=== PATIENT | male | born 1940 | race Caucasian/White ===

== ENCOUNTER 2018-08-03 15:55 | Emergency (ER) | payer OTHER ==
--- NOTE | 2018-08-03 17:30 | RAD REPORT ---
EXAM DESCRIPTION: CT - CTHCSPWOC - 08/03/2018 5:01 pm CLINICAL HISTORY: Fall, head injury, neck injury COMPARISON: None. TECHNIQUE: Axial 5 mm thick images of the head were obtained. Axial 2 mm thick images of the cervic al spine were obtained with sagittal and coronal reconstruction images generated and reviewed. All CT scans are performed using dose optimization technique as appropriate and may include automated exposure control or mA/KV adjustment according to patient size. FINDINGS: No intracranial hemorrhage, mass, edema or acute intracranial finding. No suspicion for acute infarct ion. Mild atrophy chronic ischemic changes. Ventricles are in proportion to volume loss. Mastoid air cells and paranasal sinuses are clear. No globe or orbit abnormality seen. Cervical bodies are normal in height. No fracture or acute cervical spine finding. Slight anterior brice bluxation of C4 on C5 and C5 on C6 secondary to facet joint degenerative change. C5-6 disc space narr owing with endplate spurring. Significant left bony foraminal encroachment at C3-4 from uncovertebral joint hypertrophy and facet hypertrophy. Bilateral foraminal stenosis at C4-5 and significantly at C 5-6. Central canal detail is inherently limited. No paraspinal mass or hematoma. IMPRESSION: Mild atrophy and chronic ischemic change. No acute intracranial finding. Advanced cervical spine degenerative change as detailed. No acute finding.
--- NOTE | 2018-08-03 17:50 | RAD REPORT ---
EXAM DESCRIPTION: RAD - Chest Single View - 08/03/2018 5:21 pm CLINICAL HISTORY: Fall, chest pain COMPARISON: None. TECHNIQUE: AP portable chest image was obtained 1706 hours . FINDINGS: No focal infiltrate. Fibrotic lung changes are present. Prominent bullous changes are pres ent in the mid and upper lung mock. Trachea is midline. Heart and vasculature are normal. No measur able pleural effusion and no pneumothorax. No acute bony abnormality seen. No acute aortic findings s uspected. 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 Fibrotic changes present i n the lung bases. No acute cardiopulmonary finding.
--- NOTE | 2018-08-03 17:51 | RAD REPORT ---
EXAM DESCRIPTION: RAD - Lumbar Spine 3 Views - 08/03/2018 5:21 pm COMPARISON: Fall, back pain FINDINGS: A three-view lumbar spine examination was performed. Lumbar bodies are normal in height an d alignment. No fracture or acute bony process seen. L4-5 disc space narrowing is present with associ ated endplate spurring. Moderate facet joint degenerative changes are present in the mid and lower viky mbar spine. No pars defects identified. IMPRESSION: No fracture or acute lumbar spine finding. Significant degenerative change in the facet joints and at the L4-5 disc level.
--- NOTE | 2018-08-03 18:53 | EDPHYS ---
Physician Documentation [facility] Name: Tony Winston Age: 78 yrs Sex: Male : 1940 Arrival Date: 08/03/2018 Time: 15:58 Bed 28 Private MD: ED Physician Osmel Zapien HPI: 08/03 16:47 This 78 yrs old Male presents to ER via Ambulatory with complaints of Fall snw Injury. 16:47 Details of fall: The patient fell from an upright position, while standing. Onset: The snw symptoms/episode began/occurred suddenly, last night. Associated injuries: The patient sustained struck right elbow on wall and landed on buttock. Severity of symptoms: At their worst the symptoms were mild. It is unknown whether or not the patient has had similar symptoms in the past. It is unknown whether or not the patient has recently seen a physician. sees oncology . Historical: - Allergies: 16:02 No Known Allergies; hj - PMHx: 16:02 kidney cancer; Hypertension; Diabetes - NIDDM; hj - PSHx: 16:02 kidney cancer surgery; hj - Immunization history:: Flu vaccine status is unknown. - Social history:: Smoking status: unknown. - Ebola Screening: : No symptoms or risks identified at this time. ROS: 16:47 Constitutional: Negative for fever, chills, and weight loss, Eyes: Negative for injury, snw pain, redness, and discharge, ENT: Negative for injury, pain, and discharge, Neck: Negative for injury, pain, and swelling, Cardiovascular: Negative for chest pain, palpitations, and edema, Respiratory: Negative for shortness of breath, cough, wheezing, and pleuritic chest pain, Abdomen/GI: Negative for abdominal pain, nausea, vomiting, diarrhea, and constipation, Back: Negative for injury and pain, : Negative for injury, bleeding, discharge, and swelling, Skin: Negative for injury, rash, and discoloration, Neuro: Negative for headache, weakness, numbness, tingling, and seizure. 16:47 MS/extremity: Positive for injury or acute deformity, paresthesias, of the right arm and right elbow. Exam: 16:46 Constitutional: This is a well developed, well nourished patient who is awake, alert, snw and in no acute distress. Head/Face: Normocephalic, atraumatic. Eyes: Pupils equal round and reactive to light, extra-ocular motions intact. Lids and lashes normal. Conjunctiva and sclera are non-icteric and not injected. Cornea within normal limits. Periorbital areas with no swelling, redness, or edema. ENT: Nares patent. No nasal discharge, no septal abnormalities noted. Tympanic membranes are normal and external auditory canals are clear. Oropharynx with no redness, swelling, or masses, exudates, or evidence of obstruction, uvula midline. Mucous membranes moist. Neck: Trachea midline, no thyromegaly or masses palpated, and no cervical lymphadenopathy. Supple, full range of motion without nuchal rigidity, or vertebral point tenderness. No Meningismus. Chest/axilla: Normal chest wall appearance and motion. Nontender with no deformity. No lesions are appreciated. Cardiovascular: Regular rate and rhythm with a normal S1 and S2. No gallops, murmurs, or rubs. Normal PMI, no JVD. No pulse deficits. Respiratory: Lungs have equal breath sounds bilaterally, clear to auscultation and percussion. No rales, rhonchi or wheezes noted. No increased work of breathing, no retractions or nasal flaring. Abdomen/GI: Soft, non-tender, with normal bowel sounds. No distension or tympany. No guarding or rebound. No evidence of tenderness throughout. Back: No spinal tenderness. No costovertebral tenderness. Full range of motion. MS/ Extremity: Pulses equal, no cyanosis. Neurovascular intact. Full, normal range of motion. Pt states right hand is not as responsive as normal, decreased coordination per pt report Neuro: Awake and alert, GCS 15, oriented to person, place, time, and situation. Cranial nerves II-XII grossly intact. Motor strength 5/5 in all extremities. Sensory grossly intact. Cerebellar exam normal. Normal gait. Psych: Awake, alert, with orientation to person, place and time. Behavior, mood, and affect are within normal limits. 16:46 Skin: Appearance: normal except for affected area, injury, contusion(s), that are deep, of the right tricep and right elbow. Vital Signs: 16:02 BP 118 / 72; Pulse 83; Resp 18; Temp 98.1(O); Pulse Ox 96% on R/A; Weight 82.1 kg; hj Height 5 ft. 11 in. (180.34 cm); Pain 0/10; 18:22 BP 134 / 87; Pulse 72; Resp 18; Pulse Ox 96% on R/A; Pain 0/10; mg2 19:14 BP 158 / 67; Pulse 72; Resp 18; Temp 98; Pulse Ox 98% on R/A; Pain 0/10; mg2 16:02 Body Mass Index 25.24 (82.10 kg, 180.34 cm) MDM: 16:04 Patient medically screened. snw 18:54 Data reviewed: vital signs, nurses notes. Data interpreted: Pulse oximetry: on room air snw is 96 %. Interpretation: acceptable. Counseling: I had a detailed discussion with the patient and/or guardian regarding: the historical points, exam findings, and any diagnostic results supporting the discharge/admit diagnosis, radiology results, the need for outpatient follow up, to return to the emergency department if symptoms worsen or persist or if there are any questions or concerns that arise at home. Response to treatment: There is no appreciated change of the patient's symptoms at this time. Special discussion: I have referred the patient to see his PCP for further evaluation of high blood pressure. Based on the patient's history, exam and DX evaluation, there is no indication for emergent intervention or inpatient TX. It is understood by the patient/guardian that if the SXs persist or worsen they need to return immediately for re-evaluation. Based on the history and exam findings, there is no indication for further emergent testing or inpatient evaluation. I discussed with the patient/guardian the need to see the neurologist for further evaluation of the symptoms. I discussed with the patient/guardian the need to see the orthopedic surgeon for further evaluation of the symptoms. I discussed with the patient/guardian the need to see the primary care provider for further evaluation of the symptoms. 08/03 16:05 Order name: CT Head C Spine; Complete Time: 17:34 snw 08/03 16:50 Order name: Lumbar Spine (3 Views) XRAY; Complete Time: 17:54 snw 08/03 16:50 Order name: Wound Care; Complete Time: 18:23 snw 08/03 16:50 Order name: Wound dressing; Complete Time: 18:23 snw 08/03 16:50 Order name: Chest Single View XRAY; Complete Time: 17:54 snw Administered Medications: No medications were administered Disposition: 08/04 07:04 Co-signature as Attending Physician, Osmel Zapien MD. rn Disposition: 08/03/18 18:52 Discharged to Home. Impression: Fall on same level, unspecified, Contusion of right upper arm, Contusion of right elbow, Radiculopathy, cervical region. - Condition is Stable. - Discharge Instructions: Contusion, Cervical Radiculopathy, Fall Prevention in the Home, Elbow Contusion, Cervical Sprain, Cryotherapy, Heat Therapy, Radicular Pain. - Prescriptions for orphenadrine citrate 100 mg Oral Tablet Sustained Release - take 1 tablet by ORAL route 2 times per day As needed; 20 tablet. - Medication Reconciliation Form, Thank You Letter, Antibiotic Education, Prescription Opioid Use form. - Follow up: Private Physician; When: 1 - 2 days; Reason: Recheck today's complaints, Continuance of care, Re-evaluation by your physician. Follow up: Emergency Department; When: As needed; Reason: Worsening of condition. Signatures: Dispatcher [employer] EDMS Юлия Vale, HIGH SCHOOL VICE PRINCIPAL-C HIGH SCHOOL VICE PRINCIPAL-Csnw Osmel Zapien MD MD rn Joaquin, Henry, RN RN hj Gardose, Michele, RN RN mg2 Corrections: (The following items were deleted from the chart) 08/03 19:17 18:52 08/03/2018 18:52 Discharged to Home. Impression: Fall on same level, unspecified; mg2 Contusion of right upper arm; Contusion of right elbow; Radiculopathy, cervical region. Condition is Stable. Forms are Medication Reconciliation Form, Thank You Letter, Antibiotic Education, Prescription Opioid Use. Follow up: Private Physician; When: 1 - 2 days; Reason: Recheck today's complaints, Continuance of care, Re-evaluation by your physician. Follow up: Emergency Department; When: As needed; Reason: Worsening of condition. snw
--- NOTE | 2018-08-03 18:53 | ER ---
Nurse's Notes [facility] Name: Tony Winston Age: 78 yrs Sex: Male : 1940 Arrival Date: 08/03/2018 Time: 15:58 Bed 28 Private MD: Diagnosis: Fall on same level, unspecified;Contusion of right upper arm;Contusion of right elbow;Radiculopathy, cervical region Presentation: 08/03 15:59 Presenting complaint: Patient states: i fell last night around 11:30 pm from a standing hj position, walking and hurt my R side and my tail bone and today my R arm is numbed,; denies hitting head and LOC; reports hx of kidney cancer; reports taking Eliquis;. Transition of care: patient was not received from another setting of care. Onset of symptoms was August 03, 2018. Risk Assessment: Do you want to hurt yourself or someone else? Patient reports no desire to harm self or others. Initial Sepsis Screen: Does the patient meet any 2 criteria? No. Patient's initial sepsis screen is negative. Does the patient have a suspected source of infection? No. Patient's initial sepsis screen is negative. Care prior to arrival: None. 15:59 Method Of Arrival: Ambulatory 15:59 Acuity: JACQUELINE 4 hj Triage Assessment: 19:16 Pain: Denies pain. mg2 Historical: - Allergies: 16:02 No Known Allergies; hj - PMHx: 16:02 kidney cancer; Hypertension; Diabetes - NIDDM; hj - PSHx: 16:02 kidney cancer surgery; hj - Immunization history:: Flu vaccine status is unknown. - Social history:: Smoking status: unknown. - Ebola Screening: : No symptoms or risks identified at this time. Screenin:16 Abuse screen: Denies threats or abuse. Denies injuries from another. Nutritional mg2 screening: No deficits noted. Tuberculosis screening: No symptoms or risk factors identified. Fall Risk Fall in past 12 months (25 points). Gait- Weak (10 pts.). Assessment: 17:16 General: Appears in no apparent distress. comfortable, Behavior is calm, cooperative. mg2 Neuro: Level of Consciousness is awake, alert, obeys commands, Oriented to person, place, time, situation. Cardiovascular: Capillary refill < 3 seconds Patient's skin is warm and dry. Respiratory: Airway is patent Respiratory effort is even, unlabored, Respiratory pattern is regular, symmetrical. GI: No signs and/or symptoms were reported involving the gastrointestinal system. : No signs and/or symptoms were reported regarding the genitourinary system. EENT: No signs and/or symptoms were reported regarding the EENT system. Derm: Derm: Skin is thin, has skin tears on right arm Wound noted right arm Wound is abrasion. Musculoskeletal: Circulation, motion, and sensation intact. Capillary refill < 3 seconds. 17:18 Reassessment: patient sent to ct scan via stretcher. mg2 18:00 Injury Description: Abrasion. mg2 Vital Signs: 16:02 BP 118 / 72; Pulse 83; Resp 18; Temp 98.1(O); Pulse Ox 96% on R/A; Weight 82.1 kg; hj Height 5 ft. 11 in. (180.34 cm); Pain 0/10; 18:22 BP 134 / 87; Pulse 72; Resp 18; Pulse Ox 96% on R/A; Pain 0/10; mg2 19:14 BP 158 / 67; Pulse 72; Resp 18; Temp 98; Pulse Ox 98% on R/A; Pain 0/10; mg2 16:02 Body Mass Index 25.24 (82.10 kg, 180.34 cm) ED Course: 15:58 Patient arrived in ED. hj 15:59 [facility] snw 15:59 Osmel Zapien MD is Attending Physician. snw 16:01 Triage completed. hj 16:02 Arm band placed on left wrist. hj 16:38 Kemar Culver, RACHEL is Primary Nurse. mg2 17:03 CT Head C Spine In Process Unspecified. EDMS 17:14 Lumbar Spine (3 Views) XRAY In Process Unspecified. EDMS 17:14 Chest Single View XRAY In Process Unspecified. EDMS 17:17 Patient has correct armband on for positive identification. Door closed. Warm blanket mg2 given. 17:17 No provider procedures requiring assistance completed. Patient did not have IV access mg2 during this emergency room visit. 18:22 Wound care: to abrasion, located on right arm was cleaned with Betadine, dressed with mg2 Neosporin, 4X4s, Patient tolerated well. Administered Medications: No medications were administered Outcome: 18:52 Discharge ordered by MD. rocha 19:16 Discharged to home via wheelchair, with family. mg2 19:16 Condition: stable 19:16 Discharge instructions given to patient, family, Instructed on discharge instructions, follow up and referral plans. medication usage, wound care, Demonstrated understanding of instructions, follow-up care, medications, wound care, Prescriptions given X 1. 19:17 Patient left the ED. mg2 Signatures: Dispatcher [employer] EDMS Юлия Vale, HARINDER-C CLOTHING ROOM SUPERVISOR-CsnWalter Chappell, RN RN Kemar Culver RN RN mg2 Corrections: (The following items were deleted from the chart) 16:04 16:02 Pulse 83bpm; Resp 18bpm; Pulse Ox 96% RA; Temp 98.1F Oral; 82.1 kg; Height 5 ft. hj 11 in.; BMI: 25.2; Pain 0/10; 16:05 15:59 Presenting complaint: Patient states: i fell last night around 11:30 pm from a hj standing position, walking and today my R arm is numbed; denies hitting head and LOC hj 16:10 15:59 Presenting complaint: Patient states: i fell last night around 11:30 pm from a hj standing position, walking and today my R arm is numbed; denies hitting head and LOC; reports hx of kidney cancer; reports taking Eliquis; 19:16 17:16 Derm: mg2 mg2 19:16 17:16 Musculoskeletal: Circulation, motion, and sensation intact. Capillary refill < 3 mg2 seconds, mg2
== END 2018-08-03 19:17 | disposition home or self-care (01) ==
LOC: ER 15:55
DX: S50.01XA Contusion of right elbow, initial encounter (principal); S40.021A Contusion of right upper arm, initial encounter; M54.12 Radiculopathy, cervical region; W22.09XA Striking against other stationary object, initial encounter; Y93.9 Activity, unspecified; Y92.9 Unspecified place or not applicable; Z85.528 Personal history of other malignant neoplasm of kidney; I10 Essential (primary) hypertension
CPT/HCPCS: 70450; 71045; 72100; 72125; 99283

== ENCOUNTER 2018-08-10 12:03 | Inpatient (IN) | payer OTHER ==
--- NOTE | 2018-08-10 13:17 | R.PREADM ---
SCREENING DATE AND TIME 08/10/2018 12:22 (CDT) ANTICIPATED REHAB ADMISSION DATE 08/12/[address] [facility] [place], [place] REFERRAL DATE AND TIME 08/10/2018 12:22 (CDT) ACUTE ADMIT DATE 08/04/2018 Previous Rehabilitation(s): No. ACUTE ELECTRICAL CHECKOUT MECHANIC/DC DENTAL MECHANIC Makenna Chen REFERRING PHYSICIAN Kwadwo Larson REHAB FACILITY [facility] CLINICAL LIAISON Paul Gonzales PHYSICIAN REVIEWER Dr. Piero De Jesus M.D. MR# [id number] NAME TONY BOUDREAUX ADDRESS [address] [place] [address] PHONE [facility] [id number] DATE OF 1940 AGE 78 SSN# [id number] GENDER male MARITAL STATUS RACE white ADMIT FROM 02 - [facility] PRE-HOSPITAL LIVING SETTING 01 - Home (private home/apt. board/care, assisted living, nursing home, transitional living) HOME TYPE AND DETAILS Type of home: single family house # of steps to enter the residence: 0 # of steps within the residence: 0 # of levels in the residence: 1 PRE-HOSPITAL LIVING WITH Family/Relatives FAMILY SUPPORT Yes PRIMARY FAMILY CONTACT NAME Ira Pablo PRIMARY FAMILY CONTACT PHONE PHONE PRIMARY FAMILY CONTACT ON ADM.? no IS PRIMARY FAMILY CONTACT AUTH. REP.? no 1ST EMERGENCY CONTACT Ira Pablo 1ST CONTACT PHONE PHONE 1ST CONTACT ON ADM. no IS 1ST CONTACT AUTH. REP.? no PHONE 2ND CONTACT ON ADM.? no PATIENT EMPLOYMENT STATUS Retired (for age) PATIENT EMPLOYER No Employer PAYOR INFORMATION: 1ST PAYOR NAME MEDICARE 1ST PAYOR PHONE 1ST PAYOR INJURY/ILLNESS DUE TO ACCIDENT? No ANOTHER LIBERTARIAN RESPONSIBLE? No PRIMARY REHAB/ACUTE DIAGNOSIS: acute infarcts involving left MCA REHAB IMPAIRMENT CATEGORY (SULY): 01 Stroke (STR) MEETS 60% rule AFFECTED EXTREMITIES: RLE, and RUE PRIMARY DIAGNOSIS-RELATED SURGERIES: No surgeries related to the primary diagnosis were performed. 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 is a 78 yo Right-handed white male. On 08/04/2018 Pt. presented to [facility] [place], [place] with sudden onset of right-side weakness. On 08/04/2018 he was admitted to [facility] [place] with diagnosis acute infarcts involving left MCA. His impairment category is Stroke 01 - Right Body (Left Brain) (01.2). Pre-morbidly, Pt. was independent/mod-I in Self-Care, Sphincter Control, Transfers Control, Locomotio n, Communication, and Social Cognition; and he had good Sphincter Control. Currently, he has deficits of Self-Care, Transfers Control, Locomotion, Communication, Social Cogniti on, Endurance, Balance, and Safety Awareness. Pt. is now referred to [facility] for acute in-patient rehabilitation in order to maximize patient's functional independence in activities of daily living, strength, ROM, and mobi lity. Patient has realistic goal of being discharged at assistance level 6-Ciro to reside at Home with Fam rolando/Relatives. Tony Bouderaux is a 78 old male that lives with his son in a single fadumo home. On 08/04/2018, he right unilatera l weakness, gait difficulty and fall and was admitted to [facility] and treated. He is now medically stable but in need of 24-hour nursing, doctor supervision and oversite participate in 3hours of therapy a day/15 hours per week and receive care with an intensive interdisciplinary approach. 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 MEDICATION ALLERGIES: No Known Drug Allergies (NKDA) ENVIRONMENTAL ALLERGIES: - Substance Allergies None Known - Other Allergies None Known CODE STATUS: Full code WEIGHT/HEIGHT/BMI: WEIGHT 200 lbs HEIGHT 5' 11" BMI 27.9 DIET: - Diet Type ADA 1800 eric - Diet - Solid Texture Regular - Diet - Liquid Texture Regular - Tube Feed N/A REVIEW OF SYSTEMS: - Gen Alert and awake Lying in bed No apparent distress Oriented to: person, time, and place - CVS RRR VITAL SIGNS Temperature: 98.8 F SBP/DBP: 175/92 Pulse: 84 Resp: 18 Vital signs stable, afebrile MEDICATIONS/TREATMENT: Other- See attached MAR (Medication Administration Record) [id number].pdf. CURRENT SPHINCTER CONTROL: Pre-hospital bladder status: continent # of bladder accidents in the last 7 days prior to screenin Pre-hospital bowel status: continent # of bowel accidents in the last 7 days prior to screenin Last Bowel Movement Date: 08/10/2018 DETAILED CURRENT FUNCTIONAL STATUS: - Bladder accident frequency: Ind - No accidents in the past 7 days - Bowel accident frequency: Ind - No accidents in the past 7 days - Walking score based on distance walked: 1(<=50ft) - Wheelchair score based on distance traveled: 1(<=50ft) FUNCTIONAL STATUS: - Self-Care A. Eating Ind sup B. Grooming Ind Hellen C. Bathing Ind modA D. Dressing - Upper Ind modA E. Dressing - Lower Ind maxA F. Toileting Ind Hellen - Sphincter Control G: Bladder control Ind Ind H: Bowel control Ind Ind - Transfers Control I. Bed/Chair/Wheelchair Ind Hellen J. Toilet Ind Heleln K. Tub/Shower Ind Hellen - Locomotion L. Walk/Wheelchair (B) Ind Dep L. Walk/Wheelchair (W) Ind Dep M. Stairs Ind ADNO - Communication N. Comprehension (B) Ind Hellen O. Expression (B) Ind sup - Social Cognition P. Social Interaction Ind Hellen Q. Problem Solving Ind sup R. Memory Ind sup - Endurance Fair - Balance Poor - Safety Awareness Poor CURRENT FUNC. DEFICITS: Self-Care, Transfers Control, Locomotion, Communication, Social Cognition, Endurance, Balance, and Sa fety Awareness THERAPY NOTES FROM ACUTE CARE: Attached. SPECIAL NEEDS: - Safety Concerns Skin breakdown precautions needed due to skin breakdown risk PRECAUTIONS: - Weight Bearing Precaution WBAT right LE PATIENT NEEDS ACTIVE AND ONGOING THERAPEUTIC INTERVENTION OF MULTIPLE THERAPY DISCIPLINES, INCLUDING: - Occupational Therapy Cognitive Retraining. Visual Perceptual Training. - Dietary and Nutrition Adequate Nutrition. Nutritional Education. Nutritional Supplements. - Speech Therapy Cognitive Training. Expressive Language Skills. Memory Strategies. Receptive Language Skills. Speech Intelligibility Training. PATIENT NEEDS CLOSE MEDICAL SUPERVISION BY A REHABILITATION PHYSICIAN FOR: Bowel and Bladder Management Coordination of Treatment Team Diabetes Management Medical and Co-Morbidity Management PATIENT REQUIRES 24X7 REHAB NURSING FOR MEDICAL AND FUNCTIONAL MGT. OF THE FOLLOWING DEFICITS: ADL's Ambulation Bowel and Bladder Management Cognition Communication Disease Management Medication Management Patient/Family Education Providing Safe Environment Transfers PATIENT REQUIRES INTENSIVE, COORDINATED INTERDISCIPLINARY APPROACH TO REHAB: Arranging Home Equipment/Services Discharge Planning Family Intervention/Training Paving Foreman/Case Management PATIENT REHAB POTENTIAL: Sherly BOUDREAUX is able and expected to receive 3 hours of individualized therapy daily on at least 5 of ever y 7 days Sherly BOUDREAUX's prognosis for significant practical improvement within a reasonable period of time appears Good Expected level of measurable improvement will be of a practical value to Sherly BOUDREAUX's functional capacit y or adaptations to impairments Has a viable Discharge Plan Medically appropriate; condition is sufficiently stable to participate in intensive rehab program DISCHARGE PLAN: - Estimated Length of Stay (days) 17. - Consensus on plan Discharge plan has been discussed with primary caregiver. Patient/Family is in agreement with the eliana n. Primary caregiver is in agreement with the plan. - Patient/Family Goals Return home with assistance. - Planned Living Setting Upon Discharge Home, to live with Family/Relatives. RECOMMENDED CARE LEVEL: IRF RECOMMENDATION DETAILS: Recommended Admission to Comprehensive Rehabilitation Program to Increase Functional Smith SCREENER'S COMPLETENESS CONFIRMATION: - Screening Confirmation The patient data collection on this preadmission screening form is finished PHYSICIANS REVIEW AND ADMISSION DETERMINATION Admit - Based on my review of the Pre-Admission Screening results, in my medical judgment and experie nce, I concur with the findings and recommend admission to [facility], as this patient requires an IRF level of care. SIGNATURE PANEL: Clinical Liaison - [electronically] signed by Mary Pathak on 08/10/2018 at 13:10 (CDT) Clinical Liaison - [electronically] signed by Paul Gonzales on 08/10/2018 at 13:11 (CDT) Physician Reviewer - [electronically] signed by Dr. Piero De Jesus M.D. on 08/10/2018 at 13:16 (CDT )
--- OUTSIDE RECORDS SUMMARY | 2018-08-10 18:26 | XMS REPORT | Clinical Summary ---
:1940 Author Organization [facility] Address [address] [place] [address] Care Team Providers Name Role Phone Talia Lopez MD Referring Physician Allergies Active Allergy Reactions Severity Noted Date Comments Codeine 08/04/2018 Unknown Medications Medication Sig Dispensed Refills Start End Date Status Date insulin aspart Inject 15 Units 0 Active (NOVOLOG) 100 subcutaneously 3 unit/mL (three) times InPnIndications: daily with meals. Mixed hyperlipidemia, Coronary artery disease involving [place] heart without angina pectoris, unspecified vessel or lesion type tamsulosin Take 1 capsule 30 capsule 0 Active (FLOMAX) 0.4 mg (0.4 mg total) by 7 Cp24 24 hr mouth daily. capsuleIndications : Mixed hyperlipidemia, Coronary artery disease involving [place] heart without angina pectoris, unspecified vessel or lesion type apixaban (ELIQUIS) Take 5 mg by mouth 0 Active 5 mg Tab tablet 2 (two) times daily. atorvastatin Take 1 tablet (10 0 05/05/19 Active (LIPITOR) 10 MG mg total) by mouth 9 20 tablet daily. fenofibrate Take 1 tablet (145 90 tablet 2 05/06/19 Active (TRICOR) 145 MG mg total) by mouth 9 20 tablet daily. insulin glargine Inject 60 Units 0 Active (LANTUS) 100 subcutaneously unit/mL injection nightly Use as directed . mirtazapine Take 15 mg by 0 Active (REMERON) 15 MG mouth nightly. tablet ranitidine Take 150 mg by 0 Active (ZANTAC) 150 MG mouth 2 (two) tablet times daily. cholecalciferol, Take 5,000 Units 0 Active vitamin D3, 5,000 by mouth daily. unit Tab aspirin 81 MG EC Take 81 mg by 0 11/05/19 Discontinued tabletIndications: mouth daily. 18 SOB (shortness of breath), HTN (hypertension) cholecalciferol, Take 5,000 Units 0 08/05/19 Discontinued vitamin D3, 5,000 by mouth daily. 19 unit TabIndications: SOB (shortness of breath), Essential hypertension with goal blood pressure less than 130/80, Coronary artery disease due to lipid rich plaque, Mixed hyperlipidemia, Acute diastolic (congestive) heart failure (HCC) atorvastatin Take 1 tablet (10 90 tablet 2 11/06/19 (LIPITOR) 10 MG mg total) by mouth 7 18 tabletIndications: daily. Mixed hyperlipidemia, Coronary artery disease involving [place] heart without angina pectoris, unspecified vessel or lesion type insulin aspart Inject 0.66 mLs 30 mL 0 08/11/19 Discontinued (NOVOLOG) 100 (66 Units total) 7 19 unit/mL subcutaneously InPnIndications: every evening Mixed before dinner. hyperlipidemia, Coronary artery disease involving [place] heart without angina pectoris, unspecified vessel or lesion type TRAZODONE/DIETARY Take by mouth 0 05/06/19 Discontinued SUPP. NO.8 daily. 19 (TRAZAMINE ORAL)Indications: Coronary artery disease involving [place] coronary artery of [place] heart without angina pectoris, Chronic diastolic heart failure (HCC), Mixed hyperlipidemia warfarin Take 6 mg by mouth 0 05/06/19 Discontinued (COUMADIN) 6 MG daily. 19 tabletIndications: Chronic diastolic heart failure (HCC), Coronary artery disease involving [place] coronary artery of [place] heart without angina pectoris, Mixed hyperlipidemia warfarin Take 1 mg by mouth 0 05/06/19 Discontinued (COUMADIN) 1 MG daily. 19 tabletIndications: Chronic diastolic heart failure (HCC), Coronary artery disease involving [place] coronary artery of [place] heart without angina pectoris, Mixed hyperlipidemia magnesium oxide Take 400 mg by 0 08/05/19 Discontinued (MAG-OX) 400 mg mouth daily. 19 (241.3 mg magnesium) tablet vit A/vit C/vit Take by mouth. 0 08/05/19 Discontinued E/zinc/copper 19 (PRESERVISION AREDS ORAL) magnesium 250 mg Take 30 mg by 0 08/11/19 Discontinued Tab tablet mouth daily. 19 Active Problems Problem Noted Date TIA (transient ischemic attack) 08/05/2018 Acute CVA (cerebrovascular accident) 08/04/2018 DAMIÁN (acute kidney injury) 08/04/2018 Stage 3 chronic kidney disease 08/04/2018 Chronic diastolic heart failure 09/20/2015 Coronary artery disease 08/11/2014 Hyperlipidemia 08/11/2014 Resolved Problems Problem Noted Date Resolved Date Claudication of both lower extremities 01/23/2016 11/05/2017 Encounters Date Type Specialty Care Team Description 08/04/2018 - [facility] General Internal Beni Hollingsworth Acute CVA ( cerebrovascular accident) (HCC) (Primary Dx); 08/10/2018 Encounter Medicine Abelino London MD DAMIÁN (acute kidney injury) (HCC); Kwadwo Larson Stage 3 chronic kidney disease (HCC) MD Irving 08/04/2018 Orders Only General Internal Medicine 08/04/2018 Travel 08/04/2018 Outside Orders Talia Lopez Renal cell carcinoma, unspecified laterality (HCC) (Primary Dx) 05/06/2018 Orders Only Cardiology Iain Aragon, CONRAD 05/06/2018 Telephone Cardiology Iain Aragon, Results FAMILY CONSULTANT 05/05/2018 Office Visit Cardiology Nolvia Milan Coronary artery disease involving [place] coronary artery without angina pectoris, unspecified whether [place] or transplanted heart (Primary Dx); Eliza Landa', Mixed hyperlipidemia; Chronic diastolic heart failure (HCC) 11/04/2017 Office Visit Cardiology Nolvia Milan Chronic diastolic heart failure (HCC) (Primary Dx); Eliza 'Nikos', Coronary artery disease involving [place] coronary artery of [place] heart without angina pectoris; Mixed hyperlipidemia after 08/09/2017 Family History Medical History Relation Name Comments Cancer Other Heart disease Other COPD Other Relation Name Status Comments Other Other Other Social History Tobacco Use Types Packs/Day Years Used Date Former Smoker Cigarettes Smokeless Tobacco: Former User Alcohol Use Drinks/Week oz/Week Comments No Sex Assigned at Date Recorded Not on file Job Start Date Occupation Industry Not on file Not on file Not on file Travel History Travel Start Travel End No recent travel history available. Last Filed Vital Signs Vital Sign Reading Time Taken Blood Pressure 162/86 08/10/2018 4:14 PM CDT Pulse 90 08/10/2018 4:14 PM CDT Temperature 37.3 C (99.1 F) 08/10/2018 4:14 PM CDT Respiratory Rate 18 08/10/2018 4:14 PM CDT Oxygen Saturation 94% 08/10/2018 4:14 PM CDT Inhaled Oxygen Concentration - - Weight 90.7 kg (200 lb) 08/04/2018 12:10 PM CDT Height 180.3 cm (5' 11") 08/04/2018 12:10 PM CDT Body Mass Index 27.89 08/04/2018 12:10 PM CDT Plan of Treatment Date Type Specialty Care Team Description 11/05/2018 Office Visit Cardiology Nolvia Milan MD ([place]) [address] [place] [address] [phone] Procedures Procedure Name Priority Date/Time Associated Comments Diagnosis POCT-GLUCOSE METER Routine 08/10/2018 12:09 Results for this PM CDT procedure are in the results section. CBC W/PLT COUNT & AUTO Routine 08/10/2018 5:28 Results for this DIFFERENTIAL AM CDT procedure are in the results section. BASIC METABOLIC PANEL Routine 08/10/2018 5:28 Results for this (7) AM CDT procedure are in the results section. CBC W/PLT COUNT & AUTO Routine 08/10/2018 5:28 Results for this DIFFERENTIAL AM CDT procedure are in the results section. POCT-GLUCOSE METER Routine 08/09/2018 9:04 Results for this PM CDT procedure are in the results section. POCT-GLUCOSE METER Routine 08/09/2018 5:30 Results for this PM CDT procedure are in the results section. CT/CTA BRAIN Routine 08/09/2018 4:09 Results for this PM CDT procedure are in the results section. POCT-GLUCOSE METER Routine 08/09/2018 12:35 Results for this PM CDT procedure are in the results section. POCT-GLUCOSE METER Routine 08/09/2018 8:15 Results for this AM CDT procedure are in the results section. BASIC METABOLIC PANEL Routine 08/09/2018 5:42 Results for this (7) AM CDT procedure are in the results section. POCT-GLUCOSE METER Routine 08/08/2018 11:51 Results for this PM CDT procedure are in the results section. POCT-GLUCOSE METER Routine 08/08/2018 8:49 Results for this PM CDT procedure are in the results section. POCT-GLUCOSE METER Routine 08/08/2018 5:47 Results for this PM CDT procedure are in the results section. POCT-GLUCOSE METER Routine 08/08/2018 12:47 Results for this PM CDT procedure are in the results section. POCT-GLUCOSE METER Routine 08/08/2018 8:13 Results for this AM CDT procedure are in the results section. (CELLAVISION MANUAL Routine 08/08/2018 3:37 Results for this DIFF) AM CDT procedure are in the results section. CBC W/PLT COUNT & AUTO Routine 08/08/2018 3:37 Results for this DIFFERENTIAL AM CDT procedure are in the results section. BASIC METABOLIC PANEL Routine 08/08/2018 3:37 Results for this (7) AM CDT procedure are in the results section. CBC W/PLT COUNT & AUTO Routine 08/08/2018 3:37 Results for this DIFFERENTIAL AM CDT procedure are in the results section. POCT-GLUCOSE METER Routine 08/07/2018 9:36 Results for this PM CDT procedure are in the results section. POCT-GLUCOSE METER Routine 08/07/2018 5:52 Results for this PM CDT procedure are in the results section. POCT-GLUCOSE METER Routine 08/07/2018 11:47 Results for this AM CDT procedure are in the results section. POCT-GLUCOSE METER Routine 08/07/2018 7:38 Results for this AM CDT procedure are in the results section. (CELLAVISION MANUAL Routine 08/07/2018 5:47 Results for this DIFF) AM CDT procedure are in the results section. CBC W/PLT COUNT & AUTO Routine 08/07/2018 5:47 Results for this DIFFERENTIAL AM CDT procedure are in the results section. CBC W/PLT COUNT & AUTO Routine 08/07/2018 5:47 Results for this DIFFERENTIAL AM CDT procedure are in the results section. BASIC METABOLIC PANEL Routine 08/07/2018 5:47 Results for this (7) AM CDT procedure are in the results section. POCT-GLUCOSE METER Routine 08/06/2018 9:15 Results for this PM CDT procedure are in the results section. POCT-GLUCOSE METER Routine 08/06/2018 5:29 Results for this PM CDT procedure are in the results section. POCT-GLUCOSE METER Routine 08/06/2018 12:07 Results for this PM CDT procedure are in the results section. POCT-GLUCOSE METER Routine 08/06/2018 8:00 Results for this AM CDT procedure are in the results section. CBC W/PLT COUNT & AUTO Routine 08/06/2018 4:34 Results for this DIFFERENTIAL AM CDT procedure are in the results section. CBC W/PLT COUNT & AUTO Routine 08/06/2018 4:34 Results for this DIFFERENTIAL AM CDT procedure are in the results section. BASIC METABOLIC PANEL Routine 08/06/2018 4:34 Results for this (7) AM CDT procedure are in the results section. ECHOCARDIOGRAM REPORT - 08/05/2018 9:11 SCAN PM CDT POCT-GLUCOSE METER Routine 08/05/2018 8:59 Results for this PM CDT procedure are in the results section. POCT-GLUCOSE METER Routine 08/05/2018 7:03 Results for this PM CDT procedure are in the results section. MR SPINE CERVICAL Routine 08/05/2018 6:45 Results for this WITHOUT IV CONTRAST PM CDT procedure are in the results section. MR MRA NECK WITHOUT IV Routine 08/05/2018 6:23 Results for this CONTRAST PM CDT procedure are in the results section. MR MRA HEAD WITHOUT Routine 08/05/2018 6:22 Results for this CONTRAST PM CDT procedure are in the results section. MR BRAIN WITHOUT IV Routine 08/05/2018 6:21 Results for this CONTRAST PM CDT procedure are in the results section. POCT-GLUCOSE METER Routine 08/05/2018 12:19 Results for this PM CDT procedure are in the results section. POCT-GLUCOSE METER Routine 08/05/2018 8:27 Results for this AM CDT procedure are in the results section. HEPATIC FUNCTION PANEL Routine 08/05/2018 6:09 Results for this AM CDT procedure are in the results section. PROTHROMBIN TIME/INR Routine 08/05/2018 6:09 Results for this AM CDT procedure are in the results section. MAGNESIUM Routine 08/05/2018 6:09 Results for this AM CDT procedure are in the results section. LIPID PANEL Routine 08/05/2018 6:09 Results for this AM CDT procedure are in the results section. HEMOGLOBIN A1C Routine 08/05/2018 6:09 Results for this AM CDT procedure are in the results section. PT/APTT Routine 08/05/2018 6:09 Results for this AM CDT procedure are in the results section. CALCIUM, IONIZED Routine 08/05/2018 6:09 Results for this AM CDT procedure are in the results section. BASIC METABOLIC PANEL Routine 08/05/2018 6:09 Results for this (7) AM CDT procedure are in the results section. POCT-GLUCOSE METER Routine 08/04/2018 9:11 Results for this PM CDT procedure are in the results section. 2D ECHO W/ DOPPLER Routine 08/04/2018 8:50 Results for this (CW/PW/COLOR) PM CDT procedure are in the results section. CBC W/PLT COUNT & AUTO Routine 08/04/2018 4:43 Results for this DIFFERENTIAL PM CDT procedure are in the results section. LIPID PANEL Routine 08/04/2018 4:43 Results for this PM CDT procedure are in the results section. VITAMIN B12 Routine 08/04/2018 4:43 Results for this PM CDT procedure are in the results section. TSH/FREE T4 IF Routine 08/04/2018 4:43 Results for this INDICATED PM CDT procedure are in the results section. CBC W/PLT COUNT & AUTO Routine 08/04/2018 4:43 Results for this DIFFERENTIAL PM CDT procedure are in the results section. XR CHEST 1 VIEW STAT 08/04/2018 1:13 Results for this PORTABLE/BEDSIDE PM CDT procedure are in the results section. ECG 12-LEAD Routine 08/04/2018 12:40 PM CDT Procedure Note - Interface, External Ris In - 08/04/2018 3:51 PM CDT Ventricular Rate 75 BPM Atrial Rate 75 BPM P-R Interval 152 ms QRS Duration 86 ms Q-T Interval 370 ms QTC Calculation(Bazett) 413 ms P [place] 10 degrees R [place] 37 degrees T [place] 61 degrees Normal sinus rhythm Normal ECG No previous ECGs available ECG 12-LEAD STAT 08/04/2018 12:40 Results for this PM CDT procedure are in the results section. CBC W/PLT COUNT & STAT 08/04/2018 12:13 Results for this AUTO DIFFERENTIAL PM CDT procedure are in the results section. PT/APTT STAT 08/04/2018 12:13 Results for this PM CDT procedure are in the results section. CBC W/PLT COUNT & STAT 08/04/2018 12:13 Results for this AUTO DIFFERENTIAL PM CDT procedure are in the results section. TROPONIN I STAT 08/04/2018 12:13 Results for this PM CDT procedure are in the results section. B-TYPE NATRIURETIC STAT 08/04/2018 12:13 Results for this FACTOR (BNP) PM CDT procedure are in the results section. MAGNESIUM STAT 08/04/2018 12:13 Results for this PM CDT procedure are in the results section. BASIC METABOLIC STAT 08/04/2018 12:13 Results for this PANEL (7) PM CDT procedure are in the results section. POCT-GLUCOSE METER Routine 08/04/2018 12:09 Results for this PM CDT procedure are in the results section. CT BRAIN/STROKE TEST STAT 08/04/2018 11:59 Results for this DESIGN AM CDT procedure are in the results section. ECG 12-LEAD Routine 05/06/2018 10:07 Coronary artery AM CDT disease involving [place] coronary artery without angina pectoris, unspecified whether [place] or transplanted heart LIPID PANEL Routine 05/05/2018 10:13 Coronary artery Results for this AM CDT disease involving procedure are in [place] coronary artery the results without angina section. pectoris, unspecified whether [place] or transplanted heart Mixed hyperlipidemia Chronic diastolic heart failure (HCC) ECG 12-LEAD Routine 11/07/2017 8:56 Chronic diastolic AM CDT heart failure (HCC) Coronary artery disease involving [place] coronary artery of [place] heart without angina pectoris Mixed hyperlipidemia after 08/09/2017 Results POC-Glucose meter (08/10/2018 12:09 PM CDT)Only the most recent of24 resultswithin the time period is included. POC-Glucose Meter 244 (H)Comment: TESTED AT 70 - 110 mg/dL [facility] [address] [facility] [id number] Specimen Blood Performing Organization Address City/State/Zipcode Phone Number [address] [address] CENTER CBC with platelet count + automated diff (08/10/2018 5:28 AM CDT)Only the most recent of6 resultswithin the time period is included. WBC 4.7 3.5 - 10.5 K/L [facility] RBC 3.70 (L) 4.63 - 6.08 M/L [facility] Hemoglobin 12.2 (L) 13.7 - 17.5 GM/DL [facility] Hematocrit 37.9 (L) 40.1 - 51.0 % [facility] MCV 102.4 (H)Comment: 79.0 - 92.2 fL [facility] Discordant with [facility] previous result MCH 33.0 (H) 25.7 - 32.2 pg [facility] MCHC 32.2 (L) 32.3 - 36.5 GM/DL [facility] RDW 14.9 (H) 11.6 - 14.4 % [facility] Platelets 152 150 - 450 K/CU MM [facility] MPV 8.9 (L) 9.4 - 12.4 fL [facility] nRBC 0 0 - 0 /100 WBC [facility] % Neutros 39 % [facility] % Lymphs 40 % [facility] % Monos 18 % [facility] % Eos 2 % [facility] % Baso 0 % [facility] # Neutros 1.83 1.78 - 5.38 K/L [facility] # Lymphs 1.88 1.32 - 3.57 K/L [facility] # Monos 0.86 (H) 0.30 - 0.82 K/L [facility] # Eos 0.11 0.04 - 0.54 K/L [facility] # Baso 0.02 0.01 - 0.08 K/L [facility] Immature 0 0 - 1 % [facility] Granulocytes-Relative [facility] Specimen Blood Performing Organization Address City/State/Zipcode Phone Number [facility] [address] [place] [address] [phone] [facility] Basic Metabolic Panel (08/10/2018 5:28 AM CDT)Only the most recent of7 resultswithin the time period is included. Sodium 139 136 - 145 meq/L [facility] Potassium 3.9 3.5 - 5.1 meq/L [facility] Chloride 110 (H) 98 - 107 meq/L [facility] CO2 21 (L) 22 - 29 meq/L [facility] BUN 29 (H) 7 - 21 mg/dL [facility] Creatinine 1.92 (H) 0.57 - 1.25 mg/dL [facility] Glucose 149 (H) 70 - 105 mg/dL [facility] Calcium 8.7 8.4 - 10.2 mg/dL [facility] EGFR 34Comment: ESTIMATED GFR IS mL/min/1.73 sq m [facility] NOT ACCURATE CREATININE [facility] CLEARANCE IN PREDICTING GLOMERULAR FILTRATION RATE. ESTIMATED GFR IS NOT APPLICABLE FOR DIALYSIS PATIENTS. Specimen Blood Performing Organization Address City/State/Zipcode Phone Number [facility] [address] [place] [address] [facility] CTA brain (08/09/2018 4:09 PM CDT) Specimen Narrative Performed At FINAL REPORT [employer] [facility] CT, CTANGIOBRAIN BRAIN CT WITHOUT CONTRAST INDICATION: Stroke COMPARISON: August 04, 2018, correlation to noncontrast MRA of the brain August 05, 2018 TECHNIQUE: Rapid acquisition spiral images were obtained between the skull base and the cranial vertex during intravenous contrast infusion to reconstruct axial images and angiographic 3D maximum intensity projections (MIP). 3-D volumetric reformatted images were created at a dedicated workstation. Precontrast images of the brain were also obtained. DOSE REDUCTION: Dose modulation, iterative reconstruction, and/or weight-based adjustment of the mA/kV was utilized to reduce the radiation dose to as low as reasonably achievable. FINDINGS: CT BRAIN: Pre and postcentral gyrus infarcts demonstrate no hemorrhagic conversion. No new infarct is developed. There is persistent vbwq-da-nkaaiddx volume loss. No midline shift or hydrocephalus is present. There is no abnormal extra-axial fluid. Osseous structures are intact. CTA BRAIN: Atherosclerotic disease is present in the internal carotid arteries intracranially but without flow limitation. Middle cerebral arteries demonstrate normal caliber at least to the sylvian segments. Sylvian and distal cortical branches are grossly preserved. Anterior cerebral arteries are normally patent. The anterior communicating artery is intact. The posterior circulation is intact. The basilar artery is normally perfused. The left vertebral artery is slightly dominant intracranially. IMPRESSION: Evolving, nonhemorrhagic ischemic changes in the left frontal lobe. Minimal atherosclerotic disease with grossly preserved opacification in the major intracranial branches. Relative improvement in intravascular flow may be partially due to artifactual changes in the reference MR angiographic examination or reflect recent treatment changes and blood pressure control. Signed: JR Davi, Loida SUAREZ Report Verified Date/Time:08/09/2018 17:11:20 Reading Location: [address] Neuro Reading Room Procedure Note Interface, External Ris In - 08/09/2018 5:13 PM CD[address] FINAL REPORT CT, CTANGIO BRAIN BRAIN CT WITHOUT CONTRAST INDICATION: Stroke COMPARISON: August 04, 2018, correlation to noncontrast MRA of the brain August 05, 2018 TECHNIQUE: Rapid acquisition spiral images were obtained between the skull base and the cranial vertex during intravenous contrast infusion to reconstruct axial images and angiographic 3D maximum intensity projections (MIP). 3-D volumetric reformatted images were created at a dedicated workstation. Precontrast images of the brain were also obtained. DOSE REDUCTION: Dose modulation, iterative reconstruction, and/or weight-based adjustment of the mA/kV was utilized to reduce the radiation dose to as low as reasonably achievable. FINDINGS: CT BRAIN: Pre and postcentral gyrus infarcts demonstrate no hemorrhagic conversion. No new infarct is developed. There is persistent bypu-oj-nvqjthvj volume loss. No midline shift or hydrocephalus is present. There is no abnormal extra-axial fluid. Osseous structures are intact. CTA BRAIN: Atherosclerotic disease is present in the internal carotid arteries intracranially but without flow limitation. Middle cerebral arteries demonstrate normal caliber at least to the sylvian segments. Sylvian and distal cortical branches are grossly preserved. Anterior cerebral arteries are normally patent. The anterior communicating artery is intact. The posterior circulation is intact. The basilar artery is normally perfused. The left vertebral artery is slightly dominant intracranially. IMPRESSION: Evolving, nonhemorrhagic ischemic changes in the left frontal lobe. Minimal atherosclerotic disease with grossly preserved opacification in the major intracranial branches. Relative improvement in intravascular flow may be partially due to artifactual changes in the reference MR angiographic examination or reflect recent treatment changes and blood pressure control. Signed: JR Davi, Loida SUAREZ Report Verified Date/Time: 08/09/2018 17:11:20 Reading Location: [facility] B1 [id number] Neuro Reading Room Performing Organization Address City/State/Zipcode Phone Number [facility] RIS Manual Differential (08/08/2018 3:37 AM CDT)Only the most recent of2 resultswithin the time period is included. % Neutros 62 % [facility] % Lymphs 29 % [facility] % Monos 5 % [facility] % Bands 4 0 - 10 % [facility] # Neutros 2.17 1.78 - 5.38 K/ul [facility] # Lymphs 1.02 (L) 1.32 - 3.57 K/ul [facility] # Monos 0.18 (L) 0.30 - 0.82 K/uL [facility] # Bands 0.14 0.00 - 0.80 K/uL [facility] Total Counted 100 [facility] nRBC (manual) 1 (H) 0 - 0 /100 WBC [facility] WBC Morphology Normal [facility] Clumped Platelet Present [facility] Giant Platelet Present [facility] Polychromasia 1+ few [facility] Anisocytosis 2+ moderate [facility] Microcytes 1+ few [facility] Macrocytes 2+ moderate [facility] Poikilocytes 1+ few [facility] Ovalocytes 1+ few [facility] Artifact Present [facility] Platelet Conc Decreased [facility] Specimen Blood Narrative Performed At Received comment: [facility] User comments: Slide comments: Performing Organization Address City/State/Zipcode Phone Number [facility] [address] [place] [address] CENTER ECHOCARDIOGRAM REPORT - SCAN (08/05/2018 9:11 PM CDT) Narrative Performed At MR spine cervical without IV contrast (08/05/2018 6:45 PM CDT) Specimen Narrative Performed At FINAL REPORT [email or web address] MR, SPINE, CERVICAL, WITHOUT CONTRAST, MR, MRA, NECK, WITHOUT IV CONTRAST, MR, MRA, BRAIN, WITHOUT CONTRAST INDICATION: Ataxia, stroke suspected as etiology TECHNIQUE: Multiplanar, multisequence MR images of the brain.3-D time of flight MRA of the cranial and cervical circulation. 2-D time of flight MRA of the neck. 3D MIP angiographic post-processing was performed. Stenosis evaluation utilized NASCET criteria. Multisequence multiplanar T1, T2 and STIR images of the cervical spine were also acquired without intravenous contrast. COMPARISON: Noncontrast brain CT of the same date FINDINGS: MRI BRAIN: Multiple subcentimeter foci of restricted diffusion with concomitant decreased signal on ADC and FLAIR hyperintensity involving the left MCA territory including the pre and postcentral gyrus. No significant mass effect or hemorrhagic conversion. Brain parenchyma is otherwise normal in morphology. Midline structures are normally developed. No restricted diffusion to suggest recent ischemic insult. Scattered T2/FLAIR hyperintense foci within the periventricular and subcortical white matter are nonspecific, however, statistically represent chronic microvascular ischemic changes. No hydrocephalus. Orbits are within normal limits. No obstructive paranasal sinus disease. Additional findings: None. MRA BRAIN: Internal carotid arteries: Normal flow related enhancementwithout flow-limiting stenosis Middle cerebral arteries: Lack of flow related enhancement within the distal left M1 segment, which demonstrates severe atherosclerotic narrowing. There is lack of flow related enhancement within several left-sided proximal M2 branches with multifocal severe atherosclerotic narrowing. Severe atherosclerotic narrowing of the right distal M1 segment and proximal right M2 segments. Anterior cerebral arteries: Severe atherosclerotic narrowing of the right distal A1 segment of the A1-A2 junction. Normal flow-related enhancement within the left LUIS ARMANDO A1-A2 segments without flow limiting stenosis Basilar system: Normal flow-related enhancement within the bilateral V4 segments and the basilar arterywithout flow-limiting stenosis Posterior cerebral arteries: Normal flow-related enhancement within the bilateral DIETETIC ASSISTANT P1-P2 segmentswithout flow-limiting stenosis Additional findings: None. MRA NECK: Common carotid arteries: Unremarkable. Bifurcations: No flow-limiting stenosis. Cervical internal carotid arteries: No flow limiting stenosis. Vertebral arteries: Origins are not well-seen. No flow limiting stenosis within the visualized cervical vertebral arterial segments. Limited assessment of the V3 segment secondary to noncontrast technique. Cervical spine: Slight grade 1 anterolisthesis of C4 on C5 and C5 on C6. Otherwise, cervical spine demonstrates normal alignment. Vertebral body height is maintained. Mild multilevel disc space height loss, most conspicuous at C3-C4, C4-C5 and C5-C6 Marrow signal intensity is within normal limits for age. Cervical cord demonstrates increased signal intensity at sites of maximal narrowing, most conspicuous at C3-C4. No acute findings within the paraspinal soft tissues. Findings by level: C2/C3: No significant spinal canal or foraminal narrowing C3/C4: Broad-based disc osteophyte complex and ligamentum flavum thickening contribute to severe canal narrowing. Facet arthropathy and hypertrophy with severe left and moderate right-sided foraminal narrowing. C4/C5: Broad-based disc osteophyte complex with superimposed central disc protrusion, ligamentum flavum thickening and bilateral facet arthropathy and hypertrophy. Severe right and moderate/severe left-sided foraminal narrowing. Severe canal stenosis with effacement of the ventral and dorsal CSF spaces. C5/C6: Broad-based disc osteophyte complex, severe bilateral facet arthropathy and hypertrophy and ligamentum flavum thickening in combination with mild grade 1 anterolisthesis of C5 on C6 contribute to severe left-sided foraminal narrowing and moderate/severe canal narrowing. C6/C7: No significant canal or foraminal narrowing C7/T1: No significant canal or foraminal narrowing IMPRESSION: 1. 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 Lack of flow related enhancement within the distal left M1 segment and proximal left M2 segments. This is either secondary to severe atherosclerotic narrowing with diminutive caliber, or, possibly, occlusion. Correlation with CT angiogram is recommended when clinically feasible 3. Severe atherosclerotic narrowing of the contralateral distal right M1 segment and right LUIS ARMANDO at the A1-A2 junction 4. Unremarkable MR angiogram of the neck 5. Severe degenerative disease of the cervical spine with severe canal narrowing at C3-C4 and C4-C5 and moderate/severe narrowing at C5-C6. This is due to a combination of anterior and posterior narrowing by disc disease and ligamentum flavum thickening respectively. Multilevel foraminal narrowing is also present as described above Signed: Delmy Lara MD Report Verified Date/Time:08/05/2018 19:02:53 Reading Location: [facility] [id number] Neuro Reading Room Procedure Note Interface, External Ris In - 08/05/2018 8:03 PM CDT FINAL REPORT MR, SPINE, CERVICAL, WITHOUT CONTRAST, MR, MRA, NECK, WITHOUT IV CONTRAST, MR, MRA, BRAIN, WITHOUT CONTRAST INDICATION: Ataxia, stroke suspected as etiology TECHNIQUE: Multiplanar, multisequence MR images of the brain. 3-D time of flight MRA of the cranial and cervical circulation. 2-D time of flight MRA of the neck. 3D MIP angiographic post-processing was performed. Stenosis evaluation utilized NASCET criteria. Multisequence multiplanar T1, T2 and STIR images of the cervical spine were also acquired without intravenous contrast. COMPARISON: Noncontrast brain CT of the same date FINDINGS: MRI BRAIN: Multiple subcentimeter foci of restricted diffusion with concomitant decreased signal on ADC and FLAIR hyperintensity involving the left MCA territory including the pre and postcentral gyrus. No significant mass effect or hemorrhagic conversion. Brain parenchyma is otherwise normal in morphology. Midline structures are normally developed. No restricted diffusion to suggest recent ischemic insult. Scattered T2/FLAIR hyperintense foci within the periventricular and subcortical white matter are nonspecific, however, statistically represent chronic microvascular ischemic changes. No hydrocephalus. Orbits are within normal limits. No obstructive paranasal sinus disease. Additional findings: None. MRA BRAIN: Internal carotid arteries: Normal flow related enhancement without flow-limiting stenosis Middle cerebral arteries: Lack of flow related enhancement within the distal left M1 segment, which demonstrates severe atherosclerotic narrowing. There is lack of flow related enhancement within several left-sided proximal M2 branches with multifocal severe atherosclerotic narrowing. Severe atherosclerotic narrowing of the right distal M1 segment and proximal right M2 segments. Anterior cerebral arteries: Severe atherosclerotic narrowing of the right distal A1 segment of the A1-A2 junction. Normal flow-related enhancement within the left LUIS ARMANDO A1-A2 segments without flow limiting stenosis Basilar system: Normal flow-related enhancement within the bilateral V4 segments and the basilar artery without flow-limiting stenosis Posterior cerebral arteries: Normal flow-related enhancement within the bilateral DIETETIC ASSISTANT P1-P2 segments without flow-limiting stenosis Additional findings: None. MRA NECK: Common carotid arteries: Unremarkable. Bifurcations: No flow-limiting stenosis. Cervical internal carotid arteries: No flow limiting stenosis. Vertebral arteries: Origins are not well-seen. No flow limiting stenosis within the visualized cervical vertebral arterial segments. Limited assessment of the V3 segment secondary to noncontrast technique. Cervical spine: Slight grade 1 anterolisthesis of C4 on C5 and C5 on C6. Otherwise, cervical spine demonstrates normal alignment. Vertebral body height is maintained. Mild multilevel disc space height loss, most conspicuous at C3-C4, C4-C5 and C5-C6 Marrow signal intensity is within normal limits for age. Cervical cord demonstrates increased signal intensity at sites of maximal narrowing, most conspicuous at C3-C4. No acute findings within the paraspinal soft tissues. Findings by level: C2/C3: No significant spinal canal or foraminal narrowing C3/C4: Broad-based disc osteophyte complex and ligamentum flavum thickening contribute to severe canal narrowing. Facet arthropathy and hypertrophy with severe left and moderate right-sided foraminal narrowing. C4/C5: Broad-based disc osteophyte complex with superimposed central disc protrusion, ligamentum flavum thickening and bilateral facet arthropathy and hypertrophy. Severe right and moderate/severe left-sided foraminal narrowing. Severe canal stenosis with effacement of the ventral and dorsal CSF spaces. C5/C6: Broad-based disc osteophyte complex, severe bilateral facet arthropathy and hypertrophy and ligamentum flavum thickening in combination with mild grade 1 anterolisthesis of C5 on C6 contribute to severe left-sided foraminal narrowing and moderate/severe canal narrowing. C6/C7: No significant canal or foraminal narrowing C7/T1: No significant canal or foraminal narrowing IMPRESSION: 1. 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 Lack of flow related enhancement within the distal left M1 segment and proximal left M2 segments. This is either secondary to severe atherosclerotic narrowing with diminutive caliber, or, possibly, occlusion. Correlation with CT angiogram is recommended when clinically feasible 3. Severe atherosclerotic narrowing of the contralateral distal right M1 segment and right LUIS ARMANDO at the A1-A2 junction 4. Unremarkable MR angiogram of the neck 5. Severe degenerative disease of the cervical spine with severe canal narrowing at C3-C4 and C4-C5 and moderate/severe narrowing at C5-C6. This is due to a combination of anterior and posterior narrowing by disc disease and ligamentum flavum thickening respectively. Multilevel foraminal narrowing is also present as described above Signed: Delmy Lara MD Report Verified Date/Time: 08/05/2018 19:02:53 Reading Location: [id number] Neuro Reading Room Performing Organization Address City/State/Zipcode Phone Number [email or web address] MRA neck without IV contrast (08/05/2018 6:23 PM CDT) Specimen Narrative Performed At FINAL REPORT [email or web address] MR, SPINE, CERVICAL, WITHOUT CONTRAST, MR, MRA, NECK, WITHOUT IV CONTRAST, MR, MRA, BRAIN, WITHOUT CONTRAST INDICATION: Ataxia, stroke suspected as etiology TECHNIQUE: Multiplanar, multisequence MR images of the brain.3-D time of flight MRA of the cranial and cervical circulation. 2-D time of flight MRA of the neck. 3D MIP angiographic post-processing was performed. Stenosis evaluation utilized NASCET criteria. Multisequence multiplanar T1, T2 and STIR images of the cervical spine were also acquired without intravenous contrast. COMPARISON: Noncontrast brain CT of the same date FINDINGS: MRI BRAIN: Multiple subcentimeter foci of restricted diffusion with concomitant decreased signal on ADC and FLAIR hyperintensity involving the left MCA territory including the pre and postcentral gyrus. No significant mass effect or hemorrhagic conversion. Brain parenchyma is otherwise normal in morphology. Midline structures are normally developed. No restricted diffusion to suggest recent ischemic insult. Scattered T2/FLAIR hyperintense foci within the periventricular and subcortical white matter are nonspecific, however, statistically represent chronic microvascular ischemic changes. No hydrocephalus. Orbits are within normal limits. No obstructive paranasal sinus disease. Additional findings: None. MRA BRAIN: Internal carotid arteries: Normal flow related enhancementwithout flow-limiting stenosis Middle cerebral arteries: Lack of flow related enhancement within the distal left M1 segment, which demonstrates severe atherosclerotic narrowing. There is lack of flow related enhancement within several left-sided proximal M2 branches with multifocal severe atherosclerotic narrowing. Severe atherosclerotic narrowing of the right distal M1 segment and proximal right M2 segments. Anterior cerebral arteries: Severe atherosclerotic narrowing of the right distal A1 segment of the A1-A2 junction. Normal flow-related enhancement within the left LUIS ARMANDO A1-A2 segments without flow limiting stenosis Basilar system: Normal flow-related enhancement within the bilateral V4 segments and the basilar arterywithout flow-limiting stenosis Posterior cerebral arteries: Normal flow-related enhancement within the bilateral DIETETIC ASSISTANT P1-P2 segmentswithout flow-limiting stenosis Additional findings: None. MRA NECK: Common carotid arteries: Unremarkable. Bifurcations: No flow-limiting stenosis. Cervical internal carotid arteries: No flow limiting stenosis. Vertebral arteries: Origins are not well-seen. No flow limiting stenosis within the visualized cervical vertebral arterial segments. Limited assessment of the V3 segment secondary to noncontrast technique. Cervical spine: Slight grade 1 anterolisthesis of C4 on C5 and C5 on C6. Otherwise, cervical spine demonstrates normal alignment. Vertebral body height is maintained. Mild multilevel disc space height loss, most conspicuous at C3-C4, C4-C5 and C5-C6 Marrow signal intensity is within normal limits for age. Cervical cord demonstrates increased signal intensity at sites of maximal narrowing, most conspicuous at C3-C4. No acute findings within the paraspinal soft tissues. Findings by level: C2/C3: No significant spinal canal or foraminal narrowing C3/C4: Broad-based disc osteophyte complex and ligamentum flavum thickening contribute to severe canal narrowing. Facet arthropathy and hypertrophy with severe left and moderate right-sided foraminal narrowing. C4/C5: Broad-based disc osteophyte complex with superimposed central disc protrusion, ligamentum flavum thickening and bilateral facet arthropathy and hypertrophy. Severe right and moderate/severe left-sided foraminal narrowing. Severe canal stenosis with effacement of the ventral and dorsal CSF spaces. C5/C6: Broad-based disc osteophyte complex, severe bilateral facet arthropathy and hypertrophy and ligamentum flavum thickening in combination with mild grade 1 anterolisthesis of C5 on C6 contribute to severe left-sided foraminal narrowing and moderate/severe canal narrowing. C6/C7: No significant canal or foraminal narrowing C7/T1: No significant canal or foraminal narrowing IMPRESSION: 1. 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 Lack of flow related enhancement within the distal left M1 segment and proximal left M2 segments. This is either secondary to severe atherosclerotic narrowing with diminutive caliber, or, possibly, occlusion. Correlation with CT angiogram is recommended when clinically feasible 3. Severe atherosclerotic narrowing of the contralateral distal right M1 segment and right LUIS ARMANDO at the A1-A2 junction 4. Unremarkable MR angiogram of the neck 5. Severe degenerative disease of the cervical spine with severe canal narrowing at C3-C4 and C4-C5 and moderate/severe narrowing at C5-C6. This is due to a combination of anterior and posterior narrowing by disc disease and ligamentum flavum thickening respectively. Multilevel foraminal narrowing is also present as described above Signed: Delmy Lara MD Report Verified Date/Time:08/05/2018 19:02:53 Reading Location: [address] Neuro Reading Room Procedure Note Interface, External Ris In - 08/05/2018 8:03 PM CDT FINAL REPORT MR, SPINE, CERVICAL, WITHOUT CONTRAST, MR, MRA, NECK, WITHOUT IV CONTRAST, MR, MRA, BRAIN, WITHOUT CONTRAST INDICATION: Ataxia, stroke suspected as etiology TECHNIQUE: Multiplanar, multisequence MR images of the brain. 3-D time of flight MRA of the cranial and cervical circulation. 2-D time of flight MRA of the neck. 3D MIP angiographic post-processing was performed. Stenosis evaluation utilized NASCET criteria. Multisequence multiplanar T1, T2 and STIR images of the cervical spine were also acquired without intravenous contrast. COMPARISON: Noncontrast brain CT of the same date FINDINGS: MRI BRAIN: Multiple subcentimeter foci of restricted diffusion with concomitant decreased signal on ADC and FLAIR hyperintensity involving the left MCA territory including the pre and postcentral gyrus. No significant mass effect or hemorrhagic conversion. Brain parenchyma is otherwise normal in morphology. Midline structures are normally developed. No restricted diffusion to suggest recent ischemic insult. Scattered T2/FLAIR hyperintense foci within the periventricular and subcortical white matter are nonspecific, however, statistically represent chronic microvascular ischemic changes. No hydrocephalus. Orbits are within normal limits. No obstructive paranasal sinus disease. Additional findings: None. MRA BRAIN: Internal carotid arteries: Normal flow related enhancement without flow-limiting stenosis Middle cerebral arteries: Lack of flow related enhancement within the distal left M1 segment, which demonstrates severe atherosclerotic narrowing. There is lack of flow related enhancement within several left-sided proximal M2 branches with multifocal severe atherosclerotic narrowing. Severe atherosclerotic narrowing of the right distal M1 segment and proximal right M2 segments. Anterior cerebral arteries: Severe atherosclerotic narrowing of the right distal A1 segment of the A1-A2 junction. Normal flow-related enhancement within the left LUIS ARMANDO A1-A2 segments without flow limiting stenosis Basilar system: Normal flow-related enhancement within the bilateral V4 segments and the basilar artery without flow-limiting stenosis Posterior cerebral arteries: Normal flow-related enhancement within the bilateral DIETETIC ASSISTANT P1-P2 segments without flow-limiting stenosis Additional findings: None. MRA NECK: Common carotid arteries: Unremarkable. Bifurcations: No flow-limiting stenosis. Cervical internal carotid arteries: No flow limiting stenosis. Vertebral arteries: Origins are not well-seen. No flow limiting stenosis within the visualized cervical vertebral arterial segments. Limited assessment of the V3 segment secondary to noncontrast technique. Cervical spine: Slight grade 1 anterolisthesis of C4 on C5 and C5 on C6. Otherwise, cervical spine demonstrates normal alignment. Vertebral body height is maintained. Mild multilevel disc space height loss, most conspicuous at C3-C4, C4-C5 and C5-C6 Marrow signal intensity is within normal limits for age. Cervical cord demonstrates increased signal intensity at sites of maximal narrowing, most conspicuous at C3-C4. No acute findings within the paraspinal soft tissues. Findings by level: C2/C3: No significant spinal canal or foraminal narrowing C3/C4: Broad-based disc osteophyte complex and ligamentum flavum thickening contribute to severe canal narrowing. Facet arthropathy and hypertrophy with severe left and moderate right-sided foraminal narrowing. C4/C5: Broad-based disc osteophyte complex with superimposed central disc protrusion, ligamentum flavum thickening and bilateral facet arthropathy and hypertrophy. Severe right and moderate/severe left-sided foraminal narrowing. Severe canal stenosis with effacement of the ventral and dorsal CSF spaces. C5/C6: Broad-based disc osteophyte complex, severe bilateral facet arthropathy and hypertrophy and ligamentum flavum thickening in combination with mild grade 1 anterolisthesis of C5 on C6 contribute to severe left-sided foraminal narrowing and moderate/severe canal narrowing. C6/C7: No significant canal or foraminal narrowing C7/T1: No significant canal or foraminal narrowing IMPRESSION: 1. 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 Lack of flow related enhancement within the distal left M1 segment and proximal left M2 segments. This is either secondary to severe atherosclerotic narrowing with diminutive caliber, or, possibly, occlusion. Correlation with CT angiogram is recommended when clinically feasible 3. Severe atherosclerotic narrowing of the contralateral distal right M1 segment and right LUIS ARMANDO at the A1-A2 junction 4. Unremarkable MR angiogram of the neck 5. Severe degenerative disease of the cervical spine with severe canal narrowing at C3-C4 and C4-C5 and moderate/severe narrowing at C5-C6. This is due to a combination of anterior and posterior narrowing by disc disease and ligamentum flavum thickening respectively. Multilevel foraminal narrowing is also present as described above Signed: Delmy Lara MD Report Verified Date/Time: 08/05/2018 19:02:53 Reading Location: [address] Neuro Reading Room Performing Organization Address City/State/Zipcode Phone Number [email or web address] MRA head without IV contrast (08/05/2018 6:22 PM CDT) Specimen Narrative Performed At FINAL REPORT [email or web address] MR, SPINE, CERVICAL, WITHOUT CONTRAST, MR, MRA, NECK, WITHOUT IV CONTRAST, MR, MRA, BRAIN, WITHOUT CONTRAST INDICATION: Ataxia, stroke suspected as etiology TECHNIQUE: Multiplanar, multisequence MR images of the brain.3-D time of flight MRA of the cranial and cervical circulation. 2-D time of flight MRA of the neck. 3D MIP angiographic post-processing was performed. Stenosis evaluation utilized NASCET criteria. Multisequence multiplanar T1, T2 and STIR images of the cervical spine were also acquired without intravenous contrast. COMPARISON: Noncontrast brain CT of the same date FINDINGS: MRI BRAIN: Multiple subcentimeter foci of restricted diffusion with concomitant decreased signal on ADC and FLAIR hyperintensity involving the left MCA territory including the pre and postcentral gyrus. No significant mass effect or hemorrhagic conversion. Brain parenchyma is otherwise normal in morphology. Midline structures are normally developed. No restricted diffusion to suggest recent ischemic insult. Scattered T2/FLAIR hyperintense foci within the periventricular and subcortical white matter are nonspecific, however, statistically represent chronic microvascular ischemic changes. No hydrocephalus. Orbits are within normal limits. No obstructive paranasal sinus disease. Additional findings: None. MRA BRAIN: Internal carotid arteries: Normal flow related enhancementwithout flow-limiting stenosis Middle cerebral arteries: Lack of flow related enhancement within the distal left M1 segment, which demonstrates severe atherosclerotic narrowing. There is lack of flow related enhancement within several left-sided proximal M2 branches with multifocal severe atherosclerotic narrowing. Severe atherosclerotic narrowing of the right distal M1 segment and proximal right M2 segments. Anterior cerebral arteries: Severe atherosclerotic narrowing of the right distal A1 segment of the A1-A2 junction. Normal flow-related enhancement within the left LUIS ARMANDO A1-A2 segments without flow limiting stenosis Basilar system: Normal flow-related enhancement within the bilateral V4 segments and the basilar arterywithout flow-limiting stenosis Posterior cerebral arteries: Normal flow-related enhancement within the bilateral DIETETIC ASSISTANT P1-P2 segmentswithout flow-limiting stenosis Additional findings: None. MRA NECK: Common carotid arteries: Unremarkable. Bifurcations: No flow-limiting stenosis. Cervical internal carotid arteries: No flow limiting stenosis. Vertebral arteries: Origins are not well-seen. No flow limiting stenosis within the visualized cervical vertebral arterial segments. Limited assessment of the V3 segment secondary to noncontrast technique. Cervical spine: Slight grade 1 anterolisthesis of C4 on C5 and C5 on C6. Otherwise, cervical spine demonstrates normal alignment. Vertebral body height is maintained. Mild multilevel disc space height loss, most conspicuous at C3-C4, C4-C5 and C5-C6 Marrow signal intensity is within normal limits for age. Cervical cord demonstrates increased signal intensity at sites of maximal narrowing, most conspicuous at C3-C4. No acute findings within the paraspinal soft tissues. Findings by level: C2/C3: No significant spinal canal or foraminal narrowing C3/C4: Broad-based disc osteophyte complex and ligamentum flavum thickening contribute to severe canal narrowing. Facet arthropathy and hypertrophy with severe left and moderate right-sided foraminal narrowing. C4/C5: Broad-based disc osteophyte complex with superimposed central disc protrusion, ligamentum flavum thickening and bilateral facet arthropathy and hypertrophy. Severe right and moderate/severe left-sided foraminal narrowing. Severe canal stenosis with effacement of the ventral and dorsal CSF spaces. C5/C6: Broad-based disc osteophyte complex, severe bilateral facet arthropathy and hypertrophy and ligamentum flavum thickening in combination with mild grade 1 anterolisthesis of C5 on C6 contribute to severe left-sided foraminal narrowing and moderate/severe canal narrowing. C6/C7: No significant canal or foraminal narrowing C7/T1: No significant canal or foraminal narrowing IMPRESSION: 1. 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 Lack of flow related enhancement within the distal left M1 segment and proximal left M2 segments. This is either secondary to severe atherosclerotic narrowing with diminutive caliber, or, possibly, occlusion. Correlation with CT angiogram is recommended when clinically feasible 3. Severe atherosclerotic narrowing of the contralateral distal right M1 segment and right LUIS ARMANDO at the A1-A2 junction 4. Unremarkable MR angiogram of the neck 5. Severe degenerative disease of the cervical spine with severe canal narrowing at C3-C4 and C4-C5 and moderate/severe narrowing at C5-C6. This is due to a combination of anterior and posterior narrowing by disc disease and ligamentum flavum thickening respectively. Multilevel foraminal narrowing is also present as described above Signed: Delmy Lara MD Report Verified Date/Time:08/05/2018 19:02:53 Reading Location: [address] Neuro Reading Room Procedure Note Interface, External Ris In - 08/05/2018 8:03 PM CDT FINAL REPORT MR, SPINE, CERVICAL, WITHOUT CONTRAST, MR, MRA, NECK, WITHOUT IV CONTRAST, MR, MRA, BRAIN, WITHOUT CONTRAST INDICATION: Ataxia, stroke suspected as etiology TECHNIQUE: Multiplanar, multisequence MR images of the brain. 3-D time of flight MRA of the cranial and cervical circulation. 2-D time of flight MRA of the neck. 3D MIP angiographic post-processing was performed. Stenosis evaluation utilized NASCET criteria. Multisequence multiplanar T1, T2 and STIR images of the cervical spine were also acquired without intravenous contrast. COMPARISON: Noncontrast brain CT of the same date FINDINGS: MRI BRAIN: Multiple subcentimeter foci of restricted diffusion with concomitant decreased signal on ADC and FLAIR hyperintensity involving the left MCA territory including the pre and postcentral gyrus. No significant mass effect or hemorrhagic conversion. Brain parenchyma is otherwise normal in morphology. Midline structures are normally developed. No restricted diffusion to suggest recent ischemic insult. Scattered T2/FLAIR hyperintense foci within the periventricular and subcortical white matter are nonspecific, however, statistically represent chronic microvascular ischemic changes. No hydrocephalus. Orbits are within normal limits. No obstructive paranasal sinus disease. Additional findings: None. MRA BRAIN: Internal carotid arteries: Normal flow related enhancement without flow-limiting stenosis Middle cerebral arteries: Lack of flow related enhancement within the distal left M1 segment, which demonstrates severe atherosclerotic narrowing. There is lack of flow related enhancement within several left-sided proximal M2 branches with multifocal severe atherosclerotic narrowing. Severe atherosclerotic narrowing of the right distal M1 segment and proximal right M2 segments. Anterior cerebral arteries: Severe atherosclerotic narrowing of the right distal A1 segment of the A1-A2 junction. Normal flow-related enhancement within the left LUIS ARMANDO A1-A2 segments without flow limiting stenosis Basilar system: Normal flow-related enhancement within the bilateral V4 segments and the basilar artery without flow-limiting stenosis Posterior cerebral arteries: Normal flow-related enhancement within the bilateral [employer]IST[employer] P1-P2 segments without flow-limiting stenosis Additional findings: None. MRA NECK: Common carotid arteries: Unremarkable. Bifurcations: No flow-limiting stenosis. Cervical internal carotid arteries: No flow limiting stenosis. Vertebral arteries: Origins are not well-seen. No flow limiting stenosis within the visualized cervical vertebral arterial segments. Limited assessment of the V3 segment secondary to noncontrast technique. Cervical spine: Slight grade 1 anterolisthesis of C4 on C5 and C5 on C6. Otherwise, cervical spine demonstrates normal alignment. Vertebral body height is maintained. Mild multilevel disc space height loss, most conspicuous at C3-C4, C4-C5 and C5-C6 Marrow signal intensity is within normal limits for age. Cervical cord demonstrates increased signal intensity at sites of maximal narrowing, most conspicuous at C3-C4. No acute findings within the paraspinal soft tissues. Findings by level: C2/C3: No significant spinal canal or foraminal narrowing C3/C4: Broad-based disc osteophyte complex and ligamentum flavum thickening contribute to severe canal narrowing. Facet arthropathy and hypertrophy with severe left and moderate right-sided foraminal narrowing. C4/C5: Broad-based disc osteophyte complex with superimposed central disc protrusion, ligamentum flavum thickening and bilateral facet arthropathy and hypertrophy. Severe right and moderate/severe left-sided foraminal narrowing. Severe canal stenosis with effacement of the ventral and dorsal CSF spaces. C5/C6: Broad-based disc osteophyte complex, severe bilateral facet arthropathy and hypertrophy and ligamentum flavum thickening in combination with mild grade 1 anterolisthesis of C5 on C6 contribute to severe left-sided foraminal narrowing and moderate/severe canal narrowing. C6/C7: No significant canal or foraminal narrowing C7/T1: No significant canal or foraminal narrowing IMPRESSION: 1. 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 Lack of flow related enhancement within the distal left M1 segment and proximal left M2 segments. This is either secondary to severe atherosclerotic narrowing with diminutive caliber, or, possibly, occlusion. Correlation with CT angiogram is recommended when clinically feasible 3. Severe atherosclerotic narrowing of the contralateral distal right M1 segment and right LUIS ARMANDO at the A1-A2 junction 4. Unremarkable MR angiogram of the neck 5. Severe degenerative disease of the cervical spine with severe canal narrowing at C3-C4 and C4-C5 and moderate/severe narrowing at C5-C6. This is due to a combination of anterior and posterior narrowing by disc disease and ligamentum flavum thickening respectively. Multilevel foraminal narrowing is also present as described above Signed: Delmy Lara MD Report Verified Date/Time: 08/05/2018 19:02:53 Reading Location: [address] Neuro Reading Room Performing Organization Address City/State/Zipcode Phone Number [email or web address] MR brain without IV contrast (08/05/2018 6:21 PM CDT) Specimen Narrative Performed At FINAL REPORT [email or web address] MR, BRAIN, WITHOUT CONTRAST INDICATION: Cerebral ischemia Technique: MRI of the brain utilizing axial T1, T2, FLAIR, GRE, DWI, sagittal T1; and postgadolinium axial, sagittal, and coronal T1-weighted images. COMPARISON: None FINDINGS: Multiple subcentimeter foci of restricted diffusion with concomitant decreased signal on ADC and FLAIR hyperintensity within the left MCA territory including the pre and postcentral gyrus. No hemorrhagic conversion or significant mass effect. Brain parenchyma is otherwise normal in morphology. Midline structures are normally developed.No abnormal susceptibility. Scattered T2/FLAIR hyperintense foci within the periventricular and subcortical white matter are nonspecific, however, statistically represent chronic microvascular ischemic changes. No hydrocephalus. Orbits are within normal limits. No obstructive paranasal sinus disease. Additional findings: None. IMPRESSION: Multiple subcentimeter acute infarcts within the left MCA territory including the pre and postcentral gyrus Signed: Delmy Lara MD Report Verified Date/Time:08/05/2018 17:53:47 Reading Location: [address] Neuro Reading Room Procedure Note Interface, External Ris In - 08/05/2018 6:22 PM CDT FINAL REPORT MR, BRAIN, WITHOUT CONTRAST INDICATION: Cerebral ischemia Technique: MRI of the brain utilizing axial T1, T2, FLAIR, GRE, DWI, sagittal T1; and postgadolinium axial, sagittal, and coronal T1-weighted images. COMPARISON: None FINDINGS: Multiple subcentimeter foci of restricted diffusion with concomitant decreased signal on ADC and FLAIR hyperintensity within the left MCA territory including the pre and postcentral gyrus. No hemorrhagic conversion or significant mass effect. Brain parenchyma is otherwise normal in morphology. Midline structures are normally developed. No abnormal susceptibility. Scattered T2/FLAIR hyperintense foci within the periventricular and subcortical white matter are nonspecific, however, statistically represent chronic microvascular ischemic changes. No hydrocephalus. Orbits are within normal limits. No obstructive paranasal sinus disease. Additional findings: None. IMPRESSION: Multiple subcentimeter acute infarcts within the left MCA territory including the pre and postcentral gyrus Signed: Delmy Lara MD Report Verified Date/Time: 08/05/2018 17:53:47 Reading Location: [address] Neuro Reading Room Performing Organization Address City/State/Zipcode Phone Number RIS PT/aPTT (08/05/2018 6:09 AM CDT)Only the most recent of2 resultswithin the time period is included. Protime 14.1 11.9 - 14.2 seconds [facility] INR 1.2 <=5.9 [facility] PTT 34.9 22.5 - 36.0 seconds [facility] Specimen Blood Narrative Performed At Effective 07/08/2018: PT Reference Range [facility] Change New: 11.9-14.2Previous: 11.7-14.7 RECOMMENDED COUMADIN/WARFARIN INR THERAPY RANGES STANDARD DOSE: 2.0-3.0Includes: PROPHYLAXIS for venous thrombosis, systemic embolization; TREATMENT for venous thrombosis and/or pulmonary embolus. HIGH RISK: Target INR is 2.5-3.5 for patients wiht mechanical heart valves. Performing Organization Address [facility] Phone Number [address] [address] [phone] [place] Calcium, Ionized (08/05/2018 6:09 AM CDT) Calcium, Ion 1.14 1.12 - 1.27 mmol/L [facility] pH, Blood 7.40 [facility] Specimen Blood Performing Organization Address [facility]/[place] Phone Number [address] [address] [place] Prothrombin time/INR (08/05/2018 6:09 AM CDT) Protime 14.1 11.9 - 14.2 seconds [facility] INR 1.2 <=5.9 [facility] Specimen Blood Narrative Performed At Effective 07/08/2018: PT Reference Range [facility] Change New: 11.9-14.2Previous: 11.7-14.7 RECOMMENDED COUMADIN/WARFARIN INR THERAPY RANGES STANDARD DOSE: 2.0-3.0Includes: PROPHYLAXIS for venous thrombosis, systemic embolization; TREATMENT for venous thrombosis and/or pulmonary embolus. HIGH RISK: Target INR is 2.5-3.5 for patients wiht mechanical heart valves. Performing Organization Address [facility] Phone Number [address] [address] CENTER Magnesium (08/05/2018 6:09 AM CDT)Only the most recent of2 resultswithin the time period is included. Magnesium 1.8 1.6 - 2.6 mg/dL [facility] Specimen Blood Performing Organization Address City/State/Zipcode Phone Number [facility] [address] [place] [address] [place] Hemoglobin A1c (08/05/2018 6:09 AM CDT) Hemoglobin A1C 6.7 (H) 4.3 - 6.1 % [facility] Specimen Blood Performing Organization Address City/[facility]/Zipcode Phone Number [address] [address] [place] Hepatic function panel (08/05/2018 6:09 AM CDT) Protein, Total 6.0 6.0 - 8.3 gm/dL [facility] Albumin 3.5 3.5 - 5.0 g/dL [facility] Total Bilirubin 0.5 0.2 - 1.2 mg/dL [facility] Bilirubin, Direct 0.2 0.1 - 0.5 mg/dL [facility] Alkaline Phosphatase 71 40 - 150 U/L [facility] AST 27 5 - 34 U/L [facility] ALT 38 6 - 55 U/L [facility] Specimen Blood Performing Organization Address City/[facility]/Zipcode Phone Number [address] [address] [phone] [place] Lipid panel (08/05/2018 6:09 AM CDT)Only the most recent of3 resultswithin the time period is included. Triglycerides 143 mg/dL [facility] Cholesterol 110 mg/dL [facility] HDL 22 mg/dL [facility] LDL Calculated 59 mg/dL [facility] Specimen Blood Narrative Performed At Triglyceride Reference Range: [facility] Low Risk <150 [id number] High Risk 200-499 Very High Risk>=500 Cholesterol Reference Range: Low Risk <200 [id number] High Risk>240 HDL Cholesterol Reference Range: Low Risk >=60 High Risk <40 LDL Cholesterol Reference Range: Optimal<100 Near [id number] Very High >=190 Performing Organization Address City/State/Zipcode Phone Number [facility] [address] [place] [address] [phone] CENTER 2D Echo W/Doppler(CW/PW/Color) (08/04/2018 8:50 PM CDT) Ejection Fraction [facility] Specimen Narrative Performed At Transthoracic Echocardiography Report (TTE) [facility] Demographics Patient Name CHRIS YARBROUGH of Study 08/04/2018 [id number] GenderMale Visit Number [id number] RaceUnknown [id number] m Number [id number] Number Date of Birth1940 Referring Physician Kwadwo Larson Age78 year(s) Routeman Donovan Mace,Lakshmi Avila [facility] Physician Procedure Type of Study TTE procedure:2DECHO W DOPPLER(CW/PW/COLOR) (Routine) Indications:Stroke . Clinical History HGB 12.7 HCT 39.8 % HX OF CANCER, COPD, CAD, DM, GERD, HX OF BLOOD CLOTS, HTN, HLD, ALFREDO, HIATAL HERNIA Contrast Medium: Bubble Study. Height: 71 inches Weight: 90.72 kg (200 lbs) BSA: 2.11 m^2 BMI: 27.89 kg/m^2 HR: 75 bpm BP: 145/77 mmHg Summary 1. IV saline contrast injection was negative for a PFO (patent foramen ovale) at rest and post Valsalva . 2. Difficult to assess segmental wall motion; overall LV systolic function appears normal based on available views 3. The right ventricular chamber size and systolic function are within normal limits. Previous Study No prior studies from this institution available for comparison. Signature Findings Technical Quality: Technically difficult exam. Left Ventricle Limited 2D exam and Doppler exam to address study in dication. Th e LV endocardium is partially visualized by pr imarily modified/subcostal views. Th e left ventricle is chamber size (by PSLAX di mension) is normal (male - LVIDd 4.2-5.8cm) . No ev idence of LV hypertrophy. Difficult to assess se gmental wall motion; overall LV systolic function ap pears normal based on available views. Left AtriumLA is incompletely visualized, size based on qu alitative assessment. LA size is normal . Right VentricleThe right ventricular chamber size and systolic fu nction are within normal limits. Right Atrium RA size is normal. Atrial SeptumIV saline contrast injection was negative for a PFO (p atent foramen ovale) at rest and post Valsalva . Aortic Valve Mild AoV cusp thickening. Mitral Valve Mild MV leaflet thickening. Tricuspid ValveTV structure is normal. Pulmonic Valve PV is not well visualized. AortaAortic root size (SInus of Valsalva diameter) is no rmal . PericardiumAn echo lucent space is noted consistent with pr ominent pericardial fat pad. IVC/SVC/PA/PV/PleuralThe estimated RA pressure by IVC dynamics 5-10mmHg . Th e inferior vena cava size is normal . Th e inferior vena cava is adequately visualized. Chambers/Structures Left Ventricle LVIDd: 5 cm LV Septum Diastolic: 0.98 cm LV PW Diastolic: 0.89 cm LVOT Diameter: 2.17 cm Aorta Ao Root S of Trang.: 3.29 cm Doppler/Quantitative Measurements LVOT LVOT Diameter: 2.17 cm LVOT Area: 3.7 cm^2 Procedure Note Interface, External Ris In - 08/05/2018 6:04 PM CDT Transthoracic Echocardiography Report (TTE) Demographics Patient Name CHRIS YARBROUGH Date of Study 08/04/2018 Gender Male Visit Number [id number] Race Unknown Room Number 2218 Number Date of 1940 Referring Physician Kwadwo Larson Age 78 year(s) Routeman Donovan Ochoa Management Tech Jesika Mace, Interpreting Karoline Avila [facility] Physician Procedure Type of Study TTE procedure:2DECHO W DOPPLER(CW/PW/COLOR) (Routine) Indications:Stroke . Clinical History HGB 12.7 HCT 39.8 % HX OF CANCER, COPD, CAD, DM, GERD, HX OF BLOOD CLOTS, HTN, HLD, ALFREDO, HIATAL HERNIA Contrast Medium: Bubble Study. Height: 71 inches Weight: 90.72 kg (200 lbs) BSA: 2.11 m^2 BMI: 27.89 kg/m^2 HR: 75 bpm BP: 145/77 mmHg Summary 1. IV saline contrast injection was negative for a PFO (patent foramen ovale) at rest and post Valsalva . 2. Difficult to assess segmental wall motion; overall LV systolic function appears normal based on available views 3. The right ventricular chamber size and systolic function are within normal limits. Previous Study No prior studies from this institution available for comparison. Signature Findings Technical Quality: Technically difficult exam. Left Ventricle Limited 2D exam and Doppler exam to address study indication. The LV endocardium is partially visualized by primarily modified/subcostal views. The left ventricle is chamber size (by PSLAX dimension) is normal (male - LVIDd 4.2-5.8cm) . No evidence of LV hypertrophy. Difficult to assess segmental wall motion; overall LV systolic function appears normal based on available views. Left Atrium LA is incompletely visualized, size based on qualitative assessment. LA size is normal . Right Ventricle The right ventricular chamber size and systolic function are within normal limits. Right Atrium RA size is normal. Atrial Septum IV saline contrast injection was negative for a PFO (patent foramen ovale) at rest and post Valsalva . Aortic Valve Mild AoV cusp thickening. Mitral Valve Mild MV leaflet thickening. Tricuspid Valve TV structure is normal. Pulmonic Valve PV is not well visualized. Aorta Aortic root size (SInus of Valsalva diameter) is normal . Pericardium An echo lucent space is noted consistent with prominent pericardial fat pad. IVC/SVC/PA/PV/Pleural The estimated RA pressure by IVC dynamics 5-10mmHg . The inferior vena cava size is normal . The inferior vena cava is adequately visualized. Chambers/Structures Left Ventricle LVIDd: 5 cm LV Septum Diastolic: 0.98 cm LV PW Diastolic: 0.89 cm LVOT Diameter: 2.17 cm Aorta Ao Root S of Trang.: 3.29 cm Doppler/Quantitative Measurements LVOT LVOT Diameter: 2.17 cm LVOT Area: 3.7 cm^2 Performing Organization Address [facility] Phone Number [facility] TSH/Free T4 If Indicated (08/04/2018 4:43 PM CDT) TSH 4.23 0.35 - 4.94 uIU/mL [facility] Specimen Blood Performing Organization Address [facility] Phone Number [address] [address] [phone] [place] Vitamin B12 (08/04/2018 4:43 PM CDT) Vitamin B12 244 213 - 816 pg/mL [facility] Specimen Blood Performing Organization Address [facility] Phone Number [address] [address] [phone] CENTER XR chest 1 view portable / bedside (08/04/2018 1:13 PM CDT) Specimen Narrative Performed At FINAL REPORT [facility] CLINICAL HISTORY: chest pain TECHNIQUE: 1 view of the chest. COMPARISON: None IMPRESSION: There are no focal infiltrates or effusions. The cardiomediastinal silhouette is magnified by technique. The osseous structures appear intact. Signed: Mohsen Jackson MD Report Verified Date/Time:08/04/2018 14:03:27 Reading Location: [facility] C013 Consult Reading Room Procedure Note Interface, External Ris In - 08/04/2018 2:39 PM CDT FINAL REPORT CLINICAL HISTORY: chest pain TECHNIQUE: 1 view of the chest. COMPARISON: None IMPRESSION: There are no focal infiltrates or effusions. The cardiomediastinal silhouette is magnified by technique. The osseous structures appear intact. Signed: Mohsen Jackson MD Report Verified Date/Time: 08/04/2018 14:03:27 Reading Location: [facility] C013 Consult Reading Room Performing Organization Address [facility]/[place] Phone Number [employer] RIS ECG 12 lead (08/04/2018 12:40 PM CDT)Only the most recent of3 resultswithin the time period is included. Specimen Narrative Performed At Ventricular Rate 75 BPM GE MUSE Atrial Rate 75 BPM P-R Interval 152 ms QRS Duration 86 ms Q-T Interval 370 ms QTC Calculation(Bazett) 413 ms P [place] 10 degrees R [place] 37 degrees T [place] 61 degrees Normal sinus rhythm Normal ECG No previous ECGs available Confirmed by Chris FRIAS BASANT ([id number]) on 08/05/2018 12:16:30 PM Procedure Note Interface, External Ris In - 08/05/2018 12:16 PM CDT Ventricular Rate 75 BPM Atrial Rate 75 BPM P-R Interval 152 ms QRS Duration 86 ms Q-T Interval 370 ms QTC Calculation(Bazett) 413 ms P [place] 10 degrees R [place] 37 degrees T [place] 61 degrees Normal sinus rhythm Normal ECG No previous ECGs available Confirmed by Chris FRIAS BASANT ([id number]) on 08/05/2018 12:16:30 PM Performing Organization Address [facility]/[place] Phone Number [employer] MUSE Troponin I (08/04/2018 12:13 PM CDT) Troponin I <0.01 0.00 - 0.03 ng/mL [facility] Specimen Blood Narrative Performed At Troponin I (TnI) levels must be interpreted [facility] in the context of the presenting symptoms and the clinical findings. Elevated TnI levels indicate myocardial damage, but are not specific for ischemic heart disease. Elevated TnI levels are seen in patients with other cardiac conditions (including myocarditis and congestive heart failure), and slight TnI elevations occur in patients with other conditions, including sepsis, renal failure, acidosis, acute neurological disease, and persistent tachyarrhythmia. Performing Organization Address [facility]/Zipcode Phone Number [address] [address] [place] B-type Natriuretic Factor (BNP) (08/04/2018 12:13 PM CDT) BNP 50 0 - 100 pg/mL [facility] Specimen Blood Performing Organization Address City/[facility] Phone Number [place] [phone] [place] [address] [place] [address] brain/stroke protocol (08/04/2018 11:59 AM CDT) Specimen Narrative Performed At FINAL REPORT [employer] [facility] [facility] CT Head without contrast CLINICAL HISTORY: Hemiplegia right arm weakness TECHNIQUE: Contiguous axial images through the head without contrast. This exam was performed according to the departmental dose optimization program which includes automated exposure control, adjustment of the mA and/or kV according to the patient size, and/or use of an iterative reconstruction technique. COMPARISON: None FINDINGS: There is no CT evidence of acute infarct or intracranial hemorrhage. There is periventricular and subcortical white matter hypodensity which is nonspecific but compatible with chronic microvascular ischemic change. There are atherosclerotic calcifications of the intracranial circulation. There is generalized parenchymal volume loss without hydrocephalus, midline shift, or apparent mass effect. There are no extra-axial fluid collections. The skull is intact. The paranasal sinuses are well-aerated. IMPRESSION: There is no CT evidence of acute infarct or intracranial hemorrhage. The findings were discussed with the stroke neurologist at 12:04 PM Signed: Mohsen Jackson MD Report Verified Date/Time:08/04/2018 12:04:59 Reading Location: [facility] Radiology Reading Room Procedure Note Interface, External Ris In - 08/04/2018 12:07 PM CDT FINAL REPORT CT Head without contrast CLINICAL HISTORY: Hemiplegia right arm weakness TECHNIQUE: Contiguous axial images through the head without contrast. This exam was performed according to the departmental dose optimization program which includes automated exposure control, adjustment of the mA and/or kV according to the patient size, and/or use of an iterative reconstruction technique. COMPARISON: None FINDINGS: There is no CT evidence of acute infarct or intracranial hemorrhage. There is periventricular and subcortical white matter hypodensity which is nonspecific but compatible with chronic microvascular ischemic change. There are atherosclerotic calcifications of the intracranial circulation. There is generalized parenchymal volume loss without hydrocephalus, midline shift, or apparent mass effect. There are no extra-axial fluid collections. The skull is intact. The paranasal sinuses are well-aerated. IMPRESSION: There is no CT evidence of acute infarct or intracranial hemorrhage. The findings were discussed with the stroke neurologist at 12:04 PM Signed: Mohsen Jackson MD Report Verified Date/Time: 08/04/2018 12:04:59 Reading Location: [facility] Radiology Reading Room Performing Organization Address City/State/Zipcode Phone Number GE RIS after 08/09/2017 Insurance Payer Benefit Plan / Group Subscriber ID Type Phone Address MEDICARE MEDICARE A B xxxxxxxxxxx Medicare [facility] GENERIC MEDICARE xxxxxxxxxxx Medigap SUPPLEMENT/INDIVIDUAL SUPPLEMENT Advance Directives For more information, please contact:[address] [phone] Code Status Date Activated Date Inactivated Comments Partial Code 08/08/2018 12:55 PM This code status was determined by: Patient Drug Protocol After Arrest Occurs? No Mechanical Ventilation with Intubation? Yes Bag/Mask? Yes Internal/External Pacemaker? No Transfer to Critical Care? Yes Chest Compressions? No Defibrillation/Cardioversion? No Full Code 08/04/2018 2:47 PM 08/04/2018 4:19 PM This code status was determined by: Patient
--- OUTSIDE RECORDS SUMMARY | 2018-08-10 18:27 | XMS REPORT ---
:1940 [facility] [place] [address] Care Team Providers Name Role Phone CLAIRE SALAZAR Unavailable Unavailable Problems This patient has no known problems. Allergies, Adverse Reactions, Alerts This patient has no known allergies or adverse reactions. Medications This patient has no known medications. Results Test Description Test Time Test Comments Text Results Atomic Results Result Comments POCT-GLUCOSE METER 2018-08-10 12:17:00 Test Item Value Reference Range Comments POC-GLUCOSE METER (BEAKER) (test 244 mg/dL 70-[address] [facility] [address] [facility] fphh=7019) [facility] [address] BASIC METABOLIC [id number] 09:51:00 Test Item Value Reference Range Comments SODIUM (BEAKER) (test 139 meq/L 136-145 dqrj=264) POTASSIUM (BEAKER) (test 3.9 meq/L 3.5-5.1 eivd=884) CHLORIDE (BEAKER) (test 110 meq/L 98-107 njsq=076) CO2 (BEAKER) (test 21 meq/L 22-29 sloo=449) BLOOD UREA NITROGEN 29 mg/dL 7-21 (BEAKER) (test exjm=745) CREATININE (BEAKER) (test 1.92 mg/dL 0.57-1.25 mreo=818) GLUCOSE RANDOM (BEAKER) 149 mg/dL 70-105 (test xzrb=267) CALCIUM (BEAKER) (test 8.7 mg/dL 8.4-10.2 rlol=611) EGFR (BEAKER) (test 34 mL/min/1.73 sq m ESTIMATED GFR IS NOT nbwm=3544) ACCURATE CREATININE CLEARANCE IN PREDICTING GLOMERULAR FILTRATION RATE. ESTIMATED GFR IS NOT APPLICABLE FOR DIALYSIS PATIENTS. CBC W/PLT COUNT & AUTO [id number] 06:36:00 Test Item Value Reference Range Comments WHITE BLOOD CELL COUNT 4.7 K/ L 3.5-10.5 (BEAKER) (test ijwi=801) RED BLOOD CELL COUNT (BEAKER) 3.70 M/ L 4.63-6.08 (test pgyj=267) HEMOGLOBIN (BEAKER) (test 12.2 GM/DL 13.7-17.5 eucu=950) HEMATOCRIT (BEAKER) (test 37.9 % 40.1-51.0 ardt=265) MEAN CORPUSCULAR VOLUME 102.4 fL 79.0-92.2 Discordant with previous (BEAKER) (test mmnn=485) result MEAN CORPUSCULAR HEMOGLOBIN 33.0 pg 25.7-32.2 (BEAKER) (test cyim=272) MEAN CORPUSCULAR HEMOGLOBIN 32.2 GM/DL 32.3-36.5 CONC (BEAKER) (test vmle=133) RED CELL DISTRIBUTION WIDTH 14.9 % 11.6-14.4 (BEAKER) (test clvz=220) PLATELET COUNT (BEAKER) (test 152 K/CU MM 150-450 auwq=098) MEAN PLATELET VOLUME (BEAKER) 8.9 fL 9.4-12.4 (test qwif=513) NUCLEATED RED BLOOD CELLS 0 /100 WBC 0-0 (BEAKER) (test wzzi=011) NEUTROPHILS RELATIVE PERCENT 39 % (BEAKER) (test qobx=924) LYMPHOCYTES RELATIVE PERCENT 40 % (BEAKER) (test esij=707) MONOCYTES RELATIVE PERCENT 18 % (BEAKER) (test ggna=924) EOSINOPHILS RELATIVE PERCENT 2 % (BEAKER) (test axqx=621) BASOPHILS RELATIVE PERCENT 0 % (BEAKER) (test fgqb=004) NEUTROPHILS ABSOLUTE COUNT 1.83 K/ L 1.78-5.38 (BEAKER) (test ejak=395) LYMPHOCYTES ABSOLUTE COUNT 1.88 K/ L 1.32-3.57 (BEAKER) (test misw=926) MONOCYTES ABSOLUTE COUNT 0.86 K/ L 0.30-0.82 (BEAKER) (test egrt=355) EOSINOPHILS ABSOLUTE COUNT 0.11 K/ L 0.04-0.54 (BEAKER) (test aoer=230) BASOPHILS ABSOLUTE COUNT 0.02 K/ L 0.01-0.08 (BEAKER) (test lygv=287) IMMATURE GRANULOCYTES-RELATIVE 0 % 0-1 PERCENT (BEAKER) (test lsgw=3361) POCT-GLUCOSE [id number] 00:07:00 Test Item Value Reference Range Comments POC-GLUCOSE METER (BEAKER) 139 mg/dL 70-110 TESTED AT [address] (test kbaj=1608) [place] [address] POCT-GLUCOSE [id number] 21:11:00 Test Item Value Reference Range Comments POC-GLUCOSE METER (BEAKER) 195 mg/dL 70-110 TESTED AT [address] (test vqkk=8711) [place] [address] POCT-GLUCOSE [id number] 17:40:00 Test Item Value Reference Range Comments POC-GLUCOSE METER (BEAKER) 149 mg/dL 70-110 TESTED AT [address] (test dhzz=8144) [place] [address] CT, CTANGIO [id number] 17:11:00FINAL REPORT CT, CTANGIO BRAINBRAIN CT WITHOUT CONTRAST INDICATION: Stroke COMPARISON: August 04, 2018, correlation to noncontrast MRA of the brain August 05, 2018 TECHNIQUE:Rapid acquisition spiral images were obtained between the skull base and the cranial vertex during intravenous contrast infusion to reconstruct axial images and angiographic 3D maximum intensity projections (MIP). 3-D volumetric reformatted images were created at a dedicated workstation. Precontrast images ofthe brain were also obtained. DOSE REDUCTION: Dose modulation, iterative reconstruction, and/or weight-based adjustment of the mA/kV was utilized to reduce the radiation dose to as low as reasonably achievable. FINDINGS:CT BRAIN:Pre and postcentral gyrus infarcts demonstrate no hemorrhagic conversion. No new infarct is developed. There is persistent eqep-us-cpgegigc volume loss. No midline shift or hydrocephalus is present. There is no abnormal extra-axial fluid. Osseous structures are intact. CTA BRAIN:Atherosclerotic disease is present in the internal carotid arteries intracranially but without flow limitation. Middle cerebral arteries demonstrate normal caliber at least to the sylvian segments. Sylvian and distal cortical branches are grossly preserved. Anterior cerebral arteries are normallypatent. The anterior communicating artery is intact. The posterior circulation is intact. The basilar artery is normally perfused. The left vertebral artery is slightly dominant intracranially. IMPRESSION: Evolving, nonhemorrhagic ischemic changes in the left frontal lobe. Minimal atherosclerotic disease with grossly preserved opacification in the major intracranial branches. Relative improvement inintravascular flow may be partially due to artifactual changes in the reference MR angiographic examination or reflect recent treatment changes and blood pressure control. Signed: JR Davi, Loida Church Verified Date/ Time: 08/09/2018 17:11:20 Reading Location: [facility] B1 C013V Neuro Reading Room POCT- GLUCOSE [id number] 08:18:00 Test Item Value Reference Range Comments POC-GLUCOSE METER (BEAKER) 106 mg/dL 70-110 TESTED AT [address] (test cqxj=6223) [place] [address] BASIC METABOLIC [id number] 06:51:00 Test Item Value Reference Range Comments SODIUM (BEAKER) (test 140 meq/L 136-145 vgce=006) POTASSIUM (BEAKER) (test 3.8 meq/L 3.5-5.1 pmqr=681) CHLORIDE (BEAKER) (test 112 meq/L 98-107 luyh=108) CO2 (BEAKER) (test 22 meq/L 22-29 obrt=752) BLOOD UREA NITROGEN 23 mg/dL 7-21 (BEAKER) (test wkse=308) CREATININE (BEAKER) (test 1.47 mg/dL 0.57-1.25 ozhr=801) GLUCOSE RANDOM (BEAKER) 127 mg/dL 70-105 (test awzk=237) CALCIUM (BEAKER) (test 8.5 mg/dL 8.4-10.2 sgkr=772) EGFR (BEAKER) (test 46 mL/min/1.73 sq m ESTIMATED GFR IS NOT knpd=9032) ACCURATE CREATININE CLEARANCE IN PREDICTING GLOMERULAR FILTRATION RATE. ESTIMATED GFR IS NOT APPLICABLE FOR DIALYSIS PATIENTS. POCT-GLUCOSE [id number] 23:52:00 Test Item Value Reference Range Comments POC-GLUCOSE METER (BEAKER) 184 mg/dL 70-110 TESTED AT [address] (test xcuq=5915) [place] [id number] POCT-GLUCOSE [id number] 20:59:00 Test Item Value Reference Range Comments POC-GLUCOSE METER (BEAKER) 214 mg/dL 70-110 TESTED AT [address] (test uija=8958) [place] [address] POCT-GLUCOSE [id number] 18:04:00 Test Item Value Reference Range Comments POC-GLUCOSE METER (BEAKER) 136 mg/dL 70-110 TESTED AT [address] (test cnmi=0225) [facility] [address] POCT-GLUCOSE [id number] 13:09:00 Test Item Value Reference Range Comments POC-GLUCOSE METER (BEAKER) 182 mg/dL 70-110 TESTED AT [address] (test mpze=8444) [place] [id number] POCT-GLUCOSE [id number] 08:20:00 Test Item Value Reference Range Comments POC-GLUCOSE METER (BEAKER) 139 mg/dL 70-110 TESTED AT [address] (test kxdd=0067) [place] [id number] CBC W/PLT COUNT & AUTO [id number] 08:07:00 Test Item Value Reference Range Comments WHITE BLOOD CELL COUNT (BEAKER) (test svxi=571) 3.5 K/ L 3.5-10.5 RED BLOOD CELL COUNT (BEAKER) (test xnvu=357) 3.66 M/ L 4.63-6.08 HEMOGLOBIN (BEAKER) (test pisg=618) 12.3 GM/DL 13.7-17.5 HEMATOCRIT (BEAKER) (test myzi=644) 39.1 % 40.1-51.0 MEAN CORPUSCULAR VOLUME (BEAKER) (test ixvw=269) 106.8 fL 79.0-92.2 MEAN CORPUSCULAR HEMOGLOBIN (BEAKER) (test 33.6 pg 25.7-32.2 hkou=595) MEAN CORPUSCULAR HEMOGLOBIN CONC (BEAKER) (test 31.5 GM/DL 32.3-36.5 sunm=696) RED CELL DISTRIBUTION WIDTH (BEAKER) (test 15.7 % 11.6-14.4 rjyu=128) PLATELET COUNT (BEAKER) (test expo=294) 132 K/CU MM 150-450 MEAN PLATELET VOLUME (BEAKER) (test zmdq=742) 8.6 fL 9.4-12.4 NUCLEATED RED BLOOD CELLS (BEAKER) (test 0 /100 WBC 0-0 gosr=081) (CELLAVISION MANUAL DIFF)2018-08-08 08:07:00 Test Item Value Reference Range Comments NEUTROPHILS - REL (CELLAVISION)(BEAKER) (test 62 % fdbq=7634) LYMPHOCYTES - REL (CELLAVISION)(BEAKER) (test 29 % vdtj=9300) MONOCYTES - REL (CELLAVISION)(BEAKER) (test 5 % ymxm=6687) BANDS - REL (CELLAVISION)(BEAKER) (test 4 % 0-10 jgpi=5644) NEUTROPHILS - ABS (CELLAVISION)(BEAKER) (test 2.17 K/ul 1.78-5.38 jwjq=1633) LYMPHOCYTES - ABS (CELLAVISION)(BEAKER) (test 1.02 K/ul 1.32-3.57 snad=1686) MONOCYTES - ABS (CELLAVISION)(BEAKER) (test 0.18 K/uL 0.30-0.82 uuzb=2452) BANDS - ABS (CELLAVISION)(BEAKER) (test 0.14 K/uL 0.00-0.80 dqyc=9812) TOTAL COUNTED (BEAKER) (test ywjj=7752) 100 MANUAL NRBC PER 100 CELLS (BEAKER) (test 1 /100 WBC 0-0 wsrh=4130) WBC MORPHOLOGY (BEAKER) (test rcgi=420) Normal CLUMPED PLATELETS (BEAKER) (test vfbw=916) Present GIANT PLATELETS (BEAKER) (test wrou=142) Present POLYCHROMATOPHILLIC RBCS(BEAKER) (test qoxy=952) 1+ few ANISOCYTOSIS (BEAKER) (test qwtn=636) 2+ moderate MICROCYTES (BEAKER) (test ksix=469) 1+ few MACROCYTES (BEAKER) (test qcth=360) 2+ moderate POIKILOCYTES (BEAKER) (test tqfk=192) 1+ few OVALOCYTES (BEAKER) (test lhfr=131) 1+ few ARTIFACT (CELLAVISION)(BEAKER) (test gpig=8642) Present PLATELET CONCENTRATION (CELLAVISION)(BEAKER) Decreased (test qwex=0102) Received comment: User comments: Slide comments:BASIC METABOLIC [id number] 04:26:00 Test Item Value Reference Range Comments SODIUM (BEAKER) (test 134 meq/L 136-145 eklp=290) POTASSIUM (BEAKER) (test 4.1 meq/L 3.5-5.1 Specimen slightly qfdz=563) hemolyzed CHLORIDE (BEAKER) (test 108 meq/L 98-107 mpea=050) CO2 (BEAKER) (test 20 meq/L 22-29 tiuv=093) BLOOD UREA NITROGEN 24 mg/dL 7-21 (BEAKER) (test svas=774) CREATININE (BEAKER) (test 1.66 mg/dL 0.57-1.25 Specimen slightly mxvx=852) hemolyzed GLUCOSE RANDOM (BEAKER) 117 mg/dL 70-105 (test wtbe=230) CALCIUM (BEAKER) (test 8.6 mg/dL 8.4-10.2 nsxh=791) EGFR (BEAKER) (test 40 mL/min/1.73 sq m ESTIMATED GFR IS NOT cydx=5340) ACCURATE CREATININE CLEARANCE IN PREDICTING GLOMERULAR FILTRATION RATE. ESTIMATED GFR IS NOT APPLICABLE FOR DIALYSIS PATIENTS. POCT-GLUCOSE [id number] 21:38:00 Test Item Value Reference Range Comments POC-GLUCOSE METER (BEAKER) 169 mg/dL 70-110 TESTED AT [address] (test pjni=9621) [place] [address] POCT-GLUCOSE [id number] 18:11:00 Test Item Value Reference Range Comments POC-GLUCOSE METER (BEAKER) 133 mg/dL 70-110 TESTED AT [address] (test eezx=5737) [place] [address] POCT-GLUCOSE [id number] 12:07:00 Test Item Value Reference Range Comments POC-GLUCOSE METER (BEAKER) 187 mg/dL 70-110 TESTED AT [address] (test ocso=6036) [place] [address] CBC W/PLT COUNT & AUTO [id number] 11:27:00 Test Item Value Reference Range Comments WHITE BLOOD CELL COUNT (BEAKER) (test ixgq=120) 5.4 K/ L 3.5-10.5 RED BLOOD CELL COUNT (BEAKER) (test ijrh=560) 3.99 M/ L 4.63-6.08 HEMOGLOBIN (BEAKER) (test vmec=124) 13.2 GM/DL 13.7-17.5 HEMATOCRIT (BEAKER) (test fxfy=441) 40.9 % 40.1-51.0 MEAN CORPUSCULAR VOLUME (BEAKER) (test aznw=141) 102.5 fL 79.0-92.2 MEAN CORPUSCULAR HEMOGLOBIN (BEAKER) (test 33.1 pg 25.7-32.2 nazs=849) MEAN CORPUSCULAR HEMOGLOBIN CONC (BEAKER) (test 32.3 GM/DL 32.3-36.5 jvss=706) RED CELL DISTRIBUTION WIDTH (BEAKER) (test 15.4 % 11.6-14.4 swub=969) PLATELET COUNT (BEAKER) (test usoa=351) 175 K/CU MM 150-450 MEAN PLATELET VOLUME (BEAKER) (test rpue=547) 8.4 fL 9.4-12.4 NUCLEATED RED BLOOD CELLS (BEAKER) (test 0 /100 WBC 0-0 kvtd=182) (CELLAVISION MANUAL DIFF)2018-08-07 11:27:00 Test Item Value Reference Range Comments NEUTROPHILS - REL (CELLAVISION)(BEAKER) (test 72 % wnzc=5800) LYMPHOCYTES - REL (CELLAVISION)(BEAKER) (test 10 % trkk=6822) MONOCYTES - REL (CELLAVISION)(BEAKER) (test 10 % fxtl=3303) EOSINOPHILS - REL (CELLAVISION)(BEAKER) (test 2 % legu=1192) BASOPHILS - REL (CELLAVISION)(BEAKER) (test 1 % eafs=4022) BANDS - REL (CELLAVISION)(BEAKER) (test hwed=9980) 4 % 0-10 ATYPICAL LYMPHOCYTES - REL (CELLAVISION)(BEAKER) 2 % 0-0 (test vmwp=0467) NEUTROPHILS - ABS (CELLAVISION)(BEAKER) (test 3.89 K/ul 1.78-5.38 tiva=2276) LYMPHOCYTES - ABS (CELLAVISION)(BEAKER) (test 0.54 K/ul 1.32-3.57 tvns=0402) MONOCYTES - ABS (CELLAVISION)(BEAKER) (test 0.54 K/uL 0.30-0.82 bkmz=8506) EOSINOPHILS - ABS (CELLAVISION)(BEAKER) (test 0.11 K/uL 0.04-0.54 mgsi=8154) BASOPHILS - ABS (CELLAVISION)(BEAKER) (test 0.05 K/uL 0.01-0.08 lxrp=3114) BANDS - ABS (CELLAVISION)(BEAKER) (test nwrl=9980) 0.22 K/uL 0.00-0.80 ATYPICAL LYMPHOCYTES - ABS (CELLAVISION)(BEAKER) 0.11 K/uL 0.00-0.00 (test wrge=6523) TOTAL COUNTED (BEAKER) (test hbvs=6590) 100 RBC MORPHOLOGY (BEAKER) (test cgbq=521) Normal WBC MORPHOLOGY (BEAKER) (test adbj=275) Normal PLT MORPHOLOGY (BEAKER) (test dxkd=312) Normal ARTIFACT (CELLAVISION)(BEAKER) (test fymt=2674) Present PLATELET CONCENTRATION (CELLAVISION)(BEAKER) (test Adequate omom=8603) Received comment: User comments: Slide comments:BASIC METABOLIC [id number] 08:19:00 Test Item Value Reference Range Comments SODIUM (BEAKER) (test 142 meq/L 136-145 xyma=453) POTASSIUM (BEAKER) (test 4.4 meq/L 3.5-5.1 gejz=224) CHLORIDE (BEAKER) (test 109 meq/L 98-107 enqd=662) CO2 (BEAKER) (test 27 meq/L 22-29 ymix=544) BLOOD UREA NITROGEN 30 mg/dL 7-21 (BEAKER) (test ltkq=142) CREATININE (BEAKER) (test 1.91 mg/dL 0.57-1.25 kkxt=351) GLUCOSE RANDOM (BEAKER) 155 mg/dL 70-105 (test kxfi=565) CALCIUM (BEAKER) (test 9.2 mg/dL 8.4-10.2 zrpt=195) EGFR (BEAKER) (test 34 mL/min/1.73 sq m ESTIMATED GFR IS NOT ihgh=2952) ACCURATE CREATININE CLEARANCE IN PREDICTING GLOMERULAR FILTRATION RATE. ESTIMATED GFR IS NOT APPLICABLE FOR DIALYSIS PATIENTS. POCT-GLUCOSE [id number] 07:40:00 Test Item Value Reference Range Comments POC-GLUCOSE METER (BEAKER) 172 mg/dL 70-[address] [facility] [address] [facility] (test eqvm=9023) [facility] [address] POCT-GLUCOSE [id number] 21:17:00 Test Item Value Reference Range Comments POC-GLUCOSE METER (BEAKER) 184 mg/dL 70-110 TESTED AT [address] (test ibas=9293) [facility] [address] POCT-GLUCOSE [id number] 17:37:00 Test Item Value Reference Range Comments POC-GLUCOSE METER (BEAKER) 199 mg/dL 70-110 TESTED AT [address] (test xzdp=3295) [facility] [address] POCT-GLUCOSE [id number] 12:38:00 Test Item Value Reference Range Comments POC-GLUCOSE METER (BEAKER) 202 mg/dL 70-110 TESTED AT [address] (test whxg=5022) [facility] [address] POCT-GLUCOSE [id number] 08:15:00 Test Item Value Reference Range Comments POC-GLUCOSE METER (BEAKER) 134 mg/dL 70-110 TESTED AT [address] (test hicc=1833) [facility] [address] CBC W/PLT COUNT & AUTO [id number] 06:52:00 Test Item Value Reference Range Comments WHITE BLOOD CELL COUNT (BEAKER) (test evkj=448) 5.0 K/ L 3.5-10.5 RED BLOOD CELL COUNT (BEAKER) (test ehqe=975) 3.94 M/ L 4.63-6.08 HEMOGLOBIN (BEAKER) (test onqv=910) 13.1 GM/DL 13.7-17.5 HEMATOCRIT (BEAKER) (test qnnp=437) 40.3 % 40.1-51.0 MEAN CORPUSCULAR VOLUME (BEAKER) (test llmq=073) 102.3 fL 79.0-92.2 MEAN CORPUSCULAR HEMOGLOBIN (BEAKER) (test 33.2 pg 25.7-32.2 ssbn=828) MEAN CORPUSCULAR HEMOGLOBIN CONC (BEAKER) (test 32.5 GM/DL 32.3-36.5 zuwj=385) RED CELL DISTRIBUTION WIDTH (BEAKER) (test 15.4 % 11.6-14.4 cobq=829) PLATELET COUNT (BEAKER) (test olif=416) 174 K/CU MM 150-450 MEAN PLATELET VOLUME (BEAKER) (test ubqb=497) 8.8 fL 9.4-12.4 NUCLEATED RED BLOOD CELLS (BEAKER) (test 0 /100 WBC 0-0 luve=403) NEUTROPHILS RELATIVE PERCENT (BEAKER) (test 45 % kgvr=266) LYMPHOCYTES RELATIVE PERCENT (BEAKER) (test 38 % izub=131) MONOCYTES RELATIVE PERCENT (BEAKER) (test 14 % jlph=983) EOSINOPHILS RELATIVE PERCENT (BEAKER) (test 3 % fpss=539) BASOPHILS RELATIVE PERCENT (BEAKER) (test 0 % xvrp=917) NEUTROPHILS ABSOLUTE COUNT (BEAKER) (test 2.27 K/ L 1.78-5.38 npsb=596) LYMPHOCYTES ABSOLUTE COUNT (BEAKER) (test 1.89 K/ L 1.32-3.57 sayl=513) MONOCYTES ABSOLUTE COUNT (BEAKER) (test 0.68 K/ L 0.30-0.82 yehi=730) EOSINOPHILS ABSOLUTE COUNT (BEAKER) (test 0.15 K/ L 0.04-0.54 czly=002) BASOPHILS ABSOLUTE COUNT (BEAKER) (test 0.02 K/ L 0.01-0.08 gxbd=384) IMMATURE GRANULOCYTES-RELATIVE PERCENT (BEAKER) 0 % 0-1 (test yeru=5185) BASIC METABOLIC [id number] 05:40:00 Test Item Value Reference Range Comments SODIUM (BEAKER) (test 141 meq/L 136-145 cxei=054) POTASSIUM (BEAKER) (test 4.0 meq/L 3.5-5.1 cyih=086) CHLORIDE (BEAKER) (test 110 meq/L 98-107 axhw=364) CO2 (BEAKER) (test 24 meq/L 22-29 nxaq=122) BLOOD UREA NITROGEN 28 mg/dL 7-21 (BEAKER) (test difs=426) CREATININE (BEAKER) (test 1.69 mg/dL 0.57-1.25 wbdm=263) GLUCOSE RANDOM (BEAKER) 139 mg/dL 70-105 (test eiuo=351) CALCIUM (BEAKER) (test 9.1 mg/dL 8.4-10.2 bczh=488) EGFR (BEAKER) (test 39 mL/min/1.73 sq m ESTIMATED GFR IS NOT qxvl=4984) ACCURATE CREATININE CLEARANCE IN PREDICTING GLOMERULAR FILTRATION RATE. ESTIMATED GFR IS NOT APPLICABLE FOR DIALYSIS PATIENTS. POCT-GLUCOSE [id number] 21:06:00 Test Item Value Reference Range Comments POC-GLUCOSE METER (BEAKER) 256 mg/dL 70-[address] [facility] [address] [facility] (test jrii=7234) [facility] [address] POCT-GLUCOSE [id number] 19:05:00 Test Item Value Reference Range Comments POC-GLUCOSE METER (BEAKER) 181 mg/dL 70-[address] [facility] [address] [facility] (test jnrw=7053) [facility] [address] MR, SPINE, CERVICAL, WITHOUT [id number] 19:02:00FINAL REPORT MR, SPINE, CERVICAL, WITHOUT CONTRAST, MR, MRA, NECK, WITHOUT IVCONTRAST, MR, MRA, BRAIN, WITHOUT CONTRAST INDICATION: Ataxia, stroke suspected as etiology TECHNIQUE: Multiplanar, multisequence MR images of the brain. 3-D time of flight MRA of the cranial and cervical circulation. 2-D time of flight MRA of the neck. 3D MIP angiographic post-processing was performed. Stenosis evaluation utilized NASCET criteria. Multisequence multiplanar T1, T2 and STIR images ofthe cervical spine were also acquired without intravenous contrast. COMPARISON: Noncontrast brain CTof the same date FINDINGS: MRI BRAIN: Multiple [...] are within normal limits. No obstructive paranasal sinusdisease. Additional findings: None. MRA BRAIN:Internal carotid arteries: Normal flow related enhancement without flow-limiting stenosisMiddle cerebral arteries: Lack of flow related enhancement withinthe distal left M1 segment, which demonstrates severe atherosclerotic narrowing. There is lack of flow related enhancement within several left-sided proximal M2 branches with multifocal severe atherosclerotic narrowing. Severe atherosclerotic narrowing of the right distal M1 segment and proximal rightM2 segments.Anterior cerebral arteries: Severe atherosclerotic narrowing of the right distal A1 segment of the A1-A2 junction. Normal flow-related enhancement within the left LUIS ARMANDO A1-A2 segments withoutflow limiting stenosisBasilar system: Normal flow-related enhancement within the bilateral V4 segments and the basilar artery without flow-limiting stenosis Posterior cerebral arteries: Normal flow-related enhancement within the bilateral [employer] P1-P2 segments without flow-limiting stenosisAdditional findings: None. MRA NECK:Common carotid arteries: Unremarkable. Bifurcations: No flow-limiting stenosis. Cervical internal carotid arteries: No flow limiting stenosis.Vertebral arteries: Origins are not well-seen. No flow limiting stenosis within the visualized cervical vertebral arterial segments. Limited assessment of the V3 segment secondary to noncontrast technique. Cervical spine: Slight grade 1 anterolisthesis of C4 on C5 and C5 on C6. Otherwise, cervical spine demonstrates normal alignment. Vertebral body height is maintained.Mild multilevel disc space height loss, most conspicuous at C3-C4, C4-C5 and C5-M1Hcaxgz signal intensity is within normal limits for age.Cervical cord demonstrates increased signal intensity at sites of maximal narrowing, most conspicuous at C3-C4.No acute findings within the paraspinal soft tissues. Findings by level:C2/C3: No significant spinal canal or foraminal narrowingC3/C4: Broad-based disc osteophyte complex and ligamentum flavum thickening contribute to severe canal narrowing. Facet arthropathy and hypertrophy with severe left and moderate right-sided foraminal narrowing.C4/C5: Broad-based disc osteophyte complex with superimposed central disc protrusion, ligamentum flavum thickening and bilateral facet arthropathy and hypertrophy. Severe right and moderate/severe left-sided foraminal narrowing. Severe canal stenosis with effacement of the ventral and dorsal CSF spaces.C5/C6: Broad-based disc osteophyte complex, severe bilateral facet arthropathy and hypertrophy and ligamentum flavum thickening in combination with mild grade 1 anterolisthesis of C5 on C6 contribute to severe left-sided foraminal narrowing and moderate/severe canal narrowing.C6/C7: No significant canal or foraminal narrowingC7/T1: No significant canal or foraminal narrowing IMPRESSION: 1. Acute infarcts involving the left MCA territory including the pre and postcentral gyrus2. Lack of flow related enhancement within the distal left M1 segment and proximal left M2 segments. This is either secondary to severe atherosclerotic narrowing with diminutive caliber, or, possibly, occlusion.Correlation with CT angiogram is recommended when clinically feasible3. Severe atherosclerotic narrowing of the contralateral distal right M1 segment and right LUIS ARMANDO at the A1-A2 junction4. Unremarkable MR angiogram of the neck5. Severe degenerative disease of the cervical spine with severe canal narrowing at C3-C4 and C4-C5 and moderate/severe narrowing at C5-C6. This is due to a combination of anterior and posterior narrowing by disc disease and ligamentum flavum thickening respectively. Multilevel foraminal narrowing is also present as described above Signed: Sheela Corey MDReport Verified Date/ Time: 08/05/2018 19:02:53 Reading Location: [address] Neuro Reading Room MR , MRA, BRAIN, WITHOUT [id number] 19:02:00FINAL REPORT MR, SPINE, CERVICAL, WITHOUT CONTRAST, MR, MRA, NECK, WITHOUT IVCONTRAST, MR, MRA, BRAIN, WITHOUT CONTRAST INDICATION: Ataxia, stroke suspected as etiology TECHNIQUE: Multiplanar, multisequence MR images of the brain. 3-D time of flight MRA of the cranial and cervical circulation. 2-D time of flight MRA of the neck. 3D MIP angiographic post-processing was performed. Stenosis evaluation utilized NASCET criteria. Multisequence multiplanar T1, T2 and STIR images ofthe cervical spine were also acquired without intravenous contrast. COMPARISON: Noncontrast brain CTof the same date FINDINGS: MRI BRAIN: Multiple [...] are within normal limits. No obstructive paranasal sinusdisease. Additional findings: None. MRA BRAIN:Internal carotid arteries: Normal flow related enhancement without flow-limiting stenosisMiddle cerebral arteries: Lack of flow related enhancement withinthe distal left M1 segment, which demonstrates severe atherosclerotic narrowing. There is lack of flow related enhancement within several left-sided proximal M2 branches with multifocal severe atherosclerotic narrowing. Severe atherosclerotic narrowing of the right distal M1 segment and proximal rightM2 segments.Anterior cerebral arteries: Severe atherosclerotic narrowing of the right distal A1 segment of the A1-A2 junction. Normal flow-related enhancement within the left LUIS ARMANDO A1-A2 segments withoutflow limiting stenosisBasilar system: Normal flow-related enhancement within the bilateral V4 segments and the basilar artery without flow-limiting stenosis Posterior cerebral arteries: Normal flow-related enhancement within the bilateral [employer] P1-P2 segments without flow-limiting stenosisAdditional findings: None. MRA NECK:Common carotid arteries: Unremarkable. Bifurcations: No flow-limiting stenosis. Cervical internal carotid arteries: No flow limiting stenosis.Vertebral arteries: Origins are not well-seen. No flow limiting stenosis within the visualized cervical vertebral arterial segments. Limited assessment of the V3 segment secondary to noncontrast technique. Cervical spine: Slight grade 1 anterolisthesis of C4 on C5 and C5 on C6. Otherwise, cervical spine demonstrates normal alignment. Vertebral body height is maintained.Mild multilevel disc space height loss, most conspicuous at C3-C4, C4-C5 and C5-W2Sejcdq signal intensity is within normal limits for age.Cervical cord demonstrates increased signal intensity at sites of maximal narrowing, most conspicuous at C3-C4.No acute findings within the paraspinal soft tissues. Findings by level:C2/C3: No significant spinal canal or foraminal narrowingC3/C4: Broad-based disc osteophyte complex and ligamentum flavum thickening contribute to severe canal narrowing. Facet arthropathy and hypertrophy with severe left and moderate right-sided foraminal narrowing.C4/C5: Broad-based disc osteophyte complex with superimposed central disc protrusion, ligamentum flavum thickening and bilateral facet arthropathy and hypertrophy. Severe right and moderate/severe left-sided foraminal narrowing. Severe canal stenosis with effacement of the ventral and dorsal CSF spaces.C5/C6: Broad-based disc osteophyte complex, severe bilateral facet arthropathy and hypertrophy and ligamentum flavum thickening in combination with mild grade 1 anterolisthesis of C5 on C6 contribute to severe left-sided foraminal narrowing and moderate/severe canal narrowing.C6/C7: No significant canal or foraminal narrowingC7/T1: No significant canal or foraminal narrowing IMPRESSION: 1. Acute infarcts involving the left MCA territory including the pre and postcentral gyrus2. Lack of flow related enhancement within the distal left M1 segment and proximal left M2 segments. This is either secondary to severe atherosclerotic narrowing with diminutive caliber, or, possibly, occlusion.Correlation with CT angiogram is recommended when clinically feasible3. Severe atherosclerotic narrowing of the contralateral distal right M1 segment and right LUIS ARMANDO at the A1-A2 junction4. Unremarkable MR angiogram of the neck5. Severe degenerative disease of the cervical spine with severe canal narrowing at C3-C4 and C4-C5 and moderate/severe narrowing at C5-C6. This is due to a combination of anterior and posterior narrowing by disc disease and ligamentum flavum thickening respectively. Multilevel foraminal narrowing is also present as described above Signed: Sheela Corey MDReport Verified Date/ Time: 08/05/2018 19:02:53 Reading Location: [facility] C0[facility] Neuro Reading Room MR , MRA, NECK, WITHOUT IV [id number] 19:02:00FINAL REPORT MR, SPINE, CERVICAL, WITHOUT CONTRAST, MR, MRA, NECK, WITHOUT IVCONTRAST, MR, MRA, BRAIN, WITHOUT CONTRAST INDICATION: Ataxia, stroke suspected as etiology TECHNIQUE: Multiplanar, multisequence MR images of the brain. 3-D time of flight MRA of the cranial and cervical circulation. 2-D time of flight MRA of the neck. 3D MIP angiographic post-processing was performed. Stenosis evaluation utilized NASCET criteria. Multisequence multiplanar T1, T2 and STIR images ofthe cervical spine were also acquired without intravenous contrast. COMPARISON: Noncontrast brain CTof the same date FINDINGS: MRI BRAIN: Multiple [...] are within normal limits. No obstructive paranasal sinusdisease. Additional findings: None. MRA BRAIN:Internal carotid arteries: Normal flow related enhancement without flow-limiting stenosisMiddle cerebral arteries: Lack of flow related enhancement withinthe distal left M1 segment, which demonstrates severe atherosclerotic narrowing. There is lack of flow related enhancement within several left-sided proximal M2 branches with multifocal severe atherosclerotic narrowing. Severe atherosclerotic narrowing of the right distal M1 segment and proximal rightM2 segments.Anterior cerebral arteries: Severe atherosclerotic narrowing of the right distal A1 segment of the A1-A2 junction. Normal flow-related enhancement within the left LUIS ARMANDO A1-A2 segments withoutflow limiting stenosisBasilar system: Normal flow-related enhancement within the bilateral V4 segments and the basilar artery without flow-limiting stenosis Posterior cerebral arteries: Normal flow-related enhancement within the bilateral [employer] P1-P2 segments without flow-limiting stenosisAdditional findings: None. MRA NECK:Common carotid arteries: Unremarkable. Bifurcations: No flow-limiting stenosis. Cervical internal carotid arteries: No flow limiting stenosis.Vertebral arteries: Origins are not well-seen. No flow limiting stenosis within the visualized cervical vertebral arterial segments. Limited assessment of the V3 segment secondary to noncontrast technique. Cervical spine: Slight grade 1 anterolisthesis of C4 on C5 and C5 on C6. Otherwise, cervical spine demonstrates normal alignment. Vertebral body height is maintained.Mild multilevel disc space height loss, most conspicuous at C3-C4, C4-C5 and C5-J7Xmloif signal intensity is within normal limits for age.Cervical cord demonstrates increased signal intensity at sites of maximal narrowing, most conspicuous at C3-C4.No acute findings within the paraspinal soft tissues. Findings by level:C2/C3: No significant spinal canal or foraminal narrowingC3/C4: Broad-based disc osteophyte complex and ligamentum flavum thickening contribute to severe canal narrowing. Facet arthropathy and hypertrophy with severe left and moderate right-sided foraminal narrowing.C4/C5: Broad-based disc osteophyte complex with superimposed central disc protrusion, ligamentum flavum thickening and bilateral facet arthropathy and hypertrophy. Severe right and moderate/severe left-sided foraminal narrowing. Severe canal stenosis with effacement of the ventral and dorsal CSF spaces.C5/C6: Broad-based disc osteophyte complex, severe bilateral facet arthropathy and hypertrophy and ligamentum flavum thickening in combination with mild grade 1 anterolisthesis of C5 on C6 contribute to severe left-sided foraminal narrowing and moderate/severe canal narrowing.C6/C7: No significant canal or foraminal narrowingC7/T1: No significant canal or foraminal narrowing IMPRESSION: 1. Acute infarcts involving the left MCA territory including the pre and postcentral gyrus2. Lack of flow related enhancement within the distal left M1 segment and proximal left M2 segments. This is either secondary to severe atherosclerotic narrowing with diminutive caliber, or, possibly, occlusion.Correlation with CT angiogram is recommended when clinically feasible3. Severe atherosclerotic narrowing of the contralateral distal right M1 segment and right LUIS ARMANDO at the A1-A2 junction4. Unremarkable MR angiogram of the neck5. Severe degenerative disease of the cervical spine with severe canal narrowing at C3-C4 and C4-C5 and moderate/severe narrowing at C5-C6. This is due to a combination of anterior and posterior narrowing by disc disease and ligamentum flavum thickening respectively. Multilevel foraminal narrowing is also present as described above Signed: Sheela Corey Verified Date/ Time: 08/05/2018 19:02:53 Reading Location: [address] Neuro Reading Room MR , BRAIN, WITHOUT [id number] 17:53:00FINAL REPORT MR, BRAIN, WITHOUT CONTRAST INDICATION: Cerebral ischemia Technique: MRI of the brain utilizing axial T1, T2, FLAIR, GRE, DWI, sagittal T1; and postgadolinium axial,sagittal, and coronal T1-weighted images. COMPARISON: None FINDINGS: [...] including the pre and postcentral gyrus Signed: Sheela Corey Verified Date/Time: 17:53:47 Reading Location: [address] Neuro Reading Room POCT-GLUCOSE [id number] 12:25:00 Test Item Value Reference Range Comments POC-GLUCOSE METER (BEAKER) 255 mg/dL 70-[address] [facility] [address] [place] [address] (test yidt=4715) [facility] [address] HEMOGLOBIN [id number] 10:11:00 Test Item Value Reference Range Comments HEMOGLOBIN A1C (BEAKER) (test evil=819) 6.7 % 4.3-6.1 POCT-GLUCOSE [id number] 08:38:00 Test Item Value Reference Range Comments POC-GLUCOSE METER (BEAKER) 146 mg/dL 70-[address] [facility] [address] [facility] (test ceft=8565) [facility] [address] [id number] 06:49:00 Test Item Value Reference Range Comments MAGNESIUM (BEAKER) (test adsq=201) 1.8 mg/dL 1.6-2.6 BASIC METABOLIC [id number] 06:49:00 Test Item Value Reference Range Comments SODIUM (BEAKER) (test 140 meq/L 136-145 ogde=164) POTASSIUM (BEAKER) (test 4.1 meq/L 3.5-5.1 olid=420) CHLORIDE (BEAKER) (test 110 meq/L 98-107 dudz=945) CO2 (BEAKER) (test 25 meq/L 22-29 hrhm=407) BLOOD UREA NITROGEN 31 mg/dL 7-21 (BEAKER) (test ibbi=586) CREATININE (BEAKER) (test 1.70 mg/dL 0.57-1.25 ovyq=274) GLUCOSE RANDOM (BEAKER) 120 mg/dL 70-105 (test adbz=100) CALCIUM (BEAKER) (test 9.0 mg/dL 8.4-10.2 gkjt=957) EGFR (BEAKER) (test 39 mL/min/1.73 sq m ESTIMATED GFR IS NOT pkve=2345) ACCURATE CREATININE CLEARANCE IN PREDICTING GLOMERULAR FILTRATION RATE. ESTIMATED GFR IS NOT APPLICABLE FOR DIALYSIS PATIENTS. LIPID [id number] 06:49:00 Test Item Value Reference Range Comments TRIGLYCERIDES (BEAKER) (test khhj=522) 143 mg/dL CHOLESTEROL (BEAKER) (test krzr=996) 110 mg/dL HDL CHOLESTEROL (BEAKER) (test tjcg=824) 22 mg/dL LDL CHOLESTEROL CALCULATED (BEAKER) (test 59 mg/dL vvko=295) Triglyceride Reference Range: Low Risk <150 Borderline 150- 199 High Risk 200-499 Very High Risk >=500Cholesterol Reference Range: Low Risk <200 Borderline 200-239 High Risk > 240HDL Cholesterol Reference Range: Low Risk >=60 High Risk <40LDL Cholesterol Reference Range: Optimal <100 Near Optimal 100-129 Borderline 130-159 High 160-189 Very High >=190HEPATIC FUNCTION [id number] 06:49:00 Test Item Value Reference Range Comments TOTAL PROTEIN (BEAKER) (test htgo=978) 6.0 gm/dL 6.0-8.3 ALBUMIN (BEAKER) (test ebod=8668) 3.5 g/dL 3.5-5.0 BILIRUBIN TOTAL (BEAKER) (test ffrr=019) 0.5 mg/dL 0.2-1.2 BILIRUBIN DIRECT (BEAKER) (test hlbx=137) 0.2 mg/dL 0.1-0.5 ALKALINE PHOSPHATASE (BEAKER) (test beqz=185) 71 U/L 40-150 AST (SGOT) (BEAKER) (test hjui=775) 27 U/L 5-34 ALT (SGPT) (BEAKER) (test ruwd=561) 38 U/L 6-55 CALCIUM, [id number] 06:33:00 Test Item Value Reference Range Comments CALCIUM IONIZED (BEAKER) (test anoy=190) 1.14 mmol/L 1.12-1.27 PH, BLOOD (BEAKER) (test pxyu=3341) 7.40 PT/[id number] 06:33:00 Test Item Value Reference Range Comments PROTIME (BEAKER) (test nqrm=278) 14.1 seconds 11.9-14.2 INR (BEAKER) (test wgft=222) 1.2 <=5.9 PARTIAL THROMBOPLASTIN TIME (BEAKER) (test 34.9 seconds 22.5-36.0 nmfa=296) Effective 07/08/2018: PT Reference Range ChangeNew: 11.9-14.2 Previous: 11.7- 14.7RECOMMENDED COUMADIN/WARFARIN INR THERAPY RANGESSTANDARD DOSE: 2.0-3.0 Includes: PROPHYLAXIS for venous thrombosis, systemic embolization; TREATMENT for venous thrombosis and/or pulmonary embolus.HIGH RISK: Target INR is2.5-3.5 for patients wiht mechanical heart valves.PROTHROMBIN [id number] 06:32: 00 Test Item Value Reference Range Comments PROTIME (BEAKER) (test hbwu=510) 14.1 seconds 11.9-14.2 INR (BEAKER) (test ohqq=786) 1.2 <=5.9 Effective 07/08/2018: PT Reference Range ChangeNew: 11.9-14.2 Previous: 11.7- 14.7RECOMMENDED COUMADIN/WARFARIN INR THERAPY RANGESSTANDARD DOSE: 2.0-3.0 Includes: PROPHYLAXIS for venous thrombosis, systemic embolization; TREATMENT for venous thrombosis and/or pulmonary embolus.HIGH RISK: Target INR is2.5-3.5 for patients wiht mechanical heart valves.POCT-GLUCOSE [id number] 21:14:00 Test Item Value Reference Range Comments POC-GLUCOSE METER (BEAKER) 229 mg/dL 70-[address] [facility] [address] [facility] (test hspx=4096) [facility] [address] VITAMIN [id number] 17:40:00 Test Item Value Reference Range Comments VITAMIN B12 (BEAKER) (test zxai=603) 244 pg/mL 213-816 TSH/FREE T4 IF [id number] 17:40:00 Test Item Value Reference Range Comments THYROID STIMULATING HORMONE (BEAKER) (test 4.23 uIU/mL 0.35-4.94 rzmg=792) LIPID [id number] 17:12:00 Test Item Value Reference Range Comments TRIGLYCERIDES (BEAKER) (test lnth=109) 201 mg/dL CHOLESTEROL (BEAKER) (test tshz=022) 120 mg/dL HDL CHOLESTEROL (BEAKER) (test jvpu=745) 25 mg/dL LDL CHOLESTEROL CALCULATED (BEAKER) (test 55 mg/dL xahr=822) Triglyceride Reference Range: Low Risk <150 Borderline 150- 199 High Risk 200-499 Very High Risk >=500Cholesterol Reference Range: Low Risk <200 Borderline 200-239 High Risk > 240HDL Cholesterol Reference Range: Low Risk >=60 High Risk <40LDL Cholesterol Reference Range: Optimal <100 Near Optimal 100-129 Borderline 130-159 High 160-189 Very High >=190CBC W/PLT COUNT & AUTO [id number] 16:54:00 Test Item Value Reference Range Comments WHITE BLOOD CELL COUNT (BEAKER) (test xvvj=598) 5.0 K/ L 3.5-10.5 RED BLOOD CELL COUNT (BEAKER) (test vajy=815) 3.83 M/ L 4.63-6.08 HEMOGLOBIN (BEAKER) (test zesm=883) 12.7 GM/DL 13.7-17.5 HEMATOCRIT (BEAKER) (test dugx=635) 39.8 % 40.1-51.0 MEAN CORPUSCULAR VOLUME (BEAKER) (test zszc=036) 103.9 fL 79.0-92.2 MEAN CORPUSCULAR HEMOGLOBIN (BEAKER) (test 33.2 pg 25.7-32.2 pyga=602) MEAN CORPUSCULAR HEMOGLOBIN CONC (BEAKER) (test 31.9 GM/DL 32.3-36.5 dmym=359) RED CELL DISTRIBUTION WIDTH (BEAKER) (test 16.3 % 11.6-14.4 xfoa=636) PLATELET COUNT (BEAKER) (test vsez=260) 159 K/CU MM 150-450 MEAN PLATELET VOLUME (BEAKER) (test hkpr=935) 8.6 fL 9.4-12.4 NUCLEATED RED BLOOD CELLS (BEAKER) (test 0 /100 WBC 0-0 zkhd=353) NEUTROPHILS RELATIVE PERCENT (BEAKER) (test 46 % vhkx=738) LYMPHOCYTES RELATIVE PERCENT (BEAKER) (test 39 % xwpw=050) MONOCYTES RELATIVE PERCENT (BEAKER) (test 12 % fifb=462) EOSINOPHILS RELATIVE PERCENT (BEAKER) (test 3 % enqh=365) BASOPHILS RELATIVE PERCENT (BEAKER) (test 1 % tgua=007) NEUTROPHILS ABSOLUTE COUNT (BEAKER) (test 2.29 K/ L 1.78-5.38 mxsz=841) LYMPHOCYTES ABSOLUTE COUNT (BEAKER) (test 1.91 K/ L 1.32-3.57 plom=739) MONOCYTES ABSOLUTE COUNT (BEAKER) (test 0.58 K/ L 0.30-0.82 jcin=195) EOSINOPHILS ABSOLUTE COUNT (BEAKER) (test 0.13 K/ L 0.04-0.54 eehm=099) BASOPHILS ABSOLUTE COUNT (BEAKER) (test 0.03 K/ L 0.01-0.08 boku=271) IMMATURE GRANULOCYTES-RELATIVE PERCENT (BEAKER) 0 % 0-1 (test cgtb=4982) RAD, CHEST, 1 VIEW, NON [id number] 14:03:00Reason for exam:->chest painFINAL REPORT CLINICAL HISTORY: chest pain TECHNIQUE : 1 view of the chest. COMPARISON: None IMPRESSION: There are no focal infiltrates or effusions. The cardiomediastinal silhouette is magnified by technique. The osseous structures appear intact. Signed: Mohsen Robin MDReport Verified Date/Time: 08/04/2018 14:03:27 Reading Location: [facility] C013W Consult Reading Room B-TYPE NATRIURETIC FACTOR (BNP)2018-08-04 12:49:00 Test Item Value Reference Range Comments B-TYPE NATRIURETIC PEPTIDE (BEAKER) (test fokd=339) 50 pg/mL 0-100 TROPONIN [id number] 12:44:00 Test Item Value Reference Range Comments TROPONIN I (BEAKER) (test vkgq=245) < ng/mL 0.00-0.03 Troponin I (TnI) levels must be interpreted in the context of the presenting symptoms and the clinical findings. Elevated TnI levels indicate myocardial damage, but are not specific for ischemic heart disease. Elevated TnI levels are seen in patients with other cardiac conditions (including myocarditis and congestive heart failure), and slight TnI elevations occur in patients with other conditions, including sepsis, renal failure, acidosis, acute neurological disease, and persistent tachyarrhythmia.[id number] 12:36:00 Test Item Value Reference Range Comments MAGNESIUM (BEAKER) (test mdpi=682) 2.1 mg/dL 1.6-2.6 BASIC METABOLIC [id number] 12:36:00 Test Item Value Reference Range Comments SODIUM (BEAKER) (test 142 meq/L 136-145 qawq=863) POTASSIUM (BEAKER) (test 5.1 meq/L 3.5-5.1 fmxl=732) CHLORIDE (BEAKER) (test 110 meq/L 98-107 dkqi=108) CO2 (BEAKER) (test 28 meq/L 22-29 pxyt=363) BLOOD UREA NITROGEN 36 mg/dL 7-21 (BEAKER) (test oszm=089) CREATININE (BEAKER) (test 1.91 mg/dL 0.57-1.25 vohq=350) GLUCOSE RANDOM (BEAKER) 185 mg/dL 70-105 (test nqel=186) CALCIUM (BEAKER) (test 9.5 mg/dL 8.4-10.2 nsqx=227) EGFR (BEAKER) (test 34 mL/min/1.73 sq m ESTIMATED GFR IS NOT goga=2834) ACCURATE CREATININE CLEARANCE IN PREDICTING GLOMERULAR FILTRATION RATE. ESTIMATED GFR IS NOT APPLICABLE FOR DIALYSIS PATIENTS. PT/[id number] 12:30:00 Test Item Value Reference Range Comments PROTIME (BEAKER) (test vpoi=585) 13.3 seconds 11.9-14.2 INR (BEAKER) (test tndv=566) 1.1 <=5.9 PARTIAL THROMBOPLASTIN TIME (BEAKER) (test 32.7 seconds 22.5-36.0 mfly=217) Effective 07/08/2018: PT Reference Range ChangeNew: 11.9-14.2 Previous: 11.7- 14.7RECOMMENDED COUMADIN/WARFARIN INR THERAPY RANGESSTANDARD DOSE: 2.0-3.0 Includes: PROPHYLAXIS for venous thrombosis, systemic embolization; TREATMENT for venous thrombosis and/or pulmonary embolus.HIGH RISK: Target INR is2.5-3.5 for patients wiht mechanical heart valves.CBC W/PLT COUNT & AUTO [id number] 12:22:00 Test Item Value Reference Range Comments WHITE BLOOD CELL COUNT (BEAKER) (test kyyz=313) 4.9 K/ L 3.5-10.5 RED BLOOD CELL COUNT (BEAKER) (test ssji=261) 4.08 M/ L 4.63-6.08 HEMOGLOBIN (BEAKER) (test cfht=644) 13.3 GM/DL 13.7-17.5 HEMATOCRIT (BEAKER) (test lyqb=783) 42.7 % 40.1-51.0 MEAN CORPUSCULAR VOLUME (BEAKER) (test qjmj=877) 104.7 fL 79.0-92.2 MEAN CORPUSCULAR HEMOGLOBIN (BEAKER) (test 32.6 pg 25.7-32.2 tbub=889) MEAN CORPUSCULAR HEMOGLOBIN CONC (BEAKER) (test 31.1 GM/DL 32.3-36.5 uoes=716) RED CELL DISTRIBUTION WIDTH (BEAKER) (test 16.1 % 11.6-14.4 zquf=330) PLATELET COUNT (BEAKER) (test fhho=440) 175 K/CU MM 150-450 MEAN PLATELET VOLUME (BEAKER) (test ywfc=968) 8.8 fL 9.4-12.4 NUCLEATED RED BLOOD CELLS (BEAKER) (test 0 /100 WBC 0-0 tmgx=878) NEUTROPHILS RELATIVE PERCENT (BEAKER) (test 48 % idmv=877) LYMPHOCYTES RELATIVE PERCENT (BEAKER) (test 37 % azjr=573) MONOCYTES RELATIVE PERCENT (BEAKER) (test 12 % vgfx=504) EOSINOPHILS RELATIVE PERCENT (BEAKER) (test 3 % xxdo=437) BASOPHILS RELATIVE PERCENT (BEAKER) (test 0 % rpvd=748) NEUTROPHILS ABSOLUTE COUNT (BEAKER) (test 2.35 K/ L 1.78-5.38 hpdd=941) LYMPHOCYTES ABSOLUTE COUNT (BEAKER) (test 1.79 K/ L 1.32-3.57 exgp=165) MONOCYTES ABSOLUTE COUNT (BEAKER) (test 0.60 K/ L 0.30-0.82 hgfr=325) EOSINOPHILS ABSOLUTE COUNT (BEAKER) (test 0.14 K/ L 0.04-0.54 urmq=260) BASOPHILS ABSOLUTE COUNT (BEAKER) (test 0.02 K/ L 0.01-0.08 jybe=792) IMMATURE GRANULOCYTES-RELATIVE PERCENT (BEAKER) 0 % 0-1 (test btpt=0544) POCT-GLUCOSE [id number] 12:18:00 Test Item Value Reference Range Comments POC-GLUCOSE METER (BEAKER) 176 mg/dL 70-110 TESTED AT [address] (test rfro=5999) [facility] [address] CT, BRAIN/STROKE [id number] 12:04:00Reason for exam:->right arm weaknessWhat is the patient's sedation requirement?->No SedationFINAL REPORT CT Head without contrast CLINICAL HISTORY: Hemiplegiaright arm weakness TECHNIQUE: Contiguous axial images through the head without contrast. This exam was performedaccording to the departmental dose optimization program which [...] is generalized parenchymal volume loss without hydrocephalus, midlineshift, or apparent mass effect. There are no extra -axial fluid collections. The skull is intact. Theparanasal sinuses are well- aerated. IMPRESSION: There is no CT evidence of acute infarct or intracranial hemorrhage. The findings were discussed with the stroke neurologist at 12:04 PM Signed: Mohsen Robin [facility] Verified Date/Time: 08/04/2018 12:04:59 Reading Location: [facility] Radiology Reading Room
[2018-08-10] MEDS ORDERED: GLUCAGON 1 MG/VIAL IM PRN (19:07)
[2018-08-10] MEDS ORDERED: D50W 25 GM/50 ML SYRINGE IV PRN (19:07)
[2018-08-10] MEDS: INSULIN -REGULAR HUMAN 50 UNIT/0.5 ML ML SQ SCH (21:00)
[2018-08-10] MEDS: RANITIDINE 150 MG TABLET PO SCH (21:45)
[2018-08-10] MEDS: APIXABAN 5 MG TABLET PO SCH (21:45)
[2018-08-10] MEDS: MIRTAZAPINE 15 MG TAB PO SCH (21:45)
[2018-08-10] MEDS: INSULIN GLARGINE 100 UNITS/ML SQ SCH (22:28)
[2018-08-10 22:50] LABS: Urine Appearance CLEAR; Urine Bilirubin NEGATIVE (NEG); Urine Blood 1+ (NEG); Urine Color YELLOW; Urine Glucose 2+ (NEG); Urine Protein 2+ (NEG); Urine Urobilinogen 0.2 mg/dL (0.2-1.0); Urine pH 6.5 (5.0-7.0)
[2018-08-11 00:13] LABS: Urine Culture Reflex Order NOT NEEDED
[2018-08-11 00:14] LABS: Calcium Oxalate Crystals- Ur FEW (NONE SEEN); Urine Bacteria <20 /HPF (NONE SEEN)
--- NOTE | 2018-08-11 01:32 | FAST ---
SHIFT START DATE/TIME: 08/10/2018 19:00 (CDT) SHIFT END DATE/TIME: 08/11/2018 07:00 (CDT) NAME CHRIS BOUDREAUX DATE OF : 1940 DATE OF ADMISSION: 08/10/2018 18:05 (CDT) PHONE: AGE: 78 SSN# [id number] GENDER: Male ENCOUNTER PHYSICIAN: Dr. Piero De Jesus M.D. 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 EATING: Activity did not occur on this shift EATING - SCORE: 0-UNK GROOMING: Activity did not occur on this shift GROOMING - SCORE: 0-UNK BATHING: Activity did not occur on this shift BATHING - SCORE: 0-UNK DRESSING - UPPER BODY: Patient is not dressing in public clothing ARTICLES SCORE Total number of steps: 0 DRESSING - UPPER BODY - SCORE: 0-UNK DRESSING - LOWER BODY: Patient is not dressing in public clothing ARTICLES SCORE Total number of steps: 0 DRESSING - LOWER BODY - SCORE: 0-UNK TOILETING: TOILETING - STEP 1: Does the patient require the assistance of a person or device, or need extra time with toileting? Yes . TOILETING - STEP 2: Does the patient require the assistance of a helper? Yes. TOILETING - STEP 3: How much assistance does the patient require from the helper? Only supervision TOILETING - SCORE: 5-SUP BLADDER MANAGEMENT: BLADDER MANAGEMENT - STEP 1: Does the patient control the bladder completely and intentionally without equipment or devices or med ications, and is always continent? No. BLADDER MANAGEMENT - STEP 2: Does the patient require the assistance of a helper? Yes. BLADDER MANAGEMENT - STEP 3: How much assistance does the patient require from the helper? Only supervision, stand-by, cuing, or c oaxing BLADDER MANAGEMENT - SCORE: 5-SUP BOWEL MANAGEMENT: Activity did not occur on this shift BOWEL MANAGEMENT - SCORE: 7-IND TRANSFERS: BED, CHAIR, WHEELCHAIR: TRANSFERS: BED, CHAIR, WHEELCHAIR - STEP 1: Does the patient require assistance of a person or device, or need extra time with bed, chair, or whe elchair transfers? Yes. TRANSFERS: BED, CHAIR, WHEELCHAIR - STEP 2: Does the patient require the assistance of a helper? Yes. TRANSFERS: BED, CHAIR, WHEELCHAIR - STEP 3: How much assistance does the patient require from the helper? Steadying/guiding assistance TRANSFERS: BED, CHAIR, WHEELCHAIR - SCORE: 4-MIN TRANSFERS: TOILET: TRANSFERS: TOILET - STEP 1: Does the patient require the assistance of a person or device, or need extra time with toilet transfe rs? Yes. TRANSFERS: TOILET - STEP 2: Does the patient require the assistance of a helper? Yes. TRANSFERS: TOILET - STEP 3: How much assistance does the patient require from the helper? Only supervision, cuing, coaxing, OR he lp to set out transfer equipment or to lock brakes and/or lift foot rests TRANSFERS: TOILET - SCORE: 5-SUP TRANSFERS: SHOWER: Activity did not occur on this shift TRANSFERS: SHOWER - SCORE: 0-UNK TRANSFERS: TUB: Activity did not occur on this shift TRANSFERS: TUB - SCORE: 0-UNK LOCOMOTION: WALK: Activity did not occur on this shift LOCOMOTION: WALK - SCORE: 0-UNK LOCOMOTION: WHEELCHAIR: Activity did not occur on this shift LOCOMOTION: WHEELCHAIR - SCORE: 0-UNK COMPREHENSION: COMPREHENSION: TYPE: Both COMPREHENSION - STEP 1: Does the patient require help from a person or device, or need extra time to understand complex and a bstract ideas (such as current events, finances, discharge planning, medical issues, relationships, e tc)? No. COMPREHENSION - STEP 2: Does the patient need extra time, require an assistive device (such as glasses for visual comprehensi on or a hearing aid for auditory comprehension) or does s/he have mild difficulty understanding compl ex and abstract information? Yes. COMPREHENSION - SCORE: 6-SHILPI EXPRESSION EXPRESSION: TYPE: Both EXPRESSION - STEP 1: Does the patient require help from a person or device, or need extra time expressing complex and abst ract ideas (such as current events, finances, discharge planning, medical issues, relationships, etc) ? No. EXPRESSION - STEP 2: Does the patient need extra time, require an assistive device (such as augmentive communication syste m or a communication board), OR does s/he have mild difficulty expressing complex and abstract ideas (including mild dysarthria or mild word-find problems)? Yes. EXPRESSION - SCORE: 6-SHILPI SOCIAL INTERACTION: SOCIAL INTERACTION - STEP 1: Does the patient require a helper to interact with others in social and therapeutic situations? No. SOCIAL INTERACTION - STEP 2: Does the patient need extra time in social situations, OR does s/he interact with staff, other patien ts, and family members ONLY in structured environments, OR does s/he require medication for social in teraction? Yes, patient needs extra time SOCIAL INTERACTION - SCORE: 6-SHILPI PROBLEM SOLVING: PROBLEM SOLVING - STEP 1: Does the patient need help from a person or device, or need extra time to solve complex problems such as managing a checking account or confronting interpersonal problems? Yes. PROBLEM SOLVING - STEP 2: Does the patient solve basic routine problems half or more of the time? Yes. PROBLEM SOLVING - STEP 3: How often does the patient need help to solve basic routine problems? Less than 10% of the time PROBLEM SOLVING - SCORE: 5-SUP MEMORY: MEMORY - STEP 1: Does the patient need help from a person or device, or need extra time to remember frequently encount ered people, daily routines, and executing requests? No. MEMORY - STEP 2: Does the patient have slight difficulty recognizing frequently encountered people, daily routines, or executing requests without the need for repetition or using self-initiated or environmental cues to remember? Yes. MEMORY - SCORE: 6-SHILPI SIGNATURE PANEL: The following modified sections: Eating - Score, Grooming - Score, Dressing - Upper Body - Score, Joon ssing - Lower Body - Score, Toileting - Score, Bladder Management - Score, Bowel Management - Score, Transfers: Bed, Chair, Wheelchair - Score, Transfers: Toilet - Score, Transfers: Shower - Score, Eric sfers: Tub - Score, Locomotion: Walk - Score, Locomotion: Wheelchair - Score, Comprehension - Score, Expression - Score, Social Interaction - Score, Problem Solving - Score, Memory - Score were [electro nically] signed by Julia Vallejo CNA on FriAug 11 2018 01:32:33 GMT-0500 (Central Daylight Time)
[2018-08-11 06:02] LABS: Absolute Lymphocytes (CBC) 1.6 K/uL (0.7-4.9); Basophils % 0.4 % (0-1.3); Eosinophils % 3.3 % (0-4.4); Hematocrit 37.4 % (39.6-49.0); Lymphocytes % 34.3 % (15.3-44.8); MPV 7.1 fL (7.6-11.3); RBC Red Blood Cell Count 3.77 M/uL (4.33-5.43)
[2018-08-11 06:17] LABS: Albumin 2.9 g/dL (3.4-5.0); Magnesium 1.9 mg/dL (1.8-2.4); Potassium 3.9 mmol/L (3.5-5.1)
[2018-08-11] MEDS: INSULIN -REGULAR HUMAN 50 UNIT/0.5 ML ML SQ SCH ×4 (07:30→20:39)
[2018-08-11] MEDS ORDERED: INSULIN LISPRO 100 UNIT/1 ML SQ SCH (08:00)
[2018-08-11] MEDS: APIXABAN 5 MG TABLET PO SCH ×2 (08:39→20:37)
[2018-08-11] MEDS: TAMSULOSIN 0.4 MG SR CAP PO SCH (08:39)
[2018-08-11] MEDS: RANITIDINE 150 MG TABLET PO SCH ×2 (08:39→20:37)
[2018-08-11] MEDS: VITAMIN D 5,000 UNIT CAP PO SCH (08:39)
[2018-08-11] MEDS: FENOFIBRATE 160 MG TAB PO SCH (08:40)
[2018-08-11] MEDS: ATORVASTATIN 10 MG TAB PO SCH (08:40)
[2018-08-11] MEDS: INSULIN LISPRO 100 UNIT/1 ML SQ SCH ×2 (12:51→17:13)
--- NOTE | 2018-08-11 15:46 | FAST ---
SHIFT START DATE/TIME: 08/11/2018 07:00 (CDT) SHIFT END DATE/TIME: 08/11/2018 19:00 (CDT) NAME CHRIS BOUDREAUX DATE OF : 1940 DATE OF ADMISSION: 08/10/2018 18:05 (CDT) PHONE: AGE: 78 SSN# [id number] GENDER: Male ENCOUNTER PHYSICIAN: Dr. Piero De Jesus M.D. 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 EATING: EATING - STEP 1: Does the patient require the assistance of a person or device, or need extra time when eating? Yes. EATING - STEP 2: Does the patient require the assistance of a helper? No, patient only requires an assistive device, O R s/he takes more than reasonable time to eat, OR there is a safety concern, OR s/he requires modifie d food consistency EATING - SCORE: 6-SHILPI GROOMING: Comb/brush hair Oral care Wash, rinse, and dry face Wash, rinse, and dry hands GROOMING - STEP 1: Does the patient require the assistance of a person or device, or need extra time when grooming? Yes. GROOMING - STEP 2: Does the patient require the assistance of a helper? No. The patient only requires an assistive devic e, OR takes more than reasonable time to groom, OR there is a concern for safety as the patient groom s GROOMING - SCORE: 6-SHILPI BATHING: Activity did not occur on this shift BATHING - SCORE: 0-UNK DRESSING - UPPER BODY: Activity did not occur on this shift ARTICLES SCORE Total number of steps: 0 DRESSING - UPPER BODY - SCORE: 0-UNK DRESSING - LOWER BODY: Activity did not occur on this shift ARTICLES SCORE Total number of steps: 0 DRESSING - LOWER BODY - SCORE: 0-UNK TOILETING: TOILETING - STEP 1: Does the patient require the assistance of a person or device, or need extra time with toileting? Yes . TOILETING - STEP 2: Does the patient require the assistance of a helper? Yes. TOILETING - STEP 3: How much assistance does the patient require from the helper? Only supervision TOILETING - SCORE: 5-SUP BLADDER MANAGEMENT: BLADDER MANAGEMENT - STEP 1: Does the patient control the bladder completely and intentionally without equipment or devices or med ications, and is always continent? Yes. BLADDER MANAGEMENT - SCORE: 7-IND BLADDER MANAGEMENT - FREQUENCY OF ACCIDENTS: BLADDER MANAGEMENT(FA) - STEP 1: How many accidents has the patient had during the current shift? 0 BOWEL MANAGEMENT: Activity did not occur on this shift BOWEL MANAGEMENT - SCORE: 7-IND BOWEL MANAGEMENT - FREQUENCY OF ACCIDENTS: BOWEL MANAGEMENT(FA) - STEP 1: How many accidents has the patient had during the current shift? 0 TRANSFERS: BED, CHAIR, WHEELCHAIR: TRANSFERS: BED, CHAIR, WHEELCHAIR - STEP 1: Does the patient require assistance of a person or device, or need extra time with bed, chair, or whe elchair transfers? Yes. TRANSFERS: BED, CHAIR, WHEELCHAIR - STEP 2: Does the patient require the assistance of a helper? Yes. TRANSFERS: BED, CHAIR, WHEELCHAIR - STEP 3: How much assistance does the patient require from the helper? Steadying/guiding assistance TRANSFERS: BED, CHAIR, WHEELCHAIR - SCORE: 4-MIN TRANSFERS: TOILET: TRANSFERS: TOILET - STEP 1: Does the patient require the assistance of a person or device, or need extra time with toilet transfe rs? No. TRANSFERS: TOILET - SCORE: 7-IND TRANSFERS: SHOWER: Activity did not occur on this shift TRANSFERS: SHOWER - SCORE: 0-UNK TRANSFERS: TUB: Activity did not occur on this shift TRANSFERS: TUB - SCORE: 0-UNK LOCOMOTION: WALK: Activity did not occur on this shift LOCOMOTION: WALK - SCORE: 0-UNK LOCOMOTION: WHEELCHAIR: Activity did not occur on this shift LOCOMOTION: WHEELCHAIR - SCORE: 0-UNK COMPREHENSION: COMPREHENSION: TYPE: Both COMPREHENSION - STEP 1: Does the patient require help from a person or device, or need extra time to understand complex and a bstract ideas (such as current events, finances, discharge planning, medical issues, relationships, e tc)? No. COMPREHENSION - STEP 2: Does the patient need extra time, require an assistive device (such as glasses for visual comprehensi on or a hearing aid for auditory comprehension) or does s/he have mild difficulty understanding compl ex and abstract information? Yes. COMPREHENSION - SCORE: 6-SHILPI EXPRESSION EXPRESSION: TYPE: Both EXPRESSION - STEP 1: Does the patient require help from a person or device, or need extra time expressing complex and abst ract ideas (such as current events, finances, discharge planning, medical issues, relationships, etc) ? No. EXPRESSION - STEP 2: Does the patient need extra time, require an assistive device (such as augmentive communication syste m or a communication board), OR does s/he have mild difficulty expressing complex and abstract ideas (including mild dysarthria or mild word-find problems)? Yes. EXPRESSION - SCORE: 6-SHILPI SOCIAL INTERACTION: SOCIAL INTERACTION - STEP 1: Does the patient require a helper to interact with others in social and therapeutic situations? No. SOCIAL INTERACTION - STEP 2: Does the patient need extra time in social situations, OR does s/he interact with staff, other patien ts, and family members ONLY in structured environments, OR does s/he require medication for social in teraction? Yes, patient needs extra time SOCIAL INTERACTION - SCORE: 6-SHILPI PROBLEM SOLVING: PROBLEM SOLVING - STEP 1: Does the patient need help from a person or device, or need extra time to solve complex problems such as managing a checking account or confronting interpersonal problems? Yes. PROBLEM SOLVING - STEP 2: Does the patient solve basic routine problems half or more of the time? Yes. PROBLEM SOLVING - STEP 3: How often does the patient need help to solve basic routine problems? Less than 10% of the time PROBLEM SOLVING - SCORE: 5-SUP MEMORY: MEMORY - STEP 1: Does the patient need help from a person or device, or need extra time to remember frequently encount ered people, daily routines, and executing requests? No. MEMORY - STEP 2: Does the patient have slight difficulty recognizing frequently encountered people, daily routines, or executing requests without the need for repetition or using self-initiated or environmental cues to remember? Yes. MEMORY - SCORE: 6-SHILPI SIGNATURE PANEL: The following modified sections: Eating - Score, Grooming - Score, Bathing - Score, Dressing - Upper Body - Score, Dressing - Lower Body - Score, Toileting - Score, Bladder Management - Score, Bowel Man agement - Score, Transfers: Bed, Chair, Wheelchair - Score, Transfers: Toilet - Score, Transfers: Pily wer - Score, Transfers: Tub - Score, Locomotion: Walk - Score, Locomotion: Wheelchair - Score, Compre hension - Score, Expression - Score, Social Interaction - Score, Problem Solving - Score, Memory - Sc ore were [electronically] signed by Kathia Gloria C.N.A. on FriAug 11 2018 15:45:07 [facility]-0500 (Centra l Daylight Time)
--- NOTE | 2018-08-11 16:59 | FAST ---
ENCOUNTER DATE AND TIME: 08/11/2018 08:00 (CDT) NAME CHRIS BOUDREAUX DATE OF : 1940 DATE OF ADMISSION: 08/10/2018 18:05 (CDT) PHONE: AGE: 78 SSN# [id number] GENDER: Male ENCOUNTER PHYSICIAN: Dr. Piero De Jesus M.D. 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 EATING: Activity did not occur on this shift EATING - SCORE: 0-UNK GROOMING: Activity did not occur on this shift GROOMING - SCORE: 0-UNK BATHING: Activity did not occur on this shift BATHING - SCORE: 0-UNK DRESSING - UPPER BODY: Activity did not occur on this shift Patient is not dressing in public clothing ARTICLES SCORE Total number of steps: 0 DRESSING - UPPER BODY - SCORE: 0-UNK DRESSING - LOWER BODY: Activity did not occur on this shift Patient is not dressing in public clothing ARTICLES SCORE Total number of steps: 0 DRESSING - LOWER BODY - SCORE: 0-UNK TOILETING: Activity did not occur on this shift TOILETING - SCORE: 0-UNK BLADDER MANAGEMENT: Activity did not occur on this shift BLADDER MANAGEMENT - SCORE: 7-IND BOWEL MANAGEMENT: Activity did not occur on this shift BOWEL MANAGEMENT - SCORE: 7-IND TRANSFERS: BED, CHAIR, WHEELCHAIR: TRANSFERS: BED, CHAIR, WHEELCHAIR - STEP 1: Does the patient require assistance of a person or device, or need extra time with bed, chair, or whe elchair transfers? Yes. TRANSFERS: BED, CHAIR, WHEELCHAIR - STEP 2: Does the patient require the assistance of a helper? Yes. TRANSFERS: BED, CHAIR, WHEELCHAIR - STEP 3: How much assistance does the patient require from the helper? Steadying/guiding assistance TRANSFERS: BED, CHAIR, WHEELCHAIR - SCORE: 4-MIN TRANSFERS: TOILET: Activity did not occur on this shift TRANSFERS: TOILET - SCORE: 0-UNK TRANSFERS: SHOWER: Activity did not occur on this shift TRANSFERS: SHOWER - SCORE: 0-UNK TRANSFERS: TUB: Activity did not occur on this shift TRANSFERS: TUB - SCORE: 0-UNK LOCOMOTION: WALK: LOCOMOTION: WALK - STEP 1: Does the patient need help from a person or device, or need extra time to walk 150 feet? Yes. LOCOMOTION: WALK - STEP 2: How much assistance does the patient require to walk a minimum of 150 feet? Patient walks less than 1 50 feet - but more than 50 feet - with the assistance of only one helper LOCOMOTION: WALK - SCORE: 2-MAX LOCOMOTION: WHEELCHAIR: Activity did not occur on this shift LOCOMOTION: WHEELCHAIR - SCORE: 0-UNK LOCOMOTION: STAIRS: Activity did not occur on this shift LOCOMOTION: STAIRS - SCORE: 0-UNK COMPREHENSION: COMPREHENSION - SCORE: 0-UNK EXPRESSION EXPRESSION - SCORE: 0-UNK SOCIAL INTERACTION: SOCIAL INTERACTION - SCORE: 0-UNK PROBLEM SOLVING: PROBLEM SOLVING - SCORE: 0-UNK MEMORY: MEMORY - SCORE: 0-UNK SIGNATURE PANEL: The following modified sections: Transfers: Bed, Chair, Wheelchair - Score, Transfers: Toilet - Score , Locomotion: Walk - Score, Locomotion: Wheelchair - Score, Locomotion: Stairs - Score were [electron ically] signed by Manas Abarca PT on FriAug 11 2018 16:59:00 T-0500 (Central Daylight Time)
--- NOTE | 2018-08-11 18:54 | R.HP ---
FACILITY: [facility] ENCOUNTER DATE AND TIME: 08/11/2018 18:47 (CDT) MR#: [id number] NAME TONY WINSTON ADDRESS: [address] [place] [address]: [place] [id number] PHONE: DATE OF : 1940 AGE: 78 SSN# [id number] GENDER: Male DEXTERITY Right-handed MARITAL STATUS RACE White PRE-HOSPITAL LIVING SETTING 01 - Home (private home/apt. board/care, assisted living, mcc, transitional living) PRE-HOSPITAL LIVING WITH Family/Relatives ENCOUNTER PHYSICIAN: Dr. Piero De Jesus M.D. REFERRING DOCTOR: Kwadwo Larson DATE OF ADMISSION: 08/10/2018 18:05 (CDT) REFERRING FACILITY [facility] HOME TYPE AND DETAILS: Type of home: single family house # of steps to enter the residence: 0 # of steps within the residence: 0 # of levels in the residence: 1 ADMISSION DIAGNOSIS: acute infarcts involving left MCA PRIMARY DIAGNOSIS-RELATED SURGERIES: No surgeries related to the primary diagnosis were performed. 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 is a 78 yo Right-handed white male. On 08/04/2018 Pt. presented to [facility] with sudden onset of right-side weakness. On 08/04/2018 he was admitted to [facility] with diagnosis acute infarcts involving left MCA. His impairment category is Stroke 01 - Right Body (Left Brain) (01.2). Pre-morbidly, Pt. was independent/mod-I in Self-Care, Sphincter Control, Transfers Control, Locomotio n, Communication, and Social Cognition; and he had good Sphincter Control. Currently, he has deficits of Self-Care, Transfers Control, Locomotion, Communication, Social Cogniti on, Endurance, Balance, and Safety Awareness. Pt. is now referred to [facility] for acute in-patient rehabilitation in order to maximize patient's functional independence in activities of daily living, strength, ROM, and mobi lity. Patient has realistic goal of being discharged at assistance level 6-Ciro to reside at Home with Fam rolando/Relatives. Tony Winston is a 78 old male that lives with his son in a single fadumo home. On 08/04/2018, he right unilatera l weakness, gait difficulty and fall and was admitted to [facility] and treated. He is now medically stable but in need of 24-hour nursing, doctor supervision and oversite participate in 3hours of therapy a day/15 hours per week and receive care with an intensive interdisciplinary approach. 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 SOCIAL HISTORY: - Home Living Family/Relatives REVIEW OF SYSTEMS: - Gen No Chills Fatigue No Fever - Eyes No Double Vision No itchiness - ENMT No Difficulty Swallowing - CVS No Chest Discomfort No Chest Pain Fatigue No Weight Gain - Resp No Cough No Shortness of Breath - GI Continent No Abdominal Pain No Constipation No Diarrhea - Continent No Kidney Pain No Painful Urination No Urinary Urgency - MSK No Joint Pain Muscle Cramps No Stiffness - Skin No Itching No Rash No Suspicious Lesions - Neuro Coordination Difficulty No Difficulty with Concentration No Memory Loss No Seizures Weakness - Psych No Anxiety No Depression No HIV Exposure No Persistent Infections No Seasonal Allergies - Endo No Cold/Heat Intolerance No Excessive Hunger No Excessive Thirst No Excessive Urination PHYSICAL EXAM - Gen Alert and awake Lying in bed No apparent distress Oriented to: person, time, and place - Skin No breakdown No abnormalities - Eyes No abnormalities - ENMT No abnormalities - Neck No abnormalities - CVS RRR - Chest Clear - Abd Soft - GI Soft No abnormalities - No abnormalities - Ext No significant edema - MSK 4+/5 weakness in right upper and lower extremities. - Neuro 4/5 strength right upper and lower extremities. - Psych No abnormalities VITAL SIGNS Temperature: 98.8 F SBP/DBP: 150/79 Pulse: 67 Resp: 16 NURSING: - Shower allowing shower - Lab Results blood Sugar Check ACHS - Bladder care per protocol - Skin care per protocol PRECAUTIONS: - Weight Bearing Precaution WBAT right LE ACTIVITIES OOB only with supervision FUNCTIONAL STATUS: - Self-Care A. Eating Ind sup B. Grooming Ind Hellen C. Bathing Ind modA D. Dressing - Upper Ind modA E. Dressing - Lower Ind maxA F. Toileting Ind Hellen - Sphincter Control G: Bladder control Ind Ind H: Bowel control Ind Ind - Transfers Control I. Bed/Chair/Wheelchair Ind Hellen J. Toilet Ind Hellen K. Tub/Shower Ind Hellen - Locomotion L. Walk/Wheelchair (B) Ind Dep L. Walk/Wheelchair (W) Ind Dep M. Stairs Ind ADNO - Communication N. Comprehension (B) Ind Hellen O. Expression (B) Ind sup - Social Cognition P. Social Interaction Ind Hellen Q. Problem Solving Ind sup R. Memory Ind sup - Endurance Fair - Balance Poor - Safety Awareness Poor CURRENT FUNC. DEFICITS: Self-Care, Transfers Control, Locomotion, Communication, Social Cognition, Endurance, Balance, and Sa fety Awareness MEDICATIONS: - Other See attached MAR (Medication Administration Record) [id number].pdf ASSESSMENT: Pt. is a 78 yo Right-handed white male.On 08/04/2018 Pt. presented to [facility] with sudden onset of right-side weakness.On 08/04/2018 he was admitted to [facility] with diagnosis acute infarcts involving left MCA.His impairment category is Stroke 01 - Right Body (Left Brain) (01.2).Pre-morbidly, Pt. was independent/mod-I in Self-Care, Sphincter Control, Transfers Control, Locomotion, Communication, and Social Cognition; and he had good Sphincte r Control.Currently, he has deficits of Self-Care, Transfers Control, Locomotion, Communication, Soci al Cognition, Endurance, Balance, and Safety Awareness.Pt. is now referred [facility] for acute in-patient rehabilitation in order to maximize patient's functional independence in activities of daily living, strength, ROM, and mobility.- Rehab Goal Patient has realistic goal of being discharged at assistance level 6-Ciro to reside at Home with Fam rolando/Relatives. Tony Winston is a 78 old male that lives with his son in a single fadumo home. On 08/04/2018, he right unilatera l weakness, gait difficulty and fall and was admitted to [facility] and treated. He is now medically stable but in need of 24-hour nursing, doctor supervision and oversite participate in 3hours of therapy a day/15 hours per week and receive care with an intensive interdisciplinary approach.REHAB PLAN: for Dementia, TBI, Stroke, or others - Physical Therapy Gait dysfunction - to improve, our physical therapists will perform initial evaluation of pt's status upon admission and devise an individualized program for Gait Training, and Wheel Chair mobility Inability to transfer - to improve, our physical therapists will perform initial evaluation of pt's s tatus upon admission and devise an individualized program for Bed mobility Need for home safety evaluation - to improve, our physical therapists will perform initial evaluation of pt's status upon admission and devise an individualized program for Home Evaluation Need in caregiver upon discharge - to improve, our physical therapists will perform initial evaluatio n of pt's status upon admission and devise an individualized program for Caregiver Training New precaution - to improve, our physical therapists will perform initial evaluation of pt's status u phoebe admission and devise an individualized program for Patient precaution education Edema - to improve, our physical therapists will perform initial evaluation of pt's status upon admi ssion and devise an individualized program for Elevation Training, and Lymphedema Therapy Poor balance - to improve, our physical therapists will perform initial evaluation of pt's status upo n admission and devise an individualized program for Balance Training Poor endurance - to improve, our physical therapists will perform initial evaluation of pt's status u phoebe admission and devise an individualized program for Endurance Training Weakness - to improve, our physical therapists will perform initial evaluation of pt's status upon ad mission and devise an individualized program for Aquatic Therapy, Neuromuscular Reeducation, and Stre ngthening Achieving independence - to improve, our physical therapists will perform initial evaluation of pt's status upon admission and devise an individualized program for Community Reintegration Activities - Occupational Therapy ADL deficits - to improve, our occupation therapists will perform initial evaluation of pt's status u phoebe admission and devise an individualized program for Bathing, Bed mobility, Community Reintegration , Cooking, Dressing, Eating, Fine Motor Skills, Grooming, Homemaking, Kitchen Mobility, Laundry, Maria E ent Education, Safety Awareness, Splinting - Positioning, Transfers(Toilet, Tub, Shower), and Wheel C hair Management Cognitive deficits - to improve, our occupation therapists will perform initial evaluation of pt's st atus upon admission and devise an individualized program for Cognition - orientation Need for landcare facilitator - to improve, our occupation therapists will perform initial evaluation of pt's s tatus upon admission and devise an individualized program for Caregiver Training Weakness - to improve, our occupation therapists will perform initial evaluation of pt's status upon admission and devise an individualized program for Aquatic Therapy, Balance, Endurance, UE ROM, and U E strengthening MEDICAL PLAN: - Diet Type Start ADA 1800 eric - Diet - Liquid Texture Start Regular - Tube Feed Start N/A - Lab Results blood Sugar Check ACHS - Bladder care per protocol - Weight Bearing Precaution WBAT right LE - Other See attached MAR (Medication Administration Record) [id number].pdf - Skin care per protocol - Diet - Solid Texture Regular - Shower shower DISCHARGE PLAN: - Estimated Length of Stay (days) 17. - Consensus on plan Discharge plan has been discussed with primary caregiver. Patient/Family is in agreement with the eliana n. Primary caregiver is in agreement with the plan. - Patient/Family Goals Return home with assistance. - Planned Living Setting Upon Discharge Home, to live with Family/Relatives. SIGNATURE PANEL: (CDT)
--- NOTE | 2018-08-11 18:55 | PAPE ---
PATIENT: [facility] MR# [id number] REFERRING DOCTOR Kwadwo Larson EVALUATION DATE AND TIME 08/11/2018 18:51 (CDT) NAME CHRIS BOUDREAUX DATE OF 1940 AGE 78 PHONE SSN# [id number] GENDER male EVALUATING PHYSICIAN Dr. Piero De Jesus M.D. 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 PATIENT NEEDS CLOSE MEDICAL SUPERVISION BY A REHABILITATION PHYSICIAN FOR: Bowel and Bladder Management Coordination of Treatment Team Diabetes Management Medical and Co-Morbidity Management PATIENT REQUIRES 24X7 REHAB NURSING FOR MEDICAL AND FUNCTIONAL MGT. OF THE FOLLOWING DEFICITS: ADL's Ambulation Bowel and Bladder Management Cognition Communication Disease Management Medication Management Patient/Family Education Providing Safe Environment Transfers PATIENT REQUIRES INTENSIVE, COORDINATED INTERDISCIPLINARY APPROACH TO REHAB: Arranging Home Equipment/Services Discharge Planning Family Intervention/Training Broadcast Maintenance Technician/Case Management LIST OF IDENTIFIED AND POTENTIAL PROBLEMS: Alteration in leisure activities Bladder, Incontinence Bowel, Incontinence Diabetes, Hyperglycemia/hypoglycemia Issues Infection, Actual or Potential Mobility Impaired Pain, Alteration in Comfort Self Care Deficit Skin Integrity, Actual or Potential Urinary Tract Infection (UTI), Actual or Potential RISK FOR COMPLICATIONS - GERD Alteration in sleep. Aspiration. Dehydration. Malnutrition. Pain. INTERVENTIONS - GERD Altered diet. Elevation of head of bed. Medications. Nausea/vomiting. Nighttime food/fluid restrictio ns. Nutrition. PATIENT COULD BE AT RISK FOR COMPLICATIONS FROM ADVERSE MEDICAL CONDITIONS DUE TO HIS/HER COMORBIDITI ES AND THE RIGORS OF THE INTENSIVE REHABILLITATION PROGRAM. METHODS OR INTERVENTIONS TO AVOID COMPLIC ATIONS INCLUDE: - Bleeding Stroke patients assessed for lethargy or change in status. - Infection Clinical staff to assess and manage the signs and symptoms of infection including fever, redness, war mth, etc. - Urinary Tract Infection - Aspiration Clinical staff will assess and manage coughing, drooling, congestion. - Falls Patient will be evaluated for Fall Precautions and will be placed on Fall Precautions as indicated pe r protocol. - Skin Breakdown Nursing will assess skin daily using assessment tool and will place on Skin Breakdown Precautions as indicated per protocol. - Pain Clinical staff may employ non-medication methods such as massage, distraction, decrease stimulus, etc . as needed. Clinical staff will assess patient's pain level every shift per protocol to assess and e nsure pain management effectiveness. Medications will be given and the pain level re-assessed. PRELIMINARY PLAN OF CARE: - Physical Therapy Patient needs Physical Therapy for a daily minimum of 1.5 hours at least 5 out of 7 days, to improve: Mobility, Strengthening, Transfers, Stretching, ROM, Endurance, Ability to manage stairs, Gait, and Balance. - Speech Therapy Patient needs Speech Therapy for a daily minimum of 0.5 hours at least 5 out of 7 days, to improve: S wallowing, Cognition, Language Skills, and Compensatory Strategies. - Rehabilitation Nursing Patient requires 24x7 Rehabilitation Nursing for: Pain Issues, Identifying and preventing risk factor s, Monitoring and reporting current medical conditions, Assisting with ambulation and transfer, Armin ting with all ADL-s, Teaching patients about disease process and medications, Family teaching, Provid ing safe environment, Bowel and Bladder Issues, Skin Integrity, and Medication Management. Patient needs Broadcast Maintenance Technician and/or Case Management for: Discharge Planning, Arranging Home Equipmen t or Services, and Family Interventions. - Dietary and Nutrition Services Patient needs Dietary and Nutrition Services for: Adequate Nutrition, Nutritional Supplements, and Nu tritional Education. - Occupational Therapy Patient needs Occupational Therapy for a daily minimum of 1.5 hours at least 5 out of 7 days, to impr ove Activities of Daily Living, including: Eating, Grooming, Bathing, Dressing, Toileting, Toilet Tra nsfers, Community Reintegration, Higher functional activities, Adaptive Equipment, Splinting, Househo ld Tasks, and Other activities as determined. POTENTIAL FUNCTIONAL GOALS FOR PATIENT TO ACHIEVE BY DISCHARGE: - Safety Precaution Patient will remain free from falls or injury at time of discharge. - Bed Mobility Patient will perform bed mobility at 4-Hellen level of assistance. - Transfers Patient will complete transfers from bed to chair at 4-Hellen level of assistance. - Mobility Patient will ambulate 150 ft with 4-Hellen level of assistance with RW. PATIENT REHAB POTENTIAL Sherly BOUDREAUX is able and expected to receive 3 hours of individualized therapy daily on at least 5 of ever y 7 days Sherly CHs prognosis for significant practical improvement within a reasonable period of time appears Good Expected level of measurable improvement will be of a practical value to Sherly BOUDREAUX's functional capacit y or adaptations to impairments Has a viable Discharge Plan Medically appropriate; condition is sufficiently stable to participate in intensive rehab program DISCHARGE PLAN: - Estimated Length of Stay (days) 17. - Consensus on plan Discharge plan has been discussed with primary caregiver. Patient/Family is in agreement with the eliana n. Primary caregiver is in agreement with the plan. - Patient/Family Goals Return home with assistance. - Planned Living Setting Upon Discharge Home, to live with Family/Relatives. CONCLUSION ON REHABILITATION NECESSITY: I have evaluated patient's pre-admission functional status and, comparing it to the patient's post-ad mission functional status now, I conclude that the pre-admission assessment was accurate. Patient's c ondition on admission supports the medical necessity of admission to IR[facility]. It is safe to proceed with patient's therapy program. SIGNATURE PANEL: (CDT)
[2018-08-11] MEDS: MIRTAZAPINE 15 MG TAB PO SCH (20:37)
[2018-08-11] MEDS: INSULIN GLARGINE 100 UNITS/ML SQ SCH (20:39)
[2018-08-11] MEDS: ACETAMINOPHEN 325 MG TABLET PO PRN (20:42)
--- NOTE | 2018-08-12 01:19 | FAST ---
SHIFT START DATE/TIME: 08/11/2018 19:00 (CDT) SHIFT END DATE/TIME: 08/12/2018 07:00 (CDT) NAME CHRIS BOUDREAUX DATE OF : 1940 DATE OF ADMISSION: 08/10/2018 18:05 (CDT) PHONE: AGE: 78 SSN# [id number] GENDER: Male ENCOUNTER PHYSICIAN: Dr. Piero De Jesus M.D. 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 EATING: Activity did not occur on this shift EATING - SCORE: 0-UNK GROOMING: Activity did not occur on this shift GROOMING - SCORE: 0-UNK BATHING: Activity did not occur on this shift BATHING - SCORE: 0-UNK DRESSING - UPPER BODY: Patient is not dressing in public clothing ARTICLES SCORE Total number of steps: 0 DRESSING - UPPER BODY - SCORE: 0-UNK DRESSING - LOWER BODY: Patient is not dressing in public clothing ARTICLES SCORE Total number of steps: 0 DRESSING - LOWER BODY - SCORE: 0-UNK TOILETING: TOILETING - STEP 1: Does the patient require the assistance of a person or device, or need extra time with toileting? Yes . TOILETING - STEP 2: Does the patient require the assistance of a helper? Yes. TOILETING - STEP 3: How much assistance does the patient require from the helper? Only supervision TOILETING - SCORE: 5-SUP BLADDER MANAGEMENT: BLADDER MANAGEMENT - STEP 1: Does the patient control the bladder completely and intentionally without equipment or devices or med ications, and is always continent? No. BLADDER MANAGEMENT - STEP 2: Does the patient require the assistance of a helper? Yes. BLADDER MANAGEMENT - STEP 3: How much assistance does the patient require from the helper? Only supervision, stand-by, cuing, or c oaxing BLADDER MANAGEMENT - SCORE: 5-SUP BOWEL MANAGEMENT: BOWEL MANAGEMENT - STEP 1: Does the patient control bowels completely and intentionally without equipment devices or medications AND is always continent? No. BOWEL MANAGEMENT - STEP 2: Does the patient require the assistance of a helper? No, patient requires medication for control such as stool softeners, suppositories, laxatives, enemas, or OTC medications BOWEL MANAGEMENT - SCORE: 6-SHILPI TRANSFERS: BED, CHAIR, WHEELCHAIR: TRANSFERS: BED, CHAIR, WHEELCHAIR - STEP 1: Does the patient require assistance of a person or device, or need extra time with bed, chair, or whe elchair transfers? Yes. TRANSFERS: BED, CHAIR, WHEELCHAIR - STEP 2: Does the patient require the assistance of a helper? Yes. TRANSFERS: BED, CHAIR, WHEELCHAIR - STEP 3: How much assistance does the patient require from the helper? Steadying/guiding assistance TRANSFERS: BED, CHAIR, WHEELCHAIR - SCORE: 4-MIN TRANSFERS: TOILET: TRANSFERS: TOILET - STEP 1: Does the patient require the assistance of a person or device, or need extra time with toilet transfe rs? Yes. TRANSFERS: TOILET - STEP 2: Does the patient require the assistance of a helper? Yes. TRANSFERS: TOILET - STEP 3: How much assistance does the patient require from the helper? Only supervision, cuing, coaxing, OR he lp to set out transfer equipment or to lock brakes and/or lift foot rests TRANSFERS: TOILET - SCORE: 5-SUP TRANSFERS: SHOWER: Activity did not occur on this shift TRANSFERS: SHOWER - SCORE: 0-UNK TRANSFERS: TUB: Activity did not occur on this shift TRANSFERS: TUB - SCORE: 0-UNK LOCOMOTION: WALK: Activity did not occur on this shift LOCOMOTION: WALK - SCORE: 0-UNK LOCOMOTION: WHEELCHAIR: Activity did not occur on this shift LOCOMOTION: WHEELCHAIR - SCORE: 0-UNK COMPREHENSION: COMPREHENSION: TYPE: Both COMPREHENSION - STEP 1: Does the patient require help from a person or device, or need extra time to understand complex and a bstract ideas (such as current events, finances, discharge planning, medical issues, relationships, e tc)? No. COMPREHENSION - STEP 2: Does the patient need extra time, require an assistive device (such as glasses for visual comprehensi on or a hearing aid for auditory comprehension) or does s/he have mild difficulty understanding compl ex and abstract information? Yes. COMPREHENSION - SCORE: 6-SHILPI EXPRESSION EXPRESSION: TYPE: Both EXPRESSION - STEP 1: Does the patient require help from a person or device, or need extra time expressing complex and abst ract ideas (such as current events, finances, discharge planning, medical issues, relationships, etc) ? No. EXPRESSION - STEP 2: Does the patient need extra time, require an assistive device (such as augmentive communication syste m or a communication board), OR does s/he have mild difficulty expressing complex and abstract ideas (including mild dysarthria or mild word-find problems)? Yes. EXPRESSION - SCORE: 6-SHILPI SOCIAL INTERACTION: SOCIAL INTERACTION - STEP 1: Does the patient require a helper to interact with others in social and therapeutic situations? No. SOCIAL INTERACTION - STEP 2: Does the patient need extra time in social situations, OR does s/he interact with staff, other patien ts, and family members ONLY in structured environments, OR does s/he require medication for social in teraction? Yes, patient needs extra time SOCIAL INTERACTION - SCORE: 6-SHILPI PROBLEM SOLVING: PROBLEM SOLVING - STEP 1: Does the patient need help from a person or device, or need extra time to solve complex problems such as managing a checking account or confronting interpersonal problems? Yes. PROBLEM SOLVING - STEP 2: Does the patient solve basic routine problems half or more of the time? Yes. PROBLEM SOLVING - STEP 3: How often does the patient need help to solve basic routine problems? 10%-24% of the time PROBLEM SOLVING - SCORE: 4-MIN MEMORY: MEMORY - STEP 1: Does the patient need help from a person or device, or need extra time to remember frequently encount ered people, daily routines, and executing requests? No. MEMORY - STEP 2: Does the patient have slight difficulty recognizing frequently encountered people, daily routines, or executing requests without the need for repetition or using self-initiated or environmental cues to remember? Yes. MEMORY - SCORE: 6-SHILPI SIGNATURE PANEL: The following modified sections: Eating - Score, Grooming - Score, Dressing - Upper Body - Score, Joon ssing - Lower Body - Score, Toileting - Score, Bladder Management - Score, Bowel Management - Score, Transfers: Bed, Chair, Wheelchair - Score, Transfers: Toilet - Score, Transfers: Shower - Score, Eric sfers: Tub - Score, Locomotion: Walk - Score, Locomotion: Wheelchair - Score, Comprehension - Score, Expression - Score, Social Interaction - Score, Problem Solving - Score, Memory - Score were [electro nically] signed by Julia Vallejo CNA on FriAug 12 2018 01:17:46 GMT-0500 (Central Daylight Time)
[2018-08-12] MEDS: ACETAMINOPHEN 325 MG TABLET PO PRN ×2 (07:16→16:29)
[2018-08-12] MEDS: INSULIN -REGULAR HUMAN 50 UNIT/0.5 ML ML SQ SCH ×5 (07:21→20:32)
[2018-08-12] MEDS: INSULIN LISPRO 100 UNIT/1 ML SQ SCH ×3 (08:09→17:04)
[2018-08-12] MEDS: RANITIDINE 150 MG TABLET PO SCH ×2 (08:10→20:28)
[2018-08-12] MEDS: FENOFIBRATE 160 MG TAB PO SCH (08:10)
[2018-08-12] MEDS: APIXABAN 5 MG TABLET PO SCH ×2 (08:10→20:28)
[2018-08-12] MEDS: ATORVASTATIN 10 MG TAB PO SCH (08:10)
[2018-08-12] MEDS: TAMSULOSIN 0.4 MG SR CAP PO SCH (08:10)
[2018-08-12] MEDS: VITAMIN D 5,000 UNIT CAP PO SCH (08:10)
--- NOTE | 2018-08-12 12:10 | FAST ---
ENCOUNTER DATE AND TIME: 08/11/2018 08:00 (CDT) NAME CHRIS BOUDREAUX DATE OF : 1940 DATE OF ADMISSION: 08/10/2018 18:05 (CDT) PHONE: AGE: 78 SSN# [id number] GENDER: Male ENCOUNTER PHYSICIAN: Dr. Piero De Jesus M.D. 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 EATING: Activity did not occur on this shift EATING - SCORE: 0-UNK GROOMING: Comb/brush hair Oral care Wash, rinse, and dry face Wash, rinse, and dry hands GROOMING - STEP 1: Does the patient require the assistance of a person or device, or need extra time when grooming? No. GROOMING - SCORE: 7-IND BATHING: Abdomen Buttocks Chest Left arm Left lower leg and foot Left upper leg Perineal area Right arm Right lower leg and foot Right upper leg BATHING - STEP 1: Does the patient require the assistance of a person or device, or need extra time when bathing? Yes. BATHING - STEP 2: Does the patient require the assistance of a helper? Yes. BATHING - STEP 3: How much assistance does the patient require from the helper? Only incidental help such as placement of a wash cloth in his/her hand a few times as s/he bathes OR help to bathe just one or two areas of the body BATHING - SCORE: 4-MIN DRESSING - UPPER BODY: T-shirt/pullover shirt (four steps) ARTICLES SCORE Total number of steps: 4 DRESSING - UPPER BODY - STEP 1: Does the patient require help from a person or device, or need extra time when dressing above the [address]? Yes. DRESSING - UPPER BODY - STEP 2: Does the patient require the assistance of a helper? Yes. DRESSING - UPPER BODY - STEP 3: Does the helper touch the patient while dressing? No. DRESSING - UPPER BODY - SCORE: 5-SUP DRESSING - LOWER BODY: Elastic waist pants (three steps) Slip-on shoe - Left foot (one step) Slip-on shoe - Right foot (one step) Sock - Left foot (one step) Sock - Right foot (one step) Underwear (three steps) ARTICLES SCORE Total number of steps: 10 DRESSING - LOWER BODY - STEP 1: Does the patient require help from a person or device, or need extra time when dressing below the [address]? Yes. DRESSING - LOWER BODY - STEP 2: Does the patient require the assistance of a helper? Yes. DRESSING - LOWER BODY - STEP 3: Does the helper touch the patient while dressing? Yes. DRESSING - LOWER BODY - STEP 4: How many of the total steps does the patient complete on his/her own? 10 DRESSING - LOWER BODY - SCORE: 4-MIN TOILETING: TOILETING - STEP 1: Does the patient require the assistance of a person or device, or need extra time with toileting? Yes . TOILETING - STEP 2: Does the patient require the assistance of a helper? Yes. TOILETING - STEP 3: How much assistance does the patient require from the helper? Hands-on assistance from the helper TOILETING - STEP 4: Of the 3 tasks: 1) Adjusting clothing prior to use, 2) Cleansing of perineal area, 3) Adjusting clot cristina after use; How many tasks does the patient perform WITHOUT assistance of the helper? Three tasks with steadying assistance from the helper TOILETING - SCORE: 4-MIN BLADDER MANAGEMENT: Activity did not occur on this shift BLADDER MANAGEMENT - SCORE: 7-IND BOWEL MANAGEMENT: Activity did not occur on this shift BOWEL MANAGEMENT - SCORE: 7-IND TRANSFERS: BED, CHAIR, WHEELCHAIR: Activity did not occur on this shift TRANSFERS: BED, CHAIR, WHEELCHAIR - SCORE: 0-UNK TRANSFERS: TOILET: TRANSFERS: TOILET - STEP 1: Does the patient require the assistance of a person or device, or need extra time with toilet transfe rs? Yes. TRANSFERS: TOILET - STEP 2: Does the patient require the assistance of a helper? Yes. TRANSFERS: TOILET - STEP 3: How much assistance does the patient require from the helper? Patient performs half or more of the tr ansferring tasks TRANSFERS: TOILET - STEP 4: Does the patient need only incidental help such as contact guard or steadying during toilet transfer? Yes. TRANSFERS: TOILET - SCORE: 4-MIN TRANSFERS: SHOWER: TRANSFERS: SHOWER - STEP 1: Does the patient require the assistance of a person or device, or need extra time with shower transfe rs? Yes. TRANSFERS: SHOWER - STEP 2: Does the patient require the assistance of a helper? Yes. TRANSFERS: SHOWER - STEP 3: How much assistance does the patient require from the helper? Only incidental help such as contact gu arding or steadying during shower transfers, or help to lift one leg into the shower TRANSFERS: SHOWER - SCORE: 4-MIN TRANSFERS: TUB: Activity did not occur on this shift TRANSFERS: TUB - SCORE: 0-UNK LOCOMOTION: WALK: Activity did not occur on this shift LOCOMOTION: WALK - SCORE: 0-UNK LOCOMOTION: WHEELCHAIR: Activity did not occur on this shift LOCOMOTION: WHEELCHAIR - SCORE: 0-UNK LOCOMOTION: STAIRS: Activity did not occur on this shift LOCOMOTION: STAIRS - SCORE: 0-UNK COMPREHENSION: COMPREHENSION: TYPE: Both COMPREHENSION - STEP 1: Does the patient require help from a person or device, or need extra time to understand complex and a bstract ideas (such as current events, finances, discharge planning, medical issues, relationships, e tc)? Yes. COMPREHENSION - STEP 2: Does the patient require help to understand questions or statements about basic needs or ideas (such as hunger, thirst, sleep, safety, daily schedule, room location, or discomfort) half or more of the t alison? No. COMPREHENSION - STEP 3: How often does the patient need help to understand directions and conversation about basic needs? Les s than 10% of the time COMPREHENSION - SCORE: 5-SUP EXPRESSION EXPRESSION: TYPE: Both EXPRESSION - STEP 1: Does the patient require help from a person or device, or need extra time expressing complex and abst ract ideas (such as current events, finances, discharge planning, medical issues, relationships, etc) ? Yes. EXPRESSION - STEP 2: Does the patient require help to express basic necessities or ideas (such as hunger, thirst, sleep, s afety, daily schedule, room location, or discomfort) half or more of the time? No. EXPRESSION - STEP 3: How often does the patient need help to express directions and conversation about basic needs? Less t lock 10% of the time EXPRESSION - SCORE: 5-SUP SOCIAL INTERACTION: SOCIAL INTERACTION - STEP 1: Does the patient require a helper to interact with others in social and therapeutic situations? No. SOCIAL INTERACTION - STEP 2: Does the patient need extra time in social situations, OR does s/he interact with staff, other patien ts, and family members ONLY in structured environments, OR does s/he require medication for social in teraction? Yes, patient needs extra time SOCIAL INTERACTION - SCORE: 6-SHILPI PROBLEM SOLVING: PROBLEM SOLVING - STEP 1: Does the patient need help from a person or device, or need extra time to solve complex problems such as managing a checking account or confronting interpersonal problems? Yes. PROBLEM SOLVING - STEP 2: Does the patient solve basic routine problems half or more of the time? Yes. PROBLEM SOLVING - STEP 3: How often does the patient need help to solve basic routine problems? Less than 10% of the time PROBLEM SOLVING - SCORE: 5-SUP MEMORY: MEMORY - STEP 1: Does the patient need help from a person or device, or need extra time to remember frequently encount ered people, daily routines, and executing requests? Yes. MEMORY - STEP 2: How often does the patient need help to remember frequently encountered people, daily routines, and e xecuting requests? Less than 10% of the time MEMORY - SCORE: 5-SUP SIGNATURE PANEL: The following modified sections: Eating - Score, Grooming - Score, Bathing - Score, Dressing - Upper Body - Score, Dressing - Lower Body - Score, Toileting - Score, Transfers: Bed, Chair, Wheelchair - S core, Transfers: Toilet - Score, Transfers: Tub - Score, Transfers: Shower - Score, Comprehension - S core, Expression - Score, Social Interaction - Score, Memory - Score, Problem Solving - Score were [e lectronically] signed by Carley Chi OT on FriAug 12 2018 12:09:48 T-0500 ([facility] T [place])
--- NOTE | 2018-08-12 14:23 | FAST ---
SHIFT START DATE/TIME: 08/12/2018 07:00 (CDT) SHIFT END DATE/TIME: 08/12/2018 19:00 (CDT) NAME CHRIS BOUDREAUX DATE OF : 1940 DATE OF ADMISSION: 08/10/2018 18:05 (CDT) PHONE: AGE: 78 SSN# [id number] GENDER: Male ENCOUNTER PHYSICIAN: Dr. Piero De Jesus M.D. 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 EATING: EATING - STEP 1: Does the patient require the assistance of a person or device, or need extra time when eating? Yes. EATING - STEP 2: Does the patient require the assistance of a helper? Yes. EATING - STEP 3: Does the patient perform half or more of the eating tasks? Yes. EATING - STEP 4: Does the patient need only supervision, cuing, coaxing OR help to apply an orthosis OR help to cut fo od, open containers, pour liquids, or butter bread? Yes. EATING - SCORE: 5-SUP GROOMING: Comb/brush hair Oral care Wash, rinse, and dry face Wash, rinse, and dry hands GROOMING - STEP 1: Does the patient require the assistance of a person or device, or need extra time when grooming? Yes. GROOMING - STEP 2: Does the patient require the assistance of a helper? No. The patient only requires an assistive devic e, OR takes more than reasonable time to groom, OR there is a concern for safety as the patient groom s GROOMING - SCORE: 6-SHILPI BATHING: Activity did not occur on this shift BATHING - SCORE: 0-UNK DRESSING - UPPER BODY: Activity did not occur on this shift ARTICLES SCORE Total number of steps: 0 DRESSING - UPPER BODY - SCORE: 0-UNK DRESSING - LOWER BODY: Activity did not occur on this shift ARTICLES SCORE Total number of steps: 0 DRESSING - LOWER BODY - SCORE: 0-UNK TOILETING: TOILETING - STEP 1: Does the patient require the assistance of a person or device, or need extra time with toileting? Yes . TOILETING - STEP 2: Does the patient require the assistance of a helper? Yes. TOILETING - STEP 3: How much assistance does the patient require from the helper? Hands-on assistance from the helper TOILETING - STEP 4: Of the 3 tasks: 1) Adjusting clothing prior to use, 2) Cleansing of perineal area, 3) Adjusting clot cristina after use; How many tasks does the patient perform WITHOUT assistance of the helper? Three tasks with steadying assistance from the helper TOILETING - SCORE: 4-MIN BLADDER MANAGEMENT: BLADDER MANAGEMENT - STEP 1: Does the patient control the bladder completely and intentionally without equipment or devices or med ications, and is always continent? No. BLADDER MANAGEMENT - STEP 2: Does the patient require the assistance of a helper? No, patient requires and independently uses an a ssistive device, such as a urinal, bedpan, bedside commode, catheter, absorbent pad, or collecting de vice BLADDER MANAGEMENT - SCORE: 6-SHILPI BOWEL MANAGEMENT: Activity did not occur on this shift BOWEL MANAGEMENT - SCORE: 7-IND TRANSFERS: BED, CHAIR, WHEELCHAIR: TRANSFERS: BED, CHAIR, WHEELCHAIR - STEP 1: Does the patient require assistance of a person or device, or need extra time with bed, chair, or whe elchair transfers? Yes. TRANSFERS: BED, CHAIR, WHEELCHAIR - STEP 2: Does the patient require the assistance of a helper? Yes. TRANSFERS: BED, CHAIR, WHEELCHAIR - STEP 3: How much assistance does the patient require from the helper? Steadying/guiding assistance TRANSFERS: BED, CHAIR, WHEELCHAIR - SCORE: 4-MIN TRANSFERS: TOILET: TRANSFERS: TOILET - STEP 1: Does the patient require the assistance of a person or device, or need extra time with toilet transfe rs? Yes. TRANSFERS: TOILET - STEP 2: Does the patient require the assistance of a helper? Yes. TRANSFERS: TOILET - STEP 3: How much assistance does the patient require from the helper? Patient performs half or more of the tr ansferring tasks TRANSFERS: TOILET - STEP 4: Does the patient need only incidental help such as contact guard or steadying during toilet transfer? Yes. TRANSFERS: TOILET - SCORE: 4-MIN TRANSFERS: SHOWER: Activity did not occur on this shift TRANSFERS: SHOWER - SCORE: 0-UNK TRANSFERS: TUB: Activity did not occur on this shift TRANSFERS: TUB - SCORE: 0-UNK LOCOMOTION: WALK: Activity did not occur on this shift LOCOMOTION: WALK - SCORE: 0-UNK LOCOMOTION: WHEELCHAIR: Activity did not occur on this shift LOCOMOTION: WHEELCHAIR - SCORE: 0-UNK COMPREHENSION: COMPREHENSION: TYPE: Both COMPREHENSION - STEP 1: Does the patient require help from a person or device, or need extra time to understand complex and a bstract ideas (such as current events, finances, discharge planning, medical issues, relationships, e tc)? No. COMPREHENSION - STEP 2: Does the patient need extra time, require an assistive device (such as glasses for visual comprehensi on or a hearing aid for auditory comprehension) or does s/he have mild difficulty understanding compl ex and abstract information? Yes. COMPREHENSION - SCORE: 6-SHILPI EXPRESSION EXPRESSION: TYPE: Both EXPRESSION - STEP 1: Does the patient require help from a person or device, or need extra time expressing complex and abst ract ideas (such as current events, finances, discharge planning, medical issues, relationships, etc) ? No. EXPRESSION - STEP 2: Does the patient need extra time, require an assistive device (such as augmentive communication syste m or a communication board), OR does s/he have mild difficulty expressing complex and abstract ideas (including mild dysarthria or mild word-find problems)? No. EXPRESSION - SCORE: 7-IND SOCIAL INTERACTION: SOCIAL INTERACTION - STEP 1: Does the patient require a helper to interact with others in social and therapeutic situations? No. SOCIAL INTERACTION - STEP 2: Does the patient need extra time in social situations, OR does s/he interact with staff, other patien ts, and family members ONLY in structured environments, OR does s/he require medication for social in teraction? Yes, patient needs extra time SOCIAL INTERACTION - SCORE: 6-SHILPI PROBLEM SOLVING: PROBLEM SOLVING - STEP 1: Does the patient need help from a person or device, or need extra time to solve complex problems such as managing a checking account or confronting interpersonal problems? No. PROBLEM SOLVING - STEP 2: Does the patient require extra time to make decisions or solve problems, OR does s/he have slight dif ficulty reading, initiating, or self-correcting in unfamiliar situations? Yes, patient needs extra ti me. PROBLEM SOLVING - SCORE: 6-SHILPI MEMORY: MEMORY - STEP 1: Does the patient need help from a person or device, or need extra time to remember frequently encount ered people, daily routines, and executing requests? No. MEMORY - STEP 2: Does the patient have slight difficulty recognizing frequently encountered people, daily routines, or executing requests without the need for repetition or using self-initiated or environmental cues to remember? Yes. MEMORY - SCORE: 6-SHILPI SIGNATURE PANEL: The following modified sections: Eating - Score, Grooming - Score, Bathing - Score, Dressing - Upper Body - Score, Dressing - Lower Body - Score, Toileting - Score, Bladder Management - Score, Bowel Man agement - Score, Transfers: Bed, Chair, Wheelchair - Score, Transfers: Toilet - Score, Transfers: Pily wer - Score, Transfers: Tub - Score, Locomotion: Walk - Score, Locomotion: Wheelchair - Score, Compre hension - Score, Expression - Score, Social Interaction - Score, Problem Solving - Score, Memory - Sc ore were [electronically] signed by Tariq Cunha on FriAug 12 2018 14:22:56 GMT-0500 (Central Daylight Time)
--- NOTE | 2018-08-12 15:34 | FAST ---
ENCOUNTER DATE AND TIME: 08/12/2018 08:00 (CDT) NAME CHRIS BOUDREAUX DATE OF : 1940 DATE OF ADMISSION: 08/10/2018 18:05 (CDT) PHONE: AGE: 78 SSN# [id number] GENDER: Male ENCOUNTER PHYSICIAN: Dr. Piero De Jesus M.D. 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 EATING: Activity did not occur on this shift EATING - SCORE: 0-UNK GROOMING: Activity did not occur on this shift GROOMING - SCORE: 0-UNK BATHING: Activity did not occur on this shift BATHING - SCORE: 0-UNK DRESSING - UPPER BODY: Activity did not occur on this shift Patient is not dressing in public clothing ARTICLES SCORE Total number of steps: 0 DRESSING - UPPER BODY - SCORE: 0-UNK DRESSING - LOWER BODY: Activity did not occur on this shift Patient is not dressing in public clothing ARTICLES SCORE Total number of steps: 0 DRESSING - LOWER BODY - SCORE: 0-UNK TOILETING: Activity did not occur on this shift TOILETING - SCORE: 0-UNK BLADDER MANAGEMENT: Activity did not occur on this shift BLADDER MANAGEMENT - SCORE: 7-IND BOWEL MANAGEMENT: Activity did not occur on this shift BOWEL MANAGEMENT - SCORE: 7-IND TRANSFERS: BED, CHAIR, WHEELCHAIR: TRANSFERS: BED, CHAIR, WHEELCHAIR - STEP 1: Does the patient require assistance of a person or device, or need extra time with bed, chair, or whe elchair transfers? Yes. TRANSFERS: BED, CHAIR, WHEELCHAIR - STEP 2: Does the patient require the assistance of a helper? Yes. TRANSFERS: BED, CHAIR, WHEELCHAIR - STEP 3: How much assistance does the patient require from the helper? Steadying/guiding assistance TRANSFERS: BED, CHAIR, WHEELCHAIR - SCORE: 4-MIN TRANSFERS: TOILET: Activity did not occur on this shift TRANSFERS: TOILET - SCORE: 0-UNK TRANSFERS: SHOWER: Activity did not occur on this shift TRANSFERS: SHOWER - SCORE: 0-UNK TRANSFERS: TUB: Activity did not occur on this shift TRANSFERS: TUB - SCORE: 0-UNK LOCOMOTION: WALK: LOCOMOTION: WALK - STEP 1: Does the patient need help from a person or device, or need extra time to walk 150 feet? Yes. LOCOMOTION: WALK - STEP 2: How much assistance does the patient require to walk a minimum of 150 feet? Only incidental help such as contact guarding or steadying LOCOMOTION: WALK - SCORE: 4-MIN LOCOMOTION: WHEELCHAIR: LOCOMOTION: WHEELCHAIR - STEP 1: Does the patient need help to go 150 feet in a wheelchair? Yes. LOCOMOTION: WHEELCHAIR - STEP 2: How much assistance does the patient need from the helper? Only supervision, cuing, or coaxing LOCOMOTION: WHEELCHAIR - SCORE: 5-SUP LOCOMOTION: STAIRS: Activity did not occur on this shift LOCOMOTION: STAIRS - SCORE: 0-UNK COMPREHENSION: COMPREHENSION - SCORE: 0-UNK EXPRESSION EXPRESSION - SCORE: 0-UNK SOCIAL INTERACTION: SOCIAL INTERACTION - SCORE: 0-UNK PROBLEM SOLVING: PROBLEM SOLVING - SCORE: 0-UNK MEMORY: MEMORY - SCORE: 0-UNK SIGNATURE PANEL: The following modified sections: Transfers: Bed, Chair, Wheelchair - Score, Transfers: Toilet - Score , Locomotion: Walk - Score, Locomotion: Wheelchair - Score, Locomotion: Stairs - Score were [chance eldridge] signed by Filiberto Casey PTA on FriAug 12 2018 15:33:00 GMT-0500 (Central Daylight Time)
--- NOTE | 2018-08-12 19:17 | R.PN ---
ENCOUNTER DATE AND TIME: 08/12/2018 19:14 (CDT) NAME CHRIS BOUDREAUX DATE OF : 1940 DATE OF ADMISSION: 08/10/2018 18:05 (CDT) acute infarcts involving left MCASUBJECTIVE: Pt denied any Shortness of Breath. Pt denied any depression. Hgb 12.7, glucose 81 to 247. Ambulated 450' with contact guard assistance using a rolling walker. VITAL SIGNS Temperature: 98.8 F SBP/DBP: 152/80 Pulse: 56 Resp: 16 MEDICATION ALLERGIES: No Known Drug Allergies (NKDA) ENVIRONMENTAL ALLERGIES: - Substance Allergies None Known - Other Allergies None Known NURSING: - Shower allowing shower - Lab Results blood Sugar Check ACHS - Bladder care per protocol - Skin care per protocol PRECAUTIONS: - Weight Bearing Precaution WBAT right LE ACTIVITIES OOB only with supervision THERAPIES: - Occupational Therapy Cognitive Retraining. Visual Perceptual Training. - Dietary and Nutrition Adequate Nutrition. Nutritional Education. Nutritional Supplements. - Speech Therapy Cognitive Training. Expressive Language Skills. Memory Strategies. Receptive Language Skills. Speech Intelligibility Training. PHYSICAL EXAM - Gen Alert and awake Lying in bed No apparent distress Oriented to: person, time, and place - Skin No breakdown No abnormalities - Eyes No abnormalities - ENMT No abnormalities - Neck No abnormalities - CVS RRR - Chest Clear - Abd Soft - GI Soft No abnormalities - No abnormalities - Ext No significant edema - MSK 4+/5 weakness in right upper and lower extremities. - Neuro 4/5 strength right upper and lower extremities. - Psych No abnormalities ASSESSMENT: Pt. is a 78 yo Right-handed white male.On 08/04/2018 Pt. presented to [facility] with sudden onset of right-side weakness.On 08/04/2018 he was admitted to [facility] with diagnosis acute infarcts involving left MCA.His impairment category is Stroke 01 - Right Body (Left Brain) (01.2).Pre-morbidly, Pt. was independent/mod-I in Self-Care, Sphincter Control, Transfers Control, Locomotion, Communication, and Social Cognition; and he had good Sphincte r Control.Currently, he has deficits of Self-Care, Transfers Control, Locomotion, Communication, Soci al Cognition, Endurance, Balance, and Safety Awareness.Pt. is now referred to [facility] for acute in-patient rehabilitation in order to maximize patient's functional independence in activities of daily living, strength, ROM, and mobility.- Rehab Goal Patient has realistic goal of being discharged at assistance level 6-Ciro to reside at Home with Fam rolando/Relatives. MDM/PLAN: - Physical Therapy Gait dysfunction - to improve, our physical therapists will perform initial evaluation of pt's statu s upon admission and devise an individualized program for Gait Training, and Wheel Chair mobility Inability to transfer - to improve, our physical therapists will perform initial evaluation of pt's status upon admission and devise an individualized program for Bed mobility Need for home safety evaluation - to improve, our physical therapists will perform initial evaluatio n of pt's status upon admission and devise an individualized program for Home Evaluation Need in caregiver upon discharge - to improve, our physical therapists will perform initial evaluati on of pt's status upon admission and devise an individualized program for Caregiver Training Edema - to improve, our physical therapists will perform initial evaluation of pt's status upon admis carlos and devise an individualized program for Elevation Training, and Lymphedema Therapy New precaution - to improve, our physical therapists will perform initial evaluation of pt's status upon admission and devise an individualized program for Patient precaution education Poor balance - to improve, our physical therapists will perform initial evaluation of pt's status up on admission and devise an individualized program for Balance Training Poor endurance - to improve, our physical therapists will perform initial evaluation of pt's status upon admission and devise an individualized program for Endurance Training Weakness - to improve, our physical therapists will perform initial evaluation of pt's status upon a dmission and devise an individualized program for Aquatic Therapy, Neuromuscular Reeducation, and Str engthening Achieving independence - to improve, our physical therapists will perform initial evaluation of pt's status upon admission and devise an individualized program for Community Reintegration Activities - Occupational Therapy ADL deficits - to improve, our occupation therapists will perform initial evaluation of pt's status upon admission and devise an individualized program for Bathing, Bed mobility, Community Reintegratio n, Cooking, Dressing, Eating, Fine Motor Skills, Grooming, Homemaking, Kitchen Mobility, Laundry, Pat ient Education, Safety Awareness, Splinting - Positioning, Transfers(Toilet, Tub, Shower), and Wheel Chair Management Cognitive deficits - to improve, our occupation therapists will perform initial evaluation of pt's s tatus upon admission and devise an individualized program for Cognition - orientation Need for inspector health care facilities - to improve, our occupation therapists will perform initial evaluation of pt's status upon admission and devise an individualized program for Caregiver Training Weakness - to improve, our occupation therapists will perform initial evaluation of pt's status upon admission and devise an individualized program for Aquatic Therapy, Balance, Endurance, UE ROM, and UE strengthening - Other See attached MAR (Medication Administration Record) [id number].pdf See attached MAR (Medication Administration Record) [id number].pdf - Diet Type Continue ADA 1800 eric - Diet - Liquid Texture Continue Regular - Tube Feed Continue N/A - Lab Results blood Sugar Check ACHS - Bladder care per protocol - Weight Bearing Precaution WBAT right LE - Skin care per protocol - Diet - Solid Texture Continue Regular - Shower allowing shower for Dementia, TBI, Stroke, or others FUNCTIONAL STATUS: UPDATED AT WEEKLY TEAM CONFERENCE - Bladder Same accident frequency: 7-Ind - No accidents in the past 7 days - Bowel Same accident frequency: 7-Ind - No accidents in the past 7 days - Walking Same score based on distance walked: 1(<=50ft) - Wheelchair Same score based on distance traveled: 1(<=50ft) FUNCTIONAL STATUS: - Self-Care A. Eating sup B. Grooming Hellen C. Bathing modA D. Dressing - Upper modA E. Dressing - Lower maxA F. Toileting Hellen - Sphincter Control G: Bladder control Ind H: Bowel control Ind - Transfers Control I. Bed/Chair/Wheelchair Hellen J. Toilet Hellen K. Tub/Shower Hellen - Locomotion L. Walk/Wheelchair (B) Dep L. Walk/Wheelchair (W) Dep M. Stairs ADNO - Communication N. Comprehension (B) Hellen O. Expression (B) sup - Social Cognition P. Social Interaction Hellen Q. Problem Solving sup R. Memory sup - Endurance Fair - Balance Poor - Safety Awareness Poor CURRENT FUNC. DEFICITS: Self-Care, Transfers Control, Locomotion, Communication, Social Cognition, Endurance, Balance, and Sa fety Awareness SIGNATURE PANEL: (CDT)
[2018-08-12] MEDS: DOCUSATE NA/SENNA CONC 1 TAB PO SCH (20:28)
[2018-08-12] MEDS: MIRTAZAPINE 15 MG TAB PO SCH (20:28)
[2018-08-12] MEDS: INSULIN GLARGINE 100 UNITS/ML SQ SCH (20:31)
[2018-08-13] MEDS: ACETAMINOPHEN 325 MG TABLET PO PRN ×4 (00:48→21:07)
--- NOTE | 2018-08-13 01:23 | FAST ---
SHIFT START DATE/TIME: 08/12/2018 19:00 (CDT) SHIFT END DATE/TIME: 08/13/2018 07:00 (CDT) NAME CHRIS BOUDREAUX DATE OF : 1940 DATE OF ADMISSION: 08/10/2018 18:05 (CDT) PHONE: AGE: 78 SSN# [id number] GENDER: Male ENCOUNTER PHYSICIAN: Dr. Piero De Jesus M.D. 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 EATING: Activity did not occur on this shift EATING - SCORE: 0-UNK GROOMING: Activity did not occur on this shift GROOMING - SCORE: 0-UNK BATHING: Activity did not occur on this shift BATHING - SCORE: 0-UNK DRESSING - UPPER BODY: Activity did not occur on this shift ARTICLES SCORE Total number of steps: 0 DRESSING - UPPER BODY - SCORE: 0-UNK DRESSING - LOWER BODY: Activity did not occur on this shift ARTICLES SCORE Total number of steps: 0 DRESSING - LOWER BODY - SCORE: 0-UNK TOILETING: TOILETING - STEP 1: Does the patient require the assistance of a person or device, or need extra time with toileting? Yes . TOILETING - STEP 2: Does the patient require the assistance of a helper? Yes. TOILETING - STEP 3: How much assistance does the patient require from the helper? Only supervision TOILETING - SCORE: 5-SUP BLADDER MANAGEMENT: Activity did not occur on this shift BLADDER MANAGEMENT - SCORE: 7-IND BOWEL MANAGEMENT: Activity did not occur on this shift BOWEL MANAGEMENT - SCORE: 7-IND TRANSFERS: BED, CHAIR, WHEELCHAIR: Activity did not occur on this shift TRANSFERS: BED, CHAIR, WHEELCHAIR - SCORE: 0-UNK TRANSFERS: TOILET: Activity did not occur on this shift TRANSFERS: TOILET - SCORE: 0-UNK TRANSFERS: SHOWER: Activity did not occur on this shift TRANSFERS: SHOWER - SCORE: 0-UNK TRANSFERS: TUB: Activity did not occur on this shift TRANSFERS: TUB - SCORE: 0-UNK LOCOMOTION: WALK: Activity did not occur on this shift LOCOMOTION: WALK - SCORE: 0-UNK LOCOMOTION: WHEELCHAIR: Activity did not occur on this shift LOCOMOTION: WHEELCHAIR - SCORE: 0-UNK COMPREHENSION: COMPREHENSION: TYPE: Both COMPREHENSION - STEP 1: Does the patient require help from a person or device, or need extra time to understand complex and a bstract ideas (such as current events, finances, discharge planning, medical issues, relationships, e tc)? No. COMPREHENSION - STEP 2: Does the patient need extra time, require an assistive device (such as glasses for visual comprehensi on or a hearing aid for auditory comprehension) or does s/he have mild difficulty understanding compl ex and abstract information? Yes. COMPREHENSION - SCORE: 6-SHILPI EXPRESSION EXPRESSION: TYPE: Both EXPRESSION - STEP 1: Does the patient require help from a person or device, or need extra time expressing complex and abst ract ideas (such as current events, finances, discharge planning, medical issues, relationships, etc) ? No. EXPRESSION - STEP 2: Does the patient need extra time, require an assistive device (such as augmentive communication syste m or a communication board), OR does s/he have mild difficulty expressing complex and abstract ideas (including mild dysarthria or mild word-find problems)? No. EXPRESSION - SCORE: 7-IND SOCIAL INTERACTION: SOCIAL INTERACTION - STEP 1: Does the patient require a helper to interact with others in social and therapeutic situations? No. SOCIAL INTERACTION - STEP 2: Does the patient need extra time in social situations, OR does s/he interact with staff, other patien ts, and family members ONLY in structured environments, OR does s/he require medication for social in teraction? No. SOCIAL INTERACTION - SCORE: 7-IND PROBLEM SOLVING: PROBLEM SOLVING - STEP 1: Does the patient need help from a person or device, or need extra time to solve complex problems such as managing a checking account or confronting interpersonal problems? No. PROBLEM SOLVING - STEP 2: Does the patient require extra time to make decisions or solve problems, OR does s/he have slight dif ficulty reading, initiating, or self-correcting in unfamiliar situations? No. PROBLEM SOLVING - SCORE: 7-IND MEMORY: MEMORY - STEP 1: Does the patient need help from a person or device, or need extra time to remember frequently encount ered people, daily routines, and executing requests? No. MEMORY - STEP 2: Does the patient have slight difficulty recognizing frequently encountered people, daily routines, or executing requests without the need for repetition or using self-initiated or environmental cues to remember? No. MEMORY - SCORE: 7-IND SIGNATURE PANEL: The following modified sections: Eating - Score, Grooming - Score, Bathing - Score, Dressing - Upper Body - Score, Dressing - Lower Body - Score, Toileting - Score, Bladder Management - Score, Bowel Man agement - Score, Transfers: Bed, Chair, Wheelchair - Score, Transfers: Toilet - Score, Transfers: Pily wer - Score, Transfers: Tub - Score, Locomotion: Walk - Score, Locomotion: Wheelchair - Score, Compre hension - Score, Expression - Score, Social Interaction - Score, Problem Solving - Score, Memory - Sc ore were [electronically] signed by Malu Sheehan RN on FriAug 13 2018 01:23:08 [facility]-0500 ([facility] Time)
[2018-08-13 06:30] LABS: Absolute Lymphocytes (CBC) 1.9 K/uL (0.7-4.9); Basophils % 0.6 % (0-1.3); Eosinophils % 3.4 % (0-4.4); Hematocrit 38.6 % (39.6-49.0); Lymphocytes % 37.6 % (15.3-44.8); MPV 7.1 fL (7.6-11.3); Monocytes % 13.5 % (3.3-12.3); RBC Red Blood Cell Count 3.87 M/uL (4.33-5.43)
[2018-08-13 06:38] LABS: Potassium 4.7 mmol/L (3.5-5.1)
[2018-08-13] MEDS: INSULIN -REGULAR HUMAN 50 UNIT/0.5 ML ML SQ SCH ×4 (07:30→21:00)
[2018-08-13] MEDS: INSULIN LISPRO 100 UNIT/1 ML SQ SCH ×3 (08:10→16:50)
[2018-08-13] MEDS: ATORVASTATIN 10 MG TAB PO SCH (08:11)
[2018-08-13] MEDS: VITAMIN D 5,000 UNIT CAP PO SCH (08:11)
[2018-08-13] MEDS: RANITIDINE 150 MG TABLET PO SCH ×2 (08:11→21:08)
[2018-08-13] MEDS: FENOFIBRATE 160 MG TAB PO SCH (08:11)
[2018-08-13] MEDS: TAMSULOSIN 0.4 MG SR CAP PO SCH (08:11)
[2018-08-13] MEDS: APIXABAN 5 MG TABLET PO SCH ×2 (08:11→21:08)
--- NOTE | 2018-08-13 09:49 | FAST ---
SHIFT START DATE/TIME: 08/13/2018 07:00 (CDT) SHIFT END DATE/TIME: 08/13/2018 19:00 (CDT) NAME CHRIS BOUDREAUX DATE OF : 1940 DATE OF ADMISSION: 08/10/2018 18:05 (CDT) PHONE: AGE: 78 SSN# [id number] GENDER: Male ENCOUNTER PHYSICIAN: Dr. Peiro De Jesus M.D. 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 EATING: EATING - STEP 1: Does the patient require the assistance of a person or device, or need extra time when eating? Yes. EATING - STEP 2: Does the patient require the assistance of a helper? No, patient only requires an assistive device, O R s/he takes more than reasonable time to eat, OR there is a safety concern, OR s/he requires modifie d food consistency EATING - SCORE: 6-SHILPI GROOMING: Comb/brush hair Oral care Wash, rinse, and dry face Wash, rinse, and dry hands GROOMING - STEP 1: Does the patient require the assistance of a person or device, or need extra time when grooming? Yes. GROOMING - STEP 2: Does the patient require the assistance of a helper? No. The patient only requires an assistive devic e, OR takes more than reasonable time to groom, OR there is a concern for safety as the patient groom s GROOMING - SCORE: 6-SHILPI BATHING: Activity did not occur on this shift BATHING - SCORE: 0-UNK DRESSING - UPPER BODY: Activity did not occur on this shift ARTICLES SCORE Total number of steps: 0 DRESSING - UPPER BODY - SCORE: 0-UNK DRESSING - LOWER BODY: Activity did not occur on this shift ARTICLES SCORE Total number of steps: 0 DRESSING - LOWER BODY - SCORE: 0-UNK TOILETING: TOILETING - STEP 1: Does the patient require the assistance of a person or device, or need extra time with toileting? Yes . TOILETING - STEP 2: Does the patient require the assistance of a helper? Yes. TOILETING - STEP 3: How much assistance does the patient require from the helper? Hands-on assistance from the helper TOILETING - STEP 4: Of the 3 tasks: 1) Adjusting clothing prior to use, 2) Cleansing of perineal area, 3) Adjusting clot cristina after use; How many tasks does the patient perform WITHOUT assistance of the helper? Three tasks with steadying assistance from the helper TOILETING - SCORE: 4-MIN BLADDER MANAGEMENT: BLADDER MANAGEMENT - STEP 1: Does the patient control the bladder completely and intentionally without equipment or devices or med ications, and is always continent? No. BLADDER MANAGEMENT - STEP 2: Does the patient require the assistance of a helper? No, patient requires and independently uses an a ssistive device, such as a urinal, bedpan, bedside commode, catheter, absorbent pad, or collecting de vice BLADDER MANAGEMENT - SCORE: 6-SHILPI BOWEL MANAGEMENT: Activity did not occur on this shift BOWEL MANAGEMENT - SCORE: 7-IND TRANSFERS: BED, CHAIR, WHEELCHAIR: TRANSFERS: BED, CHAIR, WHEELCHAIR - STEP 1: Does the patient require assistance of a person or device, or need extra time with bed, chair, or whe elchair transfers? Yes. TRANSFERS: BED, CHAIR, WHEELCHAIR - STEP 2: Does the patient require the assistance of a helper? Yes. TRANSFERS: BED, CHAIR, WHEELCHAIR - STEP 3: How much assistance does the patient require from the helper? Steadying/guiding assistance TRANSFERS: BED, CHAIR, WHEELCHAIR - SCORE: 4-MIN TRANSFERS: TOILET: TRANSFERS: TOILET - STEP 1: Does the patient require the assistance of a person or device, or need extra time with toilet transfe rs? Yes. TRANSFERS: TOILET - STEP 2: Does the patient require the assistance of a helper? Yes. TRANSFERS: TOILET - STEP 3: How much assistance does the patient require from the helper? Patient performs half or more of the tr ansferring tasks TRANSFERS: TOILET - STEP 4: Does the patient need only incidental help such as contact guard or steadying during toilet transfer? Yes. TRANSFERS: TOILET - SCORE: 4-MIN TRANSFERS: SHOWER: Activity did not occur on this shift TRANSFERS: SHOWER - SCORE: 0-UNK TRANSFERS: TUB: Activity did not occur on this shift TRANSFERS: TUB - SCORE: 0-UNK LOCOMOTION: WALK: Activity did not occur on this shift LOCOMOTION: WALK - SCORE: 0-UNK LOCOMOTION: WHEELCHAIR: Activity did not occur on this shift LOCOMOTION: WHEELCHAIR - SCORE: 0-UNK COMPREHENSION: COMPREHENSION: TYPE: Both COMPREHENSION - STEP 1: Does the patient require help from a person or device, or need extra time to understand complex and a bstract ideas (such as current events, finances, discharge planning, medical issues, relationships, e tc)? No. COMPREHENSION - STEP 2: Does the patient need extra time, require an assistive device (such as glasses for visual comprehensi on or a hearing aid for auditory comprehension) or does s/he have mild difficulty understanding compl ex and abstract information? Yes. COMPREHENSION - SCORE: 6-SHILPI EXPRESSION EXPRESSION: TYPE: Both EXPRESSION - STEP 1: Does the patient require help from a person or device, or need extra time expressing complex and abst ract ideas (such as current events, finances, discharge planning, medical issues, relationships, etc) ? Yes. EXPRESSION - STEP 2: Does the patient require help to express basic necessities or ideas (such as hunger, thirst, sleep, s afety, daily schedule, room location, or discomfort) half or more of the time? No. EXPRESSION - STEP 3: How often does the patient need help to express directions and conversation about basic needs? Less t lock 10% of the time EXPRESSION - SCORE: 5-SUP SOCIAL INTERACTION: SOCIAL INTERACTION - STEP 1: Does the patient require a helper to interact with others in social and therapeutic situations? No. SOCIAL INTERACTION - STEP 2: Does the patient need extra time in social situations, OR does s/he interact with staff, other patien ts, and family members ONLY in structured environments, OR does s/he require medication for social in teraction? No. SOCIAL INTERACTION - SCORE: 7-IND PROBLEM SOLVING: PROBLEM SOLVING - STEP 1: Does the patient need help from a person or device, or need extra time to solve complex problems such as managing a checking account or confronting interpersonal problems? No. PROBLEM SOLVING - STEP 2: Does the patient require extra time to make decisions or solve problems, OR does s/he have slight dif ficulty reading, initiating, or self-correcting in unfamiliar situations? Yes, patient needs extra ti me. PROBLEM SOLVING - SCORE: 6-SHILPI MEMORY: MEMORY - STEP 1: Does the patient need help from a person or device, or need extra time to remember frequently encount ered people, daily routines, and executing requests? No. MEMORY - STEP 2: Does the patient have slight difficulty recognizing frequently encountered people, daily routines, or executing requests without the need for repetition or using self-initiated or environmental cues to remember? Yes. MEMORY - SCORE: 6-SHILPI SIGNATURE PANEL: The following modified sections: Eating - Score, Grooming - Score, Bathing - Score, Dressing - Upper Body - Score, Dressing - Lower Body - Score, Toileting - Score, Bladder Management - Score, Bowel Man agement - Score, Transfers: Bed, Chair, Wheelchair - Score, Transfers: Toilet - Score, Transfers: Pily wer - Score, Transfers: Tub - Score, Locomotion: Walk - Score, Locomotion: Wheelchair - Score, Compre hension - Score, Expression - Score, Social Interaction - Score, Problem Solving - Score, Memory - Sc ore were [electronically] signed by Tariq Cunha on FriAug 13 2018 09:48:59 GMT-0500 (Central Daylight Time)
[2018-08-13] MEDS: INSULIN GLARGINE 100 UNITS/ML SQ SCH (21:07)
[2018-08-13] MEDS: MIRTAZAPINE 15 MG TAB PO SCH (21:07)
[2018-08-13] MEDS: DOCUSATE NA/SENNA CONC 1 TAB PO SCH (21:08)
--- NOTE | 2018-08-14 02:55 | FAST ---
SHIFT START DATE/TIME: 08/13/2018 19:00 (CDT) SHIFT END DATE/TIME: 08/14/2018 07:00 (CDT) NAME CHRIS BOUDREAUX DATE OF : 1940 DATE OF ADMISSION: 08/10/2018 18:05 (CDT) PHONE: AGE: 78 SSN# [id number] GENDER: Male ENCOUNTER PHYSICIAN: Dr. Piero De Jesus M.D. 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 EATING: EATING - STEP 1: Does the patient require the assistance of a person or device, or need extra time when eating? Yes. EATING - STEP 2: Does the patient require the assistance of a helper? Yes. EATING - STEP 3: Does the patient perform half or more of the eating tasks? Yes. EATING - STEP 4: Does the patient need only supervision, cuing, coaxing OR help to apply an orthosis OR help to cut fo od, open containers, pour liquids, or butter bread? Yes. EATING - SCORE: 5-SUP GROOMING: Activity did not occur on this shift GROOMING - SCORE: 0-UNK BATHING: Activity did not occur on this shift BATHING - SCORE: 0-UNK DRESSING - UPPER BODY: Patient is not dressing in public clothing ARTICLES SCORE Total number of steps: 0 DRESSING - UPPER BODY - SCORE: 0-UNK DRESSING - LOWER BODY: Patient is not dressing in public clothing ARTICLES SCORE Total number of steps: 0 DRESSING - LOWER BODY - SCORE: 0-UNK TOILETING: TOILETING - STEP 1: Does the patient require the assistance of a person or device, or need extra time with toileting? Yes . TOILETING - STEP 2: Does the patient require the assistance of a helper? Yes. TOILETING - STEP 3: How much assistance does the patient require from the helper? Only supervision TOILETING - SCORE: 5-SUP BLADDER MANAGEMENT: BLADDER MANAGEMENT - STEP 1: Does the patient control the bladder completely and intentionally without equipment or devices or med ications, and is always continent? No. BLADDER MANAGEMENT - STEP 2: Does the patient require the assistance of a helper? Yes. BLADDER MANAGEMENT - STEP 3: How much assistance does the patient require from the helper? Only set-up of equipment - such as plac ing it within reach of the patient or emptying a device - to maintain either satisfactory voiding pat tern or managing an external device, such as an absorbent pad, ileal device, or catheter BLADDER MANAGEMENT - SCORE: 5-SUP BOWEL MANAGEMENT: Activity did not occur on this shift BOWEL MANAGEMENT - SCORE: 7-IND TRANSFERS: BED, CHAIR, WHEELCHAIR: Activity did not occur on this shift TRANSFERS: BED, CHAIR, WHEELCHAIR - SCORE: 0-UNK TRANSFERS: TOILET: Activity did not occur on this shift TRANSFERS: TOILET - SCORE: 0-UNK TRANSFERS: SHOWER: Activity did not occur on this shift TRANSFERS: SHOWER - SCORE: 0-UNK TRANSFERS: TUB: Activity did not occur on this shift TRANSFERS: TUB - SCORE: 0-UNK LOCOMOTION: WALK: Activity did not occur on this shift LOCOMOTION: WALK - SCORE: 0-UNK LOCOMOTION: WHEELCHAIR: Activity did not occur on this shift LOCOMOTION: WHEELCHAIR - SCORE: 0-UNK COMPREHENSION: COMPREHENSION: TYPE: Both COMPREHENSION - STEP 1: Does the patient require help from a person or device, or need extra time to understand complex and a bstract ideas (such as current events, finances, discharge planning, medical issues, relationships, e tc)? No. COMPREHENSION - STEP 2: Does the patient need extra time, require an assistive device (such as glasses for visual comprehensi on or a hearing aid for auditory comprehension) or does s/he have mild difficulty understanding compl ex and abstract information? Yes. COMPREHENSION - SCORE: 6-SHILPI EXPRESSION EXPRESSION: TYPE: Both EXPRESSION - STEP 1: Does the patient require help from a person or device, or need extra time expressing complex and abst ract ideas (such as current events, finances, discharge planning, medical issues, relationships, etc) ? No. EXPRESSION - STEP 2: Does the patient need extra time, require an assistive device (such as augmentive communication syste m or a communication board), OR does s/he have mild difficulty expressing complex and abstract ideas (including mild dysarthria or mild word-find problems)? No. EXPRESSION - SCORE: 7-IND SOCIAL INTERACTION: SOCIAL INTERACTION - STEP 1: Does the patient require a helper to interact with others in social and therapeutic situations? No. SOCIAL INTERACTION - STEP 2: Does the patient need extra time in social situations, OR does s/he interact with staff, other patien ts, and family members ONLY in structured environments, OR does s/he require medication for social in teraction? Yes, patient requires medication for social interaction SOCIAL INTERACTION - SCORE: 6-SHILPI PROBLEM SOLVING: PROBLEM SOLVING - STEP 1: Does the patient need help from a person or device, or need extra time to solve complex problems such as managing a checking account or confronting interpersonal problems? No. PROBLEM SOLVING - STEP 2: Does the patient require extra time to make decisions or solve problems, OR does s/he have slight dif ficulty reading, initiating, or self-correcting in unfamiliar situations? No. PROBLEM SOLVING - SCORE: 7-IND MEMORY: MEMORY - STEP 1: Does the patient need help from a person or device, or need extra time to remember frequently encount ered people, daily routines, and executing requests? No. MEMORY - STEP 2: Does the patient have slight difficulty recognizing frequently encountered people, daily routines, or executing requests without the need for repetition or using self-initiated or environmental cues to remember? No. MEMORY - SCORE: 7-IND SIGNATURE PANEL: The following modified sections: Eating - Score, Grooming - Score, Bathing - Score, Dressing - Upper Body - Score, Dressing - Lower Body - Score, Toileting - Score, Bladder Management - Score, Bowel Man agement - Score, Transfers: Bed, Chair, Wheelchair - Score, Transfers: Toilet - Score, Transfers: Pily wer - Score, Transfers: Tub - Score, Locomotion: Walk - Score, Locomotion: Wheelchair - Score, Compre hension - Score, Expression - Score, Social Interaction - Score, Problem Solving - Score, Memory - Sc ore were [electronically] signed by Malu Sheehan RN on FriAug 14 2018 02:54:18 GMT-0500 [facility])
[2018-08-14] MEDS: ACETAMINOPHEN 325 MG TABLET PO PRN ×2 (07:10→14:19)
[2018-08-14] MEDS: INSULIN -REGULAR HUMAN 50 UNIT/0.5 ML ML SQ SCH ×4 (07:17→21:54)
[2018-08-14] MEDS: LIDOCAINE 5% PATCH TOP SCH (08:09)
[2018-08-14] MEDS: ATORVASTATIN 10 MG TAB PO SCH (08:09)
[2018-08-14] MEDS: INSULIN LISPRO 100 UNIT/1 ML SQ SCH ×3 (08:09→17:02)
[2018-08-14] MEDS: RANITIDINE 150 MG TABLET PO SCH ×2 (08:10→21:02)
[2018-08-14] MEDS: VITAMIN D 5,000 UNIT CAP PO SCH (08:10)
[2018-08-14] MEDS: TAMSULOSIN 0.4 MG SR CAP PO SCH (08:10)
[2018-08-14] MEDS: APIXABAN 5 MG TABLET PO SCH ×2 (08:10→21:02)
[2018-08-14] MEDS: FENOFIBRATE 160 MG TAB PO SCH (08:10)
--- NOTE | 2018-08-14 10:35 | P.RH.PN ---
Estimated Length of Stay: 14 Expected Discharge Date: 08/23/18 Discharge Disposition Plan: Home Family Support: Yes Correction Goal: Mobility, Transfers, Self Care Vital Signs: Last Vital Signs Temp 96.8 F 08/14/18 07:06 Pulse 70 08/14/18 07:06 Resp 20 08/14/18 07:06 BP 136/79 08/14/18 07:06 Pulse Ox 96 08/14/18 07:06 Laboratory: Laboratory Last Values WBC 5.0 K/uL (4.3-10.9) 08/13/18 05:55 RBC 3.87 M/uL (4.33-5.43) L 08/13/18 05:55 Hgb 12.6 g/dL (13.6-17.9) L 08/13/18 05:55 Hct 38.6 % (39.6-49.0) L 08/13/18 05:55 MCV 99.7 fL (80-100) 08/13/18 05:55 MCH 32.7 pg (27.0-35.0) 08/13/18 05:55 MCHC 32.8 g/dL (32.0-36.0) 08/13/18 05:55 RDW 15.7 % (12.1-15.2) H 08/13/18 05:55 Plt Count 244 K/uL (152-406) D 08/13/18 05:55 MPV 7.1 fL (7.6-11.3) L 08/13/18 05:55 Neutrophils % 44.9 % (41.7-73.7) 08/13/18 05:55 Lymphocytes % 37.6 % (15.3-44.8) 08/13/18 05:55 Monocytes % 13.5 % (3.3-12.3) H 08/13/18 05:55 Eosinophils % 3.4 % (0-4.4) 08/13/18 05:55 Basophils % 0.6 % (0-1.3) 08/13/18 05:55 Absolute Neutrophils 2.3 K/uL (1.8-8.0) 08/13/18 05:55 Absolute Lymphocytes 1.9 K/uL (0.7-4.9) 08/13/18 05:55 Absolute Monocytes 0.7 K/uL (0.1-1.3) 08/13/18 05:55 Absolute Eosinophils 0.2 K/uL (0-0.5) 08/13/18 05:55 Absolute Basophils 0.0 K/uL (0-0.5) 08/13/18 05:55 Sodium 145 mmol/L (136-145) 08/13/18 05:55 Potassium 4.7 mmol/L (3.5-5.1) 08/13/18 05:55 Chloride 110 mmol/L (98-107) H 08/13/18 05:55 Carbon Dioxide 29 mmol/L (21-32) 08/13/18 05:55 BUN 36 mg/dL (7-18) H 08/13/18 05:55 Creatinine 2.10 mg/dL (0.55-1.3) H 08/13/18 05:55 Estimated GFR 31 mL/min (=/>90) L 08/13/18 05:55 Glucose 135 mg/dL (74-106) H 08/13/18 05:55 POC Glucose 116 mg/dl (65-120) 08/14/18 07:09 Calcium 9.0 mg/dL (8.5-10.1) 08/13/18 05:55 Magnesium 1.9 mg/dL (1.8-2.4) 08/11/18 05:45 Albumin 3.0 g/dL (3.4-5.0) L 08/13/18 05:55 Prealbumin 20.0 mg/dL (20-40) 08/13/18 05:55 Urine Color Yellow 08/10/18 20:00 Urine Appearance Clear 08/10/18 20:00 Urine pH 6.5 (5.0-7.0) 08/10/18 20:00 Ur Specific [place] 1.020 (1.005-1.030) 08/10/18 20:00 Urine Ketones Negative (NEG) 08/10/18 20:00 Urine Blood 1+ (NEG) H 08/10/18 20:00 Urine Nitrite Negative (NEG) 08/10/18 20:00 Urine Bilirubin Negative (NEG) 08/10/18 20:00 Urine Urobilinogen 0.2 mg/dL (0.2-1.0) 08/10/18 20:00 Ur Leukocyte Esterase Negative (NEG) 08/10/18 20:00 Urine RBC 5-10 /HPF (NONE SEEN) H 08/10/18 20:00 Urine WBC None seen /HPF (<5) 08/10/18 20:00 Ur Squamous Epith Cells <5 /HPF (NONE SEEN) 08/10/18 20:00 Calcium Oxalate Crystal Few (NONE SEEN) 08/10/18 20:00 Urine Bacteria <20 /HPF (NONE SEEN) 08/10/18 20:00 Urine Culture Reflexed Not needed 08/10/18 20:00 Urine Glucose 2+ (NEG) H 08/10/18 20:00 Urine Total Protein 2+ (NEG) H 08/10/18 20:00 Weight: 187 lb 3 oz Wound Present: No Closed Surgical Incision Present: No Negative Pressure Wound Therapy Present: No Physician Update: Labs reviewed and are stable. He is doing well at standby assistance with occupational therapy. He has difficulty with find motor movements. He has right foot drag but is getting better. His left leg is not buckeling much. He has mild linguistic deficits with partial processing of information. 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 Medical Issues: DVT Prophylaxis - Eliquis 5mg BID Functional Improvement: Patient is currently working toward meeting short-term and long-term goals. Patient presents w/ good work ethic and requires VC for proper technique. Functional Improvement Occupational Therapy: Cont to address pt's safety and energy conservation techniques for safety for dressing tasks/ increasing pt's endurance and UB strength and cont to increase pt's FMC/GMC and static standing balance for safety, cont with the POC and the goals by the supervising OTR. Speech Therapy Update: Pt is at MIN A for Auditory Comprehension; he requires repeated/simplified instruction, SUPV for Verbal Expression; MOD I for Social Interaction, SUPV for Problem Solving and SUPV Memory. Pt exhibits mild neurogenic stuttering. Summary: Patient's care plan and rn long term care goals have been reviewed and revised as necessary. Please see the Rehabilitation Signature page for all necessary signatures.
--- NOTE | 2018-08-14 14:49 | FAST ---
SHIFT START DATE/TIME: 08/14/2018 07:00 (CDT) SHIFT END DATE/TIME: 08/14/2018 19:00 (CDT) NAME CHRIS BOUDREAUX DATE OF : 1940 DATE OF ADMISSION: 08/10/2018 18:05 (CDT) PHONE: AGE: 78 SSN# [id number] GENDER: Male ENCOUNTER PHYSICIAN: Dr. Piero De Jesus M.D. 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 EATING: EATING - STEP 1: Does the patient require the assistance of a person or device, or need extra time when eating? Yes. EATING - STEP 2: Does the patient require the assistance of a helper? No, patient only requires an assistive device, O R s/he takes more than reasonable time to eat, OR there is a safety concern, OR s/he requires modifie d food consistency EATING - SCORE: 6-SHILPI GROOMING: Comb/brush hair Oral care Wash, rinse, and dry face Wash, rinse, and dry hands GROOMING - STEP 1: Does the patient require the assistance of a person or device, or need extra time when grooming? Yes. GROOMING - STEP 2: Does the patient require the assistance of a helper? No. The patient only requires an assistive devic e, OR takes more than reasonable time to groom, OR there is a concern for safety as the patient groom s GROOMING - SCORE: 6-SHILPI BATHING: Activity did not occur on this shift BATHING - SCORE: 0-UNK DRESSING - UPPER BODY: Activity did not occur on this shift ARTICLES SCORE Total number of steps: 0 DRESSING - UPPER BODY - SCORE: 0-UNK DRESSING - LOWER BODY: Activity did not occur on this shift ARTICLES SCORE Total number of steps: 0 DRESSING - LOWER BODY - SCORE: 0-UNK TOILETING: TOILETING - STEP 1: Does the patient require the assistance of a person or device, or need extra time with toileting? Yes . TOILETING - STEP 2: Does the patient require the assistance of a helper? Yes. TOILETING - STEP 3: How much assistance does the patient require from the helper? Hands-on assistance from the helper TOILETING - STEP 4: Of the 3 tasks: 1) Adjusting clothing prior to use, 2) Cleansing of perineal area, 3) Adjusting clot cristina after use; How many tasks does the patient perform WITHOUT assistance of the helper? Three tasks with steadying assistance from the helper TOILETING - SCORE: 4-MIN BLADDER MANAGEMENT: BLADDER MANAGEMENT - STEP 1: Does the patient control the bladder completely and intentionally without equipment or devices or med ications, and is always continent? No. BLADDER MANAGEMENT - STEP 2: Does the patient require the assistance of a helper? No, patient only requires extra time BLADDER MANAGEMENT - SCORE: 6-SHILPI BLADDER MANAGEMENT - FREQUENCY OF ACCIDENTS: BLADDER MANAGEMENT(FA) - STEP 1: How many accidents has the patient had during the current shift? 0 BOWEL MANAGEMENT: BOWEL MANAGEMENT - STEP 1: Does the patient control bowels completely and intentionally without equipment devices or medications AND is always continent? No. BOWEL MANAGEMENT - STEP 2: Does the patient require the assistance of a helper? No, patient requires extra time BOWEL MANAGEMENT - SCORE: 6-SHILPI BOWEL MANAGEMENT - FREQUENCY OF ACCIDENTS: BOWEL MANAGEMENT(FA) - STEP 1: How many accidents has the patient had during the current shift? 0 TRANSFERS: BED, CHAIR, WHEELCHAIR: TRANSFERS: BED, CHAIR, WHEELCHAIR - STEP 1: Does the patient require assistance of a person or device, or need extra time with bed, chair, or whe elchair transfers? Yes. TRANSFERS: BED, CHAIR, WHEELCHAIR - STEP 2: Does the patient require the assistance of a helper? Yes. TRANSFERS: BED, CHAIR, WHEELCHAIR - STEP 3: How much assistance does the patient require from the helper? Steadying/guiding assistance TRANSFERS: BED, CHAIR, WHEELCHAIR - SCORE: 4-MIN TRANSFERS: TOILET: TRANSFERS: TOILET - STEP 1: Does the patient require the assistance of a person or device, or need extra time with toilet transfe rs? Yes. TRANSFERS: TOILET - STEP 2: Does the patient require the assistance of a helper? Yes. TRANSFERS: TOILET - STEP 3: How much assistance does the patient require from the helper? Patient performs half or more of the tr ansferring tasks TRANSFERS: TOILET - STEP 4: Does the patient need only incidental help such as contact guard or steadying during toilet transfer? Yes. TRANSFERS: TOILET - SCORE: 4-MIN TRANSFERS: SHOWER: Activity did not occur on this shift TRANSFERS: SHOWER - SCORE: 0-UNK TRANSFERS: TUB: Activity did not occur on this shift TRANSFERS: TUB - SCORE: 0-UNK LOCOMOTION: WALK: Activity did not occur on this shift LOCOMOTION: WALK - SCORE: 0-UNK LOCOMOTION: WHEELCHAIR: Activity did not occur on this shift LOCOMOTION: WHEELCHAIR - SCORE: 0-UNK COMPREHENSION: COMPREHENSION: TYPE: Both COMPREHENSION - STEP 1: Does the patient require help from a person or device, or need extra time to understand complex and a bstract ideas (such as current events, finances, discharge planning, medical issues, relationships, e tc)? No. COMPREHENSION - STEP 2: Does the patient need extra time, require an assistive device (such as glasses for visual comprehensi on or a hearing aid for auditory comprehension) or does s/he have mild difficulty understanding compl ex and abstract information? Yes. COMPREHENSION - SCORE: 6-SHILPI EXPRESSION EXPRESSION: TYPE: Both EXPRESSION - STEP 1: Does the patient require help from a person or device, or need extra time expressing complex and abst ract ideas (such as current events, finances, discharge planning, medical issues, relationships, etc) ? Yes. EXPRESSION - STEP 2: Does the patient require help to express basic necessities or ideas (such as hunger, thirst, sleep, s afety, daily schedule, room location, or discomfort) half or more of the time? No. EXPRESSION - STEP 3: How often does the patient need help to express directions and conversation about basic needs? Less t lock 10% of the time EXPRESSION - SCORE: 5-SUP SOCIAL INTERACTION: SOCIAL INTERACTION - STEP 1: Does the patient require a helper to interact with others in social and therapeutic situations? No. SOCIAL INTERACTION - STEP 2: Does the patient need extra time in social situations, OR does s/he interact with staff, other patien ts, and family members ONLY in structured environments, OR does s/he require medication for social in teraction? No. SOCIAL INTERACTION - SCORE: 7-IND PROBLEM SOLVING: PROBLEM SOLVING - STEP 1: Does the patient need help from a person or device, or need extra time to solve complex problems such as managing a checking account or confronting interpersonal problems? No. PROBLEM SOLVING - STEP 2: Does the patient require extra time to make decisions or solve problems, OR does s/he have slight dif ficulty reading, initiating, or self-correcting in unfamiliar situations? Yes, patient needs extra ti me. PROBLEM SOLVING - SCORE: 6-SHILPI MEMORY: MEMORY - STEP 1: Does the patient need help from a person or device, or need extra time to remember frequently encount ered people, daily routines, and executing requests? No. MEMORY - STEP 2: Does the patient have slight difficulty recognizing frequently encountered people, daily routines, or executing requests without the need for repetition or using self-initiated or environmental cues to remember? Yes. MEMORY - SCORE: 6-SHILPI SIGNATURE PANEL: The following modified sections: Eating - Score, Grooming - Score, Bathing - Score, Dressing - Upper Body - Score, Dressing - Lower Body - Score, Toileting - Score, Bladder Management - Score, Bowel Man agement - Score, Transfers: Bed, Chair, Wheelchair - Score, Transfers: Toilet - Score, Transfers: Pily wer - Score, Transfers: Tub - Score, Locomotion: Walk - Score, Locomotion: Wheelchair - Score, Compre hension - Score, Expression - Score, Social Interaction - Score, Problem Solving - Score, Memory - Sc ore were [electronically] signed by Kathia Gloria C.N.A. on FriAug 14 2018 14:48:19 T-0500 ([facility] Time)
[2018-08-14] MEDS: MIRTAZAPINE 15 MG TAB PO SCH (21:02)
[2018-08-14] MEDS: DOCUSATE NA/SENNA CONC 1 TAB PO SCH (21:02)
[2018-08-14] MEDS: INSULIN GLARGINE 100 UNITS/ML SQ SCH (21:55)
[2018-08-15] MEDS: ACETAMINOPHEN 325 MG TABLET PO PRN ×2 (03:58→13:18)
[2018-08-15 05:37] VITALS: BMI 25.9
[2018-08-15] MEDS: INSULIN -REGULAR HUMAN 50 UNIT/0.5 ML ML SQ SCH ×4 (07:30→20:53)
[2018-08-15] MEDS: TAMSULOSIN 0.4 MG SR CAP PO SCH (08:21)
[2018-08-15] MEDS: LIDOCAINE 5% PATCH TOP SCH ×2 (08:21→14:05)
[2018-08-15] MEDS: FENOFIBRATE 160 MG TAB PO SCH (08:22)
[2018-08-15] MEDS: VITAMIN D 5,000 UNIT CAP PO SCH (08:22)
[2018-08-15] MEDS: RANITIDINE 150 MG TABLET PO SCH ×2 (08:22→20:52)
[2018-08-15] MEDS: ATORVASTATIN 10 MG TAB PO SCH (08:22)
[2018-08-15] MEDS: APIXABAN 5 MG TABLET PO SCH ×2 (08:23→20:52)
[2018-08-15] MEDS: INSULIN LISPRO 100 UNIT/1 ML SQ SCH ×3 (08:25→17:17)
--- NOTE | 2018-08-15 12:25 | FAST ---
ENCOUNTER DATE AND TIME: 08/15/2018 08:00 (CDT) NAME CHRIS BOUDREAUX DATE OF : 1940 DATE OF ADMISSION: 08/10/2018 18:05 (CDT) PHONE: AGE: 78 SSN# [id number] GENDER: Male ENCOUNTER PHYSICIAN: Dr. Piero De Jesus M.D. 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 EATING: Activity did not occur on this shift EATING - SCORE: 0-UNK GROOMING: Wash, rinse, and dry face Wash, rinse, and dry hands GROOMING - STEP 1: Does the patient require the assistance of a person or device, or need extra time when grooming? No. GROOMING - SCORE: 7-IND BATHING: Abdomen Buttocks Chest Left arm Left lower leg and foot Left upper leg Perineal area Right arm Right lower leg and foot Right upper leg BATHING - STEP 1: Does the patient require the assistance of a person or device, or need extra time when bathing? Yes. BATHING - STEP 2: Does the patient require the assistance of a helper? Yes. BATHING - STEP 3: How much assistance does the patient require from the helper? Only supervision, cuing, coaxing, instr uctions, encouragement BATHING - SCORE: 5-SUP DRESSING - UPPER BODY: T-shirt/pullover shirt (four steps) ARTICLES SCORE Total number of steps: 4 DRESSING - UPPER BODY - STEP 1: Does the patient require help from a person or device, or need extra time when dressing above the [address]? No. DRESSING - UPPER BODY - SCORE: 7-IND DRESSING - LOWER BODY: Elastic waist pants (three steps) Slip-on shoe - Left foot (one step) Slip-on shoe - Right foot (one step) Sock - Left foot (one step) Sock - Right foot (one step) Underwear (three steps) ARTICLES SCORE Total number of steps: 10 DRESSING - LOWER BODY - STEP 1: Does the patient require help from a person or device, or need extra time when dressing below the [address] st? Yes. DRESSING - LOWER BODY - STEP 2: Does the patient require the assistance of a helper? Yes. DRESSING - LOWER BODY - STEP 3: Does the helper touch the patient while dressing? No. DRESSING - LOWER BODY - SCORE: 5-SUP TOILETING: Activity did not occur on this shift TOILETING - SCORE: 0-UNK BLADDER MANAGEMENT: Activity did not occur on this shift BLADDER MANAGEMENT - SCORE: 7-IND BOWEL MANAGEMENT: Activity did not occur on this shift BOWEL MANAGEMENT - SCORE: 7-IND TRANSFERS: BED, CHAIR, WHEELCHAIR: Activity did not occur on this shift TRANSFERS: BED, CHAIR, WHEELCHAIR - SCORE: 0-UNK TRANSFERS: TOILET: Activity did not occur on this shift TRANSFERS: TOILET - SCORE: 0-UNK TRANSFERS: SHOWER: TRANSFERS: SHOWER - STEP 1: Does the patient require the assistance of a person or device, or need extra time with shower transfe rs? Yes. TRANSFERS: SHOWER - STEP 2: Does the patient require the assistance of a helper? Yes. TRANSFERS: SHOWER - STEP 3: How much assistance does the patient require from the helper? Only supervision, cuing, coaxing, or he lp to set out transfer equipment or to lock brakes and/or lift foot rests TRANSFERS: SHOWER - SCORE: 5-SUP TRANSFERS: TUB: Activity did not occur on this shift TRANSFERS: TUB - SCORE: 0-UNK LOCOMOTION: WALK: Activity did not occur on this shift LOCOMOTION: WALK - SCORE: 0-UNK LOCOMOTION: WHEELCHAIR: Activity did not occur on this shift LOCOMOTION: WHEELCHAIR - SCORE: 0-UNK LOCOMOTION: STAIRS: Activity did not occur on this shift LOCOMOTION: STAIRS - SCORE: 0-UNK COMPREHENSION: COMPREHENSION - SCORE: 0-UNK EXPRESSION EXPRESSION - SCORE: 0-UNK SOCIAL INTERACTION: SOCIAL INTERACTION - SCORE: 0-UNK PROBLEM SOLVING: PROBLEM SOLVING - SCORE: 0-UNK MEMORY: MEMORY - SCORE: 0-UNK SIGNATURE PANEL: The following modified sections: Eating - Score, Grooming - Score, Bathing - Score, Dressing - Upper Body - Score, Dressing - Lower Body - Score, Toileting - Score, Transfers: Bed, Chair, Wheelchair - S core, Transfers: Toilet - Score, Transfers: Shower - Score, Transfers: Tub - Score, Comprehension - S core, Expression - Score, Social Interaction - Score, Problem Solving - Score, Memory - Score were [e lectronically] signed by MARIVEL Aj on Sat Aug 15 2018 12:24:18 GMT-0500 ([facility] Time)
--- NOTE | 2018-08-15 15:45 | FAST ---
SHIFT START DATE/TIME: 08/15/2018 07:00 (CDT) SHIFT END DATE/TIME: 08/15/2018 19:00 (CDT) NAME CHRIS BOUDREAUX DATE OF : 1940 DATE OF ADMISSION: 08/10/2018 18:05 (CDT) PHONE: AGE: 78 SSN# [id number] GENDER: Male ENCOUNTER PHYSICIAN: Dr. Piero De Jesus M.D. 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 EATING: EATING - STEP 1: Does the patient require the assistance of a person or device, or need extra time when eating? Yes. EATING - STEP 2: Does the patient require the assistance of a helper? No, patient only requires an assistive device, O R s/he takes more than reasonable time to eat, OR there is a safety concern, OR s/he requires modifie d food consistency EATING - SCORE: 6-SHILPI GROOMING: Comb/brush hair Oral care Wash, rinse, and dry face Wash, rinse, and dry hands GROOMING - STEP 1: Does the patient require the assistance of a person or device, or need extra time when grooming? Yes. GROOMING - STEP 2: Does the patient require the assistance of a helper? No. The patient only requires an assistive devic e, OR takes more than reasonable time to groom, OR there is a concern for safety as the patient groom s GROOMING - SCORE: 6-SHILPI BATHING: Activity did not occur on this shift BATHING - SCORE: 0-UNK DRESSING - UPPER BODY: Activity did not occur on this shift ARTICLES SCORE Total number of steps: 0 DRESSING - UPPER BODY - SCORE: 0-UNK DRESSING - LOWER BODY: Activity did not occur on this shift ARTICLES SCORE Total number of steps: 0 DRESSING - LOWER BODY - SCORE: 0-UNK TOILETING: TOILETING - STEP 1: Does the patient require the assistance of a person or device, or need extra time with toileting? Yes . TOILETING - STEP 2: Does the patient require the assistance of a helper? Yes. TOILETING - STEP 3: How much assistance does the patient require from the helper? Hands-on assistance from the helper TOILETING - STEP 4: Of the 3 tasks: 1) Adjusting clothing prior to use, 2) Cleansing of perineal area, 3) Adjusting clot cristina after use; How many tasks does the patient perform WITHOUT assistance of the helper? Three tasks with steadying assistance from the helper TOILETING - SCORE: 4-MIN BLADDER MANAGEMENT: BLADDER MANAGEMENT - STEP 1: Does the patient control the bladder completely and intentionally without equipment or devices or med ications, and is always continent? No. BLADDER MANAGEMENT - STEP 2: Does the patient require the assistance of a helper? No, patient requires and independently uses an a ssistive device, such as a urinal, bedpan, bedside commode, catheter, absorbent pad, or collecting de vice BLADDER MANAGEMENT - SCORE: 6-SHILPI BLADDER MANAGEMENT - FREQUENCY OF ACCIDENTS: BLADDER MANAGEMENT(FA) - STEP 1: How many accidents has the patient had during the current shift? 0 BOWEL MANAGEMENT: BOWEL MANAGEMENT - STEP 1: Does the patient control bowels completely and intentionally without equipment devices or medications AND is always continent? Yes. BOWEL MANAGEMENT - SCORE: 7-IND BOWEL MANAGEMENT - FREQUENCY OF ACCIDENTS: BOWEL MANAGEMENT(FA) - STEP 1: How many accidents has the patient had during the current shift? 0 TRANSFERS: BED, CHAIR, WHEELCHAIR: TRANSFERS: BED, CHAIR, WHEELCHAIR - STEP 1: Does the patient require assistance of a person or device, or need extra time with bed, chair, or whe elchair transfers? Yes. TRANSFERS: BED, CHAIR, WHEELCHAIR - STEP 2: Does the patient require the assistance of a helper? Yes. TRANSFERS: BED, CHAIR, WHEELCHAIR - STEP 3: How much assistance does the patient require from the helper? Steadying/guiding assistance TRANSFERS: BED, CHAIR, WHEELCHAIR - SCORE: 4-MIN TRANSFERS: TOILET: TRANSFERS: TOILET - STEP 1: Does the patient require the assistance of a person or device, or need extra time with toilet transfe rs? Yes. TRANSFERS: TOILET - STEP 2: Does the patient require the assistance of a helper? Yes. TRANSFERS: TOILET - STEP 3: How much assistance does the patient require from the helper? Patient performs half or more of the tr ansferring tasks TRANSFERS: TOILET - STEP 4: Does the patient need only incidental help such as contact guard or steadying during toilet transfer? Yes. TRANSFERS: TOILET - SCORE: 4-MIN TRANSFERS: SHOWER: Activity did not occur on this shift TRANSFERS: SHOWER - SCORE: 0-UNK TRANSFERS: TUB: Activity did not occur on this shift TRANSFERS: TUB - SCORE: 0-UNK LOCOMOTION: WALK: Activity did not occur on this shift LOCOMOTION: WALK - SCORE: 0-UNK LOCOMOTION: WHEELCHAIR: LOCOMOTION: WHEELCHAIR - STEP 1: Does the patient need help to go 150 feet in a wheelchair? Yes. LOCOMOTION: WHEELCHAIR - STEP 2: How much assistance does the patient need from the helper? Only supervision, cuing, or coaxing LOCOMOTION: WHEELCHAIR - SCORE: 5-SUP COMPREHENSION: COMPREHENSION: TYPE: Both COMPREHENSION - STEP 1: Does the patient require help from a person or device, or need extra time to understand complex and a bstract ideas (such as current events, finances, discharge planning, medical issues, relationships, e tc)? No. COMPREHENSION - STEP 2: Does the patient need extra time, require an assistive device (such as glasses for visual comprehensi on or a hearing aid for auditory comprehension) or does s/he have mild difficulty understanding compl ex and abstract information? Yes. COMPREHENSION - SCORE: 6-SHILPI EXPRESSION EXPRESSION: TYPE: Both EXPRESSION - STEP 1: Does the patient require help from a person or device, or need extra time expressing complex and abst ract ideas (such as current events, finances, discharge planning, medical issues, relationships, etc) ? Yes. EXPRESSION - STEP 2: Does the patient require help to express basic necessities or ideas (such as hunger, thirst, sleep, s afety, daily schedule, room location, or discomfort) half or more of the time? No. EXPRESSION - STEP 3: How often does the patient need help to express directions and conversation about basic needs? Less t lock 10% of the time EXPRESSION - SCORE: 5-SUP SOCIAL INTERACTION: SOCIAL INTERACTION - STEP 1: Does the patient require a helper to interact with others in social and therapeutic situations? No. SOCIAL INTERACTION - STEP 2: Does the patient need extra time in social situations, OR does s/he interact with staff, other patien ts, and family members ONLY in structured environments, OR does s/he require medication for social in teraction? No. SOCIAL INTERACTION - SCORE: 7-IND PROBLEM SOLVING: PROBLEM SOLVING - STEP 1: Does the patient need help from a person or device, or need extra time to solve complex problems such as managing a checking account or confronting interpersonal problems? No. PROBLEM SOLVING - STEP 2: Does the patient require extra time to make decisions or solve problems, OR does s/he have slight dif ficulty reading, initiating, or self-correcting in unfamiliar situations? Yes, patient needs extra ti me. PROBLEM SOLVING - SCORE: 6-SHLIPI MEMORY: MEMORY - STEP 1: Does the patient need help from a person or device, or need extra time to remember frequently encount ered people, daily routines, and executing requests? No. MEMORY - STEP 2: Does the patient have slight difficulty recognizing frequently encountered people, daily routines, or executing requests without the need for repetition or using self-initiated or environmental cues to remember? Yes. MEMORY - SCORE: 6-SHILPI SIGNATURE PANEL: The following modified sections: Eating - Score, Grooming - Score, Bathing - Score, Dressing - Upper Body - Score, Dressing - Lower Body - Score, Toileting - Score, Bladder Management - Score, Bowel Man agement - Score, Transfers: Bed, Chair, Wheelchair - Score, Transfers: Toilet - Score, Transfers: Pily wer - Score, Transfers: Tub - Score, Locomotion: Walk - Score, Locomotion: Wheelchair - Score, Compre hension - Score, Expression - Score, Social Interaction - Score, Problem Solving - Score, Memory - Sc ore were [electronically] signed by Kathia Gloria C.N.A. on Sat Aug 15 2018 15:44:55 T-0500 (Centra [place] Daylight Time)
[2018-08-15] MEDS: TRAMADOL HCL 50 MG TAB PO PRN (17:17)
[2018-08-15] MEDS: INSULIN GLARGINE 100 UNITS/ML SQ SCH (20:52)
[2018-08-15] MEDS: MIRTAZAPINE 15 MG TAB PO SCH (20:52)
[2018-08-15] MEDS: DOCUSATE NA/SENNA CONC 1 TAB PO SCH (20:53)
--- NOTE | 2018-08-16 02:35 | FAST ---
SHIFT START DATE/TIME: 08/15/2018 19:00 (CDT) SHIFT END DATE/TIME: 08/16/2018 07:00 (CDT) NAME CHRIS BOUDREAUX DATE OF : 1940 DATE OF ADMISSION: 08/10/2018 18:05 (CDT) PHONE: AGE: 78 SSN# [id number] GENDER: Male ENCOUNTER PHYSICIAN: Dr. Piero De Jesus M.D. 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 EATING: Activity did not occur on this shift EATING - SCORE: 0-UNK GROOMING: Activity did not occur on this shift GROOMING - SCORE: 0-UNK BATHING: Activity did not occur on this shift BATHING - SCORE: 0-UNK DRESSING - UPPER BODY: Patient is not dressing in public clothing ARTICLES SCORE Total number of steps: 0 DRESSING - UPPER BODY - SCORE: 0-UNK DRESSING - LOWER BODY: Patient is not dressing in public clothing ARTICLES SCORE Total number of steps: 0 DRESSING - LOWER BODY - SCORE: 0-UNK TOILETING: TOILETING - STEP 1: Does the patient require the assistance of a person or device, or need extra time with toileting? Yes . TOILETING - STEP 2: Does the patient require the assistance of a helper? Yes. TOILETING - STEP 3: How much assistance does the patient require from the helper? Only supervision TOILETING - SCORE: 5-SUP BLADDER MANAGEMENT: BLADDER MANAGEMENT - STEP 1: Does the patient control the bladder completely and intentionally without equipment or devices or med ications, and is always continent? No. BLADDER MANAGEMENT - STEP 2: Does the patient require the assistance of a helper? Yes. BLADDER MANAGEMENT - STEP 3: How much assistance does the patient require from the helper? Only set-up of equipment - such as plac ing it within reach of the patient or emptying a device - to maintain either satisfactory voiding pat tern or managing an external device, such as an absorbent pad, ileal device, or catheter BLADDER MANAGEMENT - SCORE: 5-SUP BOWEL MANAGEMENT: Activity did not occur on this shift BOWEL MANAGEMENT - SCORE: 7-IND TRANSFERS: BED, CHAIR, WHEELCHAIR: Activity did not occur on this shift TRANSFERS: BED, CHAIR, WHEELCHAIR - SCORE: 0-UNK TRANSFERS: TOILET: Activity did not occur on this shift TRANSFERS: TOILET - SCORE: 0-UNK TRANSFERS: SHOWER: Activity did not occur on this shift TRANSFERS: SHOWER - SCORE: 0-UNK TRANSFERS: TUB: Activity did not occur on this shift TRANSFERS: TUB - SCORE: 0-UNK LOCOMOTION: WALK: Activity did not occur on this shift LOCOMOTION: WALK - SCORE: 0-UNK LOCOMOTION: WHEELCHAIR: Activity did not occur on this shift LOCOMOTION: WHEELCHAIR - SCORE: 0-UNK COMPREHENSION: COMPREHENSION: TYPE: Both COMPREHENSION - STEP 1: Does the patient require help from a person or device, or need extra time to understand complex and a bstract ideas (such as current events, finances, discharge planning, medical issues, relationships, e tc)? No. COMPREHENSION - STEP 2: Does the patient need extra time, require an assistive device (such as glasses for visual comprehensi on or a hearing aid for auditory comprehension) or does s/he have mild difficulty understanding compl ex and abstract information? Yes. COMPREHENSION - SCORE: 6-SHILPI EXPRESSION EXPRESSION: TYPE: Both EXPRESSION - STEP 1: Does the patient require help from a person or device, or need extra time expressing complex and abst ract ideas (such as current events, finances, discharge planning, medical issues, relationships, etc) ? No. EXPRESSION - STEP 2: Does the patient need extra time, require an assistive device (such as augmentive communication syste m or a communication board), OR does s/he have mild difficulty expressing complex and abstract ideas (including mild dysarthria or mild word-find problems)? No. EXPRESSION - SCORE: 7-IND SOCIAL INTERACTION: SOCIAL INTERACTION - STEP 1: Does the patient require a helper to interact with others in social and therapeutic situations? No. SOCIAL INTERACTION - STEP 2: Does the patient need extra time in social situations, OR does s/he interact with staff, other patien ts, and family members ONLY in structured environments, OR does s/he require medication for social in teraction? Yes, patient requires medication for social interaction SOCIAL INTERACTION - SCORE: 6-SHILPI PROBLEM SOLVING: PROBLEM SOLVING - STEP 1: Does the patient need help from a person or device, or need extra time to solve complex problems such as managing a checking account or confronting interpersonal problems? No. PROBLEM SOLVING - STEP 2: Does the patient require extra time to make decisions or solve problems, OR does s/he have slight dif ficulty reading, initiating, or self-correcting in unfamiliar situations? No. PROBLEM SOLVING - SCORE: 7-IND MEMORY: MEMORY - STEP 1: Does the patient need help from a person or device, or need extra time to remember frequently encount ered people, daily routines, and executing requests? No. MEMORY - STEP 2: Does the patient have slight difficulty recognizing frequently encountered people, daily routines, or executing requests without the need for repetition or using self-initiated or environmental cues to remember? No. MEMORY - SCORE: 7-IND
[2018-08-16] MEDS: TRAMADOL HCL 50 MG TAB PO PRN ×3 (03:35→20:54)
[2018-08-16] MEDS: INSULIN -REGULAR HUMAN 50 UNIT/0.5 ML ML SQ SCH ×4 (07:30→20:55)
[2018-08-16] MEDS: INSULIN LISPRO 100 UNIT/1 ML SQ SCH ×3 (08:00→17:23)
[2018-08-16] MEDS: APIXABAN 5 MG TABLET PO SCH ×2 (08:31→20:54)
[2018-08-16] MEDS: LIDOCAINE 5% PATCH TOP SCH (08:31)
[2018-08-16] MEDS: RANITIDINE 150 MG TABLET PO SCH ×2 (08:31→20:54)
[2018-08-16] MEDS: TAMSULOSIN 0.4 MG SR CAP PO SCH (08:31)
[2018-08-16] MEDS: FENOFIBRATE 160 MG TAB PO SCH (08:31)
[2018-08-16] MEDS: ATORVASTATIN 10 MG TAB PO SCH (08:31)
[2018-08-16] MEDS: VITAMIN D 5,000 UNIT CAP PO SCH (08:32)
--- NOTE | 2018-08-16 14:44 | FAST ---
SHIFT START DATE/TIME: 08/16/2018 07:00 (CDT) SHIFT END DATE/TIME: 08/16/2018 19:00 (CDT) NAME CHRIS BOUDREAUX DATE OF : 1940 DATE OF ADMISSION: 08/10/2018 18:05 (CDT) PHONE: AGE: 78 SSN# [id number] GENDER: Male ENCOUNTER PHYSICIAN: Dr. Piero De Jesus M.D. 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 EATING: EATING - STEP 1: Does the patient require the assistance of a person or device, or need extra time when eating? Yes. EATING - STEP 2: Does the patient require the assistance of a helper? No, patient only requires an assistive device, O R s/he takes more than reasonable time to eat, OR there is a safety concern, OR s/he requires modifie d food consistency EATING - SCORE: 6-SHILPI GROOMING: Comb/brush hair Oral care Wash, rinse, and dry face Wash, rinse, and dry hands GROOMING - STEP 1: Does the patient require the assistance of a person or device, or need extra time when grooming? Yes. GROOMING - STEP 2: Does the patient require the assistance of a helper? No. The patient only requires an assistive devic e, OR takes more than reasonable time to groom, OR there is a concern for safety as the patient groom s GROOMING - SCORE: 6-SHILPI BATHING: Activity did not occur on this shift BATHING - SCORE: 0-UNK DRESSING - UPPER BODY: Activity did not occur on this shift ARTICLES SCORE Total number of steps: 0 DRESSING - UPPER BODY - SCORE: 0-UNK DRESSING - LOWER BODY: Activity did not occur on this shift ARTICLES SCORE Total number of steps: 0 DRESSING - LOWER BODY - SCORE: 0-UNK TOILETING: TOILETING - STEP 1: Does the patient require the assistance of a person or device, or need extra time with toileting? Yes . TOILETING - STEP 2: Does the patient require the assistance of a helper? Yes. TOILETING - STEP 3: How much assistance does the patient require from the helper? Hands-on assistance from the helper TOILETING - STEP 4: Of the 3 tasks: 1) Adjusting clothing prior to use, 2) Cleansing of perineal area, 3) Adjusting clot cristina after use; How many tasks does the patient perform WITHOUT assistance of the helper? Three tasks with steadying assistance from the helper TOILETING - SCORE: 4-MIN BLADDER MANAGEMENT: BLADDER MANAGEMENT - STEP 1: Does the patient control the bladder completely and intentionally without equipment or devices or med ications, and is always continent? No. BLADDER MANAGEMENT - STEP 2: Does the patient require the assistance of a helper? No, patient only requires extra time BLADDER MANAGEMENT - SCORE: 6-SHILPI BLADDER MANAGEMENT - FREQUENCY OF ACCIDENTS: BLADDER MANAGEMENT(FA) - STEP 1: How many accidents has the patient had during the current shift? 0 BOWEL MANAGEMENT: Activity did not occur on this shift BOWEL MANAGEMENT - SCORE: 7-IND BOWEL MANAGEMENT - FREQUENCY OF ACCIDENTS: BOWEL MANAGEMENT(FA) - STEP 1: How many accidents has the patient had during the current shift? 0 TRANSFERS: BED, CHAIR, WHEELCHAIR: TRANSFERS: BED, CHAIR, WHEELCHAIR - STEP 1: Does the patient require assistance of a person or device, or need extra time with bed, chair, or whe elchair transfers? Yes. TRANSFERS: BED, CHAIR, WHEELCHAIR - STEP 2: Does the patient require the assistance of a helper? Yes. TRANSFERS: BED, CHAIR, WHEELCHAIR - STEP 3: How much assistance does the patient require from the helper? Steadying/guiding assistance TRANSFERS: BED, CHAIR, WHEELCHAIR - SCORE: 4-MIN TRANSFERS: TOILET: TRANSFERS: TOILET - STEP 1: Does the patient require the assistance of a person or device, or need extra time with toilet transfe rs? Yes. TRANSFERS: TOILET - STEP 2: Does the patient require the assistance of a helper? Yes. TRANSFERS: TOILET - STEP 3: How much assistance does the patient require from the helper? Patient performs half or more of the tr ansferring tasks TRANSFERS: TOILET - STEP 4: Does the patient need only incidental help such as contact guard or steadying during toilet transfer? Yes. TRANSFERS: TOILET - SCORE: 4-MIN TRANSFERS: SHOWER: Activity did not occur on this shift TRANSFERS: SHOWER - SCORE: 0-UNK TRANSFERS: TUB: Activity did not occur on this shift TRANSFERS: TUB - SCORE: 0-UNK LOCOMOTION: WALK: Activity did not occur on this shift LOCOMOTION: WALK - SCORE: 0-UNK LOCOMOTION: WHEELCHAIR: Activity did not occur on this shift LOCOMOTION: WHEELCHAIR - SCORE: 0-UNK COMPREHENSION: COMPREHENSION: TYPE: Both COMPREHENSION - STEP 1: Does the patient require help from a person or device, or need extra time to understand complex and a bstract ideas (such as current events, finances, discharge planning, medical issues, relationships, e tc)? No. COMPREHENSION - STEP 2: Does the patient need extra time, require an assistive device (such as glasses for visual comprehensi on or a hearing aid for auditory comprehension) or does s/he have mild difficulty understanding compl ex and abstract information? Yes. COMPREHENSION - SCORE: 6-SHILPI EXPRESSION EXPRESSION: TYPE: Both EXPRESSION - STEP 1: Does the patient require help from a person or device, or need extra time expressing complex and abst ract ideas (such as current events, finances, discharge planning, medical issues, relationships, etc) ? Yes. EXPRESSION - STEP 2: Does the patient require help to express basic necessities or ideas (such as hunger, thirst, sleep, s afety, daily schedule, room location, or discomfort) half or more of the time? No. EXPRESSION - STEP 3: How often does the patient need help to express directions and conversation about basic needs? Less t lock 10% of the time EXPRESSION - SCORE: 5-SUP SOCIAL INTERACTION: SOCIAL INTERACTION - STEP 1: Does the patient require a helper to interact with others in social and therapeutic situations? No. SOCIAL INTERACTION - STEP 2: Does the patient need extra time in social situations, OR does s/he interact with staff, other patien ts, and family members ONLY in structured environments, OR does s/he require medication for social in teraction? No. SOCIAL INTERACTION - SCORE: 7-IND PROBLEM SOLVING: PROBLEM SOLVING - STEP 1: Does the patient need help from a person or device, or need extra time to solve complex problems such as managing a checking account or confronting interpersonal problems? No. PROBLEM SOLVING - STEP 2: Does the patient require extra time to make decisions or solve problems, OR does s/he have slight dif ficulty reading, initiating, or self-correcting in unfamiliar situations? Yes, patient needs extra ti me. PROBLEM SOLVING - SCORE: 6-SHILPI MEMORY: MEMORY - STEP 1: Does the patient need help from a person or device, or need extra time to remember frequently encount ered people, daily routines, and executing requests? No. MEMORY - STEP 2: Does the patient have slight difficulty recognizing frequently encountered people, daily routines, or executing requests without the need for repetition or using self-initiated or environmental cues to remember? Yes. MEMORY - SCORE: 6-SHILPI SIGNATURE PANEL: The following modified sections: Eating - Score, Grooming - Score, Bathing - Score, Dressing - Upper Body - Score, Dressing - Lower Body - Score, Toileting - Score, Bladder Management - Score, Bowel Man agement - Score, Transfers: Bed, Chair, Wheelchair - Score, Transfers: Toilet - Score, Transfers: Pily wer - Score, Transfers: Tub - Score, Locomotion: Walk - Score, Locomotion: Wheelchair - Score, Compre hension - Score, Expression - Score, Social Interaction - Score, Problem Solving - Score, Memory - Sc ore were [electronically] signed by Kathia Gloria C.N.A. on FriAug 16 2018 14:43:14 T-0500 (Centra [place] Daylight Time)
[2018-08-16] MEDS: DOCUSATE NA/SENNA CONC 1 TAB PO SCH (20:53)
[2018-08-16] MEDS: MIRTAZAPINE 15 MG TAB PO SCH (20:53)
[2018-08-16] MEDS: INSULIN GLARGINE 100 UNITS/ML SQ SCH (20:55)
--- NOTE | 2018-08-17 03:03 | FAST ---
SHIFT START DATE/TIME: 08/16/2018 19:00 (CDT) SHIFT END DATE/TIME: 08/17/2018 07:00 (CDT) NAME CHRIS BOUDREAUX DATE OF : 1940 DATE OF ADMISSION: 08/10/2018 18:05 (CDT) PHONE: AGE: 78 SSN# [id number] GENDER: Male ENCOUNTER PHYSICIAN: Dr. Piero De Jesus M.D. 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 EATING: Activity did not occur on this shift EATING - SCORE: 0-UNK GROOMING: Activity did not occur on this shift GROOMING - SCORE: 0-UNK BATHING: Activity did not occur on this shift BATHING - SCORE: 0-UNK DRESSING - UPPER BODY: Activity did not occur on this shift ARTICLES SCORE Total number of steps: 0 DRESSING - UPPER BODY - SCORE: 0-UNK DRESSING - LOWER BODY: Activity did not occur on this shift ARTICLES SCORE Total number of steps: 0 DRESSING - LOWER BODY - SCORE: 0-UNK TOILETING: TOILETING - SCORE: 0-UNK BLADDER MANAGEMENT: BLADDER MANAGEMENT - STEP 1: Does the patient control the bladder completely and intentionally without equipment or devices or med ications, and is always continent? No. BLADDER MANAGEMENT - STEP 2: Does the patient require the assistance of a helper? Yes. BLADDER MANAGEMENT - STEP 3: How much assistance does the patient require from the helper? Only supervision, stand-by, cuing, or c oaxing BLADDER MANAGEMENT - SCORE: 5-SUP BLADDER MANAGEMENT - FREQUENCY OF ACCIDENTS: BLADDER MANAGEMENT(FA) - STEP 1: How many accidents has the patient had during the current shift? 0 BOWEL MANAGEMENT: Activity did not occur on this shift BOWEL MANAGEMENT - SCORE: 7-IND BOWEL MANAGEMENT - FREQUENCY OF ACCIDENTS: BOWEL MANAGEMENT(FA) - STEP 1: How many accidents has the patient had during the current shift? 0 TRANSFERS: BED, CHAIR, WHEELCHAIR: TRANSFERS: BED, CHAIR, WHEELCHAIR - STEP 1: Does the patient require assistance of a person or device, or need extra time with bed, chair, or whe elchair transfers? Yes. TRANSFERS: BED, CHAIR, WHEELCHAIR - STEP 2: Does the patient require the assistance of a helper? Yes. TRANSFERS: BED, CHAIR, WHEELCHAIR - STEP 3: How much assistance does the patient require from the helper? Steadying/guiding assistance TRANSFERS: BED, CHAIR, WHEELCHAIR - SCORE: 4-MIN TRANSFERS: TOILET: TRANSFERS: TOILET - STEP 1: Does the patient require the assistance of a person or device, or need extra time with toilet transfe rs? Yes. TRANSFERS: TOILET - STEP 2: Does the patient require the assistance of a helper? Yes. TRANSFERS: TOILET - STEP 3: How much assistance does the patient require from the helper? Patient performs half or more of the tr ansferring tasks TRANSFERS: TOILET - STEP 4: Does the patient need only incidental help such as contact guard or steadying during toilet transfer? Yes. TRANSFERS: TOILET - SCORE: 4-MIN TRANSFERS: SHOWER: Activity did not occur on this shift TRANSFERS: SHOWER - SCORE: 0-UNK TRANSFERS: TUB: Activity did not occur on this shift TRANSFERS: TUB - SCORE: 0-UNK LOCOMOTION: WALK: Activity did not occur on this shift LOCOMOTION: WALK - SCORE: 0-UNK LOCOMOTION: WHEELCHAIR: Activity did not occur on this shift LOCOMOTION: WHEELCHAIR - SCORE: 0-UNK COMPREHENSION: COMPREHENSION: TYPE: Both COMPREHENSION - STEP 1: Does the patient require help from a person or device, or need extra time to understand complex and a bstract ideas (such as current events, finances, discharge planning, medical issues, relationships, e tc)? No. COMPREHENSION - STEP 2: Does the patient need extra time, require an assistive device (such as glasses for visual comprehensi on or a hearing aid for auditory comprehension) or does s/he have mild difficulty understanding compl ex and abstract information? Yes. COMPREHENSION - SCORE: 6-SHILPI EXPRESSION EXPRESSION: TYPE: Both EXPRESSION - STEP 1: Does the patient require help from a person or device, or need extra time expressing complex and abst ract ideas (such as current events, finances, discharge planning, medical issues, relationships, etc) ? No. EXPRESSION - STEP 2: Does the patient need extra time, require an assistive device (such as augmentive communication syste m or a communication board), OR does s/he have mild difficulty expressing complex and abstract ideas (including mild dysarthria or mild word-find problems)? Yes. EXPRESSION - SCORE: 6-SHILPI SOCIAL INTERACTION: SOCIAL INTERACTION - STEP 1: Does the patient require a helper to interact with others in social and therapeutic situations? No. SOCIAL INTERACTION - STEP 2: Does the patient need extra time in social situations, OR does s/he interact with staff, other patien ts, and family members ONLY in structured environments, OR does s/he require medication for social in teraction? Yes, patient requires medication for social interaction SOCIAL INTERACTION - SCORE: 6-SHILPI PROBLEM SOLVING: PROBLEM SOLVING - STEP 1: Does the patient need help from a person or device, or need extra time to solve complex problems such as managing a checking account or confronting interpersonal problems? No. PROBLEM SOLVING - STEP 2: Does the patient require extra time to make decisions or solve problems, OR does s/he have slight dif ficulty reading, initiating, or self-correcting in unfamiliar situations? Yes, patient needs extra ti me. PROBLEM SOLVING - SCORE: 6-SHILPI MEMORY: MEMORY - STEP 1: Does the patient need help from a person or device, or need extra time to remember frequently encount ered people, daily routines, and executing requests? No. MEMORY - STEP 2: Does the patient have slight difficulty recognizing frequently encountered people, daily routines, or executing requests without the need for repetition or using self-initiated or environmental cues to remember? Yes. MEMORY - SCORE: 6-SHILPI SIGNATURE PANEL: The following modified sections: Eating - Score, Grooming - Score, Bathing - Score, Dressing - Upper Body - Score, Dressing - Lower Body - Score, Bladder Management - Score, Bowel Management - Score, Tr ansfers: Bed, Chair, Wheelchair - Score, Transfers: Toilet - Score, Transfers: Shower - Score, Transf ers: Tub - Score, Locomotion: Walk - Score, Locomotion: Wheelchair - Score, Comprehension - Score, Ex pression - Score, Social Interaction - Score, Problem Solving - Score, Memory - Score were [chancei todd] signed by Jaclyn Navarro RN on FriAug 17 2018 03:02:17 GMT-0500 (Central Daylight Time)
[2018-08-17] MEDS: INSULIN -REGULAR HUMAN 50 UNIT/0.5 ML ML SQ SCH ×4 (07:30→21:00)
[2018-08-17] MEDS: TRAMADOL HCL 50 MG TAB PO PRN (07:41)
[2018-08-17] MEDS: INSULIN LISPRO 100 UNIT/1 ML SQ SCH ×3 (08:00→17:00)
[2018-08-17] MEDS: VITAMIN D 5,000 UNIT CAP PO SCH (08:12)
[2018-08-17] MEDS: TAMSULOSIN 0.4 MG SR CAP PO SCH (08:13)
[2018-08-17] MEDS: ATORVASTATIN 10 MG TAB PO SCH (08:13)
[2018-08-17] MEDS: RANITIDINE 150 MG TABLET PO SCH ×2 (08:13→21:27)
[2018-08-17] MEDS: APIXABAN 5 MG TABLET PO SCH ×2 (08:13→21:27)
[2018-08-17] MEDS: FENOFIBRATE 160 MG TAB PO SCH (08:13)
--- NOTE | 2018-08-17 11:15 | FAST ---
SHIFT START DATE/TIME: 08/17/2018 07:00 (CDT) SHIFT END DATE/TIME: 08/17/2018 19:00 (CDT) NAME CHRIS BOUDREAUX DATE OF : 1940 DATE OF ADMISSION: 08/10/2018 18:05 (CDT) PHONE: AGE: 78 SSN# [id number] GENDER: Male ENCOUNTER PHYSICIAN: Dr. Piero De Jesus M.D. 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 EATING: EATING - STEP 1: Does the patient require the assistance of a person or device, or need extra time when eating? Yes. EATING - STEP 2: Does the patient require the assistance of a helper? No, patient only requires an assistive device, O R s/he takes more than reasonable time to eat, OR there is a safety concern, OR s/he requires modifie d food consistency EATING - SCORE: 6-SHILPI GROOMING: Activity did not occur on this shift GROOMING - SCORE: 0-UNK BATHING: Activity did not occur on this shift BATHING - SCORE: 0-UNK DRESSING - UPPER BODY: Activity did not occur on this shift ARTICLES SCORE Total number of steps: 0 DRESSING - UPPER BODY - SCORE: 0-UNK DRESSING - LOWER BODY: Activity did not occur on this shift ARTICLES SCORE Total number of steps: 0 DRESSING - LOWER BODY - SCORE: 0-UNK TOILETING: TOILETING - STEP 1: Does the patient require the assistance of a person or device, or need extra time with toileting? Yes . TOILETING - STEP 2: Does the patient require the assistance of a helper? Yes. TOILETING - STEP 3: How much assistance does the patient require from the helper? Hands-on assistance from the helper TOILETING - STEP 4: Of the 3 tasks: 1) Adjusting clothing prior to use, 2) Cleansing of perineal area, 3) Adjusting clot cristina after use; How many tasks does the patient perform WITHOUT assistance of the helper? Three tasks with steadying assistance from the helper TOILETING - SCORE: 4-MIN BLADDER MANAGEMENT: BLADDER MANAGEMENT - STEP 1: Does the patient control the bladder completely and intentionally without equipment or devices or med ications, and is always continent? No. BLADDER MANAGEMENT - STEP 2: Does the patient require the assistance of a helper? No, patient requires and independently uses an a ssistive device, such as a urinal, bedpan, bedside commode, catheter, absorbent pad, or collecting de vice BLADDER MANAGEMENT - SCORE: 6-SHILPI BOWEL MANAGEMENT: Activity did not occur on this shift BOWEL MANAGEMENT - SCORE: 7-IND TRANSFERS: BED, CHAIR, WHEELCHAIR: TRANSFERS: BED, CHAIR, WHEELCHAIR - STEP 1: Does the patient require assistance of a person or device, or need extra time with bed, chair, or whe elchair transfers? Yes. TRANSFERS: BED, CHAIR, WHEELCHAIR - STEP 2: Does the patient require the assistance of a helper? Yes. TRANSFERS: BED, CHAIR, WHEELCHAIR - STEP 3: How much assistance does the patient require from the helper? Steadying/guiding assistance TRANSFERS: BED, CHAIR, WHEELCHAIR - SCORE: 4-MIN TRANSFERS: TOILET: TRANSFERS: TOILET - STEP 1: Does the patient require the assistance of a person or device, or need extra time with toilet transfe rs? Yes. TRANSFERS: TOILET - STEP 2: Does the patient require the assistance of a helper? Yes. TRANSFERS: TOILET - STEP 3: How much assistance does the patient require from the helper? Patient performs half or more of the tr ansferring tasks TRANSFERS: TOILET - STEP 4: Does the patient need only incidental help such as contact guard or steadying during toilet transfer? Yes. TRANSFERS: TOILET - SCORE: 4-MIN TRANSFERS: SHOWER: Activity did not occur on this shift TRANSFERS: SHOWER - SCORE: 0-UNK TRANSFERS: TUB: Activity did not occur on this shift TRANSFERS: TUB - SCORE: 0-UNK LOCOMOTION: WALK: Activity did not occur on this shift LOCOMOTION: WALK - SCORE: 0-UNK LOCOMOTION: WHEELCHAIR: Activity did not occur on this shift LOCOMOTION: WHEELCHAIR - SCORE: 0-UNK COMPREHENSION: COMPREHENSION: TYPE: Both COMPREHENSION - STEP 1: Does the patient require help from a person or device, or need extra time to understand complex and a bstract ideas (such as current events, finances, discharge planning, medical issues, relationships, e tc)? No. COMPREHENSION - STEP 2: Does the patient need extra time, require an assistive device (such as glasses for visual comprehensi on or a hearing aid for auditory comprehension) or does s/he have mild difficulty understanding compl ex and abstract information? Yes. COMPREHENSION - SCORE: 6-SHILPI EXPRESSION EXPRESSION: TYPE: Both EXPRESSION - STEP 1: Does the patient require help from a person or device, or need extra time expressing complex and abst ract ideas (such as current events, finances, discharge planning, medical issues, relationships, etc) ? No. EXPRESSION - STEP 2: Does the patient need extra time, require an assistive device (such as augmentive communication syste m or a communication board), OR does s/he have mild difficulty expressing complex and abstract ideas (including mild dysarthria or mild word-find problems)? Yes. EXPRESSION - SCORE: 6-SHILPI SOCIAL INTERACTION: SOCIAL INTERACTION - STEP 1: Does the patient require a helper to interact with others in social and therapeutic situations? No. SOCIAL INTERACTION - STEP 2: Does the patient need extra time in social situations, OR does s/he interact with staff, other patien ts, and family members ONLY in structured environments, OR does s/he require medication for social in teraction? Yes, patient needs extra time SOCIAL INTERACTION - SCORE: 6-SHILPI PROBLEM SOLVING: PROBLEM SOLVING - STEP 1: Does the patient need help from a person or device, or need extra time to solve complex problems such as managing a checking account or confronting interpersonal problems? Yes. PROBLEM SOLVING - STEP 2: Does the patient solve basic routine problems half or more of the time? Yes. PROBLEM SOLVING - STEP 3: How often does the patient need help to solve basic routine problems? Less than 10% of the time PROBLEM SOLVING - SCORE: 5-SUP MEMORY: MEMORY - STEP 1: Does the patient need help from a person or device, or need extra time to remember frequently encount ered people, daily routines, and executing requests? Yes. MEMORY - STEP 2: How often does the patient need help to remember frequently encountered people, daily routines, and e xecuting requests? Less than 10% of the time MEMORY - SCORE: 5-SUP SIGNATURE PANEL: The following modified sections: Eating - Score, Grooming - Score, Bathing - Score, Dressing - Upper Body - Score, Dressing - Lower Body - Score, Toileting - Score, Bladder Management - Score, Bowel Man agement - Score, Transfers: Bed, Chair, Wheelchair - Score, Transfers: Toilet - Score, Transfers: Pily wer - Score, Transfers: Tub - Score, Locomotion: Walk - Score, Locomotion: Wheelchair - Score, Compre hension - Score, Expression - Score, Social Interaction - Score, Problem Solving - Score, Memory - Sc ore were [electronically] signed by Tariq Cunha on FriAug 17 2018 11:14:42 GMT-0500 (Central Daylight Time)
[2018-08-17] MEDS: LIDOCAINE 5% PATCH TOP SCH (11:31)
--- NOTE | 2018-08-17 19:09 | R.PN ---
ENCOUNTER DATE AND TIME: 08/17/2018 19:06 (CDT) NAME CHRIS BOUDREAUX DATE OF : 1940 DATE OF ADMISSION: 08/10/2018 18:05 (CDT) acute infarcts involving left MCASUBJECTIVE: Pt denied any Shortness of Breath. Pt denied any depression. Hgb 12.7, glucose 42 to 140. Ambulated 750' with contact guard assistance using a rolling walker. VITAL SIGNS Temperature: 98.8 F SBP/DBP: 143/82 Pulse: 66 Resp: 16 MEDICATION ALLERGIES: No Known Drug Allergies (NKDA) ENVIRONMENTAL ALLERGIES: - Substance Allergies None Known - Other Allergies None Known NURSING: - Shower allowing shower - Lab Results blood Sugar Check ACHS - Bladder care per protocol - Skin care per protocol PRECAUTIONS: - Weight Bearing Precaution WBAT right LE ACTIVITIES OOB only with supervision THERAPIES: - Occupational Therapy Cognitive Retraining. Visual Perceptual Training. - Dietary and Nutrition Adequate Nutrition. Nutritional Education. Nutritional Supplements. - Speech Therapy Cognitive Training. Expressive Language Skills. Memory Strategies. Receptive Language Skills. Speech Intelligibility Training. PHYSICAL EXAM - Gen Alert and awake Lying in bed No apparent distress Oriented to: person, time, and place - Skin No breakdown No abnormalities - Eyes No abnormalities - ENMT No abnormalities - Neck No abnormalities - CVS RRR - Chest Clear - Abd Soft - GI Soft No abnormalities - No abnormalities - Ext No significant edema - MSK 4+/5 weakness in right upper and lower extremities. - Neuro 4/5 strength right upper and lower extremities. - Psych No abnormalities ASSESSMENT: Pt. is a 78 yo Right-handed white male.On 08/04/2018 Pt. presented to [facility] with sudden onset of right-side weakness.[facility] 08[facility]04/2018 [facility] acute infarcts involving left MCA.His impairment category is Stroke 01 - Right Body (Left Brain) (01.2).Pre-morbidly, Pt. was independent/mod-I in Self-Care, Sphincter Control, Transfers Control, Locomotion, Communication, and Social Cognition; and he had good Sphincte r Control.Currently, he has deficits of Self-Care, Transfers Control, Locomotion, Communication, Soci al Cognition, Endurance, Balance, and Safety Awareness.Pt. is now referred to [facility] for acute in-patient rehabilitation in order to maximize patient's functional independence in activities of daily living, strength, ROM, and mobility.- Rehab Goal Patient has realistic goal of being discharged at assistance level 6-Ciro to reside at Home with Fam rolando/Relatives. MDM/PLAN: - Physical Therapy Gait dysfunction - to improve, our physical therapists will perform initial evaluation of pt's statu s upon admission and devise an individualized program for Gait Training, and Wheel Chair mobility Inability to transfer - to improve, our physical therapists will perform initial evaluation of pt's status upon admission and devise an individualized program for Bed mobility Need for home safety evaluation - to improve, our physical therapists will perform initial evaluatio n of pt's status upon admission and devise an individualized program for Home Evaluation Need in caregiver upon discharge - to improve, our physical therapists will perform initial evaluati on of pt's status upon admission and devise an individualized program for Caregiver Training Edema - to improve, our physical therapists will perform initial evaluation of pt's status upon admi ssion and devise an individualized program for Elevation Training, and Lymphedema Therapy New precaution - to improve, our physical therapists will perform initial evaluation of pt's status upon admission and devise an individualized program for Patient precaution education Poor balance - to improve, our physical therapists will perform initial evaluation of pt's status up on admission and devise an individualized program for Balance Training Poor endurance - to improve, our physical therapists will perform initial evaluation of pt's status upon admission and devise an individualized program for Endurance Training Weakness - to improve, our physical therapists will perform initial evaluation of pt's status upon a dmission and devise an individualized program for Aquatic Therapy, Neuromuscular Reeducation, and Str engthening Achieving independence - to improve, our physical therapists will perform initial evaluation of pt's status upon admission and devise an individualized program for Community Reintegration Activities - Occupational Therapy ADL deficits - to improve, our occupation therapists will perform initial evaluation of pt's status upon admission and devise an individualized program for Bathing, Bed mobility, Community Reintegratio n, Cooking, Dressing, Eating, Fine Motor Skills, Grooming, Homemaking, Kitchen Mobility, Laundry, Pat ient Education, Safety Awareness, Splinting - Positioning, Transfers(Toilet, Tub, Shower), and Wheel Chair Management Cognitive deficits - to improve, our occupation therapists will perform initial evaluation of pt's s tatus upon admission and devise an individualized program for Cognition - orientation Need for respiratory care instructor - to improve, our occupation therapists will perform initial evaluation of pt's status upon admission and devise an individualized program for Caregiver Training Weakness - to improve, our occupation therapists will perform initial evaluation of pt's status upon admission and devise an individualized program for Aquatic Therapy, Balance, Endurance, UE ROM, and UE strengthening - Other See attached MAR (Medication Administration Record) [id number].pdf - Diet Type Continue ADA 1800 eric - Diet - Liquid Texture Continue Regular - Tube Feed Continue N/A - Lab Results blood Sugar Check ACHS - Bladder care per protocol - Weight Bearing Precaution WBAT right LE - Skin care per protocol - Diet - Solid Texture Continue Regular - Shower allowing shower for Dementia, TBI, Stroke, or others FUNCTIONAL STATUS: UPDATED AT WEEKLY TEAM CONFERENCE - Bladder Same accident frequency: 7-Ind - No accidents in the past 7 days - Bowel Same accident frequency: 7-Ind - No accidents in the past 7 days - Walking Same score based on distance walked: 1(<=50ft) - Wheelchair Same score based on distance traveled: 1(<=50ft) FUNCTIONAL STATUS: - Self-Care A. Eating sup B. Grooming Hellen C. Bathing modA D. Dressing - Upper modA E. Dressing - Lower maxA F. Toileting Hellen - Sphincter Control G: Bladder control Ind H: Bowel control Ind - Transfers Control I. Bed/Chair/Wheelchair Hellen J. Toilet Hellen K. Tub/Shower Hellen - Locomotion L. Walk/Wheelchair (B) Dep L. Walk/Wheelchair (W) Dep M. Stairs ADNO - Communication N. Comprehension (B) Hellen O. Expression (B) sup - Social Cognition P. Social Interaction Hellen Q. Problem Solving sup R. Memory sup - Endurance Fair - Balance Poor - Safety Awareness Poor CURRENT FUNC. DEFICITS: Self-Care, Transfers Control, Locomotion, Communication, Social Cognition, Endurance, Balance, and Sa fety Awareness SIGNATURE PANEL: (CDT)
[2018-08-17] MEDS: INSULIN GLARGINE 100 UNITS/ML SQ SCH (21:00)
[2018-08-17] MEDS: MIRTAZAPINE 15 MG TAB PO SCH (21:27)
[2018-08-17] MEDS: DOCUSATE NA/SENNA CONC 1 TAB PO SCH (21:29)
[2018-08-17] MEDS: ACETAMINOPHEN 325 MG TABLET PO PRN (21:53)
[2018-08-18] MEDS: INSULIN -REGULAR HUMAN 50 UNIT/0.5 ML ML SQ SCH ×4 (07:30→21:00)
[2018-08-18] MEDS: INSULIN LISPRO 100 UNIT/1 ML SQ SCH ×3 (07:32→17:31)
[2018-08-18] MEDS: LIDOCAINE 5% PATCH TOP SCH (08:02)
[2018-08-18] MEDS: TAMSULOSIN 0.4 MG SR CAP PO SCH (08:02)
[2018-08-18] MEDS: ATORVASTATIN 10 MG TAB PO SCH (08:02)
[2018-08-18] MEDS: VITAMIN D 5,000 UNIT CAP PO SCH (08:02)
[2018-08-18] MEDS: RANITIDINE 150 MG TABLET PO SCH ×2 (08:02→22:24)
[2018-08-18] MEDS: FENOFIBRATE 160 MG TAB PO SCH (08:02)
[2018-08-18] MEDS: APIXABAN 5 MG TABLET PO SCH ×2 (08:02→22:24)
--- NOTE | 2018-08-18 14:01 | FAST ---
SHIFT START DATE/TIME: 08/18/2018 07:00 (CDT) SHIFT END DATE/TIME: 08/18/2018 19:00 (CDT) NAME CHRIS BOUDREAUX DATE OF : 1940 DATE OF ADMISSION: 08/10/2018 18:05 (CDT) PHONE: AGE: 78 SSN# [id number] GENDER: Male ENCOUNTER PHYSICIAN: Dr. Piero De Jesus M.D. 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 EATING: EATING - STEP 1: Does the patient require the assistance of a person or device, or need extra time when eating? Yes. EATING - STEP 2: Does the patient require the assistance of a helper? No, patient only requires an assistive device, O R s/he takes more than reasonable time to eat, OR there is a safety concern, OR s/he requires modifie d food consistency EATING - SCORE: 6-SHILPI GROOMING: Activity did not occur on this shift GROOMING - SCORE: 0-UNK BATHING: Activity did not occur on this shift BATHING - SCORE: 0-UNK DRESSING - UPPER BODY: Activity did not occur on this shift ARTICLES SCORE Total number of steps: 0 DRESSING - UPPER BODY - SCORE: 0-UNK DRESSING - LOWER BODY: Activity did not occur on this shift ARTICLES SCORE Total number of steps: 0 DRESSING - LOWER BODY - SCORE: 0-UNK TOILETING: TOILETING - STEP 1: Does the patient require the assistance of a person or device, or need extra time with toileting? Yes . TOILETING - STEP 2: Does the patient require the assistance of a helper? Yes. TOILETING - STEP 3: How much assistance does the patient require from the helper? Hands-on assistance from the helper TOILETING - STEP 4: Of the 3 tasks: 1) Adjusting clothing prior to use, 2) Cleansing of perineal area, 3) Adjusting clot cristina after use; How many tasks does the patient perform WITHOUT assistance of the helper? Three tasks with steadying assistance from the helper TOILETING - SCORE: 4-MIN BLADDER MANAGEMENT: BLADDER MANAGEMENT - STEP 1: Does the patient control the bladder completely and intentionally without equipment or devices or med ications, and is always continent? No. BLADDER MANAGEMENT - STEP 2: Does the patient require the assistance of a helper? No, patient requires and independently uses an a ssistive device, such as a urinal, bedpan, bedside commode, catheter, absorbent pad, or collecting de vice BLADDER MANAGEMENT - SCORE: 6-SHILPI BOWEL MANAGEMENT: Activity did not occur on this shift BOWEL MANAGEMENT - SCORE: 7-IND TRANSFERS: BED, CHAIR, WHEELCHAIR: TRANSFERS: BED, CHAIR, WHEELCHAIR - STEP 1: Does the patient require assistance of a person or device, or need extra time with bed, chair, or whe elchair transfers? Yes. TRANSFERS: BED, CHAIR, WHEELCHAIR - STEP 2: Does the patient require the assistance of a helper? Yes. TRANSFERS: BED, CHAIR, WHEELCHAIR - STEP 3: How much assistance does the patient require from the helper? Steadying/guiding assistance TRANSFERS: BED, CHAIR, WHEELCHAIR - SCORE: 4-MIN TRANSFERS: TOILET: TRANSFERS: TOILET - STEP 1: Does the patient require the assistance of a person or device, or need extra time with toilet transfe rs? Yes. TRANSFERS: TOILET - STEP 2: Does the patient require the assistance of a helper? Yes. TRANSFERS: TOILET - STEP 3: How much assistance does the patient require from the helper? Patient performs half or more of the tr ansferring tasks TRANSFERS: TOILET - STEP 4: Does the patient need only incidental help such as contact guard or steadying during toilet transfer? Yes. TRANSFERS: TOILET - SCORE: 4-MIN TRANSFERS: SHOWER: Activity did not occur on this shift TRANSFERS: SHOWER - SCORE: 0-UNK TRANSFERS: TUB: Activity did not occur on this shift TRANSFERS: TUB - SCORE: 0-UNK LOCOMOTION: WALK: Activity did not occur on this shift LOCOMOTION: WALK - SCORE: 0-UNK LOCOMOTION: WHEELCHAIR: Activity did not occur on this shift LOCOMOTION: WHEELCHAIR - SCORE: 0-UNK COMPREHENSION: COMPREHENSION: TYPE: Both COMPREHENSION - STEP 1: Does the patient require help from a person or device, or need extra time to understand complex and a bstract ideas (such as current events, finances, discharge planning, medical issues, relationships, e tc)? No. COMPREHENSION - STEP 2: Does the patient need extra time, require an assistive device (such as glasses for visual comprehensi on or a hearing aid for auditory comprehension) or does s/he have mild difficulty understanding compl ex and abstract information? Yes. COMPREHENSION - SCORE: 6-SHILPI EXPRESSION EXPRESSION: TYPE: Both EXPRESSION - STEP 1: Does the patient require help from a person or device, or need extra time expressing complex and abst ract ideas (such as current events, finances, discharge planning, medical issues, relationships, etc) ? No. EXPRESSION - STEP 2: Does the patient need extra time, require an assistive device (such as augmentive communication syste m or a communication board), OR does s/he have mild difficulty expressing complex and abstract ideas (including mild dysarthria or mild word-find problems)? Yes. EXPRESSION - SCORE: 6-SHILPI SOCIAL INTERACTION: SOCIAL INTERACTION - STEP 1: Does the patient require a helper to interact with others in social and therapeutic situations? No. SOCIAL INTERACTION - STEP 2: Does the patient need extra time in social situations, OR does s/he interact with staff, other patien ts, and family members ONLY in structured environments, OR does s/he require medication for social in teraction? Yes, patient needs extra time SOCIAL INTERACTION - SCORE: 6-SHILPI PROBLEM SOLVING: PROBLEM SOLVING - STEP 1: Does the patient need help from a person or device, or need extra time to solve complex problems such as managing a checking account or confronting interpersonal problems? No. PROBLEM SOLVING - STEP 2: Does the patient require extra time to make decisions or solve problems, OR does s/he have slight dif ficulty reading, initiating, or self-correcting in unfamiliar situations? Yes, patient needs extra ti me. PROBLEM SOLVING - SCORE: 6-SHILPI MEMORY: MEMORY - STEP 1: Does the patient need help from a person or device, or need extra time to remember frequently encount ered people, daily routines, and executing requests? No. MEMORY - STEP 2: Does the patient have slight difficulty recognizing frequently encountered people, daily routines, or executing requests without the need for repetition or using self-initiated or environmental cues to remember? Yes. MEMORY - SCORE: 6-SHILPI SIGNATURE PANEL: The following modified sections: Eating - Score, Grooming - Score, Bathing - Score, Dressing - Upper Body - Score, Dressing - Lower Body - Score, Toileting - Score, Bladder Management - Score, Bowel Man agement - Score, Transfers: Bed, Chair, Wheelchair - Score, Transfers: Toilet - Score, Transfers: Pily wer - Score, Transfers: Tub - Score, Locomotion: Walk - Score, Locomotion: Wheelchair - Score, Compre hension - Score, Expression - Score, Social Interaction - Score, Problem Solving - Score, Memory - Sc ore were [electronically] signed by Tariq Cunha on FriAug 18 2018 14:00:22 GMT-0500 (Central Daylight Time)
--- NOTE | 2018-08-18 15:14 | FAST ---
ENCOUNTER DATE AND TIME: 08/13/2018 08:00 (CDT) NAME CHRIS BOUDREAUX DATE OF : 1940 DATE OF ADMISSION: 08/10/2018 18:05 (CDT) PHONE: AGE: 78 SSN# [id number] GENDER: Male ENCOUNTER PHYSICIAN: Dr. Piero De Jesus M.D. 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 EATING: Activity did not occur on this shift EATING - SCORE: 0-UNK GROOMING: Activity did not occur on this shift GROOMING - SCORE: 0-UNK BATHING: Activity did not occur on this shift BATHING - SCORE: 0-UNK DRESSING - UPPER BODY: Activity did not occur on this shift Patient is not dressing in public clothing ARTICLES SCORE Total number of steps: 0 DRESSING - UPPER BODY - SCORE: 0-UNK DRESSING - LOWER BODY: Activity did not occur on this shift Patient is not dressing in public clothing ARTICLES SCORE Total number of steps: 0 DRESSING - LOWER BODY - SCORE: 0-UNK TOILETING: Activity did not occur on this shift TOILETING - SCORE: 0-UNK BLADDER MANAGEMENT: Activity did not occur on this shift BLADDER MANAGEMENT - SCORE: 7-IND BOWEL MANAGEMENT: Activity did not occur on this shift BOWEL MANAGEMENT - SCORE: 7-IND TRANSFERS: BED, CHAIR, WHEELCHAIR: TRANSFERS: BED, CHAIR, WHEELCHAIR - STEP 1: Does the patient require assistance of a person or device, or need extra time with bed, chair, or whe elchair transfers? Yes. TRANSFERS: BED, CHAIR, WHEELCHAIR - STEP 2: Does the patient require the assistance of a helper? Yes. TRANSFERS: BED, CHAIR, WHEELCHAIR - STEP 3: How much assistance does the patient require from the helper? Steadying/guiding assistance TRANSFERS: BED, CHAIR, WHEELCHAIR - SCORE: 4-MIN TRANSFERS: TOILET: Activity did not occur on this shift TRANSFERS: TOILET - SCORE: 0-UNK TRANSFERS: SHOWER: Activity did not occur on this shift TRANSFERS: SHOWER - SCORE: 0-UNK TRANSFERS: TUB: Activity did not occur on this shift TRANSFERS: TUB - SCORE: 0-UNK LOCOMOTION: WALK: LOCOMOTION: WALK - STEP 1: Does the patient need help from a person or device, or need extra time to walk 150 feet? Yes. LOCOMOTION: WALK - STEP 2: How much assistance does the patient require to walk a minimum of 150 feet? Only incidental help such as contact guarding or steadying LOCOMOTION: WALK - SCORE: 4-MIN LOCOMOTION: WHEELCHAIR: LOCOMOTION: WHEELCHAIR - STEP 1: Does the patient need help to go 150 feet in a wheelchair? Yes. LOCOMOTION: WHEELCHAIR - STEP 2: How much assistance does the patient need from the helper? Only supervision, cuing, or coaxing LOCOMOTION: WHEELCHAIR - SCORE: 5-SUP LOCOMOTION: STAIRS: Activity did not occur on this shift LOCOMOTION: STAIRS - SCORE: 0-UNK COMPREHENSION: COMPREHENSION - SCORE: 0-UNK EXPRESSION EXPRESSION - SCORE: 0-UNK SOCIAL INTERACTION: SOCIAL INTERACTION - SCORE: 0-UNK PROBLEM SOLVING: PROBLEM SOLVING - SCORE: 0-UNK MEMORY: MEMORY - SCORE: 0-UNK SIGNATURE PANEL: The following modified sections: Transfers: Bed, Chair, Wheelchair - Score, Transfers: Toilet - Score , Locomotion: Walk - Score, Locomotion: Wheelchair - Score, Locomotion: Stairs - Score were [chance eldridge] signed by Filiberto Casey PTA on FriAug 18 2018 15:13:44 GMT-0500 (Central Daylight Time)
--- NOTE | 2018-08-18 15:43 | FAST ---
ENCOUNTER DATE AND TIME: 08/18/2018 08:00 (CDT) NAME CHRIS BOUDREAUX DATE OF : 1940 DATE OF ADMISSION: 08/10/2018 18:05 (CDT) PHONE: AGE: 78 SSN# [id number] GENDER: Male ENCOUNTER PHYSICIAN: Dr. Piero De Jesus M.D. 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 EATING: Activity did not occur on this shift EATING - SCORE: 0-UNK GROOMING: Activity did not occur on this shift GROOMING - SCORE: 0-UNK BATHING: Activity did not occur on this shift BATHING - SCORE: 0-UNK DRESSING - UPPER BODY: Activity did not occur on this shift Patient is not dressing in public clothing ARTICLES SCORE Total number of steps: 0 DRESSING - UPPER BODY - SCORE: 0-UNK DRESSING - LOWER BODY: Activity did not occur on this shift Patient is not dressing in public clothing ARTICLES SCORE Total number of steps: 0 DRESSING - LOWER BODY - SCORE: 0-UNK TOILETING: Activity did not occur on this shift TOILETING - SCORE: 0-UNK BLADDER MANAGEMENT: Activity did not occur on this shift BLADDER MANAGEMENT - SCORE: 7-IND BOWEL MANAGEMENT: Activity did not occur on this shift BOWEL MANAGEMENT - SCORE: 7-IND TRANSFERS: BED, CHAIR, WHEELCHAIR: TRANSFERS: BED, CHAIR, WHEELCHAIR - STEP 1: Does the patient require assistance of a person or device, or need extra time with bed, chair, or whe elchair transfers? Yes. TRANSFERS: BED, CHAIR, WHEELCHAIR - STEP 2: Does the patient require the assistance of a helper? Yes. TRANSFERS: BED, CHAIR, WHEELCHAIR - STEP 3: How much assistance does the patient require from the helper? Steadying/guiding assistance TRANSFERS: BED, CHAIR, WHEELCHAIR - SCORE: 4-MIN TRANSFERS: TOILET: Activity did not occur on this shift TRANSFERS: TOILET - SCORE: 0-UNK TRANSFERS: SHOWER: Activity did not occur on this shift TRANSFERS: SHOWER - SCORE: 0-UNK TRANSFERS: TUB: Activity did not occur on this shift TRANSFERS: TUB - SCORE: 0-UNK LOCOMOTION: WALK: LOCOMOTION: WALK - STEP 1: Does the patient need help from a person or device, or need extra time to walk 150 feet? Yes. LOCOMOTION: WALK - STEP 2: How much assistance does the patient require to walk a minimum of 150 feet? Only incidental help such as contact guarding or steadying LOCOMOTION: WALK - SCORE: 4-MIN LOCOMOTION: WHEELCHAIR: LOCOMOTION: WHEELCHAIR - STEP 1: Does the patient need help to go 150 feet in a wheelchair? Yes. LOCOMOTION: WHEELCHAIR - STEP 2: How much assistance does the patient need from the helper? Only supervision, cuing, or coaxing LOCOMOTION: WHEELCHAIR - SCORE: 5-SUP LOCOMOTION: STAIRS: LOCOMOTION: STAIRS - STEP 1: Does the patient need help to go up and down 12 to 14 stairs? Yes. LOCOMOTION: STAIRS - STEP 2: How much assistance does the patient need from the helper to go a minimum of 12 to 14 stairs? The pat ient goes less than 12 stairs, but at least 4 stairs LOCOMOTION: STAIRS - SCORE: 2-MAX COMPREHENSION: COMPREHENSION - SCORE: 0-UNK EXPRESSION EXPRESSION - SCORE: 0-UNK SOCIAL INTERACTION: SOCIAL INTERACTION - SCORE: 0-UNK PROBLEM SOLVING: PROBLEM SOLVING - SCORE: 0-UNK MEMORY: MEMORY - SCORE: 0-UNK SIGNATURE PANEL: The following modified sections: Transfers: Bed, Chair, Wheelchair - Score, Transfers: Toilet - Score , Locomotion: Walk - Score, Locomotion: Wheelchair - Score, Locomotion: Stairs - Score were [chance eldridge] signed by Filiberto Casey PTA on FriAug 18 2018 15:42:55 GMT-0500 (Central Daylight Time)
--- NOTE | 2018-08-18 18:42 | P.CNS ---
Date of Consult: 08/18/18 Reason for Consult: DAMIÁN/ CKD Requesting Physician: Piero De Jesus Chief Complaint: Right sided weakness sp stroke History of Present Illness: 78 yo WM CKD, HTN, DM presented to the [facility] following a Left MCA infarct complicated by right sides weakness. He has known CKD in the setting of HTN, DM and unilateral nephrectomy. Allergies codeine Allergy (Verified 08/10/18 18:53) Itching Home medications list reviewed: Yes Home Medications: Apixaban [Eliquis] 5 mg PO BID 08/11/18 Atorvastatin Calcium [Lipitor] 10 mg PO DAILY 08/11/18 Cholecalciferol (Vitamin D3) [Vitamin D3] 5,000 unit PO DAILY 08/11/18 Fenofibrate [Tricor] 145 mg PO DAILY 08/11/18 Insulin Aspart (Niacinamide) [Fiasp 100 Unit/ml Vial] 15 unit SQ TIDWM 08/11/18 Insulin Glargine Human [Lantus] 60 unit SQ BEDTIME 08/11/18 Mirtazapine [Remeron] 15 mg PO BEDTIME 08/11/18 Ranitidine [Zantac] 150 mg PO BID 08/11/18 Tamsulosin [Flomax] 0.4 mg PO DAILY 08/11/18 - Past Medical/Surgical History Diabetic: Yes -: Lung & pancreaticCA -: HX of MRSA 5 years ago -: Obstructive sleep apnea- has CPAP at home( does not use it) -: GERD -: Blood clots -: Hiatal Hernia -: HTN -: Hyperlipidemia -: OA -: Renal CA -: Chest pain -: COPD -: Cardiac Cath x 3 -: Cholecystectomy -: Bilateral hernia repair -: Right Nephrectomy 2007 -: Upper Endoscopy BX - Family History Father Medical History: Heart disease Notes: - Social History Smoking Status: Unknown if ever smoked Alcohol use: No CD- Drugs: No Caffeine use: Yes Place of Residence: Home Review of Systems 10-point ROS is otherwise unremarkable General: Weakness Neurological: Weakness Physical Examination Temp Pulse Resp BP Pulse Ox 96.7 F L 85 16 142/77 H 94 08/18/18 08:00 08/18/18 08:00 08/18/18 08:00 08/18/18 08:00 08/18/18 08:00 General: In no apparent distress, Oriented x3, Cooperative HEENT: Atraumatic Neck: Supple Respiratory: Clear to auscultation bilaterally Cardiovascular: No edema, Regular rate/rhythm Gastrointestinal: Soft and benign, Non-distended Musculoskeletal: No clubbing, No contractures Integumentary: No rashes Neurological: Normal speech Blood work reviewed in the chart. 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 HTN with CKD/ CHF. DM II with CKD. Diastolic CHF, chronic. CAD/ PAD. Anemia in chronic illness. BPH with luts. A/ Continue current POC and Medications. Maintain adequate hydration. No NSAIDs. AM labs PRN. Daily weight. Encourage PT as tolerated. Thank you kindly for the consultation.
--- NOTE | 2018-08-18 19:07 | R.PN ---
ENCOUNTER DATE AND TIME: 08/18/2018 19:06 (CDT) NAME CHRIS BOUDREAUX DATE OF : 1940 DATE OF ADMISSION: 08/10/2018 18:05 (CDT) acute infarcts involving left MCACHIEF COMPLAINT: Left MCA stroke with residual right sided deficits SUBJECTIVE: Pt denied any Shortness of Breath. Pt denied any depression. Hgb 12.7, glucose 42 to 140. Ambulated 750' with contact guard assistance using a rolling walker. VITAL SIGNS Temperature: 98.8 F SBP/DBP: 143/82 Pulse: 66 Resp: 16 MEDICATION ALLERGIES: No Known Drug Allergies (NKDA) ENVIRONMENTAL ALLERGIES: - Substance Allergies None Known - Other Allergies None Known NURSING: - Shower allowing shower - Lab Results blood Sugar Check ACHS - Bladder care per protocol - Skin care per protocol PRECAUTIONS: - Weight Bearing Precaution WBAT right LE ACTIVITIES OOB only with supervision THERAPIES: - Occupational Therapy Cognitive Retraining. Visual Perceptual Training. - Dietary and Nutrition Adequate Nutrition. Nutritional Education. Nutritional Supplements. - Speech Therapy Cognitive Training. Expressive Language Skills. Memory Strategies. Receptive Language Skills. Speech Intelligibility Training. PHYSICAL EXAM - Gen Alert and awake Lying in bed No apparent distress Oriented to: person, time, and place - Skin No breakdown No abnormalities - Eyes No abnormalities - ENMT No abnormalities - Neck No abnormalities - CVS RRR - Chest Clear - Abd Soft - GI Soft No abnormalities - No abnormalities - Ext No significant edema - MSK 4+/5 weakness in right upper and lower extremities. - Neuro 4/5 strength right upper and lower extremities. - Psych No abnormalities ASSESSMENT: Pt. is a 78 yo Right-handed white male.On 08/04/2018 Pt. presented to [facility] with sudden onset of right-side weakness.On 08/04/2018 he was admitted to [facility] with diagnosis acute infarcts involving left MCA.His impairment category is Stroke 01 - Right Body (Left Brain) (01.2).Pre-morbidly, Pt. was independent/mod-I in Self-Care, Sphincter Control, Transfers Control, Locomotion, Communication, and Social Cognition; and he had good Sphincte r Control.Currently, he has deficits of Self-Care, Transfers Control, Locomotion, Communication, Soci al Cognition, Endurance, Balance, and Safety Awareness.Pt. is now referred to [facility] for acute in-patient rehabilitation in order to maximize patient's functional independence in activities of daily living, strength, ROM, and mobility.- Rehab Goal Patient has realistic goal of being discharged at assistance level 6-Ciro to reside at Home with Fam rolando/Relatives. MDM/PLAN: - Physical Therapy Gait dysfunction - to improve, our physical therapists will perform initial evaluation of pt's statu s upon admission and devise an individualized program for Gait Training, and Wheel Chair mobility Inability to transfer - to improve, our physical therapists will perform initial evaluation of pt's status upon admission and devise an individualized program for Bed mobility Need for home safety evaluation - to improve, our physical therapists will perform initial evaluatio n of pt's status upon admission and devise an individualized program for Home Evaluation Need in caregiver upon discharge - to improve, our physical therapists will perform initial evaluati on of pt's status upon admission and devise an individualized program for Caregiver Training Edema - to improve, our physical therapists will perform initial evaluation of pt's status upon admi ssion and devise an individualized program for Elevation Training, and Lymphedema Therapy New precaution - to improve, our physical therapists will perform initial evaluation of pt's status upon admission and devise an individualized program for Patient precaution education Poor balance - to improve, our physical therapists will perform initial evaluation of pt's status up on admission and devise an individualized program for Balance Training Poor endurance - to improve, our physical therapists will perform initial evaluation of pt's status upon admission and devise an individualized program for Endurance Training Weakness - to improve, our physical therapists will perform initial evaluation of pt's status upon a dmission and devise an individualized program for Aquatic Therapy, Neuromuscular Reeducation, and Str engthening Achieving independence - to improve, our physical therapists will perform initial evaluation of pt's status upon admission and devise an individualized program for Community Reintegration Activities - Occupational Therapy ADL deficits - to improve, our occupation therapists will perform initial evaluation of pt's status upon admission and devise an individualized program for Bathing, Bed mobility, Community Reintegratio n, Cooking, Dressing, Eating, Fine Motor Skills, Grooming, Homemaking, Kitchen Mobility, Laundry, Pat ient Education, Safety Awareness, Splinting - Positioning, Transfers(Toilet, Tub, Shower), and Wheel Chair Management Cognitive deficits - to improve, our occupation therapists will perform initial evaluation of pt's s tatus upon admission and devise an individualized program for Cognition - orientation Need for chronic care nurse - to improve, our occupation therapists will perform initial evaluation of pt's status upon admission and devise an individualized program for Caregiver Training Weakness - to improve, our occupation therapists will perform initial evaluation of pt's status upon admission and devise an individualized program for Aquatic Therapy, Balance, Endurance, UE ROM, and UE strengthening - Other See attached MAR (Medication Administration Record) [id number].pdf - Diet Type Continue ADA 1800 eric - Diet - Liquid Texture Continue Regular - Tube Feed Continue N/A - Lab Results blood Sugar Check ACHS - Bladder care per protocol - Weight Bearing Precaution WBAT right LE - Skin care per protocol - Diet - Solid Texture Continue Regular - Shower allowing shower for Dementia, TBI, Stroke, or others FUNCTIONAL STATUS: UPDATED AT WEEKLY TEAM CONFERENCE - Bladder Same accident frequency: 7-Ind - No accidents in the past 7 days - Bowel Same accident frequency: 7-Ind - No accidents in the past 7 days - Walking Same score based on distance walked: 1(<=50ft) - Wheelchair Same score based on distance traveled: 1(<=50ft) FUNCTIONAL STATUS: - Self-Care A. Eating sup B. Grooming Hellen C. Bathing modA D. Dressing - Upper modA E. Dressing - Lower maxA F. Toileting Hellen - Sphincter Control G: Bladder control Ind H: Bowel control Ind - Transfers Control I. Bed/Chair/Wheelchair Hellen J. Toilet Hellen K. Tub/Shower Hellen - Locomotion L. Walk/Wheelchair (B) Dep L. Walk/Wheelchair (W) Dep M. Stairs ADNO - Communication N. Comprehension (B) Hellen O. Expression (B) sup - Social Cognition P. Social Interaction Hellen Q. Problem Solving sup R. Memory sup - Endurance Fair - Balance Poor - Safety Awareness Poor CURRENT FUNC. DEFICITS: Self-Care, Transfers Control, Locomotion, Communication, Social Cognition, Endurance, Balance, and Sa fety Awareness SIGNATURE PANEL: (CDT)
[2018-08-18] MEDS: INSULIN GLARGINE 100 UNITS/ML SQ SCH (21:00)
[2018-08-18] MEDS: DOCUSATE NA/SENNA CONC 1 TAB PO SCH (22:24)
[2018-08-18] MEDS: MIRTAZAPINE 15 MG TAB PO SCH (22:25)
[2018-08-19] MEDS: ACETAMINOPHEN 325 MG TABLET PO PRN ×2 (01:00→07:05)
[2018-08-19] MEDS: APIXABAN 5 MG TABLET PO SCH ×2 (08:28→20:51)
[2018-08-19] MEDS: TAMSULOSIN 0.4 MG SR CAP PO SCH (08:28)
[2018-08-19] MEDS: RANITIDINE 150 MG TABLET PO SCH ×2 (08:28→20:51)
[2018-08-19] MEDS: LIDOCAINE 5% PATCH TOP SCH (08:29)
[2018-08-19] MEDS: ATORVASTATIN 10 MG TAB PO SCH (08:29)
[2018-08-19] MEDS: FENOFIBRATE 160 MG TAB PO SCH (08:29)
[2018-08-19] MEDS: INSULIN -REGULAR HUMAN 50 UNIT/0.5 ML ML SQ SCH ×4 (08:30→22:00)
[2018-08-19] MEDS: INSULIN LISPRO 100 UNIT/1 ML SQ SCH ×3 (08:31→17:21)
[2018-08-19] MEDS: VITAMIN D 5,000 UNIT CAP PO SCH (10:50)
--- NOTE | 2018-08-19 12:29 | FAST ---
ENCOUNTER DATE AND TIME: 08/19/2018 08:00 (CDT) NAME CHRIS BOUDREAUX DATE OF : 1940 DATE OF ADMISSION: 08/10/2018 18:05 (CDT) PHONE: AGE: 78 SSN# [id number] GENDER: Male ENCOUNTER PHYSICIAN: Dr. Piero De Jesus M.D. 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 EATING: Activity did not occur on this shift EATING - SCORE: 0-UNK GROOMING: Wash, rinse, and dry face Wash, rinse, and dry hands GROOMING - STEP 1: Does the patient require the assistance of a person or device, or need extra time when grooming? No. GROOMING - SCORE: 7-IND BATHING: Abdomen Buttocks Chest Left arm Left lower leg and foot Left upper leg Perineal area Right arm Right lower leg and foot Right upper leg BATHING - STEP 1: Does the patient require the assistance of a person or device, or need extra time when bathing? Yes. BATHING - STEP 2: Does the patient require the assistance of a helper? Yes. BATHING - STEP 3: How much assistance does the patient require from the helper? Only supervision, cuing, coaxing, instr uctions, encouragement BATHING - SCORE: 5-SUP DRESSING - UPPER BODY: T-shirt/pullover shirt (four steps) ARTICLES SCORE Total number of steps: 4 DRESSING - UPPER BODY - STEP 1: Does the patient require help from a person or device, or need extra time when dressing above the [address]? No. DRESSING - UPPER BODY - SCORE: 7-IND DRESSING - LOWER BODY: Elastic waist pants (three steps) Slip-on shoe - Left foot (one step) Slip-on shoe - Right foot (one step) Sock - Left foot (one step) Sock - Right foot (one step) Underwear (three steps) ARTICLES SCORE Total number of steps: 10 DRESSING - LOWER BODY - STEP 1: Does the patient require help from a person or device, or need extra time when dressing below the [address]? Yes. DRESSING - LOWER BODY - STEP 2: Does the patient require the assistance of a helper? Yes. DRESSING - LOWER BODY - STEP 3: Does the helper touch the patient while dressing? No. DRESSING - LOWER BODY - SCORE: 5-SUP TOILETING: Activity did not occur on this shift TOILETING - SCORE: 0-UNK BLADDER MANAGEMENT: Activity did not occur on this shift BLADDER MANAGEMENT - SCORE: 7-IND BOWEL MANAGEMENT: Activity did not occur on this shift BOWEL MANAGEMENT - SCORE: 7-IND TRANSFERS: BED, CHAIR, WHEELCHAIR: Activity did not occur on this shift TRANSFERS: BED, CHAIR, WHEELCHAIR - SCORE: 0-UNK TRANSFERS: TOILET: Activity did not occur on this shift TRANSFERS: TOILET - SCORE: 0-UNK TRANSFERS: SHOWER: TRANSFERS: SHOWER - STEP 1: Does the patient require the assistance of a person or device, or need extra time with shower transfe rs? Yes. TRANSFERS: SHOWER - STEP 2: Does the patient require the assistance of a helper? Yes. TRANSFERS: SHOWER - STEP 3: How much assistance does the patient require from the helper? Only supervision, cuing, coaxing, or he lp to set out transfer equipment or to lock brakes and/or lift foot rests TRANSFERS: SHOWER - SCORE: 5-SUP TRANSFERS: TUB: Activity did not occur on this shift TRANSFERS: TUB - SCORE: 0-UNK LOCOMOTION: WALK: Activity did not occur on this shift LOCOMOTION: WALK - SCORE: 0-UNK LOCOMOTION: WHEELCHAIR: Activity did not occur on this shift LOCOMOTION: WHEELCHAIR - SCORE: 0-UNK LOCOMOTION: STAIRS: Activity did not occur on this shift LOCOMOTION: STAIRS - SCORE: 0-UNK COMPREHENSION: COMPREHENSION - SCORE: 0-UNK EXPRESSION EXPRESSION - SCORE: 0-UNK SOCIAL INTERACTION: SOCIAL INTERACTION - SCORE: 0-UNK PROBLEM SOLVING: PROBLEM SOLVING - SCORE: 0-UNK MEMORY: MEMORY - SCORE: 0-UNK SIGNATURE PANEL: The following modified sections: Eating - Score, Grooming - Score, Bathing - Score, Dressing - Upper Body - Score, Dressing - Lower Body - Score, Toileting - Score, Transfers: Bed, Chair, Wheelchair - S core, Transfers: Toilet - Score, Transfers: Shower - Score, Transfers: Tub - Score, Comprehension - S core, Expression - Score, Social Interaction - Score, Problem Solving - Score, Memory - Score were [e lectronically] signed by MARIVEL Aj on FriAug 19 2018 12:28:40 GMT-0500 ([facility] Time)
--- NOTE | 2018-08-19 15:53 | FAST ---
ENCOUNTER DATE AND TIME: 08/14/2018 08:00 (CDT) NAME CHRIS BOUDREAUX DATE OF : 1940 DATE OF ADMISSION: 08/10/2018 18:05 (CDT) PHONE: AGE: 78 SSN# [id number] GENDER: Male ENCOUNTER PHYSICIAN: Dr. Piero De Jesus M.D. 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 EATING: Activity did not occur on this shift EATING - SCORE: 0-UNK GROOMING: Activity did not occur on this shift GROOMING - SCORE: 0-UNK BATHING: Activity did not occur on this shift BATHING - SCORE: 0-UNK DRESSING - UPPER BODY: Activity did not occur on this shift Patient is not dressing in public clothing ARTICLES SCORE Total number of steps: 0 DRESSING - UPPER BODY - SCORE: 0-UNK DRESSING - LOWER BODY: Activity did not occur on this shift Patient is not dressing in public clothing ARTICLES SCORE Total number of steps: 0 DRESSING - LOWER BODY - SCORE: 0-UNK TOILETING: Activity did not occur on this shift TOILETING - SCORE: 0-UNK BLADDER MANAGEMENT: Activity did not occur on this shift BLADDER MANAGEMENT - SCORE: 7-IND BOWEL MANAGEMENT: Activity did not occur on this shift BOWEL MANAGEMENT - SCORE: 7-IND TRANSFERS: BED, CHAIR, WHEELCHAIR: TRANSFERS: BED, CHAIR, WHEELCHAIR - STEP 1: Does the patient require assistance of a person or device, or need extra time with bed, chair, or whe elchair transfers? Yes. TRANSFERS: BED, CHAIR, WHEELCHAIR - STEP 2: Does the patient require the assistance of a helper? Yes. TRANSFERS: BED, CHAIR, WHEELCHAIR - STEP 3: How much assistance does the patient require from the helper? Steadying/guiding assistance TRANSFERS: BED, CHAIR, WHEELCHAIR - SCORE: 4-MIN TRANSFERS: TOILET: Activity did not occur on this shift TRANSFERS: TOILET - SCORE: 0-UNK TRANSFERS: SHOWER: Activity did not occur on this shift TRANSFERS: SHOWER - SCORE: 0-UNK TRANSFERS: TUB: Activity did not occur on this shift TRANSFERS: TUB - SCORE: 0-UNK LOCOMOTION: WALK: LOCOMOTION: WALK - STEP 1: Does the patient need help from a person or device, or need extra time to walk 150 feet? Yes. LOCOMOTION: WALK - STEP 2: How much assistance does the patient require to walk a minimum of 150 feet? Only incidental help such as contact guarding or steadying LOCOMOTION: WALK - SCORE: 4-MIN LOCOMOTION: WHEELCHAIR: LOCOMOTION: WHEELCHAIR - STEP 1: Does the patient need help to go 150 feet in a wheelchair? Yes. LOCOMOTION: WHEELCHAIR - STEP 2: How much assistance does the patient need from the helper? Only supervision, cuing, or coaxing LOCOMOTION: WHEELCHAIR - SCORE: 5-SUP LOCOMOTION: STAIRS: Activity did not occur on this shift LOCOMOTION: STAIRS - SCORE: 0-UNK COMPREHENSION: COMPREHENSION - SCORE: 0-UNK EXPRESSION EXPRESSION - SCORE: 0-UNK SOCIAL INTERACTION: SOCIAL INTERACTION - SCORE: 0-UNK PROBLEM SOLVING: PROBLEM SOLVING - SCORE: 0-UNK MEMORY: MEMORY - SCORE: 0-UNK SIGNATURE PANEL: The following modified sections: Transfers: Bed, Chair, Wheelchair - Score, Transfers: Toilet - Score , Locomotion: Walk - Score, Locomotion: Wheelchair - Score, Locomotion: Stairs - Score were [chance eldridge] signed by Filiberto Casey PTA on FriAug 19 2018 15:52:09 T-0500 ([facility] Daylight Time)
[2018-08-19] MEDS: ACETAMINOPHEN 500 MG TAB PO PRN ×2 (17:18→21:44)
[2018-08-19] MEDS: INSULIN GLARGINE 100 UNITS/ML SQ SCH (20:51)
[2018-08-19] MEDS: DOCUSATE NA/SENNA CONC 1 TAB PO SCH (20:51)
[2018-08-19] MEDS: MIRTAZAPINE 15 MG TAB PO SCH (20:51)
[2018-08-19] MEDS ORDERED: INSULIN -REGULAR HUMAN 50 UNIT/0.5 ML ML ONE (22:12)
--- NOTE | 2018-08-19 23:20 | R.PN ---
ENCOUNTER DATE AND TIME: 08/19/2018 23:16 (CDT) NAME CHRIS BOUDREAUX DATE OF : 1940 DATE OF ADMISSION: 08/10/2018 18:05 (CDT) acute infarcts involving left MCACHIEF COMPLAINT: Left MCA stroke with residual right sided deficits SUBJECTIVE: Pt denied any Shortness of Breath. Pt denied any depression. Hgb 12.7, glucose 42 to 140. Ambulated 750' with contact guard assistance using a rolling walker. Functional transfers and activities of daily living done with standby assistance. VITAL SIGNS Temperature: 97.4F SBP/DBP: 158/77 Pulse: 80 Resp: 16 MEDICATION ALLERGIES: No Known Drug Allergies (NKDA) ENVIRONMENTAL ALLERGIES: - Substance Allergies None Known - Other Allergies None Known NURSING: - Shower allowing shower - Lab Results blood Sugar Check ACHS - Bladder care per protocol - Skin care per protocol PRECAUTIONS: - Weight Bearing Precaution WBAT right LE ACTIVITIES OOB only with supervision THERAPIES: - Occupational Therapy Cognitive Retraining. Visual Perceptual Training. - Dietary and Nutrition Adequate Nutrition. Nutritional Education. Nutritional Supplements. - Speech Therapy Cognitive Training. Expressive Language Skills. Memory Strategies. Receptive Language Skills. Speech Intelligibility Training. PHYSICAL EXAM - Gen Alert and awake Lying in bed No apparent distress Oriented to: person, time, and place - Skin No breakdown No abnormalities - Eyes No abnormalities - ENMT No abnormalities - Neck No abnormalities - CVS RRR - Chest Clear - Abd Soft - GI Soft No abnormalities - No abnormalities - Ext No significant edema - MSK 4+/5 weakness in right upper and lower extremities. - Neuro 4/5 strength right upper and lower extremities. - Psych No abnormalities ASSESSMENT: Pt. is a 78 yo Right-handed white male.On 08/04/2018 Pt. presented to [facility] with sudden onset of right-side weakness.On 08/04/2018 he was admitted to [facility] with diagnosis acute infarcts involving left MCA.His impairment category is Stroke 01 - Right Body (Left Brain) (01.2).Pre-morbidly, Pt. was independent/mod-I in Self-Care, Sphincter Control, Transfers Control, Locomotion, Communication, and Social Cognition; and he had good Sphincte r Control.Currently, he has deficits of Self-Care, Transfers Control, Locomotion, Communication, Soci al Cognition, Endurance, Balance, and Safety Awareness.Pt. is now referred to [facility] for acute in-patient rehabilitation in order to maximize patient's functional independence in activities of daily living, strength, ROM, and mobility.- Rehab Goal Patient has realistic goal of being discharged at assistance level 6-Ciro to reside at Home with Fam rolando/Relatives. MDM/PLAN: - Physical Therapy Gait dysfunction - to improve, our physical therapists will perform initial evaluation of pt's statu s upon admission and devise an individualized program for Gait Training, and Wheel Chair mobility Inability to transfer - to improve, our physical therapists will perform initial evaluation of pt's status upon admission and devise an individualized program for Bed mobility Need for home safety evaluation - to improve, our physical therapists will perform initial evaluatio n of pt's status upon admission and devise an individualized program for Home Evaluation Need in caregiver upon discharge - to improve, our physical therapists will perform initial evaluati on of pt's status upon admission and devise an individualized program for Caregiver Training Edema - to improve, our physical therapists will perform initial evaluation of pt's status upon admi ssion and devise an individualized program for Elevation Training, and Lymphedema Therapy New precaution - to improve, our physical therapists will perform initial evaluation of pt's status upon admission and devise an individualized program for Patient precaution education Poor balance - to improve, our physical therapists will perform initial evaluation of pt's status up on admission and devise an individualized program for Balance Training Poor endurance - to improve, our physical therapists will perform initial evaluation of pt's status upon admission and devise an individualized program for Endurance Training Weakness - to improve, our physical therapists will perform initial evaluation of pt's status upon a dmission and devise an individualized program for Aquatic Therapy, Neuromuscular Reeducation, and Str engthening Achieving independence - to improve, our physical therapists will perform initial evaluation of pt's status upon admission and devise an individualized program for Community Reintegration Activities - Occupational Therapy ADL deficits - to improve, our occupation therapists will perform initial evaluation of pt's status upon admission and devise an individualized program for Bathing, Bed mobility, Community Reintegratio n, Cooking, Dressing, Eating, Fine Motor Skills, Grooming, Homemaking, Kitchen Mobility, Laundry, Pat ient Education, Safety Awareness, Splinting - Positioning, Transfers(Toilet, Tub, Shower), and Wheel Chair Management Cognitive deficits - to improve, our occupation therapists will perform initial evaluation of pt's s tatus upon admission and devise an individualized program for Cognition - orientation Need for ocular care technologist - to improve, our occupation therapists will perform initial evaluation of pt's status upon admission and devise an individualized program for Caregiver Training Weakness - to improve, our occupation therapists will perform initial evaluation of pt's status upon admission and devise an individualized program for Aquatic Therapy, Balance, Endurance, UE ROM, and UE strengthening - Other See attached MAR (Medication Administration Record) [id number].pdf - Diet Type Continue ADA 1800 eric - Diet - Liquid Texture Continue Regular - Tube Feed Continue N/A - Lab Results blood Sugar Check ACHS - Bladder care per protocol - Weight Bearing Precaution WBAT right LE - Skin care per protocol - Diet - Solid Texture Continue Regular - Shower allowing shower for Dementia, TBI, Stroke, or others FUNCTIONAL STATUS: UPDATED AT WEEKLY TEAM CONFERENCE - Bladder Same accident frequency: 7-Ind - No accidents in the past 7 days - Bowel Same accident frequency: 7-Ind - No accidents in the past 7 days - Walking Same score based on distance walked: 1(<=50ft) - Wheelchair Same score based on distance traveled: 1(<=50ft) FUNCTIONAL STATUS: - Self-Care A. Eating sup B. Grooming Hellen C. Bathing modA D. Dressing - Upper modA E. Dressing - Lower maxA F. Toileting Hellen - Sphincter Control G: Bladder control Ind H: Bowel control Ind - Transfers Control I. Bed/Chair/Wheelchair Hellen J. Toilet Hellen K. Tub/Shower Hellen - Locomotion L. Walk/Wheelchair (B) Dep L. Walk/Wheelchair (W) Dep M. Stairs ADNO - Communication N. Comprehension (B) Hellen O. Expression (B) sup - Social Cognition P. Social Interaction Hellen Q. Problem Solving sup R. Memory sup - Endurance Fair - Balance Poor - Safety Awareness Poor CURRENT FUNC. DEFICITS: Self-Care, Transfers Control, Locomotion, Communication, Social Cognition, Endurance, Balance, and Sa fety Awareness SIGNATURE PANEL: (CDT)
--- NOTE | 2018-08-20 02:15 | FAST ---
SHIFT START DATE/TIME: 08/19/2018 19:00 (CDT) SHIFT END DATE/TIME: 08/20/2018 07:00 (CDT) NAME CHRIS BOUDREAUX DATE OF : 1940 DATE OF ADMISSION: 08/10/2018 18:05 (CDT) PHONE: AGE: 78 N# [id number] GENDER: Male ENCOUNTER PHYSICIAN: Dr. Piero De Jesus M.D. 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 EATING: Activity did not occur on this shift EATING - SCORE: 0-UNK GROOMING: Activity did not occur on this shift GROOMING - SCORE: 0-UNK BATHING: Activity did not occur on this shift BATHING - SCORE: 0-UNK DRESSING - UPPER BODY: Patient is not dressing in public clothing ARTICLES SCORE Total number of steps: 0 DRESSING - UPPER BODY - SCORE: 0-UNK DRESSING - LOWER BODY: Patient is not dressing in public clothing ARTICLES SCORE Total number of steps: 0 DRESSING - LOWER BODY - SCORE: 0-UNK TOILETING: TOILETING - STEP 1: Does the patient require the assistance of a person or device, or need extra time with toileting? Yes . TOILETING - STEP 2: Does the patient require the assistance of a helper? Yes. TOILETING - STEP 3: How much assistance does the patient require from the helper? Hands-on assistance from the helper TOILETING - STEP 4: Of the 3 tasks: 1) Adjusting clothing prior to use, 2) Cleansing of perineal area, 3) Adjusting clot cristina after use; How many tasks does the patient perform WITHOUT assistance of the helper? Three tasks with steadying assistance from the helper TOILETING - SCORE: 4-MIN BLADDER MANAGEMENT: BLADDER MANAGEMENT - STEP 1: Does the patient control the bladder completely and intentionally without equipment or devices or med ications, and is always continent? No. BLADDER MANAGEMENT - STEP 2: Does the patient require the assistance of a helper? Yes. BLADDER MANAGEMENT - STEP 3: How much assistance does the patient require from the helper? Only set-up of equipment - such as plac ing it within reach of the patient or emptying a device - to maintain either satisfactory voiding pat tern or managing an external device, such as an absorbent pad, ileal device, or catheter BLADDER MANAGEMENT - SCORE: 5-SUP BOWEL MANAGEMENT: BOWEL MANAGEMENT - STEP 1: Does the patient control bowels completely and intentionally without equipment devices or medications AND is always continent? No. BOWEL MANAGEMENT - STEP 2: Does the patient require the assistance of a helper? No, patient requires medication for control such as stool softeners, suppositories, laxatives, enemas, or OTC medications BOWEL MANAGEMENT - SCORE: 6-SHILPI TRANSFERS: BED, CHAIR, WHEELCHAIR: TRANSFERS: BED, CHAIR, WHEELCHAIR - STEP 1: Does the patient require assistance of a person or device, or need extra time with bed, chair, or whe elchair transfers? Yes. TRANSFERS: BED, CHAIR, WHEELCHAIR - STEP 2: Does the patient require the assistance of a helper? Yes. TRANSFERS: BED, CHAIR, WHEELCHAIR - STEP 3: How much assistance does the patient require from the helper? Steadying/guiding assistance TRANSFERS: BED, CHAIR, WHEELCHAIR - SCORE: 4-MIN TRANSFERS: TOILET: TRANSFERS: TOILET - STEP 1: Does the patient require the assistance of a person or device, or need extra time with toilet transfe rs? Yes. TRANSFERS: TOILET - STEP 2: Does the patient require the assistance of a helper? Yes. TRANSFERS: TOILET - STEP 3: How much assistance does the patient require from the helper? Only supervision, cuing, coaxing, OR he lp to set out transfer equipment or to lock brakes and/or lift foot rests TRANSFERS: TOILET - SCORE: 5-SUP TRANSFERS: SHOWER: Activity did not occur on this shift TRANSFERS: SHOWER - SCORE: 0-UNK TRANSFERS: TUB: Activity did not occur on this shift TRANSFERS: TUB - SCORE: 0-UNK LOCOMOTION: WALK: Activity did not occur on this shift LOCOMOTION: WALK - SCORE: 0-UNK LOCOMOTION: WHEELCHAIR: Activity did not occur on this shift LOCOMOTION: WHEELCHAIR - SCORE: 0-UNK COMPREHENSION: COMPREHENSION: TYPE: Both COMPREHENSION - STEP 1: Does the patient require help from a person or device, or need extra time to understand complex and a bstract ideas (such as current events, finances, discharge planning, medical issues, relationships, e tc)? No. COMPREHENSION - STEP 2: Does the patient need extra time, require an assistive device (such as glasses for visual comprehensi on or a hearing aid for auditory comprehension) or does s/he have mild difficulty understanding compl ex and abstract information? Yes. COMPREHENSION - SCORE: 6-SHILPI EXPRESSION EXPRESSION: TYPE: Both EXPRESSION - STEP 1: Does the patient require help from a person or device, or need extra time expressing complex and abst ract ideas (such as current events, finances, discharge planning, medical issues, relationships, etc) ? No. EXPRESSION - STEP 2: Does the patient need extra time, require an assistive device (such as augmentive communication syste m or a communication board), OR does s/he have mild difficulty expressing complex and abstract ideas (including mild dysarthria or mild word-find problems)? No. EXPRESSION - SCORE: 7-IND SOCIAL INTERACTION: SOCIAL INTERACTION - STEP 1: Does the patient require a helper to interact with others in social and therapeutic situations? No. SOCIAL INTERACTION - STEP 2: Does the patient need extra time in social situations, OR does s/he interact with staff, other patien ts, and family members ONLY in structured environments, OR does s/he require medication for social in teraction? Yes, patient requires medication for social interaction SOCIAL INTERACTION - SCORE: 6-SHILPI PROBLEM SOLVING: PROBLEM SOLVING - STEP 1: Does the patient need help from a person or device, or need extra time to solve complex problems such as managing a checking account or confronting interpersonal problems? Yes. PROBLEM SOLVING - STEP 2: Does the patient solve basic routine problems half or more of the time? Yes. PROBLEM SOLVING - STEP 3: How often does the patient need help to solve basic routine problems? 10%-24% of the time PROBLEM SOLVING - SCORE: 4-MIN MEMORY: MEMORY - STEP 1: Does the patient need help from a person or device, or need extra time to remember frequently encount ered people, daily routines, and executing requests? No. MEMORY - STEP 2: Does the patient have slight difficulty recognizing frequently encountered people, daily routines, or executing requests without the need for repetition or using self-initiated or environmental cues to remember? Yes. MEMORY - SCORE: 6-SHILPI SIGNATURE PANEL: The following modified sections: Eating - Score, Grooming - Score, Dressing - Upper Body - Score, Joon ssing - Lower Body - Score, Toileting - Score, Bladder Management - Score, Bowel Management - Score, Transfers: Bed, Chair, Wheelchair - Score, Transfers: Toilet - Score, Transfers: Shower - Score, Eric sfers: Tub - Score, Locomotion: Walk - Score, Locomotion: Wheelchair - Score, Comprehension - Score, Expression - Score, Social Interaction - Score, Problem Solving - Score, Memory - Score were [electro nically] signed by Julia Vallejo CNA on FriAug 20 2018 02:14:00 GMT-0500 (Central Daylight Time)
[2018-08-20 06:55] LABS: Absolute Lymphocytes (CBC) 1.4 K/uL (0.7-4.9); Basophils % 0.7 % (0-1.3); Eosinophils % 2.6 % (0-4.4); Hematocrit 39.6 % (39.6-49.0); Lymphocytes % 35.1 % (15.3-44.8); MPV 6.7 fL (7.6-11.3); Monocytes % 13.4 % (3.3-12.3); RBC Red Blood Cell Count 3.96 M/uL (4.33-5.43)
[2018-08-20 07:23] LABS: Albumin 3.3 g/dL (3.4-5.0); Magnesium 2.2 mg/dL (1.8-2.4); Potassium 4.5 mmol/L (3.5-5.1); Prealbumin 23.5 mg/dL (20-40)
[2018-08-20] MEDS: INSULIN -REGULAR HUMAN 50 UNIT/0.5 ML ML SQ SCH ×4 (07:30→21:39)
[2018-08-20] MEDS: LIDOCAINE 5% PATCH TOP SCH (08:17)
[2018-08-20] MEDS: VITAMIN D 5,000 UNIT CAP PO SCH (08:18)
[2018-08-20] MEDS: FENOFIBRATE 160 MG TAB PO SCH (08:18)
[2018-08-20] MEDS: APIXABAN 5 MG TABLET PO SCH ×2 (08:18→20:23)
[2018-08-20] MEDS: RANITIDINE 150 MG TABLET PO SCH ×2 (08:18→20:23)
[2018-08-20] MEDS: ACETAMINOPHEN 500 MG TAB PO PRN (08:18)
[2018-08-20] MEDS: TAMSULOSIN 0.4 MG SR CAP PO SCH (08:18)
[2018-08-20] MEDS: ATORVASTATIN 10 MG TAB PO SCH (08:18)
[2018-08-20] MEDS: INSULIN LISPRO 100 UNIT/1 ML SQ SCH ×3 (08:20→17:27)
[2018-08-20] MEDS: TRAMADOL HCL 50 MG TAB PO PRN (20:22)
[2018-08-20] MEDS: DOCUSATE NA/SENNA CONC 1 TAB PO SCH (20:23)
[2018-08-20] MEDS: MIRTAZAPINE 15 MG TAB PO SCH (20:23)
[2018-08-20] MEDS: INSULIN GLARGINE 100 UNITS/ML SQ SCH (20:24)
--- NOTE | 2018-08-20 21:42 | P.PN ---
Date of Service: 08/20/18 Vital Signs Temp Pulse Resp BP Pulse Ox 97.8 F 72 18 134/66 96 08/20/18 20:00 08/20/18 20:00 08/20/18 20:00 08/20/18 20:00 08/20/18 20:00 Medications Acetaminophen (Tylenol -Extra Strength) 500 mg PO Q4H PRN PRN Reason: Pain scale 2-4 (Mild) Stop: 09/18/18 14:03 Last Admin: 08/20/18 08:18 Dose: 500 mg Apixaban (Eliquis) 5 mg PO BID [facility] Stop: 09/09/18 20:01 Last Admin: 08/20/18 20:23 Dose: 5 mg Atorvastatin Calcium (Lipitor) 10 mg PO DAILY [facility] Stop: 09/10/18 08:01 Last Admin: 08/20/18 08:18 Dose: 10 mg Cholecalciferol (Vitamin D 5,000 Iu Cap) 5,000 unit PO DAILY [facility] Stop: 09/10/18 08:01 Last Admin: 08/20/18 08:18 Dose: 5,000 unit Dextrose (Dextrose 50% Syringe) 12.5 gm IV PRN PRN; Protocol PRN Reason: HYPOGLYCEMIA Stop: 09/09/18 19:08 Fenofibrate (Tricor) 160 mg PO DAILY [facility] Stop: 09/10/18 08:01 Last Admin: 08/20/18 08:18 Dose: 160 mg Glucagon (Glucagen) 1 mg IM 1X PRN; Protocol PRN Reason: HYPOGLYCEMIA Stop: 09/09/18 19:08 Insulin Glargine (Lantus) 40 units SQ BEDTIME [facility] Stop: 09/18/18 21:01 Last Admin: 08/20/18 20:24 Dose: 40 units Insulin Human Lispro (Humalog) 5 unit SQ TIDWM [facility] Stop: 09/15/18 12:01 Last Admin: 08/20/18 17:27 Dose: 5 unit Insulin Human Regular (Novolin -R) 0 unit SQ ACHS [facility]; Protocol Stop: 09/09/18 21:01 Last Admin: 08/20/18 21:39 Dose: 2 unit Lidocaine (Lidoderm 5% Patch) 2 patch TOP DAILY [facility] Stop: 09/15/18 08:01 Last Admin: 08/20/18 08:17 Dose: 2 patch Mirtazapine (Remeron) 15 mg PO BEDTIME [facility] Stop: 09/09/18 21:01 Last Admin: 08/20/18 20:23 Dose: 15 mg Ranitidine HCl (Zantac) 150 mg PO BID [facility] Stop: 09/09/18 20:01 Last Admin: 08/20/18 20:23 Dose: 150 mg Senna/Docusate Sodium (Senokot-S) 2 tab PO BEDTIME [facility] Stop: 09/11/18 21:01 Last Admin: 08/20/18 20:23 Dose: 2 tab Tamsulosin HCl (Flomax) 0.4 mg PO DAILY [facility] Stop: 09/10/18 08:01 Last Admin: 08/20/18 08:18 Dose: 0.4 mg Tramadol HCl (Ultram) 50 mg PO Q4HP PRN PRN Reason: Pain scale 5-7 (Moderate) Stop: 09/19/18 13:36 Last Admin: 08/20/18 20:22 Dose: 50 mg Lab Results (last 24 hrs) 08/20/18 16:30: POC Glucose 191 H 08/20/18 11:44: POC Glucose 178 H 08/20/18 06:50: POC Glucose 176 H 08/20/18 06:37: Sodium 145, Potassium 4.5, Chloride 111 H, Carbon Dioxide 29, BUN 32 H, Creatinine 1.98 H, Estimated GFR 33 L, Glucose 156 H, Calcium 8.9, Magnesium 2.2, Albumin 3.3 L, Prealbumin 23.5 08/20/18 06:37: WBC 4.1 L D, RBC 3.96 L, Hgb 13.3 L, Hct 39.6, MCV 100.1 H, MCH 33.5, MCHC 33.5, RDW 15.0, Plt Count 229, MPV 6.7 L, Neutrophils % 48.2, Lymphocytes % 35.1, Monocytes % 13.4 H, Eosinophils % 2.6, Basophils % 0.7, Absolute Neutrophils 2.0, Absolute Lymphocytes 1.4, Absolute Monocytes 0.6, Absolute Eosinophils 0.1, Absolute Basophils 0.0 08/19/18 20:18: POC Glucose 229 H Microbiology Results 08/10/18 20:00 Clean Catch Urine [place] Count - Final 08/10/18 20:00 Clean Catch Urine - Final No growth. Assessment/ Plan: General: In no apparent distress, Oriented x3, Cooperative HEENT: Atraumatic Neck: Supple Respiratory: Clear to auscultation bilaterally Cardiovascular: No edema, Regular rate/rhythm Gastrointestinal: Soft and benign, Non-distended Musculoskeletal: No clubbing, No contractures Integumentary: No rashes Neurological: Normal speech Blood work reviewed in the chart. 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 HTN with CKD/ CHF. DM II with CKD. Diastolic CHF, chronic. CAD/ PAD. Anemia in chronic illness. BPH with luts. A/ Continue current POC and Medications. Maintain adequate hydration. No NSAIDs. AM labs PRN. Daily weight. Encourage PT as tolerated. Recommend PT work on right hamstring spasm. Restart Tramadol for pain. Start a muscle relaxant due to left hamstring pain/ muscle spasm.
[2018-08-20] MEDS ORDERED: INSULIN -REGULAR HUMAN 50 UNIT/0.5 ML ML ONE (21:53)
[2018-08-20] MEDS ORDERED: CYCLOBENZAPRINE 10 MG TAB PO ONE (22:03)
[2018-08-21] MEDS: ACETAMINOPHEN 500 MG TAB PO PRN (02:37)
--- NOTE | 2018-08-21 03:13 | FAST ---
SHIFT START DATE/TIME: 08/20/2018 19:00 (CDT) SHIFT END DATE/TIME: 08/21/2018 07:00 (CDT) NAME CHRIS BOUDREAUX DATE OF : 1940 DATE OF ADMISSION: 08/10/2018 18:05 (CDT) PHONE: AGE: 78 SSN# [id number] GENDER: Male ENCOUNTER PHYSICIAN: Dr. Piero De Jesus M.D. 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 EATING: Activity did not occur on this shift EATING - SCORE: 0-UNK GROOMING: Activity did not occur on this shift GROOMING - SCORE: 0-UNK BATHING: Activity did not occur on this shift BATHING - SCORE: 0-UNK DRESSING - UPPER BODY: Patient is not dressing in public clothing ARTICLES SCORE Total number of steps: 0 DRESSING - UPPER BODY - SCORE: 0-UNK DRESSING - LOWER BODY: Patient is not dressing in public clothing ARTICLES SCORE Total number of steps: 0 DRESSING - LOWER BODY - SCORE: 0-UNK TOILETING: TOILETING - STEP 1: Does the patient require the assistance of a person or device, or need extra time with toileting? Yes . TOILETING - STEP 2: Does the patient require the assistance of a helper? Yes. TOILETING - STEP 3: How much assistance does the patient require from the helper? Only supervision TOILETING - SCORE: 5-SUP BLADDER MANAGEMENT: BLADDER MANAGEMENT - STEP 1: Does the patient control the bladder completely and intentionally without equipment or devices or med ications, and is always continent? No. BLADDER MANAGEMENT - STEP 2: Does the patient require the assistance of a helper? Yes. BLADDER MANAGEMENT - STEP 3: How much assistance does the patient require from the helper? Only supervision, stand-by, cuing, or c oaxing BLADDER MANAGEMENT - SCORE: 5-SUP BOWEL MANAGEMENT: BOWEL MANAGEMENT - STEP 1: Does the patient control bowels completely and intentionally without equipment devices or medications AND is always continent? No. BOWEL MANAGEMENT - STEP 2: Does the patient require the assistance of a helper? No, patient requires medication for control such as stool softeners, suppositories, laxatives, enemas, or OTC medications BOWEL MANAGEMENT - SCORE: 6-SHILPI TRANSFERS: BED, CHAIR, WHEELCHAIR: Activity did not occur on this shift TRANSFERS: BED, CHAIR, WHEELCHAIR - SCORE: 0-UNK TRANSFERS: TOILET: Activity did not occur on this shift TRANSFERS: TOILET - SCORE: 0-UNK TRANSFERS: SHOWER: Activity did not occur on this shift TRANSFERS: SHOWER - SCORE: 0-UNK TRANSFERS: TUB: Activity did not occur on this shift TRANSFERS: TUB - SCORE: 0-UNK LOCOMOTION: WALK: Activity did not occur on this shift LOCOMOTION: WALK - SCORE: 0-UNK LOCOMOTION: WHEELCHAIR: Activity did not occur on this shift LOCOMOTION: WHEELCHAIR - SCORE: 0-UNK COMPREHENSION: COMPREHENSION: TYPE: Both COMPREHENSION - STEP 1: Does the patient require help from a person or device, or need extra time to understand complex and a bstract ideas (such as current events, finances, discharge planning, medical issues, relationships, e tc)? No. COMPREHENSION - STEP 2: Does the patient need extra time, require an assistive device (such as glasses for visual comprehensi on or a hearing aid for auditory comprehension) or does s/he have mild difficulty understanding compl ex and abstract information? Yes. COMPREHENSION - SCORE: 6-SHILPI EXPRESSION EXPRESSION: TYPE: Both EXPRESSION - STEP 1: Does the patient require help from a person or device, or need extra time expressing complex and abst ract ideas (such as current events, finances, discharge planning, medical issues, relationships, etc) ? No. EXPRESSION - STEP 2: Does the patient need extra time, require an assistive device (such as augmentive communication syste m or a communication board), OR does s/he have mild difficulty expressing complex and abstract ideas (including mild dysarthria or mild word-find problems)? No. EXPRESSION - SCORE: 7-IND SOCIAL INTERACTION: SOCIAL INTERACTION - STEP 1: Does the patient require a helper to interact with others in social and therapeutic situations? No. SOCIAL INTERACTION - STEP 2: Does the patient need extra time in social situations, OR does s/he interact with staff, other patien ts, and family members ONLY in structured environments, OR does s/he require medication for social in teraction? Yes, patient requires medication for social interaction SOCIAL INTERACTION - SCORE: 6-SHILPI PROBLEM SOLVING: PROBLEM SOLVING - STEP 1: Does the patient need help from a person or device, or need extra time to solve complex problems such as managing a checking account or confronting interpersonal problems? Yes. PROBLEM SOLVING - STEP 2: Does the patient solve basic routine problems half or more of the time? Yes. PROBLEM SOLVING - STEP 3: How often does the patient need help to solve basic routine problems? 10%-24% of the time PROBLEM SOLVING - SCORE: 4-MIN MEMORY: MEMORY - STEP 1: Does the patient need help from a person or device, or need extra time to remember frequently encount ered people, daily routines, and executing requests? No. MEMORY - STEP 2: Does the patient have slight difficulty recognizing frequently encountered people, daily routines, or executing requests without the need for repetition or using self-initiated or environmental cues to remember? Yes. MEMORY - SCORE: 6-SHILPI SIGNATURE PANEL: The following modified sections: Eating - Score, Grooming - Score, Dressing - Upper Body - Score, Joon ssing - Lower Body - Score, Toileting - Score, Bladder Management - Score, Bowel Management - Score, Transfers: Bed, Chair, Wheelchair - Score, Transfers: Toilet - Score, Transfers: Shower - Score, Eric sfers: Tub - Score, Locomotion: Walk - Score, Locomotion: Wheelchair - Score, Comprehension - Score, Expression - Score, Social Interaction - Score, Problem Solving - Score, Memory - Score were [electro nically] signed by Julia Vallejo CNA on FriAug 21 2018 03:12:14 GMT-0500 (Central Daylight Time)
[2018-08-21] MEDS: INSULIN -REGULAR HUMAN 50 UNIT/0.5 ML ML SQ SCH ×4 (07:30→22:26)
[2018-08-21] MEDS: LIDOCAINE 5% PATCH TOP SCH (07:44)
[2018-08-21] MEDS: INSULIN LISPRO 100 UNIT/1 ML SQ SCH ×3 (08:20→17:38)
[2018-08-21] MEDS: TRAMADOL HCL 50 MG TAB PO PRN (08:21)
[2018-08-21] MEDS: RANITIDINE 150 MG TABLET PO SCH ×2 (08:23→22:27)
[2018-08-21] MEDS: APIXABAN 5 MG TABLET PO SCH ×2 (08:23→22:27)
[2018-08-21] MEDS: TAMSULOSIN 0.4 MG SR CAP PO SCH (08:23)
[2018-08-21] MEDS: VITAMIN D 5,000 UNIT CAP PO SCH (08:23)
[2018-08-21] MEDS: FENOFIBRATE 160 MG TAB PO SCH (08:23)
[2018-08-21] MEDS: ATORVASTATIN 10 MG TAB PO SCH (08:23)
--- NOTE | 2018-08-21 10:10 | P.RH.PN ---
Estimated Length of Stay: 19 Expected Discharge Date: 08/28/18 Discharge Disposition Plan: Home Family Support: Yes [facility] Goal: Mobility, Transfers, Self Care Vital Signs: Last Vital Signs Temp 97.8 F 08/20/18 20:00 Pulse 72 08/20/18 20:00 Resp 18 08/20/18 20:00 BP 134/66 08/20/18 20:00 Pulse Ox 96 08/20/18 20:00 Laboratory: Laboratory Last Values WBC 4.1 K/uL (4.3-10.9) L D 08/20/18 06:37 RBC 3.96 M/uL (4.33-5.43) L 08/20/18 06:37 Hgb 13.3 g/dL (13.6-17.9) L 08/20/18 06:37 Hct 39.6 % (39.6-49.0) 08/20/18 06:37 MCV 100.1 fL (80-100) H 08/20/18 06:37 MCH 33.5 pg (27.0-35.0) 08/20/18 06:37 MCHC 33.5 g/dL (32.0-36.0) 08/20/18 06:37 RDW 15.0 % (12.1-15.2) 08/20/18 06:37 Plt Count 229 K/uL (152-406) 08/20/18 06:37 MPV 6.7 fL (7.6-11.3) L 08/20/18 06:37 Neutrophils % 48.2 % (41.7-73.7) 08/20/18 06:37 Lymphocytes % 35.1 % (15.3-44.8) 08/20/18 06:37 Monocytes % 13.4 % (3.3-12.3) H 08/20/18 06:37 Eosinophils % 2.6 % (0-4.4) 08/20/18 06:37 Basophils % 0.7 % (0-1.3) 08/20/18 06:37 Absolute Neutrophils 2.0 K/uL (1.8-8.0) 08/20/18 06:37 Absolute Lymphocytes 1.4 K/uL (0.7-4.9) 08/20/18 06:37 Absolute Monocytes 0.6 K/uL (0.1-1.3) 08/20/18 06:37 Absolute Eosinophils 0.1 K/uL (0-0.5) 08/20/18 06:37 Absolute Basophils 0.0 K/uL (0-0.5) 08/20/18 06:37 Sodium 145 mmol/L (136-145) 08/20/18 06:37 Potassium 4.5 mmol/L (3.5-5.1) 08/20/18 06:37 Chloride 111 mmol/L (98-107) H 08/20/18 06:37 Carbon Dioxide 29 mmol/L (21-32) 08/20/18 06:37 BUN 32 mg/dL (7-18) H 08/20/18 06:37 Creatinine 1.98 mg/dL (0.55-1.3) H 08/20/18 06:37 Estimated GFR 33 mL/min (=/>90) L 08/20/18 06:37 Glucose 156 mg/dL (74-106) H 08/20/18 06:37 POC Glucose 120 mg/dl (65-120) 08/21/18 07:52 Calcium 8.9 mg/dL (8.5-10.1) 08/20/18 06:37 Magnesium 2.2 mg/dL (1.8-2.4) 08/20/18 06:37 Albumin 3.3 g/dL (3.4-5.0) L 08/20/18 06:37 Prealbumin 23.5 mg/dL (20-40) 08/20/18 06:37 Urine Color Yellow 08/10/18 20:00 Urine Appearance Clear 08/10/18 20:00 Urine pH 6.5 (5.0-7.0) 08/10/18 20:00 Ur Specific [place] 1.020 (1.005-1.030) 08/10/18 20:00 Urine Ketones Negative (NEG) 08/10/18 20:00 Urine Blood 1+ (NEG) H 08/10/18 20:00 Urine Nitrite Negative (NEG) 08/10/18 20:00 Urine Bilirubin Negative (NEG) 08/10/18 20:00 Urine Urobilinogen 0.2 mg/dL (0.2-1.0) 08/10/18 20:00 Ur Leukocyte Esterase Negative (NEG) 08/10/18 20:00 Urine RBC 5-10 /HPF (NONE SEEN) H 08/10/18 20:00 Urine WBC None seen /HPF (<5) 08/10/18 20:00 Ur Squamous Epith Cells <5 /HPF (NONE SEEN) 08/10/18 20:00 Calcium Oxalate Crystal Few (NONE SEEN) 08/10/18 20:00 Urine Bacteria <20 /HPF (NONE SEEN) 08/10/18 20:00 Urine Culture Reflexed Not needed 08/10/18 20:00 Urine Glucose 2+ (NEG) H 08/10/18 20:00 Urine Total Protein 2+ (NEG) H 08/10/18 20:00 Weight: 185 lb 11.2 oz Wound Present: No Closed Surgical Incision Present: No Negative Pressure Wound Therapy Present: No Physician Update: His labs are stable. He is doing well with speech, occupationa and physical therapy. He is at standby assistance with walking 250' . Family is doing training. Medical Issues: DVT Prophylaxis - Eliquis 5mg BID Pain Issues: Tramadol 50mg Q4H PRN PO Functional Improvement: Patient is currently working toward meeting short-term and long-term goals. Patient presents w/ good work ethic and requires VC for proper technique. Functional Improvement Occupational Therapy: Pt can benifit with further therapy to educate pt on energy conservation techniques and safety for adl's and I adls. Cont with pt's overall strengthening of the UE. 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 cont to increase pt's static standing balance for adl's and for safe functional transfers due to weakness in the right lower extremity. Speech Therapy Update: Pt is making significant progress in therapy. He is diligent and eager to participate and seems to really enjoy his therapy. Pt performs functional memory tasks at SUPV to MOD I with delayed recall for complex info at 80-90% accuracy. Pt is at MOD I for Auditory Comprehension due to hearing, SUPV to MIN A for Verbal Expression due to dysfluencies, and MOD I for Social Interaction. Pt is at MIN A for Problem Solving and MOD I for Memory. Pt will require intermittent supv. for safe d/c home. He says he lives with his son and daughters live nearby and can check on him throughout the day. Summary: Patient's care plan and alf goals have been reviewed and revised as necessary. Please see the Rehabilitation Signature page for all necessary signatures.
--- NOTE | 2018-08-21 15:29 | FAST ---
ENCOUNTER DATE AND TIME: 08/21/2018 08:00 (CDT) NAME CHRIS BOUDREAUX DATE OF : 1940 DATE OF ADMISSION: 08/10/2018 18:05 (CDT) PHONE: AGE: 78 SSN# [id number] GENDER: Male ENCOUNTER PHYSICIAN: Dr. Piero De Jesus M.D. 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 EATING: Activity did not occur on this shift EATING - SCORE: 0-UNK GROOMING: Activity did not occur on this shift GROOMING - SCORE: 0-UNK BATHING: Activity did not occur on this shift BATHING - SCORE: 0-UNK DRESSING - UPPER BODY: Activity did not occur on this shift Patient is not dressing in public clothing ARTICLES SCORE Total number of steps: 0 DRESSING - UPPER BODY - SCORE: 0-UNK DRESSING - LOWER BODY: Activity did not occur on this shift Patient is not dressing in public clothing ARTICLES SCORE Total number of steps: 0 DRESSING - LOWER BODY - SCORE: 0-UNK TOILETING: Activity did not occur on this shift TOILETING - SCORE: 0-UNK BLADDER MANAGEMENT: Activity did not occur on this shift BLADDER MANAGEMENT - SCORE: 7-IND BOWEL MANAGEMENT: Activity did not occur on this shift BOWEL MANAGEMENT - SCORE: 7-IND TRANSFERS: BED, CHAIR, WHEELCHAIR: TRANSFERS: BED, CHAIR, WHEELCHAIR - STEP 1: Does the patient require assistance of a person or device, or need extra time with bed, chair, or whe elchair transfers? Yes. TRANSFERS: BED, CHAIR, WHEELCHAIR - STEP 2: Does the patient require the assistance of a helper? Yes. TRANSFERS: BED, CHAIR, WHEELCHAIR - STEP 3: How much assistance does the patient require from the helper? Only supervision TRANSFERS: BED, CHAIR, WHEELCHAIR - SCORE: 5-SUP TRANSFERS: TOILET: Activity did not occur on this shift TRANSFERS: TOILET - SCORE: 0-UNK TRANSFERS: SHOWER: Activity did not occur on this shift TRANSFERS: SHOWER - SCORE: 0-UNK TRANSFERS: TUB: Activity did not occur on this shift TRANSFERS: TUB - SCORE: 0-UNK LOCOMOTION: WALK: LOCOMOTION: WALK - STEP 1: Does the patient need help from a person or device, or need extra time to walk 150 feet? Yes. LOCOMOTION: WALK - STEP 2: How much assistance does the patient require to walk a minimum of 150 feet? Only incidental help such as contact guarding or steadying LOCOMOTION: WALK - SCORE: 4-MIN LOCOMOTION: WHEELCHAIR: LOCOMOTION: WHEELCHAIR - STEP 1: Does the patient need help to go 150 feet in a wheelchair? Yes. LOCOMOTION: WHEELCHAIR - STEP 2: How much assistance does the patient need from the helper? Only supervision, cuing, or coaxing LOCOMOTION: WHEELCHAIR - SCORE: 5-SUP LOCOMOTION: STAIRS: LOCOMOTION: STAIRS - STEP 1: Does the patient need help to go up and down 12 to 14 stairs? Yes. LOCOMOTION: STAIRS - STEP 2: How much assistance does the patient need from the helper to go a minimum of 12 to 14 stairs? Only in cidental help such as contact guarding or steadying LOCOMOTION: STAIRS - SCORE: 4-MIN COMPREHENSION: COMPREHENSION - SCORE: 0-UNK EXPRESSION EXPRESSION - SCORE: 0-UNK SOCIAL INTERACTION: SOCIAL INTERACTION - SCORE: 0-UNK PROBLEM SOLVING: PROBLEM SOLVING - SCORE: 0-UNK MEMORY: MEMORY - SCORE: 0-UNK SIGNATURE PANEL: The following modified sections: Transfers: Bed, Chair, Wheelchair - Score, Transfers: Toilet - Score , Locomotion: Walk - Score, Locomotion: Wheelchair - Score, Locomotion: Stairs - Score were [chance eldridge] signed by Filiberto Casey PTA on FriAug 21 2018 15:28:24 GMT-0500 (Central Daylight Time)
--- NOTE | 2018-08-21 15:34 | FAST ---
ENCOUNTER DATE AND TIME: 08/20/2018 08:00 (CDT) NAME CHRIS BOUDREAUX DATE OF : 1940 DATE OF ADMISSION: 08/10/2018 18:05 (CDT) PHONE: AGE: 78 SSN# [id number] GENDER: Male ENCOUNTER PHYSICIAN: Dr. Piero De Jesus M.D. 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 EATING: Activity did not occur on this shift EATING - SCORE: 0-UNK GROOMING: Activity did not occur on this shift GROOMING - SCORE: 0-UNK BATHING: Activity did not occur on this shift BATHING - SCORE: 0-UNK DRESSING - UPPER BODY: Activity did not occur on this shift Patient is not dressing in public clothing ARTICLES SCORE Total number of steps: 0 DRESSING - UPPER BODY - SCORE: 0-UNK DRESSING - LOWER BODY: Activity did not occur on this shift Patient is not dressing in public clothing ARTICLES SCORE Total number of steps: 0 DRESSING - LOWER BODY - SCORE: 0-UNK TOILETING: Activity did not occur on this shift TOILETING - SCORE: 0-UNK BLADDER MANAGEMENT: Activity did not occur on this shift BLADDER MANAGEMENT - SCORE: 7-IND BOWEL MANAGEMENT: Activity did not occur on this shift BOWEL MANAGEMENT - SCORE: 7-IND TRANSFERS: BED, CHAIR, WHEELCHAIR: TRANSFERS: BED, CHAIR, WHEELCHAIR - STEP 1: Does the patient require assistance of a person or device, or need extra time with bed, chair, or whe elchair transfers? Yes. TRANSFERS: BED, CHAIR, WHEELCHAIR - STEP 2: Does the patient require the assistance of a helper? Yes. TRANSFERS: BED, CHAIR, WHEELCHAIR - STEP 3: How much assistance does the patient require from the helper? Only supervision TRANSFERS: BED, CHAIR, WHEELCHAIR - SCORE: 5-SUP TRANSFERS: TOILET: Activity did not occur on this shift TRANSFERS: TOILET - SCORE: 0-UNK TRANSFERS: SHOWER: Activity did not occur on this shift TRANSFERS: SHOWER - SCORE: 0-UNK TRANSFERS: TUB: Activity did not occur on this shift TRANSFERS: TUB - SCORE: 0-UNK LOCOMOTION: WALK: LOCOMOTION: WALK - STEP 1: Does the patient need help from a person or device, or need extra time to walk 150 feet? Yes. LOCOMOTION: WALK - STEP 2: How much assistance does the patient require to walk a minimum of 150 feet? Only incidental help such as contact guarding or steadying LOCOMOTION: WALK - SCORE: 4-MIN LOCOMOTION: WHEELCHAIR: Activity did not occur on this shift LOCOMOTION: WHEELCHAIR - SCORE: 0-UNK LOCOMOTION: STAIRS: LOCOMOTION: STAIRS - STEP 1: Does the patient need help to go up and down 12 to 14 stairs? Yes. LOCOMOTION: STAIRS - STEP 2: How much assistance does the patient need from the helper to go a minimum of 12 to 14 stairs? Only in cidental help such as contact guarding or steadying LOCOMOTION: STAIRS - SCORE: 4-MIN COMPREHENSION: COMPREHENSION - SCORE: 0-UNK EXPRESSION EXPRESSION - SCORE: 0-UNK SOCIAL INTERACTION: SOCIAL INTERACTION - SCORE: 0-UNK PROBLEM SOLVING: PROBLEM SOLVING - SCORE: 0-UNK MEMORY: MEMORY - SCORE: 0-UNK SIGNATURE PANEL: The following modified sections: Transfers: Bed, Chair, Wheelchair - Score, Transfers: Toilet - Score , Locomotion: Walk - Score, Locomotion: Wheelchair - Score, Locomotion: Stairs - Score were [electron chente] signed by Filiberto Casey PTA on FriAug 21 2018 15:32:40 GMT-0500 (Central Daylight Time)
--- NOTE | 2018-08-21 15:38 | FAST ---
ENCOUNTER DATE AND TIME: 08/19/2018 08:00 (CDT) NAME CHRIS BOUDREAUX DATE OF : 1940 DATE OF ADMISSION: 08/10/2018 18:05 (CDT) PHONE: AGE: 78 SSN# [id number] GENDER: Male ENCOUNTER PHYSICIAN: Dr. Piero De Jesus M.D. 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 EATING: Activity did not occur on this shift EATING - SCORE: 0-UNK GROOMING: Activity did not occur on this shift GROOMING - SCORE: 0-UNK BATHING: Activity did not occur on this shift BATHING - SCORE: 0-UNK DRESSING - UPPER BODY: Activity did not occur on this shift Patient is not dressing in public clothing ARTICLES SCORE Total number of steps: 0 DRESSING - UPPER BODY - SCORE: 0-UNK DRESSING - LOWER BODY: Activity did not occur on this shift Patient is not dressing in public clothing ARTICLES SCORE Total number of steps: 0 DRESSING - LOWER BODY - SCORE: 0-UNK TOILETING: Activity did not occur on this shift TOILETING - SCORE: 0-UNK BLADDER MANAGEMENT: Activity did not occur on this shift BLADDER MANAGEMENT - SCORE: 7-IND BOWEL MANAGEMENT: Activity did not occur on this shift BOWEL MANAGEMENT - SCORE: 7-IND TRANSFERS: BED, CHAIR, WHEELCHAIR: TRANSFERS: BED, CHAIR, WHEELCHAIR - STEP 1: Does the patient require assistance of a person or device, or need extra time with bed, chair, or whe elchair transfers? Yes. TRANSFERS: BED, CHAIR, WHEELCHAIR - STEP 2: Does the patient require the assistance of a helper? Yes. TRANSFERS: BED, CHAIR, WHEELCHAIR - STEP 3: How much assistance does the patient require from the helper? Steadying/guiding assistance TRANSFERS: BED, CHAIR, WHEELCHAIR - SCORE: 4-MIN TRANSFERS: TOILET: Activity did not occur on this shift TRANSFERS: TOILET - SCORE: 0-UNK TRANSFERS: SHOWER: Activity did not occur on this shift TRANSFERS: SHOWER - SCORE: 0-UNK TRANSFERS: TUB: Activity did not occur on this shift TRANSFERS: TUB - SCORE: 0-UNK LOCOMOTION: WALK: LOCOMOTION: WALK - STEP 1: Does the patient need help from a person or device, or need extra time to walk 150 feet? Yes. LOCOMOTION: WALK - STEP 2: How much assistance does the patient require to walk a minimum of 150 feet? Only incidental help such as contact guarding or steadying LOCOMOTION: WALK - SCORE: 4-MIN LOCOMOTION: WHEELCHAIR: LOCOMOTION: WHEELCHAIR - STEP 1: Does the patient need help to go 150 feet in a wheelchair? Yes. LOCOMOTION: WHEELCHAIR - STEP 2: How much assistance does the patient need from the helper? Only supervision, cuing, or coaxing LOCOMOTION: WHEELCHAIR - SCORE: 5-SUP LOCOMOTION: STAIRS: Activity did not occur on this shift LOCOMOTION: STAIRS - SCORE: 0-UNK COMPREHENSION: COMPREHENSION - SCORE: 0-UNK EXPRESSION EXPRESSION - SCORE: 0-UNK SOCIAL INTERACTION: SOCIAL INTERACTION - SCORE: 0-UNK PROBLEM SOLVING: PROBLEM SOLVING - SCORE: 0-UNK MEMORY: MEMORY - SCORE: 0-UNK SIGNATURE PANEL: The following modified sections: Transfers: Bed, Chair, Wheelchair - Score, Transfers: Toilet - Score , Locomotion: Walk - Score, Locomotion: Wheelchair - Score, Locomotion: Stairs - Score were [chance eldridge] signed by Filiberto Casey PTA on FriAug 21 2018 15:36:55 GMT-0500 (Central Daylight Time)
--- NOTE | 2018-08-21 21:55 | P.PN ---
Date of Service: 08/21/18 Vital Signs Temp Pulse Resp BP Pulse Ox 97.0 F 78 17 145/83 H 97 08/21/18 19:45 08/21/18 19:45 08/21/18 19:45 08/21/18 19:45 08/21/18 19:45 Medications Acetaminophen (Tylenol -Extra Strength) 500 mg PO Q4H PRN PRN Reason: Pain scale 2-4 (Mild) Stop: 09/18/18 14:03 Last Admin: 08/21/18 02:37 Dose: 500 mg Apixaban (Eliquis) 5 mg PO BID [facility] Stop: 09/09/18 20:01 Last Admin: 08/21/18 08:23 Dose: 5 mg Atorvastatin Calcium (Lipitor) 10 mg PO DAILY [facility] Stop: 09/10/18 08:01 Last Admin: 08/21/18 08:23 Dose: 10 mg Cholecalciferol (Vitamin D 5,000 Iu Cap) 5,000 unit PO DAILY [facility] Stop: 09/10/18 08:01 Last Admin: 08/21/18 08:23 Dose: 5,000 unit Cyclobenzaprine HCl (Flexeril) 5 mg PO TIDP PRN PRN Reason: MUSCLE SPASMS Stop: 09/19/18 22:04 Dextrose (Dextrose 50% Syringe) 12.5 gm IV PRN PRN; Protocol PRN Reason: HYPOGLYCEMIA Stop: 09/09/18 19:08 Fenofibrate (Tricor) 160 mg PO DAILY [facility] Stop: 09/10/18 08:01 Last Admin: 08/21/18 08:23 Dose: 160 mg Glucagon (Glucagen) 1 mg IM 1X PRN; Protocol PRN Reason: HYPOGLYCEMIA Stop: 09/09/18 19:08 Insulin Glargine (Lantus) 40 units SQ BEDTIME [facility] Stop: 09/18/18 21:01 Last Admin: 08/20/18 20:24 Dose: 40 units Insulin Human Lispro (Humalog) 5 unit SQ TIDWM [facility] Stop: 09/15/18 12:01 Last Admin: 08/21/18 17:38 Dose: 5 unit Insulin Human Regular (Novolin -R) 0 unit SQ ACHS [facility]; Protocol Stop: 09/09/18 21:01 Last Admin: 08/21/18 16:30 Dose: Not Given Lidocaine (Lidoderm 5% Patch) 2 patch TOP DAILY [facility] Stop: 09/15/18 08:01 Last Admin: 08/21/18 07:44 Dose: 2 patch Mirtazapine (Remeron) 15 mg PO BEDTIME [facility] Stop: 09/09/18 21:01 Last Admin: 08/20/18 20:23 Dose: 15 mg Ranitidine HCl (Zantac) 150 mg PO BID [facility] Stop: 09/09/18 20:01 Last Admin: 08/21/18 08:23 Dose: 150 mg Senna/Docusate Sodium (Senokot-S) 2 tab PO BEDTIME [facility] Stop: 09/11/18 21:01 Last Admin: 08/20/18 20:23 Dose: 2 tab Tamsulosin HCl (Flomax) 0.4 mg PO DAILY [facility] Stop: 09/10/18 08:01 Last Admin: 08/21/18 08:23 Dose: 0.4 mg Tramadol HCl (Ultram) 50 mg PO Q4HP PRN PRN Reason: Pain scale 5-7 (Moderate) Stop: 09/19/18 13:36 Last Admin: 08/21/18 08:21 Dose: 50 mg Lab Results (last 24 hrs) 08/21/18 19:55: POC Glucose 265 H 08/21/18 16:50: POC Glucose 131 H 08/21/18 11:43: POC Glucose 124 H 08/21/18 07:52: POC Glucose 120 08/20/18 20:22: POC Glucose 208 H Microbiology Results 08/10/18 20:00 Clean Catch Urine [place] Count - Final 08/10/18 20:00 Clean Catch Urine - Final No growth. Assessment/ Plan: Nephrology. Persistent left hamstring pain. Poor sleep due to left leg pain. CPS stable without CP or SOB. No acute events overnight. General: In no apparent distress, Oriented x3, Cooperative HEENT: Atraumatic Neck: Supple Respiratory: Clear to auscultation bilaterally Cardiovascular: No edema, Regular rate/rhythm Gastrointestinal: Soft and benign, Non-distended Musculoskeletal: No clubbing, No contractures Integumentary: No rashes Neurological: Normal speech Blood work reviewed in the chart. 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 HTN with CKD/ CHF. DM II with CKD. Diastolic CHF, chronic. CAD/ PAD. Anemia in chronic illness. BPH with luts. A/ Continue current POC and Medications. Maintain adequate hydration. No NSAIDs. AM labs PRN. Daily weight. Encourage PT as tolerated. Recommend PT work on right hamstring spasm.
[2018-08-21] MEDS: INSULIN GLARGINE 100 UNITS/ML SQ SCH (22:26)
[2018-08-21] MEDS: MIRTAZAPINE 15 MG TAB PO SCH (22:27)
[2018-08-21] MEDS: DOCUSATE NA/SENNA CONC 1 TAB PO SCH (22:27)
[2018-08-22] MEDS: TRAMADOL HCL 50 MG TAB PO PRN ×4 (01:20→22:51)
[2018-08-22] MEDS: LIDOCAINE 5% PATCH TOP SCH (07:02)
[2018-08-22] MEDS: INSULIN -REGULAR HUMAN 50 UNIT/0.5 ML ML SQ SCH ×4 (07:30→20:31)
[2018-08-22] MEDS: INSULIN LISPRO 100 UNIT/1 ML SQ SCH ×3 (07:53→17:30)
[2018-08-22] MEDS: ATORVASTATIN 10 MG TAB PO SCH (08:00)
[2018-08-22] MEDS: FENOFIBRATE 160 MG TAB PO SCH (08:00)
[2018-08-22] MEDS: APIXABAN 5 MG TABLET PO SCH ×2 (08:00→20:31)
[2018-08-22] MEDS: VITAMIN D 5,000 UNIT CAP PO SCH (08:00)
[2018-08-22] MEDS: TAMSULOSIN 0.4 MG SR CAP PO SCH (08:00)
[2018-08-22] MEDS: RANITIDINE 150 MG TABLET PO SCH ×2 (08:00→20:31)
--- NOTE | 2018-08-22 09:25 | FAST ---
SHIFT START DATE/TIME: 08/22/2018 07:00 (CDT) SHIFT END DATE/TIME: 08/22/2018 19:00 (CDT) NAME CHRIS BOUDREAUX DATE OF : 1940 DATE OF ADMISSION: 08/10/2018 18:05 (CDT) PHONE: AGE: 78 SSN# [id number] GENDER: Male ENCOUNTER PHYSICIAN: Dr. Piero De Jesus M.D. 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 EATING: EATING - STEP 1: Does the patient require the assistance of a person or device, or need extra time when eating? Yes. EATING - STEP 2: Does the patient require the assistance of a helper? Yes. EATING - STEP 3: Does the patient perform half or more of the eating tasks? Yes. EATING - STEP 4: Does the patient need only supervision, cuing, coaxing OR help to apply an orthosis OR help to cut fo od, open containers, pour liquids, or butter bread? Yes. EATING - SCORE: 5-SUP GROOMING: Activity did not occur on this shift GROOMING - SCORE: 0-UNK BATHING: Activity did not occur on this shift BATHING - SCORE: 0-UNK DRESSING - UPPER BODY: Activity did not occur on this shift ARTICLES SCORE Total number of steps: 0 DRESSING - UPPER BODY - SCORE: 0-UNK DRESSING - LOWER BODY: Activity did not occur on this shift ARTICLES SCORE Total number of steps: 0 DRESSING - LOWER BODY - SCORE: 0-UNK TOILETING: TOILETING - STEP 1: Does the patient require the assistance of a person or device, or need extra time with toileting? Yes . TOILETING - STEP 2: Does the patient require the assistance of a helper? Yes. TOILETING - STEP 3: How much assistance does the patient require from the helper? Only supervision TOILETING - SCORE: 5-SUP BLADDER MANAGEMENT: BLADDER MANAGEMENT - STEP 1: Does the patient control the bladder completely and intentionally without equipment or devices or med ications, and is always continent? No. BLADDER MANAGEMENT - STEP 2: Does the patient require the assistance of a helper? No, patient requires and independently uses an a ssistive device, such as a urinal, bedpan, bedside commode, catheter, absorbent pad, or collecting de vice BLADDER MANAGEMENT - SCORE: 6-SHILPI BOWEL MANAGEMENT: Activity did not occur on this shift BOWEL MANAGEMENT - SCORE: 7-IND TRANSFERS: BED, CHAIR, WHEELCHAIR: TRANSFERS: BED, CHAIR, WHEELCHAIR - STEP 1: Does the patient require assistance of a person or device, or need extra time with bed, chair, or whe elchair transfers? Yes. TRANSFERS: BED, CHAIR, WHEELCHAIR - STEP 2: Does the patient require the assistance of a helper? Yes. TRANSFERS: BED, CHAIR, WHEELCHAIR - STEP 3: How much assistance does the patient require from the helper? Steadying/guiding assistance TRANSFERS: BED, CHAIR, WHEELCHAIR - SCORE: 4-MIN TRANSFERS: TOILET: TRANSFERS: TOILET - STEP 1: Does the patient require the assistance of a person or device, or need extra time with toilet transfe rs? Yes. TRANSFERS: TOILET - STEP 2: Does the patient require the assistance of a helper? Yes. TRANSFERS: TOILET - STEP 3: How much assistance does the patient require from the helper? Patient performs half or more of the tr ansferring tasks TRANSFERS: TOILET - STEP 4: Does the patient need only incidental help such as contact guard or steadying during toilet transfer? Yes. TRANSFERS: TOILET - SCORE: 4-MIN TRANSFERS: SHOWER: Activity did not occur on this shift TRANSFERS: SHOWER - SCORE: 0-UNK TRANSFERS: TUB: Activity did not occur on this shift TRANSFERS: TUB - SCORE: 0-UNK LOCOMOTION: WALK: Activity did not occur on this shift LOCOMOTION: WALK - SCORE: 0-UNK LOCOMOTION: WHEELCHAIR: Activity did not occur on this shift LOCOMOTION: WHEELCHAIR - SCORE: 0-UNK COMPREHENSION: COMPREHENSION: TYPE: Both COMPREHENSION - STEP 1: Does the patient require help from a person or device, or need extra time to understand complex and a bstract ideas (such as current events, finances, discharge planning, medical issues, relationships, e tc)? No. COMPREHENSION - STEP 2: Does the patient need extra time, require an assistive device (such as glasses for visual comprehensi on or a hearing aid for auditory comprehension) or does s/he have mild difficulty understanding compl ex and abstract information? Yes. COMPREHENSION - SCORE: 6-SHILPI EXPRESSION EXPRESSION: TYPE: Both EXPRESSION - STEP 1: Does the patient require help from a person or device, or need extra time expressing complex and abst ract ideas (such as current events, finances, discharge planning, medical issues, relationships, etc) ? No. EXPRESSION - STEP 2: Does the patient need extra time, require an assistive device (such as augmentive communication syste m or a communication board), OR does s/he have mild difficulty expressing complex and abstract ideas (including mild dysarthria or mild word-find problems)? Yes. EXPRESSION - SCORE: 6-SHILPI SOCIAL INTERACTION: SOCIAL INTERACTION - STEP 1: Does the patient require a helper to interact with others in social and therapeutic situations? No. SOCIAL INTERACTION - STEP 2: Does the patient need extra time in social situations, OR does s/he interact with staff, other patien ts, and family members ONLY in structured environments, OR does s/he require medication for social in teraction? Yes, patient needs extra time SOCIAL INTERACTION - SCORE: 6-SHILPI PROBLEM SOLVING: PROBLEM SOLVING - STEP 1: Does the patient need help from a person or device, or need extra time to solve complex problems such as managing a checking account or confronting interpersonal problems? No. PROBLEM SOLVING - STEP 2: Does the patient require extra time to make decisions or solve problems, OR does s/he have slight dif ficulty reading, initiating, or self-correcting in unfamiliar situations? Yes, patient needs extra ti me. PROBLEM SOLVING - SCORE: 6-SHILPI MEMORY: MEMORY - STEP 1: Does the patient need help from a person or device, or need extra time to remember frequently encount ered people, daily routines, and executing requests? No. MEMORY - STEP 2: Does the patient have slight difficulty recognizing frequently encountered people, daily routines, or executing requests without the need for repetition or using self-initiated or environmental cues to remember? Yes. MEMORY - SCORE: 6-SHILPI SIGNATURE PANEL: The following modified sections: Eating - Score, Grooming - Score, Bathing - Score, Dressing - Upper Body - Score, Dressing - Lower Body - Score, Toileting - Score, Bladder Management - Score, Bowel Man agement - Score, Transfers: Bed, Chair, Wheelchair - Score, Transfers: Toilet - Score, Transfers: Pily wer - Score, Transfers: Tub - Score, Locomotion: Walk - Score, Locomotion: Wheelchair - Score, Compre hension - Score, Expression - Score, Social Interaction - Score, Problem Solving - Score, Memory - Sc ore were [electronically] signed by Tariq Cunha on Sat Aug 22 2018 09:24:22 GMT-0500 (Central Daylight Time)
--- NOTE | 2018-08-22 12:30 | FAST ---
ENCOUNTER DATE AND TIME: 08/22/2018 08:00 (CDT) NAME CHRIS BOUDREAUX DATE OF : 1940 DATE OF ADMISSION: 08/10/2018 18:05 (CDT) PHONE: AGE: 78 SSN# [id number] GENDER: Male ENCOUNTER PHYSICIAN: Dr. Piero De Jesus M.D. 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 EATING: Activity did not occur on this shift EATING - SCORE: 0-UNK GROOMING: Activity did not occur on this shift GROOMING - SCORE: 0-UNK BATHING: Activity did not occur on this shift BATHING - SCORE: 0-UNK DRESSING - UPPER BODY: Activity did not occur on this shift Patient is not dressing in public clothing ARTICLES SCORE Total number of steps: 0 DRESSING - UPPER BODY - SCORE: 0-UNK DRESSING - LOWER BODY: Activity did not occur on this shift Patient is not dressing in public clothing ARTICLES SCORE Total number of steps: 0 DRESSING - LOWER BODY - SCORE: 0-UNK TOILETING: Activity did not occur on this shift TOILETING - SCORE: 0-UNK BLADDER MANAGEMENT: Activity did not occur on this shift BLADDER MANAGEMENT - SCORE: 7-IND BOWEL MANAGEMENT: Activity did not occur on this shift BOWEL MANAGEMENT - SCORE: 7-IND TRANSFERS: BED, CHAIR, WHEELCHAIR: TRANSFERS: BED, CHAIR, WHEELCHAIR - STEP 1: Does the patient require assistance of a person or device, or need extra time with bed, chair, or whe elchair transfers? Yes. TRANSFERS: BED, CHAIR, WHEELCHAIR - STEP 2: Does the patient require the assistance of a helper? Yes. TRANSFERS: BED, CHAIR, WHEELCHAIR - STEP 3: How much assistance does the patient require from the helper? Steadying/guiding assistance TRANSFERS: BED, CHAIR, WHEELCHAIR - SCORE: 4-MIN TRANSFERS: TOILET: Activity did not occur on this shift TRANSFERS: TOILET - SCORE: 0-UNK TRANSFERS: SHOWER: Activity did not occur on this shift TRANSFERS: SHOWER - SCORE: 0-UNK TRANSFERS: TUB: Activity did not occur on this shift TRANSFERS: TUB - SCORE: 0-UNK LOCOMOTION: WALK: LOCOMOTION: WALK - STEP 1: Does the patient need help from a person or device, or need extra time to walk 150 feet? Yes. LOCOMOTION: WALK - STEP 2: How much assistance does the patient require to walk a minimum of 150 feet? Only incidental help such as contact guarding or steadying LOCOMOTION: WALK - SCORE: 4-MIN LOCOMOTION: WHEELCHAIR: LOCOMOTION: WHEELCHAIR - STEP 1: Does the patient need help to go 150 feet in a wheelchair? Yes. LOCOMOTION: WHEELCHAIR - STEP 2: How much assistance does the patient need from the helper? Only supervision, cuing, or coaxing LOCOMOTION: WHEELCHAIR - SCORE: 5-SUP LOCOMOTION: STAIRS: LOCOMOTION: STAIRS - STEP 1: Does the patient need help to go up and down 12 to 14 stairs? Yes. LOCOMOTION: STAIRS - STEP 2: How much assistance does the patient need from the helper to go a minimum of 12 to 14 stairs? Only in cidental help such as contact guarding or steadying LOCOMOTION: STAIRS - SCORE: 4-MIN COMPREHENSION: COMPREHENSION - SCORE: 0-UNK EXPRESSION EXPRESSION - SCORE: 0-UNK SOCIAL INTERACTION: SOCIAL INTERACTION - SCORE: 0-UNK PROBLEM SOLVING: PROBLEM SOLVING - SCORE: 0-UNK MEMORY: MEMORY - SCORE: 0-UNK SIGNATURE PANEL: The following modified sections: Transfers: Bed, Chair, Wheelchair - Score, Transfers: Toilet - Score , Locomotion: Walk - Score, Locomotion: Wheelchair - Score, Locomotion: Stairs - Score were [chance eldridge] signed by Jana Hill PTA on Sat Aug 22 2018 12:29:30 GMT-0500 (Central Daylight Time)
[2018-08-22] MEDS: CYCLOBENZAPRINE 10 MG TAB PO PRN (17:29)
[2018-08-22] MEDS: DOCUSATE NA/SENNA CONC 1 TAB PO SCH (20:31)
[2018-08-22] MEDS: MIRTAZAPINE 15 MG TAB PO SCH (20:31)
[2018-08-22] MEDS: INSULIN GLARGINE 100 UNITS/ML SQ SCH (20:46)
--- NOTE | 2018-08-23 01:53 | FAST ---
SHIFT START DATE/TIME: 08/22/2018 19:00 (CDT) SHIFT END DATE/TIME: 08/23/2018 07:00 (CDT) NAME CHRIS BOUDREAUX DATE OF : 1940 DATE OF ADMISSION: 08/10/2018 18:05 (CDT) PHONE: AGE: 78 SSN# [id number] GENDER: Male ENCOUNTER PHYSICIAN: Dr. Piero De Jesus M.D. 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 EATING: Activity did not occur on this shift EATING - SCORE: 0-UNK GROOMING: Activity did not occur on this shift GROOMING - SCORE: 0-UNK BATHING: Activity did not occur on this shift BATHING - SCORE: 0-UNK DRESSING - UPPER BODY: Activity did not occur on this shift ARTICLES SCORE Total number of steps: 0 DRESSING - UPPER BODY - SCORE: 0-UNK DRESSING - LOWER BODY: Activity did not occur on this shift ARTICLES SCORE Total number of steps: 0 DRESSING - LOWER BODY - SCORE: 0-UNK TOILETING: TOILETING - STEP 1: Does the patient require the assistance of a person or device, or need extra time with toileting? Yes . TOILETING - STEP 2: Does the patient require the assistance of a helper? Yes. TOILETING - STEP 3: How much assistance does the patient require from the helper? Only supervision TOILETING - SCORE: 5-SUP BLADDER MANAGEMENT: BLADDER MANAGEMENT - STEP 1: Does the patient control the bladder completely and intentionally without equipment or devices or med ications, and is always continent? Yes. BLADDER MANAGEMENT - SCORE: 7-IND BLADDER MANAGEMENT - FREQUENCY OF ACCIDENTS: BLADDER MANAGEMENT(FA) - STEP 1: How many accidents has the patient had during the current shift? 0 BOWEL MANAGEMENT: Activity did not occur on this shift BOWEL MANAGEMENT - SCORE: 7-IND TRANSFERS: BED, CHAIR, WHEELCHAIR: Activity did not occur on this shift TRANSFERS: BED, CHAIR, WHEELCHAIR - SCORE: 0-UNK TRANSFERS: TOILET: Activity did not occur on this shift TRANSFERS: TOILET - SCORE: 0-UNK TRANSFERS: SHOWER: Activity did not occur on this shift TRANSFERS: SHOWER - SCORE: 0-UNK TRANSFERS: TUB: Activity did not occur on this shift TRANSFERS: TUB - SCORE: 0-UNK LOCOMOTION: WALK: Activity did not occur on this shift LOCOMOTION: WALK - SCORE: 0-UNK LOCOMOTION: WHEELCHAIR: Activity did not occur on this shift LOCOMOTION: WHEELCHAIR - SCORE: 0-UNK COMPREHENSION: COMPREHENSION - SCORE: 0-UNK EXPRESSION EXPRESSION - SCORE: 0-UNK SOCIAL INTERACTION: SOCIAL INTERACTION - SCORE: 0-UNK PROBLEM SOLVING: PROBLEM SOLVING - SCORE: 0-UNK MEMORY: MEMORY - SCORE: 0-UNK SIGNATURE PANEL: The following modified sections: Eating - Score, Grooming - Score, Bathing - Score, Dressing - Upper Body - Score, Dressing - Lower Body - Score, Toileting - Score, Bladder Management - Score, Bowel Man agement - Score, Transfers: Bed, Chair, Wheelchair - Score, Transfers: Toilet - Score, Transfers: Pily wer - Score, Transfers: Tub - Score, Locomotion: Walk - Score, Locomotion: Wheelchair - Score, Compre hension - Score, Expression - Score, Social Interaction - Score, Problem Solving - Score, Memory - Sc ore were [electronically] signed by Kemar Roland RN on FriAug 23 2018 01:52:24 T-0500 ([facility] Time)
[2018-08-23] MEDS: CYCLOBENZAPRINE 10 MG TAB PO PRN ×2 (02:52→19:57)
[2018-08-23] MEDS: INSULIN -REGULAR HUMAN 50 UNIT/0.5 ML ML SQ SCH ×4 (07:30→20:38)
[2018-08-23] MEDS: INSULIN LISPRO 100 UNIT/1 ML SQ SCH ×3 (08:01→17:33)
[2018-08-23] MEDS: TRAMADOL HCL 50 MG TAB PO PRN ×2 (08:02→15:45)
[2018-08-23] MEDS: LIDOCAINE 5% PATCH TOP SCH (08:03)
[2018-08-23] MEDS: RANITIDINE 150 MG TABLET PO SCH ×2 (08:04→19:57)
[2018-08-23] MEDS: APIXABAN 5 MG TABLET PO SCH ×2 (08:04→19:57)
[2018-08-23] MEDS: FENOFIBRATE 160 MG TAB PO SCH (08:04)
[2018-08-23] MEDS: VITAMIN D 5,000 UNIT CAP PO SCH (08:04)
[2018-08-23] MEDS: ATORVASTATIN 10 MG TAB PO SCH (08:04)
[2018-08-23] MEDS: TAMSULOSIN 0.4 MG SR CAP PO SCH (08:04)
--- NOTE | 2018-08-23 10:16 | FAST ---
SHIFT START DATE/TIME: 08/23/2018 07:00 (CDT) SHIFT END DATE/TIME: 08/23/2018 19:00 (CDT) NAME CHRIS BOUDREAUX DATE OF : 1940 DATE OF ADMISSION: 08/10/2018 18:05 (CDT) PHONE: AGE: 78 SSN# [id number] GENDER: Male ENCOUNTER PHYSICIAN: Dr. Piero De Jesus M.D. 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 EATING: EATING - STEP 1: Does the patient require the assistance of a person or device, or need extra time when eating? Yes. EATING - STEP 2: Does the patient require the assistance of a helper? No, patient only requires an assistive device, O R s/he takes more than reasonable time to eat, OR there is a safety concern, OR s/he requires modifie d food consistency EATING - SCORE: 6-SHILPI GROOMING: Oral care GROOMING - STEP 1: Does the patient require the assistance of a person or device, or need extra time when grooming? Yes. GROOMING - STEP 2: Does the patient require the assistance of a helper? No. The patient only requires an assistive devic e, OR takes more than reasonable time to groom, OR there is a concern for safety as the patient groom s GROOMING - SCORE: 6-SHILPI BATHING: Activity did not occur on this shift BATHING - SCORE: 0-UNK DRESSING - UPPER BODY: Activity did not occur on this shift ARTICLES SCORE Total number of steps: 0 DRESSING - UPPER BODY - SCORE: 0-UNK DRESSING - LOWER BODY: Activity did not occur on this shift ARTICLES SCORE Total number of steps: 0 DRESSING - LOWER BODY - SCORE: 0-UNK TOILETING: TOILETING - STEP 1: Does the patient require the assistance of a person or device, or need extra time with toileting? Yes . TOILETING - STEP 2: Does the patient require the assistance of a helper? Yes. TOILETING - STEP 3: How much assistance does the patient require from the helper? Only supervision TOILETING - SCORE: 5-SUP BLADDER MANAGEMENT: BLADDER MANAGEMENT - STEP 1: Does the patient control the bladder completely and intentionally without equipment or devices or med ications, and is always continent? No. BLADDER MANAGEMENT - STEP 2: Does the patient require the assistance of a helper? No, patient requires and independently uses an a ssistive device, such as a urinal, bedpan, bedside commode, catheter, absorbent pad, or collecting de vice BLADDER MANAGEMENT - SCORE: 6-SHILPI BOWEL MANAGEMENT: Activity did not occur on this shift BOWEL MANAGEMENT - SCORE: 7-IND TRANSFERS: BED, CHAIR, WHEELCHAIR: TRANSFERS: BED, CHAIR, WHEELCHAIR - STEP 1: Does the patient require assistance of a person or device, or need extra time with bed, chair, or whe elchair transfers? Yes. TRANSFERS: BED, CHAIR, WHEELCHAIR - STEP 2: Does the patient require the assistance of a helper? Yes. TRANSFERS: BED, CHAIR, WHEELCHAIR - STEP 3: How much assistance does the patient require from the helper? Steadying/guiding assistance TRANSFERS: BED, CHAIR, WHEELCHAIR - SCORE: 4-MIN TRANSFERS: TOILET: TRANSFERS: TOILET - STEP 1: Does the patient require the assistance of a person or device, or need extra time with toilet transfe rs? Yes. TRANSFERS: TOILET - STEP 2: Does the patient require the assistance of a helper? Yes. TRANSFERS: TOILET - STEP 3: How much assistance does the patient require from the helper? Patient performs half or more of the tr ansferring tasks TRANSFERS: TOILET - STEP 4: Does the patient need only incidental help such as contact guard or steadying during toilet transfer? Yes. TRANSFERS: TOILET - SCORE: 4-MIN TRANSFERS: SHOWER: Activity did not occur on this shift TRANSFERS: SHOWER - SCORE: 0-UNK TRANSFERS: TUB: Activity did not occur on this shift TRANSFERS: TUB - SCORE: 0-UNK LOCOMOTION: WALK: Activity did not occur on this shift LOCOMOTION: WALK - SCORE: 0-UNK LOCOMOTION: WHEELCHAIR: Activity did not occur on this shift LOCOMOTION: WHEELCHAIR - SCORE: 0-UNK COMPREHENSION: COMPREHENSION: TYPE: Both COMPREHENSION - STEP 1: Does the patient require help from a person or device, or need extra time to understand complex and a bstract ideas (such as current events, finances, discharge planning, medical issues, relationships, e tc)? No. COMPREHENSION - STEP 2: Does the patient need extra time, require an assistive device (such as glasses for visual comprehensi on or a hearing aid for auditory comprehension) or does s/he have mild difficulty understanding compl ex and abstract information? Yes. COMPREHENSION - SCORE: 6-SHILPI EXPRESSION EXPRESSION: TYPE: Both EXPRESSION - STEP 1: Does the patient require help from a person or device, or need extra time expressing complex and abst ract ideas (such as current events, finances, discharge planning, medical issues, relationships, etc) ? No. EXPRESSION - STEP 2: Does the patient need extra time, require an assistive device (such as augmentive communication syste m or a communication board), OR does s/he have mild difficulty expressing complex and abstract ideas (including mild dysarthria or mild word-find problems)? Yes. EXPRESSION - SCORE: 6-SHILPI SOCIAL INTERACTION: SOCIAL INTERACTION - STEP 1: Does the patient require a helper to interact with others in social and therapeutic situations? No. SOCIAL INTERACTION - STEP 2: Does the patient need extra time in social situations, OR does s/he interact with staff, other patien ts, and family members ONLY in structured environments, OR does s/he require medication for social in teraction? Yes, patient needs extra time SOCIAL INTERACTION - SCORE: 6-SHILPI PROBLEM SOLVING: PROBLEM SOLVING - STEP 1: Does the patient need help from a person or device, or need extra time to solve complex problems such as managing a checking account or confronting interpersonal problems? No. PROBLEM SOLVING - STEP 2: Does the patient require extra time to make decisions or solve problems, OR does s/he have slight dif ficulty reading, initiating, or self-correcting in unfamiliar situations? Yes, patient needs extra ti me. PROBLEM SOLVING - SCORE: 6-SHILPI MEMORY: MEMORY - STEP 1: Does the patient need help from a person or device, or need extra time to remember frequently encount ered people, daily routines, and executing requests? No. MEMORY - STEP 2: Does the patient have slight difficulty recognizing frequently encountered people, daily routines, or executing requests without the need for repetition or using self-initiated or environmental cues to remember? Yes. MEMORY - SCORE: 6-SHILPI SIGNATURE PANEL: The following modified sections: Eating - Score, Grooming - Score, Bathing - Score, Dressing - Upper Body - Score, Dressing - Lower Body - Score, Toileting - Score, Bladder Management - Score, Bowel Man agement - Score, Transfers: Bed, Chair, Wheelchair - Score, Transfers: Toilet - Score, Transfers: Pily wer - Score, Transfers: Tub - Score, Locomotion: Walk - Score, Locomotion: Wheelchair - Score, Compre hension - Score, Expression - Score, Social Interaction - Score, Problem Solving - Score, Memory - Sc ore were [electronically] signed by Tariq Cunha on Sun Aug 23 2018 10:16:33 GMT-0500 (Central Daylight Time)
[2018-08-23] MEDS: DOCUSATE NA/SENNA CONC 1 TAB PO SCH (20:02)
[2018-08-23] MEDS: MIRTAZAPINE 15 MG TAB PO SCH (20:02)
[2018-08-23] MEDS: INSULIN GLARGINE 100 UNITS/ML SQ SCH (20:37)
[2018-08-24] MEDS: TRAMADOL HCL 50 MG TAB PO PRN (00:36)
--- NOTE | 2018-08-24 02:15 | FAST ---
SHIFT START DATE/TIME: 08/23/2018 19:00 (CDT) SHIFT END DATE/TIME: 08/24/2018 07:00 (CDT) NAME CHRIS BOUDREAUX DATE OF : 1940 DATE OF ADMISSION: 08/10/2018 18:05 (CDT) PHONE: AGE: 78 SSN# [id number] GENDER: Male ENCOUNTER PHYSICIAN: Dr. Piero De Jesus M.D. 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 EATING: Activity did not occur on this shift EATING - SCORE: 0-UNK GROOMING: Activity did not occur on this shift GROOMING - SCORE: 0-UNK BATHING: Activity did not occur on this shift BATHING - SCORE: 0-UNK DRESSING - UPPER BODY: Patient is not dressing in public clothing ARTICLES SCORE Total number of steps: 0 DRESSING - UPPER BODY - SCORE: 0-UNK DRESSING - LOWER BODY: Patient is not dressing in public clothing ARTICLES SCORE Total number of steps: 0 DRESSING - LOWER BODY - SCORE: 0-UNK TOILETING: TOILETING - STEP 1: Does the patient require the assistance of a person or device, or need extra time with toileting? Yes . TOILETING - STEP 2: Does the patient require the assistance of a helper? Yes. TOILETING - STEP 3: How much assistance does the patient require from the helper? Hands-on assistance from the helper TOILETING - STEP 4: Of the 3 tasks: 1) Adjusting clothing prior to use, 2) Cleansing of perineal area, 3) Adjusting clot cristina after use; How many tasks does the patient perform WITHOUT assistance of the helper? Three tasks with steadying assistance from the helper TOILETING - SCORE: 4-MIN BLADDER MANAGEMENT: BLADDER MANAGEMENT - STEP 1: Does the patient control the bladder completely and intentionally without equipment or devices or med ications, and is always continent? No. BLADDER MANAGEMENT - STEP 2: Does the patient require the assistance of a helper? Yes. BLADDER MANAGEMENT - STEP 3: How much assistance does the patient require from the helper? Only supervision, stand-by, cuing, or c oaxing BLADDER MANAGEMENT - SCORE: 5-SUP BOWEL MANAGEMENT: Activity did not occur on this shift BOWEL MANAGEMENT - SCORE: 7-IND TRANSFERS: BED, CHAIR, WHEELCHAIR: Activity did not occur on this shift TRANSFERS: BED, CHAIR, WHEELCHAIR - SCORE: 0-UNK TRANSFERS: TOILET: Activity did not occur on this shift TRANSFERS: TOILET - SCORE: 0-UNK TRANSFERS: SHOWER: Activity did not occur on this shift TRANSFERS: SHOWER - SCORE: 0-UNK TRANSFERS: TUB: Activity did not occur on this shift TRANSFERS: TUB - SCORE: 0-UNK LOCOMOTION: WALK: Activity did not occur on this shift LOCOMOTION: WALK - SCORE: 0-UNK LOCOMOTION: WHEELCHAIR: Activity did not occur on this shift LOCOMOTION: WHEELCHAIR - SCORE: 0-UNK COMPREHENSION: COMPREHENSION: TYPE: Both COMPREHENSION - STEP 1: Does the patient require help from a person or device, or need extra time to understand complex and a bstract ideas (such as current events, finances, discharge planning, medical issues, relationships, e tc)? Yes. COMPREHENSION - STEP 2: Does the patient require help to understand questions or statements about basic needs or ideas (such as hunger, thirst, sleep, safety, daily schedule, room location, or discomfort) half or more of the t alison? No. COMPREHENSION - STEP 3: How often does the patient need help to understand directions and conversation about basic needs? Les s than 10% of the time COMPREHENSION - SCORE: 5-SUP EXPRESSION EXPRESSION: TYPE: Both EXPRESSION - STEP 1: Does the patient require help from a person or device, or need extra time expressing complex and abst ract ideas (such as current events, finances, discharge planning, medical issues, relationships, etc) ? No. EXPRESSION - STEP 2: Does the patient need extra time, require an assistive device (such as augmentive communication syste m or a communication board), OR does s/he have mild difficulty expressing complex and abstract ideas (including mild dysarthria or mild word-find problems)? Yes. EXPRESSION - SCORE: 6-SHILPI SOCIAL INTERACTION: SOCIAL INTERACTION - STEP 1: Does the patient require a helper to interact with others in social and therapeutic situations? No. SOCIAL INTERACTION - STEP 2: Does the patient need extra time in social situations, OR does s/he interact with staff, other patien ts, and family members ONLY in structured environments, OR does s/he require medication for social in teraction? Yes, patient needs extra time SOCIAL INTERACTION - SCORE: 6-SHILPI PROBLEM SOLVING: PROBLEM SOLVING - STEP 1: Does the patient need help from a person or device, or need extra time to solve complex problems such as managing a checking account or confronting interpersonal problems? Yes. PROBLEM SOLVING - STEP 2: Does the patient solve basic routine problems half or more of the time? Yes. PROBLEM SOLVING - STEP 3: How often does the patient need help to solve basic routine problems? 25%-49% of the time PROBLEM SOLVING - SCORE: 3-MOD MEMORY: MEMORY - STEP 1: Does the patient need help from a person or device, or need extra time to remember frequently encount ered people, daily routines, and executing requests? No. MEMORY - STEP 2: Does the patient have slight difficulty recognizing frequently encountered people, daily routines, or executing requests without the need for repetition or using self-initiated or environmental cues to remember? Yes. MEMORY - SCORE: 6-SHILPI SIGNATURE PANEL: The following modified sections: Eating - Score, Grooming - Score, Dressing - Upper Body - Score, Joon ssing - Lower Body - Score, Toileting - Score, Bladder Management - Score, Bowel Management - Score, Transfers: Bed, Chair, Wheelchair - Score, Transfers: Toilet - Score, Transfers: Shower - Score, Eric sfers: Tub - Score, Locomotion: Walk - Score, Locomotion: Wheelchair - Score, Comprehension - Score, Expression - Score, Social Interaction - Score, Problem Solving - Score, Memory - Score were [electro nically] signed by Julia Vallejo CNA on FriAug 24 2018 02:14:17 GMT-0500 (Central Daylight Time)
[2018-08-24] MEDS: INSULIN -REGULAR HUMAN 50 UNIT/0.5 ML ML SQ SCH ×4 (07:30→21:01)
[2018-08-24] MEDS: LIDOCAINE 5% PATCH TOP SCH (08:30)
[2018-08-24] MEDS: ATORVASTATIN 10 MG TAB PO SCH (08:31)
[2018-08-24] MEDS: RANITIDINE 150 MG TABLET PO SCH ×2 (08:31→20:37)
[2018-08-24] MEDS: APIXABAN 5 MG TABLET PO SCH ×2 (08:31→20:37)
[2018-08-24] MEDS: TAMSULOSIN 0.4 MG SR CAP PO SCH (08:31)
[2018-08-24] MEDS: VITAMIN D 5,000 UNIT CAP PO SCH (08:31)
[2018-08-24] MEDS: INSULIN LISPRO 100 UNIT/1 ML SQ SCH ×3 (08:32→17:31)
[2018-08-24] MEDS: FENOFIBRATE 160 MG TAB PO SCH (08:32)
[2018-08-24] MEDS: MIRTAZAPINE 15 MG TAB PO SCH (20:37)
[2018-08-24] MEDS: INSULIN GLARGINE 100 UNITS/ML SQ SCH (20:37)
[2018-08-24] MEDS: DOCUSATE NA/SENNA CONC 1 TAB PO SCH (20:38)
--- NOTE | 2018-08-24 21:15 | P.PN ---
Date of Service: 08/24/18 Vital Signs Temp Pulse Resp BP Pulse Ox 97.3 F 86 18 126/70 96 08/24/18 20:00 08/24/18 20:00 08/24/18 20:00 08/24/18 20:00 08/24/18 20:00 Medications Acetaminophen (Tylenol -Extra Strength) 500 mg PO Q4H PRN PRN Reason: Pain scale 2-4 (Mild) Stop: 09/18/18 14:03 Last Admin: 08/21/18 02:37 Dose: 500 mg Apixaban (Eliquis) 5 mg PO BID COUNT INCLUDES THE [facility] Stop: 09/09/18 20:01 Last Admin: 08/24/18 20:37 Dose: 5 mg Atorvastatin Calcium (Lipitor) 10 mg PO DAILY COUNT INCLUDES THE [facility] Stop: 09/10/18 08:01 Last Admin: 08/24/18 08:31 Dose: 10 mg Cholecalciferol (Vitamin D 5,000 Iu Cap) 5,000 unit PO DAILY COUNT INCLUDES THE [facility] Stop: 09/10/18 08:01 Last Admin: 08/24/18 08:31 Dose: 5,000 unit Cyclobenzaprine HCl (Flexeril) 5 mg PO TIDP PRN PRN Reason: MUSCLE SPASMS Stop: 09/19/18 22:04 Last Admin: 08/23/18 19:57 Dose: 5 mg Dextrose (Dextrose 50% Syringe) 12.5 gm IV PRN PRN; Protocol PRN Reason: HYPOGLYCEMIA Stop: 09/09/18 19:08 Fenofibrate (Tricor) 160 mg PO DAILY COUNT INCLUDES THE [facility] Stop: 09/10/18 08:01 Last Admin: 08/24/18 08:32 Dose: 160 mg Glucagon (Glucagen) 1 mg IM 1X PRN; Protocol PRN Reason: HYPOGLYCEMIA Stop: 09/09/18 19:08 Insulin Glargine (Lantus) 40 units SQ BEDTIME COUNT INCLUDES THE [facility] Stop: 09/18/18 21:01 Last Admin: 08/24/18 20:37 Dose: 40 units Insulin Human Lispro (Humalog) 5 unit SQ TIDWM [facility] Stop: 09/15/18 12:01 Last Admin: 08/24/18 17:31 Dose: 5 unit Insulin Human Regular (Novolin -R) 0 unit SQ ACHS COUNT INCLUDES THE [facility]; Protocol Stop: 09/09/18 21:01 Last Admin: 08/24/18 21:01 Dose: 2 unit Lidocaine (Lidoderm 5% Patch) 2 patch TOP DAILY [facility] Stop: 09/15/18 08:01 Last Admin: 08/24/18 08:30 Dose: 2 patch Mirtazapine (Remeron) 15 mg PO BEDTIME [facility] Stop: 09/09/18 21:01 Last Admin: 08/24/18 20:37 Dose: 15 mg Ranitidine HCl (Zantac) 150 mg PO BID [facility] Stop: 09/09/18 20:01 Last Admin: 08/24/18 20:37 Dose: 150 mg Senna/Docusate Sodium (Senokot-S) 2 tab PO BEDTIME [facility] Stop: 09/11/18 21:01 Last Admin: 08/24/18 20:38 Dose: Not Given Tamsulosin HCl (Flomax) 0.4 mg PO DAILY [facility] Stop: 09/10/18 08:01 Last Admin: 08/24/18 08:31 Dose: 0.4 mg Tramadol HCl (Ultram) 50 mg PO Q4HP PRN PRN Reason: Pain scale 5-7 (Moderate) Stop: 09/19/18 13:36 Last Admin: 08/24/18 00:36 Dose: 50 mg Lab Results (last 24 hrs) 08/24/18 20:09: POC Glucose 203 H 08/24/18 16:43: POC Glucose 119 08/24/18 12:04: POC Glucose 157 H 08/24/18 06:50: POC Glucose 116 08/23/18 20:07: POC Glucose 232 H Microbiology Results 08/10/18 20:00 Clean Catch Urine [place] Count - Final 08/10/18 20:00 Clean Catch Urine - Final No growth. Assessment/ Plan: Nephrology. Persistent left hamstring pain improving with therapy. Interrupted sleep due to left leg pain. CPS stable without CP or SOB. No acute events overnight. General: In no apparent distress, Oriented x3, Cooperative HEENT: Atraumatic Neck: Supple Respiratory: Clear to auscultation bilaterally Cardiovascular: No edema, Regular rate/rhythm Gastrointestinal: Soft and benign, Non-distended Musculoskeletal: No clubbing, No contractures Integumentary: No rashes Neurological: Normal speech Blood work reviewed in the chart. 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 HTN with CKD/ CHF. DM II with CKD. Diastolic CHF, chronic. CAD/ PAD. Anemia in chronic illness. BPH with luts. A/ Continue current POC and Medications. Maintain adequate hydration. Titrate insulin as needed. No NSAIDs. AM labs PRN. Daily weight. Encourage PT as tolerated. Continue PT work on the right hamstring spasm.
[2018-08-24] MEDS ORDERED: INSULIN -REGULAR HUMAN 50 UNIT/0.5 ML ML ONE (21:16)
--- NOTE | 2018-08-25 03:23 | FAST ---
SHIFT START DATE/TIME: 08/24/2018 19:00 (CDT) SHIFT END DATE/TIME: 08/25/2018 07:00 (CDT) NAME CHRIS BOUDREAUX DATE OF : 1940 DATE OF ADMISSION: 08/10/2018 18:05 (CDT) PHONE: AGE: 78 SSN# [id number] GENDER: Male ENCOUNTER PHYSICIAN: Dr. Piero De Jesus M.D. 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 EATING: Activity did not occur on this shift EATING - SCORE: 0-UNK GROOMING: Activity did not occur on this shift GROOMING - SCORE: 0-UNK BATHING: Activity did not occur on this shift BATHING - SCORE: 0-UNK DRESSING - UPPER BODY: Patient is not dressing in public clothing ARTICLES SCORE Total number of steps: 0 DRESSING - UPPER BODY - SCORE: 0-UNK DRESSING - LOWER BODY: Patient is not dressing in public clothing ARTICLES SCORE Total number of steps: 0 DRESSING - LOWER BODY - SCORE: 0-UNK TOILETING: TOILETING - STEP 1: Does the patient require the assistance of a person or device, or need extra time with toileting? Yes . TOILETING - STEP 2: Does the patient require the assistance of a helper? Yes. TOILETING - STEP 3: How much assistance does the patient require from the helper? Only supervision TOILETING - SCORE: 5-SUP BLADDER MANAGEMENT: BLADDER MANAGEMENT - STEP 1: Does the patient control the bladder completely and intentionally without equipment or devices or med ications, and is always continent? No. BLADDER MANAGEMENT - STEP 2: Does the patient require the assistance of a helper? No, patient requires and independently uses an a ssistive device, such as a urinal, bedpan, bedside commode, catheter, absorbent pad, or collecting de vice BLADDER MANAGEMENT - SCORE: 6-SHILPI BOWEL MANAGEMENT: Activity did not occur on this shift BOWEL MANAGEMENT - SCORE: 7-IND TRANSFERS: BED, CHAIR, WHEELCHAIR: TRANSFERS: BED, CHAIR, WHEELCHAIR - STEP 1: Does the patient require assistance of a person or device, or need extra time with bed, chair, or whe elchair transfers? Yes. TRANSFERS: BED, CHAIR, WHEELCHAIR - STEP 2: Does the patient require the assistance of a helper? Yes. TRANSFERS: BED, CHAIR, WHEELCHAIR - STEP 3: How much assistance does the patient require from the helper? Steadying/guiding assistance TRANSFERS: BED, CHAIR, WHEELCHAIR - SCORE: 4-MIN TRANSFERS: TOILET: Activity did not occur on this shift TRANSFERS: TOILET - SCORE: 0-UNK TRANSFERS: SHOWER: Activity did not occur on this shift TRANSFERS: SHOWER - SCORE: 0-UNK TRANSFERS: TUB: Activity did not occur on this shift TRANSFERS: TUB - SCORE: 0-UNK LOCOMOTION: WALK: Activity did not occur on this shift LOCOMOTION: WALK - SCORE: 0-UNK LOCOMOTION: WHEELCHAIR: Activity did not occur on this shift LOCOMOTION: WHEELCHAIR - SCORE: 0-UNK COMPREHENSION: COMPREHENSION: TYPE: Both COMPREHENSION - STEP 1: Does the patient require help from a person or device, or need extra time to understand complex and a bstract ideas (such as current events, finances, discharge planning, medical issues, relationships, e tc)? Yes. COMPREHENSION - STEP 2: Does the patient require help to understand questions or statements about basic needs or ideas (such as hunger, thirst, sleep, safety, daily schedule, room location, or discomfort) half or more of the t alison? No. COMPREHENSION - STEP 3: How often does the patient need help to understand directions and conversation about basic needs? 10% - 24% of the time COMPREHENSION - SCORE: 4-MIN EXPRESSION EXPRESSION: TYPE: Both EXPRESSION - STEP 1: Does the patient require help from a person or device, or need extra time expressing complex and abst ract ideas (such as current events, finances, discharge planning, medical issues, relationships, etc) ? No. EXPRESSION - STEP 2: Does the patient need extra time, require an assistive device (such as augmentive communication syste m or a communication board), OR does s/he have mild difficulty expressing complex and abstract ideas (including mild dysarthria or mild word-find problems)? Yes. EXPRESSION - SCORE: 6-SHILPI SOCIAL INTERACTION: SOCIAL INTERACTION - STEP 1: Does the patient require a helper to interact with others in social and therapeutic situations? No. SOCIAL INTERACTION - STEP 2: Does the patient need extra time in social situations, OR does s/he interact with staff, other patien ts, and family members ONLY in structured environments, OR does s/he require medication for social in teraction? Yes, patient requires medication for social interaction SOCIAL INTERACTION - SCORE: 6-SHILPI PROBLEM SOLVING: PROBLEM SOLVING - STEP 1: Does the patient need help from a person or device, or need extra time to solve complex problems such as managing a checking account or confronting interpersonal problems? Yes. PROBLEM SOLVING - STEP 2: Does the patient solve basic routine problems half or more of the time? Yes. PROBLEM SOLVING - STEP 3: How often does the patient need help to solve basic routine problems? 10%-24% of the time PROBLEM SOLVING - SCORE: 4-MIN MEMORY: MEMORY - STEP 1: Does the patient need help from a person or device, or need extra time to remember frequently encount ered people, daily routines, and executing requests? No. MEMORY - STEP 2: Does the patient have slight difficulty recognizing frequently encountered people, daily routines, or executing requests without the need for repetition or using self-initiated or environmental cues to remember? Yes. MEMORY - SCORE: 6-SHILPI SIGNATURE PANEL: The following modified sections: Eating - Score, Grooming - Score, Dressing - Upper Body - Score, Joon ssing - Lower Body - Score, Toileting - Score, Bladder Management - Score, Bowel Management - Score, Transfers: Bed, Chair, Wheelchair - Score, Transfers: Toilet - Score, Transfers: Shower - Score, Eric sfers: Tub - Score, Locomotion: Walk - Score, Locomotion: Wheelchair - Score, Comprehension - Score, Expression - Score, Social Interaction - Score, Problem Solving - Score, Memory - Score were [electro nically] signed by Julia Vallejo CNA on FriAug 25 2018 03:22:32 GMT-0500 (Central Daylight Time)
[2018-08-25] MEDS: CYCLOBENZAPRINE 10 MG TAB PO PRN (04:01)
[2018-08-25] MEDS: INSULIN -REGULAR HUMAN 50 UNIT/0.5 ML ML SQ SCH ×4 (07:30→20:57)
[2018-08-25] MEDS: RANITIDINE 150 MG TABLET PO SCH ×2 (08:35→20:56)
[2018-08-25] MEDS: APIXABAN 5 MG TABLET PO SCH ×2 (08:35→20:56)
[2018-08-25] MEDS: VITAMIN D 5,000 UNIT CAP PO SCH (08:35)
[2018-08-25] MEDS: FENOFIBRATE 160 MG TAB PO SCH (08:35)
[2018-08-25] MEDS: TAMSULOSIN 0.4 MG SR CAP PO SCH (08:35)
[2018-08-25] MEDS: ATORVASTATIN 10 MG TAB PO SCH (08:35)
[2018-08-25] MEDS: LIDOCAINE 5% PATCH TOP SCH (08:36)
[2018-08-25] MEDS: INSULIN LISPRO 100 UNIT/1 ML SQ SCH ×3 (08:38→17:30)
[2018-08-25] MEDS: MIRTAZAPINE 15 MG TAB PO SCH (20:56)
[2018-08-25] MEDS: DOCUSATE NA/SENNA CONC 1 TAB PO SCH (20:57)
[2018-08-25] MEDS: INSULIN GLARGINE 100 UNITS/ML SQ SCH (20:57)
--- NOTE | 2018-08-25 23:48 | R.PN ---
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 Pt denied any depression. Hgb 12.7, glucose 42 to 140. Ambulated 500' with standby assistance using a rolling walker. Up and down 20 steps with standby assi stance. Functional transfers and activities of daily living done with standby assistance. VITAL SIGNS Temperature: 97.4F SBP/DBP: 149/82 Pulse: 80 Resp: 16 MEDICATION ALLERGIES: No Known Drug Allergies (NKDA) ENVIRONMENTAL ALLERGIES: - Substance Allergies None Known - Other Allergies None Known NURSING: - Shower allowing shower - Lab Results blood Sugar Check ACHS - Bladder care per protocol - Skin care per protocol PRECAUTIONS: - Weight Bearing Precaution WBAT right LE ACTIVITIES OOB only with supervision THERAPIES: - Occupational Therapy Cognitive Retraining. Visual Perceptual Training. - Dietary and Nutrition Adequate Nutrition. Nutritional Education. Nutritional Supplements. - Speech Therapy Cognitive Training. Expressive Language Skills. Memory Strategies. Receptive Language Skills. Speech Intelligibility Training. PHYSICAL EXAM - Gen Alert and awake Lying in bed No apparent distress Oriented to: person, time, and place - Skin No breakdown No abnormalities - Eyes No abnormalities - ENMT No abnormalities - Neck No abnormalities - CVS RRR - Chest Clear - Abd Soft - GI Soft No abnormalities - No abnormalities - Ext No significant edema - MSK 4+/5 weakness in right upper and lower extremities. - Neuro 4/5 strength right upper and lower extremities. - Psych No abnormalities ASSESSMENT: Pt. is a 78 yo Right-handed white male.On 08/04/2018 Pt. presented to [facility] with sudden onset of right-side weakness.On 08/04/2018 he was admitted to [facility] with diagnosis acute infarcts involving left MCA.His impairment category is Stroke 01 - Right Body (Left Brain) (01.2).Pre-morbidly, Pt. was independent/mod-I in Self-Care, Sphincter Control, Transfers Control, Locomotion, Communication, and Social Cognition; and he had good Sphincte r Control.Currently, he has deficits of Self-Care, Transfers Control, Locomotion, Communication, Soci al Cognition, Endurance, Balance, and Safety Awareness.Pt. is now referred to [facility] for acute in-patient rehabilitation in order to maximize patient's functional independence in activities of daily living, strength, ROM, and mobility.- Rehab Goal Patient has realistic goal of being discharged at assistance level 6-Ciro to reside at Home with Fam rolando/Relatives. MDM/PLAN: - Physical Therapy Gait dysfunction - to improve, our physical therapists will perform initial evaluation of pt's statu s upon admission and devise an individualized program for Gait Training, and Wheel Chair mobility Inability to transfer - to improve, our physical therapists will perform initial evaluation of pt's status upon admission and devise an individualized program for Bed mobility Need for home safety evaluation - to improve, our physical therapists will perform initial evaluatio n of pt's status upon admission and devise an individualized program for Home Evaluation Need in caregiver upon discharge - to improve, our physical therapists will perform initial evaluati on of pt's status upon admission and devise an individualized program for Caregiver Training Edema - to improve, our physical therapists will perform initial evaluation of pt's status upon admi ssion and devise an individualized program for Elevation Training, and Lymphedema Therapy New precaution - to improve, our physical therapists will perform initial evaluation of pt's status upon admission and devise an individualized program for Patient precaution education Poor balance - to improve, our physical therapists will perform initial evaluation of pt's status up on admission and devise an individualized program for Balance Training Poor endurance - to improve, our physical therapists will perform initial evaluation of pt's status upon admission and devise an individualized program for Endurance Training Weakness - to improve, our physical therapists will perform initial evaluation of pt's status upon a dmission and devise an individualized program for Aquatic Therapy, Neuromuscular Reeducation, and Str engthening Achieving independence - to improve, our physical therapists will perform initial evaluation of pt's status upon admission and devise an individualized program for Community Reintegration Activities - Occupational Therapy ADL deficits - to improve, our occupation therapists will perform initial evaluation of pt's status upon admission and devise an individualized program for Bathing, Bed mobility, Community Reintegratio n, Cooking, Dressing, Eating, Fine Motor Skills, Grooming, Homemaking, Kitchen Mobility, Laundry, Pat ient Education, Safety Awareness, Splinting - Positioning, Transfers(Toilet, Tub, Shower), and Wheel Chair Management Cognitive deficits - to improve, our occupation therapists will perform initial evaluation of pt's s tatus upon admission and devise an individualized program for Cognition - orientation Need for child care lead teacher - to improve, our occupation therapists will perform initial evaluation of pt's status upon admission and devise an individualized program for Caregiver Training Weakness - to improve, our occupation therapists will perform initial evaluation of pt's status upon admission and devise an individualized program for Aquatic Therapy, Balance, Endurance, UE ROM, and UE strengthening - Other See attached MAR (Medication Administration Record) [id number].pdf - Diet Type Continue ADA 1800 eric - Diet - Liquid Texture Continue Regular - Tube Feed Continue N/A - Lab Results blood Sugar Check ACHS - Bladder care per protocol - Weight Bearing Precaution WBAT right LE - Skin care per protocol - Diet - Solid Texture Continue Regular - Shower allowing shower for Dementia, TBI, Stroke, or others FUNCTIONAL STATUS: UPDATED AT WEEKLY TEAM CONFERENCE - Bladder Same accident frequency: 7-Ind - No accidents in the past 7 days - Bowel Same accident frequency: 7-Ind - No accidents in the past 7 days - Walking Same score based on distance walked: 1(<=50ft) - Wheelchair Same score based on distance traveled: 1(<=50ft) FUNCTIONAL STATUS: - Self-Care A. Eating sup B. Grooming Hellen C. Bathing modA D. Dressing - Upper modA E. Dressing - Lower maxA F. Toileting Hellen - Sphincter Control G: Bladder control Ind H: Bowel control Ind - Transfers Control I. Bed/Chair/Wheelchair Hellen J. Toilet Hellen K. Tub/Shower Hellen - Locomotion L. Walk/Wheelchair (B) Dep L. Walk/Wheelchair (W) Dep M. Stairs ADNO - Communication N. Comprehension (B) Hellen O. Expression (B) sup - Social Cognition P. Social Interaction Hellen Q. Problem Solving sup R. Memory sup - Endurance Fair - Balance Poor - Safety Awareness Poor CURRENT FUNC. DEFICITS: Self-Care, Transfers Control, Locomotion, Communication, Social Cognition, Endurance, Balance, and Sa fety Awareness SIGNATURE PANEL: (CDT)
--- NOTE | 2018-08-26 01:24 | FAST ---
SHIFT START DATE/TIME: 08/25/2018 19:00 (CDT) SHIFT END DATE/TIME: 08/26/2018 07:00 (CDT) NAME CHRIS BOUDREAUX DATE OF : 1940 DATE OF ADMISSION: 08/10/2018 18:05 (CDT) PHONE: AGE: 78 SSN# [id number] GENDER: Male ENCOUNTER PHYSICIAN: Dr. Piero De Jesus M.D. 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 EATING: Activity did not occur on this shift EATING - SCORE: 0-UNK GROOMING: Activity did not occur on this shift GROOMING - SCORE: 0-UNK BATHING: Activity did not occur on this shift BATHING - SCORE: 0-UNK DRESSING - UPPER BODY: Patient is not dressing in public clothing ARTICLES SCORE Total number of steps: 0 DRESSING - UPPER BODY - SCORE: 0-UNK DRESSING - LOWER BODY: Patient is not dressing in public clothing ARTICLES SCORE Total number of steps: 0 DRESSING - LOWER BODY - SCORE: 0-UNK TOILETING: TOILETING - STEP 1: Does the patient require the assistance of a person or device, or need extra time with toileting? Yes . TOILETING - STEP 2: Does the patient require the assistance of a helper? Yes. TOILETING - STEP 3: How much assistance does the patient require from the helper? Only supervision TOILETING - SCORE: 5-SUP BLADDER MANAGEMENT: BLADDER MANAGEMENT - STEP 1: Does the patient control the bladder completely and intentionally without equipment or devices or med ications, and is always continent? No. BLADDER MANAGEMENT - STEP 2: Does the patient require the assistance of a helper? No, patient requires and independently uses an a ssistive device, such as a urinal, bedpan, bedside commode, catheter, absorbent pad, or collecting de vice BLADDER MANAGEMENT - SCORE: 6-SHILPI BOWEL MANAGEMENT: BOWEL MANAGEMENT - STEP 1: Does the patient control bowels completely and intentionally without equipment devices or medications AND is always continent? No. BOWEL MANAGEMENT - STEP 2: Does the patient require the assistance of a helper? No, patient requires medication for control such as stool softeners, suppositories, laxatives, enemas, or OTC medications BOWEL MANAGEMENT - SCORE: 6-SHILPI TRANSFERS: BED, CHAIR, WHEELCHAIR: TRANSFERS: BED, CHAIR, WHEELCHAIR - STEP 1: Does the patient require assistance of a person or device, or need extra time with bed, chair, or whe elchair transfers? Yes. TRANSFERS: BED, CHAIR, WHEELCHAIR - STEP 2: Does the patient require the assistance of a helper? Yes. TRANSFERS: BED, CHAIR, WHEELCHAIR - STEP 3: How much assistance does the patient require from the helper? Steadying/guiding assistance TRANSFERS: BED, CHAIR, WHEELCHAIR - SCORE: 4-MIN TRANSFERS: TOILET: Activity did not occur on this shift TRANSFERS: TOILET - SCORE: 0-UNK TRANSFERS: SHOWER: Activity did not occur on this shift TRANSFERS: SHOWER - SCORE: 0-UNK TRANSFERS: TUB: Activity did not occur on this shift TRANSFERS: TUB - SCORE: 0-UNK LOCOMOTION: WALK: Activity did not occur on this shift LOCOMOTION: WALK - SCORE: 0-UNK LOCOMOTION: WHEELCHAIR: Activity did not occur on this shift LOCOMOTION: WHEELCHAIR - SCORE: 0-UNK COMPREHENSION: COMPREHENSION: TYPE: Both COMPREHENSION - STEP 1: Does the patient require help from a person or device, or need extra time to understand complex and a bstract ideas (such as current events, finances, discharge planning, medical issues, relationships, e tc)? No. COMPREHENSION - STEP 2: Does the patient need extra time, require an assistive device (such as glasses for visual comprehensi on or a hearing aid for auditory comprehension) or does s/he have mild difficulty understanding compl ex and abstract information? Yes. COMPREHENSION - SCORE: 6-SHILPI EXPRESSION EXPRESSION: TYPE: Both EXPRESSION - STEP 1: Does the patient require help from a person or device, or need extra time expressing complex and abst ract ideas (such as current events, finances, discharge planning, medical issues, relationships, etc) ? No. EXPRESSION - STEP 2: Does the patient need extra time, require an assistive device (such as augmentive communication syste m or a communication board), OR does s/he have mild difficulty expressing complex and abstract ideas (including mild dysarthria or mild word-find problems)? Yes. EXPRESSION - SCORE: 6-SHILPI SOCIAL INTERACTION: SOCIAL INTERACTION - STEP 1: Does the patient require a helper to interact with others in social and therapeutic situations? No. SOCIAL INTERACTION - STEP 2: Does the patient need extra time in social situations, OR does s/he interact with staff, other patien ts, and family members ONLY in structured environments, OR does s/he require medication for social in teraction? Yes, patient requires medication for social interaction SOCIAL INTERACTION - SCORE: 6-SHILPI PROBLEM SOLVING: PROBLEM SOLVING - STEP 1: Does the patient need help from a person or device, or need extra time to solve complex problems such as managing a checking account or confronting interpersonal problems? Yes. PROBLEM SOLVING - STEP 2: Does the patient solve basic routine problems half or more of the time? Yes. PROBLEM SOLVING - STEP 3: How often does the patient need help to solve basic routine problems? 10%-24% of the time PROBLEM SOLVING - SCORE: 4-MIN MEMORY: MEMORY - STEP 1: Does the patient need help from a person or device, or need extra time to remember frequently encount ered people, daily routines, and executing requests? No. MEMORY - STEP 2: Does the patient have slight difficulty recognizing frequently encountered people, daily routines, or executing requests without the need for repetition or using self-initiated or environmental cues to remember? Yes. MEMORY - SCORE: 6-SHILPI SIGNATURE PANEL: The following modified sections: Eating - Score, Grooming - Score, Dressing - Upper Body - Score, Joon ssing - Lower Body - Score, Toileting - Score, Bladder Management - Score, Bowel Management - Score, Transfers: Bed, Chair, Wheelchair - Score, Transfers: Toilet - Score, Transfers: Shower - Score, Eric sfers: Tub - Score, Locomotion: Walk - Score, Locomotion: Wheelchair - Score, Comprehension - Score, Expression - Score, Social Interaction - Score, Problem Solving - Score, Memory - Score were [electro nically] signed by Julia Vallejo CNA on FriAug 26 2018 01:23:12 GMT-0500 (Central Daylight Time)
[2018-08-26] MEDS: INSULIN -REGULAR HUMAN 50 UNIT/0.5 ML ML SQ SCH ×4 (07:30→20:18)
[2018-08-26] MEDS: INSULIN LISPRO 100 UNIT/1 ML SQ SCH ×3 (08:15→17:21)
[2018-08-26] MEDS: LIDOCAINE 5% PATCH TOP SCH (08:16)
[2018-08-26] MEDS: TRAMADOL HCL 50 MG TAB PO PRN ×2 (08:18→20:16)
[2018-08-26] MEDS: FENOFIBRATE 160 MG TAB PO SCH (08:20)
[2018-08-26] MEDS: ATORVASTATIN 10 MG TAB PO SCH (08:20)
[2018-08-26] MEDS: TAMSULOSIN 0.4 MG SR CAP PO SCH (08:20)
[2018-08-26] MEDS: VITAMIN D 5,000 UNIT CAP PO SCH (08:20)
[2018-08-26] MEDS: RANITIDINE 150 MG TABLET PO SCH ×2 (08:20→20:16)
[2018-08-26] MEDS: APIXABAN 5 MG TABLET PO SCH ×2 (08:20→20:16)
--- NOTE | 2018-08-26 10:04 | FAST ---
SHIFT START DATE/TIME: 08/26/2018 07:00 (CDT) SHIFT END DATE/TIME: 08/26/2018 19:00 (CDT) NAME CHRIS BOUDREAUX DATE OF : 1940 DATE OF ADMISSION: 08/10/2018 18:05 (CDT) PHONE: AGE: 78 SSN# [id number] GENDER: Male ENCOUNTER PHYSICIAN: Dr. Piero De Jesus M.D. 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 EATING: EATING - STEP 1: Does the patient require the assistance of a person or device, or need extra time when eating? Yes. EATING - STEP 2: Does the patient require the assistance of a helper? No, patient only requires an assistive device, O R s/he takes more than reasonable time to eat, OR there is a safety concern, OR s/he requires modifie d food consistency EATING - SCORE: 6-SHILPI GROOMING: Comb/brush hair Oral care GROOMING - STEP 1: Does the patient require the assistance of a person or device, or need extra time when grooming? Yes. GROOMING - STEP 2: Does the patient require the assistance of a helper? No. The patient only requires an assistive devic e, OR takes more than reasonable time to groom, OR there is a concern for safety as the patient groom s GROOMING - SCORE: 6-SHILPI BATHING: Activity did not occur on this shift BATHING - SCORE: 0-UNK DRESSING - UPPER BODY: Activity did not occur on this shift ARTICLES SCORE Total number of steps: 0 DRESSING - UPPER BODY - SCORE: 0-UNK DRESSING - LOWER BODY: Activity did not occur on this shift ARTICLES SCORE Total number of steps: 0 DRESSING - LOWER BODY - SCORE: 0-UNK TOILETING: TOILETING - STEP 1: Does the patient require the assistance of a person or device, or need extra time with toileting? Yes . TOILETING - STEP 2: Does the patient require the assistance of a helper? Yes. TOILETING - STEP 3: How much assistance does the patient require from the helper? Hands-on assistance from the helper TOILETING - STEP 4: Of the 3 tasks: 1) Adjusting clothing prior to use, 2) Cleansing of perineal area, 3) Adjusting clot cristina after use; How many tasks does the patient perform WITHOUT assistance of the helper? Three tasks with steadying assistance from the helper TOILETING - SCORE: 4-MIN BLADDER MANAGEMENT: BLADDER MANAGEMENT - STEP 1: Does the patient control the bladder completely and intentionally without equipment or devices or med ications, and is always continent? No. BLADDER MANAGEMENT - STEP 2: Does the patient require the assistance of a helper? No, patient requires and independently uses an a ssistive device, such as a urinal, bedpan, bedside commode, catheter, absorbent pad, or collecting de vice BLADDER MANAGEMENT - SCORE: 6-SHILPI BOWEL MANAGEMENT: Activity did not occur on this shift BOWEL MANAGEMENT - SCORE: 7-IND TRANSFERS: BED, CHAIR, WHEELCHAIR: TRANSFERS: BED, CHAIR, WHEELCHAIR - STEP 1: Does the patient require assistance of a person or device, or need extra time with bed, chair, or whe elchair transfers? Yes. TRANSFERS: BED, CHAIR, WHEELCHAIR - STEP 2: Does the patient require the assistance of a helper? Yes. TRANSFERS: BED, CHAIR, WHEELCHAIR - STEP 3: How much assistance does the patient require from the helper? Only supervision TRANSFERS: BED, CHAIR, WHEELCHAIR - SCORE: 5-SUP TRANSFERS: TOILET: TRANSFERS: TOILET - STEP 1: Does the patient require the assistance of a person or device, or need extra time with toilet transfe rs? Yes. TRANSFERS: TOILET - STEP 2: Does the patient require the assistance of a helper? Yes. TRANSFERS: TOILET - STEP 3: How much assistance does the patient require from the helper? Only supervision, cuing, coaxing, OR he lp to set out transfer equipment or to lock brakes and/or lift foot rests TRANSFERS: TOILET - SCORE: 5-SUP TRANSFERS: SHOWER: Activity did not occur on this shift TRANSFERS: SHOWER - SCORE: 0-UNK TRANSFERS: TUB: Activity did not occur on this shift TRANSFERS: TUB - SCORE: 0-UNK LOCOMOTION: WALK: Activity did not occur on this shift LOCOMOTION: WALK - SCORE: 0-UNK LOCOMOTION: WHEELCHAIR: Activity did not occur on this shift LOCOMOTION: WHEELCHAIR - SCORE: 0-UNK COMPREHENSION: COMPREHENSION: TYPE: Both COMPREHENSION - STEP 1: Does the patient require help from a person or device, or need extra time to understand complex and a bstract ideas (such as current events, finances, discharge planning, medical issues, relationships, e tc)? No. COMPREHENSION - STEP 2: Does the patient need extra time, require an assistive device (such as glasses for visual comprehensi on or a hearing aid for auditory comprehension) or does s/he have mild difficulty understanding compl ex and abstract information? Yes. COMPREHENSION - SCORE: 6-SHILPI EXPRESSION EXPRESSION: TYPE: Both EXPRESSION - STEP 1: Does the patient require help from a person or device, or need extra time expressing complex and abst ract ideas (such as current events, finances, discharge planning, medical issues, relationships, etc) ? No. EXPRESSION - STEP 2: Does the patient need extra time, require an assistive device (such as augmentive communication syste m or a communication board), OR does s/he have mild difficulty expressing complex and abstract ideas (including mild dysarthria or mild word-find problems)? Yes. EXPRESSION - SCORE: 6-SHILPI SOCIAL INTERACTION: SOCIAL INTERACTION - STEP 1: Does the patient require a helper to interact with others in social and therapeutic situations? No. SOCIAL INTERACTION - STEP 2: Does the patient need extra time in social situations, OR does s/he interact with staff, other patien ts, and family members ONLY in structured environments, OR does s/he require medication for social in teraction? Yes, patient needs extra time SOCIAL INTERACTION - SCORE: 6-SHILPI PROBLEM SOLVING: PROBLEM SOLVING - STEP 1: Does the patient need help from a person or device, or need extra time to solve complex problems such as managing a checking account or confronting interpersonal problems? No. PROBLEM SOLVING - STEP 2: Does the patient require extra time to make decisions or solve problems, OR does s/he have slight dif ficulty reading, initiating, or self-correcting in unfamiliar situations? Yes, patient needs extra ti me. PROBLEM SOLVING - SCORE: 6-SHILPI MEMORY: MEMORY - STEP 1: Does the patient need help from a person or device, or need extra time to remember frequently encount ered people, daily routines, and executing requests? No. MEMORY - STEP 2: Does the patient have slight difficulty recognizing frequently encountered people, daily routines, or executing requests without the need for repetition or using self-initiated or environmental cues to remember? Yes. MEMORY - SCORE: 6-SHILPI SIGNATURE PANEL: The following modified sections: Eating - Score, Grooming - Score, Bathing - Score, Dressing - Upper Body - Score, Dressing - Lower Body - Score, Toileting - Score, Bladder Management - Score, Bowel Man agement - Score, Transfers: Bed, Chair, Wheelchair - Score, Transfers: Toilet - Score, Transfers: Pily wer - Score, Transfers: Tub - Score, Locomotion: Walk - Score, Locomotion: Wheelchair - Score, Compre hension - Score, Expression - Score, Social Interaction - Score, Problem Solving - Score, Memory - Sc ore were [electronically] signed by Tariq Cunha on FriAug 26 2018 10:02:10 GMT-0500 (Central Daylight Time)
--- NOTE | 2018-08-26 15:46 | FAST ---
ENCOUNTER DATE AND TIME: 08/24/2018 08:00 (CDT) NAME CHRIS BOUDREAUX DATE OF : 1940 DATE OF ADMISSION: 08/10/2018 18:05 (CDT) PHONE: AGE: 78 SSN# [id number] GENDER: Male ENCOUNTER PHYSICIAN: Dr. Piero De Jesus M.D. 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 EATING: Activity did not occur on this shift EATING - SCORE: 0-UNK GROOMING: Activity did not occur on this shift GROOMING - SCORE: 0-UNK BATHING: Activity did not occur on this shift BATHING - SCORE: 0-UNK DRESSING - UPPER BODY: Activity did not occur on this shift Patient is not dressing in public clothing ARTICLES SCORE Total number of steps: 0 DRESSING - UPPER BODY - SCORE: 0-UNK DRESSING - LOWER BODY: Activity did not occur on this shift Patient is not dressing in public clothing ARTICLES SCORE Total number of steps: 0 DRESSING - LOWER BODY - SCORE: 0-UNK TOILETING: Activity did not occur on this shift TOILETING - SCORE: 0-UNK BLADDER MANAGEMENT: Activity did not occur on this shift BLADDER MANAGEMENT - SCORE: 7-IND BOWEL MANAGEMENT: Activity did not occur on this shift BOWEL MANAGEMENT - SCORE: 7-IND TRANSFERS: BED, CHAIR, WHEELCHAIR: TRANSFERS: BED, CHAIR, WHEELCHAIR - STEP 1: Does the patient require assistance of a person or device, or need extra time with bed, chair, or whe elchair transfers? Yes. TRANSFERS: BED, CHAIR, WHEELCHAIR - STEP 2: Does the patient require the assistance of a helper? Yes. TRANSFERS: BED, CHAIR, WHEELCHAIR - STEP 3: How much assistance does the patient require from the helper? Only supervision TRANSFERS: BED, CHAIR, WHEELCHAIR - SCORE: 5-SUP TRANSFERS: TOILET: Activity did not occur on this shift TRANSFERS: TOILET - SCORE: 0-UNK TRANSFERS: SHOWER: Activity did not occur on this shift TRANSFERS: SHOWER - SCORE: 0-UNK TRANSFERS: TUB: Activity did not occur on this shift TRANSFERS: TUB - SCORE: 0-UNK LOCOMOTION: WALK: LOCOMOTION: WALK - STEP 1: Does the patient need help from a person or device, or need extra time to walk 150 feet? Yes. LOCOMOTION: WALK - STEP 2: How much assistance does the patient require to walk a minimum of 150 feet? Only supervision, cuing, or coaxing LOCOMOTION: WALK - SCORE: 5-SUP LOCOMOTION: WHEELCHAIR: LOCOMOTION: WHEELCHAIR - STEP 1: Does the patient need help to go 150 feet in a wheelchair? Yes. LOCOMOTION: WHEELCHAIR - STEP 2: How much assistance does the patient need from the helper? Only supervision, cuing, or coaxing LOCOMOTION: WHEELCHAIR - SCORE: 5-SUP LOCOMOTION: STAIRS: LOCOMOTION: STAIRS - STEP 1: Does the patient need help to go up and down 12 to 14 stairs? Yes. LOCOMOTION: STAIRS - STEP 2: How much assistance does the patient need from the helper to go a minimum of 12 to 14 stairs? Only in cidental help such as contact guarding or steadying LOCOMOTION: STAIRS - SCORE: 4-MIN COMPREHENSION: COMPREHENSION - SCORE: 0-UNK EXPRESSION EXPRESSION - SCORE: 0-UNK SOCIAL INTERACTION: SOCIAL INTERACTION - SCORE: 0-UNK PROBLEM SOLVING: PROBLEM SOLVING - SCORE: 0-UNK MEMORY: MEMORY - SCORE: 0-UNK SIGNATURE PANEL: The following modified sections: Transfers: Bed, Chair, Wheelchair - Score, Transfers: Toilet - Score , Locomotion: Walk - Score, Locomotion: Wheelchair - Score, Locomotion: Stairs - Score were [chance eldridge] signed by Filiberto Casey PTA on FriAug 26 2018 15:45:26 GMT-0500 (Central Daylight Time)
[2018-08-26] MEDS: MIRTAZAPINE 15 MG TAB PO SCH (20:16)
[2018-08-26] MEDS: DOCUSATE NA/SENNA CONC 1 TAB PO SCH (20:16)
[2018-08-26] MEDS: INSULIN GLARGINE 100 UNITS/ML SQ SCH (20:18)
--- NOTE | 2018-08-26 23:02 | R.PN ---
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 Pt denied any depression. Hgb 12.7, glucose 42 to 140. Ambulated 500' with standby assistance using a rolling walker. Up and down 20 steps with standby assi stance. Functional transfers and activities of daily living done with standby assistance. VITAL SIGNS Temperature: 97.4F SBP/DBP: 122/71 Pulse: 81 Resp: 14 MEDICATION ALLERGIES: No Known Drug Allergies (NKDA) ENVIRONMENTAL ALLERGIES: - Substance Allergies None Known - Other Allergies None Known NURSING: - Shower allowing shower - Lab Results blood Sugar Check ACHS - Bladder care per protocol - Skin care per protocol PRECAUTIONS: - Weight Bearing Precaution WBAT right LE ACTIVITIES OOB only with supervision THERAPIES: - Occupational Therapy Cognitive Retraining. Visual Perceptual Training. - Dietary and Nutrition Adequate Nutrition. Nutritional Education. Nutritional Supplements. - Speech Therapy Cognitive Training. Expressive Language Skills. Memory Strategies. Receptive Language Skills. Speech Intelligibility Training. PHYSICAL EXAM - Gen Alert and awake Lying in bed No apparent distress Oriented to: person, time, and place - Skin No breakdown No abnormalities - Eyes No abnormalities - ENMT No abnormalities - Neck No abnormalities - CVS RRR - Chest Clear - Abd Soft - GI Soft No abnormalities - No abnormalities - Ext No significant edema - MSK 4+/5 weakness in right upper and lower extremities. - Neuro 4/5 strength right upper and lower extremities. - Psych No abnormalities ASSESSMENT: Pt. is a 78 yo Right-handed white male.On 08/04/2018 Pt. presented to [facility] with sudden onset of right-side weakness.On 08/04/2018 he was admitted to [facility] with diagnosis acute infarcts involving left MCA.His impairment category is Stroke 01 - Right Body (Left Brain) (01.2).Pre-morbidly, Pt. was independent/mod-I in Self-Care, Sphincter Control, Transfers Control, Locomotion, Communication, and Social Cognition; and he had good Sphincte r Control.Currently, he has deficits of Self-Care, Transfers Control, Locomotion, Communication, Soci al Cognition, Endurance, Balance, and Safety Awareness.Pt. is now referred to [facility] for acute in-patient rehabilitation in order to maximize patient's functional independence in activities of daily living, strength, ROM, and mobility.- Rehab Goal Patient has realistic goal of being discharged at assistance level 6-Ciro to reside at Home with Fam rolando/Relatives. MDM/PLAN: - Physical Therapy Gait dysfunction - to improve, our physical therapists will perform initial evaluation of pt's statu s upon admission and devise an individualized program for Gait Training, and Wheel Chair mobility Inability to transfer - to improve, our physical therapists will perform initial evaluation of pt's status upon admission and devise an individualized program for Bed mobility Need for home safety evaluation - to improve, our physical therapists will perform initial evaluatio n of pt's status upon admission and devise an individualized program for Home Evaluation Need in caregiver upon discharge - to improve, our physical therapists will perform initial evaluati on of pt's status upon admission and devise an individualized program for Caregiver Training Edema - to improve, our physical therapists will perform initial evaluation of pt's status upon admi ssion and devise an individualized program for Elevation Training, and Lymphedema Therapy New precaution - to improve, our physical therapists will perform initial evaluation of pt's status upon admission and devise an individualized program for Patient precaution education Poor balance - to improve, our physical therapists will perform initial evaluation of pt's status up on admission and devise an individualized program for Balance Training Poor endurance - to improve, our physical therapists will perform initial evaluation of pt's status upon admission and devise an individualized program for Endurance Training Weakness - to improve, our physical therapists will perform initial evaluation of pt's status upon a dmission and devise an individualized program for Aquatic Therapy, Neuromuscular Reeducation, and Str engthening Achieving independence - to improve, our physical therapists will perform initial evaluation of pt's status upon admission and devise an individualized program for Community Reintegration Activities - Occupational Therapy ADL deficits - to improve, our occupation therapists will perform initial evaluation of pt's status upon admission and devise an individualized program for Bathing, Bed mobility, Community Reintegratio n, Cooking, Dressing, Eating, Fine Motor Skills, Grooming, Homemaking, Kitchen Mobility, Laundry, Pat ient Education, Safety Awareness, Splinting - Positioning, Transfers(Toilet, Tub, Shower), and Wheel Chair Management Cognitive deficits - to improve, our occupation therapists will perform initial evaluation of pt's s tatus upon admission and devise an individualized program for Cognition - orientation Need for care specialist - to improve, our occupation therapists will perform initial evaluation of pt's status upon admission and devise an individualized program for Caregiver Training Weakness - to improve, our occupation therapists will perform initial evaluation of pt's status upon admission and devise an individualized program for Aquatic Therapy, Balance, Endurance, UE ROM, and UE strengthening - Other See attached MAR (Medication Administration Record) [id number].pdf - Diet Type Continue ADA 1800 eric - Diet - Liquid Texture Continue Regular - Tube Feed Continue N/A - Lab Results blood Sugar Check ACHS - Bladder care per protocol - Weight Bearing Precaution WBAT right LE - Skin care per protocol - Diet - Solid Texture Continue Regular - Shower allowing shower for Dementia, TBI, Stroke, or others FUNCTIONAL STATUS: UPDATED AT WEEKLY TEAM CONFERENCE - Bladder Same accident frequency: 7-Ind - No accidents in the past 7 days - Bowel Same accident frequency: 7-Ind - No accidents in the past 7 days - Walking Same score based on distance walked: 1(<=50ft) - Wheelchair Same score based on distance traveled: 1(<=50ft) FUNCTIONAL STATUS: - Self-Care A. Eating sup B. Grooming Hellen C. Bathing modA D. Dressing - Upper modA E. Dressing - Lower maxA F. Toileting Hellen - Sphincter Control G: Bladder control Ind H: Bowel control Ind - Transfers Control I. Bed/Chair/Wheelchair Hellen J. Toilet Hellen K. Tub/Shower Hellen - Locomotion L. Walk/Wheelchair (B) Dep L. Walk/Wheelchair (W) Dep M. Stairs ADNO - Communication N. Comprehension (B) Hellen O. Expression (B) sup - Social Cognition P. Social Interaction Hellen Q. Problem Solving sup R. Memory sup - Endurance Fair - Balance Poor - Safety Awareness Poor CURRENT FUNC. DEFICITS: Self-Care, Transfers Control, Locomotion, Communication, Social Cognition, Endurance, Balance, and Sa fety Awareness SIGNATURE PANEL: (T)
--- NOTE | 2018-08-27 01:33 | FAST ---
SHIFT START DATE/TIME: 08/26/2018 19:00 (CDT) SHIFT END DATE/TIME: 08/27/2018 07:00 (CDT) NAME CHRIS BOUDREAUX DATE OF : 1940 DATE OF ADMISSION: 08/10/2018 18:05 (CDT) PHONE: AGE: 78 SSN# [id number] GENDER: Male ENCOUNTER PHYSICIAN: Dr. Piero De Jesus M.D. 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 EATING: Activity did not occur on this shift EATING - SCORE: 0-UNK GROOMING: Activity did not occur on this shift GROOMING - SCORE: 0-UNK BATHING: Activity did not occur on this shift BATHING - SCORE: 0-UNK DRESSING - UPPER BODY: Patient is not dressing in public clothing ARTICLES SCORE Total number of steps: 0 DRESSING - UPPER BODY - SCORE: 0-UNK DRESSING - LOWER BODY: Patient is not dressing in public clothing ARTICLES SCORE Total number of steps: 0 DRESSING - LOWER BODY - SCORE: 0-UNK TOILETING: TOILETING - STEP 1: Does the patient require the assistance of a person or device, or need extra time with toileting? Yes . TOILETING - STEP 2: Does the patient require the assistance of a helper? Yes. TOILETING - STEP 3: How much assistance does the patient require from the helper? Only supervision TOILETING - SCORE: 5-SUP BLADDER MANAGEMENT: BLADDER MANAGEMENT - STEP 1: Does the patient control the bladder completely and intentionally without equipment or devices or med ications, and is always continent? No. BLADDER MANAGEMENT - STEP 2: Does the patient require the assistance of a helper? Yes. BLADDER MANAGEMENT - STEP 3: How much assistance does the patient require from the helper? Only supervision, stand-by, cuing, or c oaxing BLADDER MANAGEMENT - SCORE: 5-SUP BOWEL MANAGEMENT: BOWEL MANAGEMENT - STEP 1: Does the patient control bowels completely and intentionally without equipment devices or medications AND is always continent? No. BOWEL MANAGEMENT - STEP 2: Does the patient require the assistance of a helper? No, patient requires medication for control such as stool softeners, suppositories, laxatives, enemas, or OTC medications BOWEL MANAGEMENT - SCORE: 6-SHILPI TRANSFERS: BED, CHAIR, WHEELCHAIR: TRANSFERS: BED, CHAIR, WHEELCHAIR - STEP 1: Does the patient require assistance of a person or device, or need extra time with bed, chair, or whe elchair transfers? Yes. TRANSFERS: BED, CHAIR, WHEELCHAIR - STEP 2: Does the patient require the assistance of a helper? Yes. TRANSFERS: BED, CHAIR, WHEELCHAIR - STEP 3: How much assistance does the patient require from the helper? Steadying/guiding assistance TRANSFERS: BED, CHAIR, WHEELCHAIR - SCORE: 4-MIN TRANSFERS: TOILET: Activity did not occur on this shift TRANSFERS: TOILET - SCORE: 0-UNK TRANSFERS: SHOWER: Activity did not occur on this shift TRANSFERS: SHOWER - SCORE: 0-UNK TRANSFERS: TUB: Activity did not occur on this shift TRANSFERS: TUB - SCORE: 0-UNK LOCOMOTION: WALK: Activity did not occur on this shift LOCOMOTION: WALK - SCORE: 0-UNK LOCOMOTION: WHEELCHAIR: Activity did not occur on this shift LOCOMOTION: WHEELCHAIR - SCORE: 0-UNK COMPREHENSION: COMPREHENSION: TYPE: Both COMPREHENSION - STEP 1: Does the patient require help from a person or device, or need extra time to understand complex and a bstract ideas (such as current events, finances, discharge planning, medical issues, relationships, e tc)? Yes. COMPREHENSION - STEP 2: Does the patient require help to understand questions or statements about basic needs or ideas (such as hunger, thirst, sleep, safety, daily schedule, room location, or discomfort) half or more of the t alison? No. COMPREHENSION - STEP 3: How often does the patient need help to understand directions and conversation about basic needs? 10% - 24% of the time COMPREHENSION - SCORE: 4-MIN EXPRESSION EXPRESSION: TYPE: Both EXPRESSION - STEP 1: Does the patient require help from a person or device, or need extra time expressing complex and abst ract ideas (such as current events, finances, discharge planning, medical issues, relationships, etc) ? No. EXPRESSION - STEP 2: Does the patient need extra time, require an assistive device (such as augmentive communication syste m or a communication board), OR does s/he have mild difficulty expressing complex and abstract ideas (including mild dysarthria or mild word-find problems)? No. EXPRESSION - SCORE: 7-IND SOCIAL INTERACTION: SOCIAL INTERACTION - STEP 1: Does the patient require a helper to interact with others in social and therapeutic situations? No. SOCIAL INTERACTION - STEP 2: Does the patient need extra time in social situations, OR does s/he interact with staff, other patien ts, and family members ONLY in structured environments, OR does s/he require medication for social in teraction? Yes, patient requires medication for social interaction SOCIAL INTERACTION - SCORE: 6-SHILPI PROBLEM SOLVING: PROBLEM SOLVING - STEP 1: Does the patient need help from a person or device, or need extra time to solve complex problems such as managing a checking account or confronting interpersonal problems? Yes. PROBLEM SOLVING - STEP 2: Does the patient solve basic routine problems half or more of the time? Yes. PROBLEM SOLVING - STEP 3: How often does the patient need help to solve basic routine problems? 10%-24% of the time PROBLEM SOLVING - SCORE: 4-MIN MEMORY: MEMORY - STEP 1: Does the patient need help from a person or device, or need extra time to remember frequently encount ered people, daily routines, and executing requests? No. MEMORY - STEP 2: Does the patient have slight difficulty recognizing frequently encountered people, daily routines, or executing requests without the need for repetition or using self-initiated or environmental cues to remember? Yes. MEMORY - SCORE: 6-SHILPI SIGNATURE PANEL: The following modified sections: Eating - Score, Grooming - Score, Dressing - Upper Body - Score, Joon ssing - Lower Body - Score, Toileting - Score, Bladder Management - Score, Bowel Management - Score, Transfers: Bed, Chair, Wheelchair - Score, Transfers: Toilet - Score, Transfers: Shower - Score, Eric sfers: Tub - Score, Locomotion: Walk - Score, Locomotion: Wheelchair - Score, Comprehension - Score, Expression - Score, Social Interaction - Score, Problem Solving - Score, Memory - Score were [electro nically] signed by Julia Vallejo CNA on FriAug 27 2018 01:32:12 GMT-0500 (Central Daylight Time)
[2018-08-27 06:06] LABS: Absolute Lymphocytes (CBC) 1.8 K/uL (0.7-4.9); Basophils % 0.9 % (0-1.3); Eosinophils % 3.8 % (0-4.4); Hematocrit 38.6 % (39.6-49.0); Lymphocytes % 42.9 % (15.3-44.8); MPV 7.3 fL (7.6-11.3); Monocytes % 14.2 % (3.3-12.3); RBC Red Blood Cell Count 3.88 M/uL (4.33-5.43)
[2018-08-27 06:28] LABS: Albumin 3.2 g/dL (3.4-5.0); Magnesium 2.1 mg/dL (1.8-2.4); Potassium 4.9 mmol/L (3.5-5.1); Prealbumin 26.4 mg/dL (20-40)
[2018-08-27] MEDS: INSULIN -REGULAR HUMAN 50 UNIT/0.5 ML ML SQ SCH ×4 (07:30→20:00)
[2018-08-27] MEDS: INSULIN LISPRO 100 UNIT/1 ML SQ SCH ×3 (08:15→17:30)
[2018-08-27] MEDS: LIDOCAINE 5% PATCH TOP SCH (08:15)
[2018-08-27] MEDS: FENOFIBRATE 160 MG TAB PO SCH (08:17)
[2018-08-27] MEDS: VITAMIN D 5,000 UNIT CAP PO SCH (08:17)
[2018-08-27] MEDS: TRAMADOL HCL 50 MG TAB PO PRN ×2 (08:19→19:54)
[2018-08-27] MEDS: APIXABAN 5 MG TABLET PO SCH ×2 (08:19→19:53)
[2018-08-27] MEDS: TAMSULOSIN 0.4 MG SR CAP PO SCH (08:19)
[2018-08-27] MEDS: ATORVASTATIN 10 MG TAB PO SCH (08:19)
[2018-08-27] MEDS: RANITIDINE 150 MG TABLET PO SCH ×2 (08:20→19:53)
[2018-08-27 08:26] LABS: Blood Morphology Comment NOT SEEN (NOT SEEN); Platelet Estimate ADEQ
--- NOTE | 2018-08-27 14:18 | FAST ---
SHIFT START DATE/TIME: 08/27/2018 07:00 (CDT) SHIFT END DATE/TIME: 08/27/2018 19:00 (CDT) NAME CHRIS BOUDREAUX DATE OF : 1940 DATE OF ADMISSION: 08/10/2018 18:05 (CDT) PHONE: AGE: 78 SSN# [id number] GENDER: Male ENCOUNTER PHYSICIAN: Dr. Piero De Jesus M.D. 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 EATING: EATING - STEP 1: Does the patient require the assistance of a person or device, or need extra time when eating? Yes. EATING - STEP 2: Does the patient require the assistance of a helper? No, patient only requires an assistive device, O R s/he takes more than reasonable time to eat, OR there is a safety concern, OR s/he requires modifie d food consistency EATING - SCORE: 6-SHILPI GROOMING: Comb/brush hair Oral care GROOMING - STEP 1: Does the patient require the assistance of a person or device, or need extra time when grooming? Yes. GROOMING - STEP 2: Does the patient require the assistance of a helper? No. The patient only requires an assistive devic e, OR takes more than reasonable time to groom, OR there is a concern for safety as the patient groom s GROOMING - SCORE: 6-SHILPI BATHING: Activity did not occur on this shift BATHING - SCORE: 0-UNK DRESSING - UPPER BODY: Activity did not occur on this shift ARTICLES SCORE Total number of steps: 0 DRESSING - UPPER BODY - SCORE: 0-UNK DRESSING - LOWER BODY: Activity did not occur on this shift ARTICLES SCORE Total number of steps: 0 DRESSING - LOWER BODY - SCORE: 0-UNK TOILETING: TOILETING - STEP 1: Does the patient require the assistance of a person or device, or need extra time with toileting? Yes . TOILETING - STEP 2: Does the patient require the assistance of a helper? Yes. TOILETING - STEP 3: How much assistance does the patient require from the helper? Only supervision TOILETING - SCORE: 5-SUP BLADDER MANAGEMENT: BLADDER MANAGEMENT - STEP 1: Does the patient control the bladder completely and intentionally without equipment or devices or med ications, and is always continent? No. BLADDER MANAGEMENT - STEP 2: Does the patient require the assistance of a helper? No, patient requires and independently uses an a ssistive device, such as a urinal, bedpan, bedside commode, catheter, absorbent pad, or collecting de vice BLADDER MANAGEMENT - SCORE: 6-SHILPI BOWEL MANAGEMENT: Activity did not occur on this shift BOWEL MANAGEMENT - SCORE: 7-IND TRANSFERS: BED, CHAIR, WHEELCHAIR: TRANSFERS: BED, CHAIR, WHEELCHAIR - STEP 1: Does the patient require assistance of a person or device, or need extra time with bed, chair, or whe elchair transfers? Yes. TRANSFERS: BED, CHAIR, WHEELCHAIR - STEP 2: Does the patient require the assistance of a helper? Yes. TRANSFERS: BED, CHAIR, WHEELCHAIR - STEP 3: How much assistance does the patient require from the helper? Steadying/guiding assistance TRANSFERS: BED, CHAIR, WHEELCHAIR - SCORE: 4-MIN TRANSFERS: TOILET: TRANSFERS: TOILET - STEP 1: Does the patient require the assistance of a person or device, or need extra time with toilet transfe rs? Yes. TRANSFERS: TOILET - STEP 2: Does the patient require the assistance of a helper? Yes. TRANSFERS: TOILET - STEP 3: How much assistance does the patient require from the helper? Only supervision, cuing, coaxing, OR he lp to set out transfer equipment or to lock brakes and/or lift foot rests TRANSFERS: TOILET - SCORE: 5-SUP TRANSFERS: SHOWER: Activity did not occur on this shift TRANSFERS: SHOWER - SCORE: 0-UNK TRANSFERS: TUB: Activity did not occur on this shift TRANSFERS: TUB - SCORE: 0-UNK LOCOMOTION: WALK: Activity did not occur on this shift LOCOMOTION: WALK - SCORE: 0-UNK LOCOMOTION: WHEELCHAIR: Activity did not occur on this shift LOCOMOTION: WHEELCHAIR - SCORE: 0-UNK COMPREHENSION: COMPREHENSION: TYPE: Both COMPREHENSION - STEP 1: Does the patient require help from a person or device, or need extra time to understand complex and a bstract ideas (such as current events, finances, discharge planning, medical issues, relationships, e tc)? No. COMPREHENSION - STEP 2: Does the patient need extra time, require an assistive device (such as glasses for visual comprehensi on or a hearing aid for auditory comprehension) or does s/he have mild difficulty understanding compl ex and abstract information? Yes. COMPREHENSION - SCORE: 6-SHILPI EXPRESSION EXPRESSION: TYPE: Both EXPRESSION - STEP 1: Does the patient require help from a person or device, or need extra time expressing complex and abst ract ideas (such as current events, finances, discharge planning, medical issues, relationships, etc) ? No. EXPRESSION - STEP 2: Does the patient need extra time, require an assistive device (such as augmentive communication syste m or a communication board), OR does s/he have mild difficulty expressing complex and abstract ideas (including mild dysarthria or mild word-find problems)? Yes. EXPRESSION - SCORE: 6-SHILPI SOCIAL INTERACTION: SOCIAL INTERACTION - STEP 1: Does the patient require a helper to interact with others in social and therapeutic situations? No. SOCIAL INTERACTION - STEP 2: Does the patient need extra time in social situations, OR does s/he interact with staff, other patien ts, and family members ONLY in structured environments, OR does s/he require medication for social in teraction? Yes, patient needs extra time SOCIAL INTERACTION - SCORE: 6-SHILPI PROBLEM SOLVING: PROBLEM SOLVING - STEP 1: Does the patient need help from a person or device, or need extra time to solve complex problems such as managing a checking account or confronting interpersonal problems? No. PROBLEM SOLVING - STEP 2: Does the patient require extra time to make decisions or solve problems, OR does s/he have slight dif ficulty reading, initiating, or self-correcting in unfamiliar situations? Yes, patient needs extra ti me. PROBLEM SOLVING - SCORE: 6-SHILPI MEMORY: MEMORY - STEP 1: Does the patient need help from a person or device, or need extra time to remember frequently encount ered people, daily routines, and executing requests? Yes. MEMORY - STEP 2: How often does the patient need help to remember frequently encountered people, daily routines, and e xecuting requests? Less than 10% of the time MEMORY - SCORE: 5-SUP SIGNATURE PANEL: The following modified sections: Eating - Score, Grooming - Score, Bathing - Score, Dressing - Upper Body - Score, Dressing - Lower Body - Score, Toileting - Score, Bladder Management - Score, Bowel Man agement - Score, Transfers: Bed, Chair, Wheelchair - Score, Transfers: Toilet - Score, Transfers: Pily wer - Score, Transfers: Tub - Score, Locomotion: Walk - Score, Locomotion: Wheelchair - Score, Compre hension - Score, Expression - Score, Social Interaction - Score, Problem Solving - Score, Memory - Sc ore were [electronically] signed by Tariq Cunha on FriAug 27 2018 14:17:56 GMT-0500 (Central Daylight Time)
--- NOTE | 2018-08-27 16:09 | FAST ---
ENCOUNTER DATE AND TIME: 08/27/2018 08:00 (CDT) NAME CHRIS BOUDREAUX DATE OF : 1940 DATE OF ADMISSION: 08/10/2018 18:05 (CDT) PHONE: AGE: 78 SSN# [id number] GENDER: Male ENCOUNTER PHYSICIAN: Dr. Piero De Jesus M.D. 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 EATING: Activity did not occur on this shift EATING - SCORE: 0-UNK GROOMING: Activity did not occur on this shift GROOMING - SCORE: 0-UNK BATHING: Activity did not occur on this shift BATHING - SCORE: 0-UNK DRESSING - UPPER BODY: Activity did not occur on this shift Patient is not dressing in public clothing ARTICLES SCORE Total number of steps: 0 DRESSING - UPPER BODY - SCORE: 0-UNK DRESSING - LOWER BODY: Activity did not occur on this shift Patient is not dressing in public clothing ARTICLES SCORE Total number of steps: 0 DRESSING - LOWER BODY - SCORE: 0-UNK TOILETING: Activity did not occur on this shift TOILETING - SCORE: 0-UNK BLADDER MANAGEMENT: Activity did not occur on this shift BLADDER MANAGEMENT - SCORE: 7-IND BOWEL MANAGEMENT: Activity did not occur on this shift BOWEL MANAGEMENT - SCORE: 7-IND TRANSFERS: BED, CHAIR, WHEELCHAIR: TRANSFERS: BED, CHAIR, WHEELCHAIR - STEP 1: Does the patient require assistance of a person or device, or need extra time with bed, chair, or whe elchair transfers? Yes. TRANSFERS: BED, CHAIR, WHEELCHAIR - STEP 2: Does the patient require the assistance of a helper? No. Patient only requires an assistive device fo r bed, chair, wheelchair transfers such as a sliding board, grab bar, or brace, OR s/he takes more th an reasonable time, OR there is a safety concern when s/he performs the transfers TRANSFERS: BED, CHAIR, WHEELCHAIR - SCORE: 6-SHILPI TRANSFERS: TOILET: Activity did not occur on this shift TRANSFERS: TOILET - SCORE: 0-UNK TRANSFERS: SHOWER: Activity did not occur on this shift TRANSFERS: SHOWER - SCORE: 0-UNK TRANSFERS: TUB: Activity did not occur on this shift TRANSFERS: TUB - SCORE: 0-UNK LOCOMOTION: WALK: LOCOMOTION: WALK - STEP 1: Does the patient need help from a person or device, or need extra time to walk 150 feet? No. LOCOMOTION: WALK - STEP 2: Does the patient need an assistive device (such as an orthosis, prosthesis, crutches, or walker) to g o 150 feet, OR does s/he take more than reasonable time, OR is there a concern for safety? Yes, the p atient needs an assistive device LOCOMOTION: WALK - SCORE: 6-SHILPI LOCOMOTION: WHEELCHAIR: LOCOMOTION: WHEELCHAIR - STEP 1: Does the patient need help to go 150 feet in a wheelchair? No. LOCOMOTION: WHEELCHAIR - SCORE: 6-SHILPI LOCOMOTION: STAIRS: LOCOMOTION: STAIRS - STEP 1: Does the patient need help to go up and down 12 to 14 stairs? Yes. LOCOMOTION: STAIRS - STEP 2: How much assistance does the patient need from the helper to go a minimum of 12 to 14 stairs? Only brice pervision, cuing, or coaxing LOCOMOTION: STAIRS - SCORE: 5-SUP COMPREHENSION: COMPREHENSION - SCORE: 0-UNK EXPRESSION EXPRESSION - SCORE: 0-UNK SOCIAL INTERACTION: SOCIAL INTERACTION - SCORE: 0-UNK PROBLEM SOLVING: PROBLEM SOLVING - SCORE: 0-UNK MEMORY: MEMORY - SCORE: 0-UNK SIGNATURE PANEL: The following modified sections: Transfers: Bed, Chair, Wheelchair - Score, Transfers: Toilet - Score , Locomotion: Walk - Score, Locomotion: Wheelchair - Score, Locomotion: Stairs - Score were [electron icamorales] signed by Filiberto Casey PTA on FriAug 27 2018 16:08:36 GMT-0500 (Central Daylight Time)
[2018-08-27] MEDS: INSULIN GLARGINE 100 UNITS/ML SQ SCH (19:59)
[2018-08-27] MEDS: MIRTAZAPINE 15 MG TAB PO SCH (19:59)
[2018-08-27] MEDS: DOCUSATE NA/SENNA CONC 1 TAB PO SCH (19:59)
--- NOTE | 2018-08-27 22:35 | P.PN ---
Date of Service: 08/27/18 Vital Signs Temp Pulse Resp BP Pulse Ox 97.9 F 84 15 110/67 95 08/27/18 18:56 08/27/18 18:56 08/27/18 18:56 08/27/18 18:56 08/27/18 18:56 Medications Acetaminophen (Tylenol -Extra Strength) 500 mg PO Q4H PRN PRN Reason: Pain scale 2-4 (Mild) Stop: 09/18/18 14:03 Last Admin: 08/21/18 02:37 Dose: 500 mg Apixaban (Eliquis) 5 mg PO BID [facility] Stop: 09/09/18 20:01 Last Admin: 08/27/18 19:53 Dose: 5 mg Atorvastatin Calcium (Lipitor) 10 mg PO DAILY [facility] Stop: 09/10/18 08:01 Last Admin: 08/27/18 08:19 Dose: 10 mg Cholecalciferol (Vitamin D 5,000 Iu Cap) 5,000 unit PO DAILY [facility] Stop: 09/10/18 08:01 Last Admin: 08/27/18 08:17 Dose: 5,000 unit Cyclobenzaprine HCl (Flexeril) 5 mg PO TIDP PRN PRN Reason: MUSCLE SPASMS Stop: 09/19/18 22:04 Last Admin: 08/25/18 04:01 Dose: 5 mg Dextrose (Dextrose 50% Syringe) 12.5 gm IV PRN PRN; Protocol PRN Reason: HYPOGLYCEMIA Stop: 09/09/18 19:08 Fenofibrate (Tricor) 160 mg PO DAILY [facility] Stop: 09/10/18 08:01 Last Admin: 08/27/18 08:17 Dose: 160 mg Glucagon (Glucagen) 1 mg IM 1X PRN; Protocol PRN Reason: HYPOGLYCEMIA Stop: 09/09/18 19:08 Insulin Glargine (Lantus) 40 units SQ BEDTIME [facility] Stop: 09/18/18 21:01 Last Admin: 08/27/18 19:59 Dose: 40 units Insulin Human Lispro (Humalog) 5 unit SQ TIDWM [facility] Stop: 09/15/18 12:01 Last Admin: 08/27/18 17:30 Dose: 5 unit Insulin Human Regular (Novolin -R) 0 unit SQ ACHS [facility]; Protocol Stop: 09/09/18 21:01 Last Admin: 08/27/18 20:00 Dose: Not Given Lidocaine (Lidoderm 5% Patch) 2 patch TOP DAILY [facility] Stop: 09/15/18 08:01 Last Admin: 08/27/18 08:15 Dose: 2 patch Mirtazapine (Remeron) 15 mg PO BEDTIME [facility] Stop: 09/09/18 21:01 Last Admin: 08/27/18 19:59 Dose: 15 mg Ranitidine HCl (Zantac) 150 mg PO BID [facility] Stop: 09/09/18 20:01 Last Admin: 08/27/18 19:53 Dose: 150 mg Senna/Docusate Sodium (Senokot-S) 2 tab PO BEDTIME [facility] Stop: 09/11/18 21:01 Last Admin: 08/27/18 19:59 Dose: 2 tab Tamsulosin HCl (Flomax) 0.4 mg PO DAILY [facility] Stop: 09/10/18 08:01 Last Admin: 08/27/18 08:19 Dose: 0.4 mg Tramadol HCl (Ultram) 50 mg PO Q4HP PRN PRN Reason: Pain scale 5-7 (Moderate) Stop: 09/19/18 13:36 Last Admin: 08/27/18 19:54 Dose: 50 mg Lab Results (last 24 hrs) 08/27/18 19:52: POC Glucose 203 H 08/27/18 16:22: POC Glucose 155 H 08/27/18 11:13: POC Glucose 179 H 08/27/18 06:45: POC Glucose 101 08/27/18 05:51: Sodium 146 H, Potassium 4.9, Chloride 113 H, Carbon Dioxide 29, BUN 35 H, Creatinine 2.01 H, Estimated GFR 32 L, Glucose 111 H, Calcium 8.6, Magnesium 2.1, Albumin 3.2 L, Prealbumin 26.4 08/27/18 05:51: WBC 4.2 L, RBC 3.88 L, Hgb 12.9 L, Hct 38.6 L, MCV 99.6, MCH 33.2, MCHC 33.3, RDW 14.9, Plt Count 165 D, MPV 7.3 L, Neutrophils % 38.2 L, Lymphocytes % 42.9, Monocytes % 14.2 H, Eosinophils % 3.8, Basophils % 0.9, Absolute Neutrophils 1.6 L, Segmented Neutrophils 36 L, Absolute Lymphocytes 1.8 , Lymphocytes 49 H, Monocytes 7, Absolute Monocytes 0.6, Eosinophils 6 H, Absolute Eosinophils 0.2, Basophils 2 H, Absolute Basophils 0.0, Morphology Comment Not seen 08/26/18 20:16: POC Glucose 150 H Microbiology Results 08/10/18 20:00 Clean Catch Urine [place] Count - Final 08/10/18 20:00 Clean Catch Urine - Final No growth. Assessment/ Plan: Nephrology. Persistent left hamstring pain improving with therapy. Slept better last night. CPS stable without CP or SOB. No acute events overnight. Vitals, medications, blood work and imaging reviewed in the chart. General: In no apparent distress, Oriented x3, Cooperative HEENT: Atraumatic Neck: Supple Respiratory: Clear to auscultation bilaterally Cardiovascular: No edema, Regular rate/rhythm Gastrointestinal: Soft and benign, Non-distended Musculoskeletal: No clubbing, No contractures Integumentary: No rashes Neurological: Normal speech Blood work reviewed in the chart. 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 HTN with CKD/ CHF. DM II with CKD. Diastolic CHF, chronic. CAD/ PAD. Anemia in chronic illness. BPH with luts. A/ Continue current POC and Medications. Counseled the patient regarding adequate hydration. Titrate insulin as needed. No NSAIDs. AM labs PRN. Daily weight. Encourage PT as tolerated. Continue PT work on the right hamstring spasm.
--- NOTE | 2018-08-28 02:43 | FAST ---
SHIFT START DATE/TIME: 08/27/2018 19:00 (CDT) SHIFT END DATE/TIME: 08/28/2018 07:00 (CDT) NAME CHRIS BOUDREAUX DATE OF : 1940 DATE OF ADMISSION: 08/10/2018 18:05 (CDT) PHONE: AGE: 78 SSN# [id number] GENDER: Male ENCOUNTER PHYSICIAN: Dr. Piero De Jesus M.D. 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 EATING: Activity did not occur on this shift EATING - SCORE: 0-UNK GROOMING: Activity did not occur on this shift GROOMING - SCORE: 0-UNK BATHING: Activity did not occur on this shift BATHING - SCORE: 0-UNK DRESSING - UPPER BODY: Patient is not dressing in public clothing ARTICLES SCORE Total number of steps: 0 DRESSING - UPPER BODY - SCORE: 0-UNK DRESSING - LOWER BODY: Patient is not dressing in public clothing ARTICLES SCORE Total number of steps: 0 DRESSING - LOWER BODY - SCORE: 0-UNK TOILETING: TOILETING - STEP 1: Does the patient require the assistance of a person or device, or need extra time with toileting? Yes . TOILETING - STEP 2: Does the patient require the assistance of a helper? Yes. TOILETING - STEP 3: How much assistance does the patient require from the helper? Only supervision TOILETING - SCORE: 5-SUP BLADDER MANAGEMENT: BLADDER MANAGEMENT - STEP 1: Does the patient control the bladder completely and intentionally without equipment or devices or med ications, and is always continent? No. BLADDER MANAGEMENT - STEP 2: Does the patient require the assistance of a helper? Yes. BLADDER MANAGEMENT - STEP 3: How much assistance does the patient require from the helper? Only set-up of equipment - such as plac ing it within reach of the patient or emptying a device - to maintain either satisfactory voiding pat tern or managing an external device, such as an absorbent pad, ileal device, or catheter BLADDER MANAGEMENT - SCORE: 5-SUP BOWEL MANAGEMENT: Activity did not occur on this shift BOWEL MANAGEMENT - SCORE: 7-IND TRANSFERS: BED, CHAIR, WHEELCHAIR: Activity did not occur on this shift TRANSFERS: BED, CHAIR, WHEELCHAIR - SCORE: 0-UNK TRANSFERS: TOILET: Activity did not occur on this shift TRANSFERS: TOILET - SCORE: 0-UNK TRANSFERS: SHOWER: Activity did not occur on this shift TRANSFERS: SHOWER - SCORE: 0-UNK TRANSFERS: TUB: Activity did not occur on this shift TRANSFERS: TUB - SCORE: 0-UNK LOCOMOTION: WALK: Activity did not occur on this shift LOCOMOTION: WALK - SCORE: 0-UNK LOCOMOTION: WHEELCHAIR: Activity did not occur on this shift LOCOMOTION: WHEELCHAIR - SCORE: 0-UNK COMPREHENSION: COMPREHENSION: TYPE: Both COMPREHENSION - STEP 1: Does the patient require help from a person or device, or need extra time to understand complex and a bstract ideas (such as current events, finances, discharge planning, medical issues, relationships, e tc)? No. COMPREHENSION - STEP 2: Does the patient need extra time, require an assistive device (such as glasses for visual comprehensi on or a hearing aid for auditory comprehension) or does s/he have mild difficulty understanding compl ex and abstract information? Yes. COMPREHENSION - SCORE: 6-SHILPI EXPRESSION EXPRESSION: TYPE: Both EXPRESSION - STEP 1: Does the patient require help from a person or device, or need extra time expressing complex and abst ract ideas (such as current events, finances, discharge planning, medical issues, relationships, etc) ? No. EXPRESSION - STEP 2: Does the patient need extra time, require an assistive device (such as augmentive communication syste m or a communication board), OR does s/he have mild difficulty expressing complex and abstract ideas (including mild dysarthria or mild word-find problems)? No. EXPRESSION - SCORE: 7-IND SOCIAL INTERACTION: SOCIAL INTERACTION - STEP 1: Does the patient require a helper to interact with others in social and therapeutic situations? No. SOCIAL INTERACTION - STEP 2: Does the patient need extra time in social situations, OR does s/he interact with staff, other patien ts, and family members ONLY in structured environments, OR does s/he require medication for social in teraction? Yes, patient requires medication for social interaction SOCIAL INTERACTION - SCORE: 6-SHILPI PROBLEM SOLVING: PROBLEM SOLVING - STEP 1: Does the patient need help from a person or device, or need extra time to solve complex problems such as managing a checking account or confronting interpersonal problems? Yes. PROBLEM SOLVING - STEP 2: Does the patient solve basic routine problems half or more of the time? Yes. PROBLEM SOLVING - STEP 3: How often does the patient need help to solve basic routine problems? 10%-24% of the time PROBLEM SOLVING - SCORE: 4-MIN MEMORY: MEMORY - STEP 1: Does the patient need help from a person or device, or need extra time to remember frequently encount ered people, daily routines, and executing requests? No. MEMORY - STEP 2: Does the patient have slight difficulty recognizing frequently encountered people, daily routines, or executing requests without the need for repetition or using self-initiated or environmental cues to remember? Yes. MEMORY - SCORE: 6-SHILPI
[2018-08-28 06:38] VITALS: BP 142/91; TEMP 97
[2018-08-28] MEDS: TRAMADOL HCL 50 MG TAB PO PRN (06:54)
[2018-08-28] MEDS: INSULIN -REGULAR HUMAN 50 UNIT/0.5 ML ML SQ SCH (07:14)
[2018-08-28] MEDS: ATORVASTATIN 10 MG TAB PO SCH (08:15)
[2018-08-28] MEDS: LIDOCAINE 5% PATCH TOP SCH (08:15)
[2018-08-28] MEDS: VITAMIN D 5,000 UNIT CAP PO SCH (08:15)
[2018-08-28] MEDS: APIXABAN 5 MG TABLET PO SCH (08:16)
[2018-08-28] MEDS: TAMSULOSIN 0.4 MG SR CAP PO SCH (08:16)
[2018-08-28] MEDS: RANITIDINE 150 MG TABLET PO SCH (08:16)
[2018-08-28] MEDS: FENOFIBRATE 160 MG TAB PO SCH (08:16)
[2018-08-28] MEDS: INSULIN LISPRO 100 UNIT/1 ML SQ SCH (08:17)
--- NOTE | 2018-08-28 09:50 | P.RH.PN ---
Estimated Length of Stay: 19 Expected Discharge Date: 08/28/18 Discharge Disposition Plan: Home Family Support: Yes [facility] Goal: Mobility, Transfers, Self Care Vital Signs: Last Vital Signs Temp 97 F 08/28/18 06:36 Pulse 76 08/28/18 06:36 Resp 16 08/28/18 06:36 BP 142/91 H 08/28/18 06:36 Pulse Ox 94 08/28/18 06:36 Laboratory: Laboratory Last Values WBC 4.2 K/uL (4.3-10.9) L 08/27/18 05:51 RBC 3.88 M/uL (4.33-5.43) L 08/27/18 05:51 Hgb 12.9 g/dL (13.6-17.9) L 08/27/18 05:51 Hct 38.6 % (39.6-49.0) L 08/27/18 05:51 MCV 99.6 fL (80-100) 08/27/18 05:51 MCH 33.2 pg (27.0-35.0) 08/27/18 05:51 MCHC 33.3 g/dL (32.0-36.0) 08/27/18 05:51 RDW 14.9 % (12.1-15.2) 08/27/18 05:51 Plt Count 165 K/uL (152-406) D 08/27/18 05:51 MPV 7.3 fL (7.6-11.3) L 08/27/18 05:51 Neutrophils % 38.2 % (41.7-73.7) L 08/27/18 05:51 Lymphocytes % 42.9 % (15.3-44.8) 08/27/18 05:51 Monocytes % 14.2 % (3.3-12.3) H 08/27/18 05:51 Eosinophils % 3.8 % (0-4.4) 08/27/18 05:51 Basophils % 0.9 % (0-1.3) 08/27/18 05:51 Absolute Neutrophils 1.6 K/uL (1.8-8.0) L 08/27/18 05:51 Segmented Neutrophils 36 % (40-80) L 08/27/18 05:51 Absolute Lymphocytes 1.8 K/uL (0.7-4.9) 08/27/18 05:51 Lymphocytes 49 % (15-42) H 08/27/18 05:51 Monocytes 7 % (0-10) 08/27/18 05:51 Absolute Monocytes 0.6 K/uL (0.1-1.3) 08/27/18 05:51 Eosinophils 6 % (0-3) H 08/27/18 05:51 Absolute Eosinophils 0.2 K/uL (0-0.5) 08/27/18 05:51 Basophils 2 % (0-1) H 08/27/18 05:51 Absolute Basophils 0.0 K/uL (0-0.5) 08/27/18 05:51 Morphology Comment Not seen (NOT SEEN) 08/27/18 05:51 Sodium 146 mmol/L (136-145) H 08/27/18 05:51 Potassium 4.9 mmol/L (3.5-5.1) 08/27/18 05:51 Chloride 113 mmol/L (98-107) H 08/27/18 05:51 Carbon Dioxide 29 mmol/L (21-32) 08/27/18 05:51 BUN 35 mg/dL (7-18) H 08/27/18 05:51 Creatinine 2.01 mg/dL (0.55-1.3) H 08/27/18 05:51 Estimated GFR 32 mL/min (=/>90) L 08/27/18 05:51 Glucose 111 mg/dL (74-106) H 08/27/18 05:51 POC Glucose 135 mg/dl (65-120) H 08/28/18 06:52 Calcium 8.6 mg/dL (8.5-10.1) 08/27/18 05:51 Magnesium 2.1 mg/dL (1.8-2.4) 08/27/18 05:51 Albumin 3.2 g/dL (3.4-5.0) L 08/27/18 05:51 Prealbumin 26.4 mg/dL (20-40) 08/27/18 05:51 Urine Color Yellow 08/10/18 20:00 Urine Appearance Clear 08/10/18 20:00 Urine pH 6.5 (5.0-7.0) 08/10/18 20:00 Ur Specific [place] 1.020 (1.005-1.030) 08/10/18 20:00 Urine Ketones Negative (NEG) 08/10/18 20:00 Urine Blood 1+ (NEG) H 08/10/18 20:00 Urine Nitrite Negative (NEG) 08/10/18 20:00 Urine Bilirubin Negative (NEG) 08/10/18 20:00 Urine Urobilinogen 0.2 mg/dL (0.2-1.0) 08/10/18 20:00 Ur Leukocyte Esterase Negative (NEG) 08/10/18 20:00 Urine RBC 5-10 /HPF (NONE SEEN) H 08/10/18 20:00 Urine WBC None seen /HPF (<5) 08/10/18 20:00 Ur Squamous Epith Cells <5 /HPF (NONE SEEN) 08/10/18 20:00 Calcium Oxalate Crystal Few (NONE SEEN) 08/10/18 20:00 Urine Bacteria <20 /HPF (NONE SEEN) 08/10/18 20:00 Urine Culture Reflexed Not needed 08/10/18 20:00 Urine Glucose 2+ (NEG) H 08/10/18 20:00 Urine Total Protein 2+ (NEG) H 08/10/18 20:00 Weight: 186 lb 4.8 oz Wound Present: No Closed Surgical Incision Present: No Negative Pressure Wound Therapy Present: No Physician Update: Labs are stable. He is followed by the renal service. He is doing very well with physical, occupational and speech therapy. He will have home health to continue therapy. Medical Issues: DVT Prophylaxis - Eliquis 5mg BID Pain Issues: Tramadol 50mg Q4H PRN PO. Lidoderm patch 5% Daily Functional Improvement: Patient has met all short-term and long-term goals, w/ the exception of a car transfer, due to no access to a vehicle. Patient has demonstrated good safety awareness and technique. Functional Improvement Occupational Therapy: Cont to increase pt's right occupational safety specialist strength for FMC/GMC for adl tasks, cont to strengthen pt's static standing and UB strength and cont to educate pt on energy conservation techniques and safety for safe functinonal transfers. Speech Therapy Update: Pt cont to make significant progress on his overall speech and cognitive abilities. Pt is much more fluent and during episodes of dysfluency he requires min cues to pause, take a deep breath, and try again. Pt is at MOD I for Auditory Comprehension, SUPV for Verbal Expression, MOD I for Social Interaction, MOD I for Problem Solving, and SUPV to MOD I for Memory. He demonstrates a good understanding of compensatory strategies and how to apply them during functional tasks. Summary: Patient's care plan and retirement goals have been reviewed and revised as necessary. Please see the Rehabilitation Signature page for all necessary signatures.
--- NOTE | 2018-08-28 14:47 | FAST ---
ENCOUNTER DATE AND TIME: 08/28/2018 08:00 (CDT) NAME CHRIS BOUDREAUX DATE OF : 1940 DATE OF ADMISSION: 08/10/2018 18:05 (CDT) PHONE: AGE: 78 SSN# [id number] GENDER: Male ENCOUNTER PHYSICIAN: Dr. Piero De Jesus M.D. 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 EATING: Activity did not occur on this shift EATING - SCORE: 0-UNK GROOMING: Activity did not occur on this shift GROOMING - SCORE: 0-UNK BATHING: Activity did not occur on this shift BATHING - SCORE: 0-UNK DRESSING - UPPER BODY: Activity did not occur on this shift Patient is not dressing in public clothing ARTICLES SCORE Total number of steps: 0 DRESSING - UPPER BODY - SCORE: 0-UNK DRESSING - LOWER BODY: Activity did not occur on this shift Patient is not dressing in public clothing ARTICLES SCORE Total number of steps: 0 DRESSING - LOWER BODY - SCORE: 0-UNK TOILETING: Activity did not occur on this shift TOILETING - SCORE: 0-UNK BLADDER MANAGEMENT: Activity did not occur on this shift BLADDER MANAGEMENT - SCORE: 7-IND BOWEL MANAGEMENT: Activity did not occur on this shift BOWEL MANAGEMENT - SCORE: 7-IND TRANSFERS: BED, CHAIR, WHEELCHAIR: TRANSFERS: BED, CHAIR, WHEELCHAIR - STEP 1: Does the patient require assistance of a person or device, or need extra time with bed, chair, or whe elchair transfers? Yes. TRANSFERS: BED, CHAIR, WHEELCHAIR - STEP 2: Does the patient require the assistance of a helper? No. Patient only requires an assistive device fo r bed, chair, wheelchair transfers such as a sliding board, grab bar, or brace, OR s/he takes more th an reasonable time, OR there is a safety concern when s/he performs the transfers TRANSFERS: BED, CHAIR, WHEELCHAIR - SCORE: 6-SHILPI TRANSFERS: TOILET: Activity did not occur on this shift TRANSFERS: TOILET - SCORE: 0-UNK TRANSFERS: SHOWER: Activity did not occur on this shift TRANSFERS: SHOWER - SCORE: 0-UNK TRANSFERS: TUB: Activity did not occur on this shift TRANSFERS: TUB - SCORE: 0-UNK LOCOMOTION: WALK: LOCOMOTION: WALK - STEP 1: Does the patient need help from a person or device, or need extra time to walk 150 feet? No. LOCOMOTION: WALK - STEP 2: Does the patient need an assistive device (such as an orthosis, prosthesis, crutches, or walker) to g o 150 feet, OR does s/he take more than reasonable time, OR is there a concern for safety? Yes, the p atient needs an assistive device LOCOMOTION: WALK - SCORE: 6-SHILPI LOCOMOTION: WHEELCHAIR: Activity did not occur on this shift LOCOMOTION: WHEELCHAIR - SCORE: 0-UNK LOCOMOTION: STAIRS: LOCOMOTION: STAIRS - STEP 1: Does the patient need help to go up and down 12 to 14 stairs? No. LOCOMOTION: STAIRS - STEP 2: Does the patient require an assistive device - such as handrails or cane - to go up and down one flig ht of stairs, OR does s/he take more than reasonable time, OR is there a concern for safety? Yes, the patient requires an assistive device LOCOMOTION: STAIRS - SCORE: 6-SHILPI COMPREHENSION: COMPREHENSION - SCORE: 0-UNK EXPRESSION EXPRESSION - SCORE: 0-UNK SOCIAL INTERACTION: SOCIAL INTERACTION - SCORE: 0-UNK PROBLEM SOLVING: PROBLEM SOLVING - SCORE: 0-UNK MEMORY: MEMORY - SCORE: 0-UNK SIGNATURE PANEL: The following modified sections: Transfers: Bed, Chair, Wheelchair - Score, Transfers: Toilet - Score , Locomotion: Walk - Score, Locomotion: Wheelchair - Score, Locomotion: Stairs - Score were [chance eldridge] signed by Manas Abarca PT on FriAug 28 2018 14:46:12 T-0500 (Central Daylight Time)
--- NOTE | 2018-08-28 21:44 | P.PN ---
Date of Service: 08/28/18 Vital Signs Temp Pulse Resp BP Pulse Ox 97 F 76 16 142/91 H 94 08/28/18 06:36 08/28/18 06:36 08/28/18 06:36 08/28/18 06:36 08/28/18 06:36 Lab Results (last 24 hrs) 08/28/18 06:52: POC Glucose 135 H Microbiology Results 08/10/18 20:00 Clean Catch Urine [place] Count - Final 08/10/18 20:00 Clean Catch Urine - Final No growth. Assessment/ Plan: Nephrology. Doing well. CPS stable without CP or SOB. No acute events overnight. Vitals, medications, blood work and imaging reviewed in the chart. General: In no apparent distress, Oriented x3, Cooperative HEENT: Atraumatic Neck: Supple Respiratory: Clear to auscultation bilaterally Cardiovascular: No edema, Regular rate/rhythm Gastrointestinal: Soft and benign, Non-distended Musculoskeletal: No clubbing, No contractures Integumentary: No rashes Neurological: Normal speech Blood work reviewed in the chart. 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 HTN with CKD/ CHF. DM II with CKD. Diastolic CHF, chronic. CAD/ PAD. Anemia in chronic illness. BPH with luts. A/ Continue current POC and Medications. Maintain adequate hydration. Titrate insulin as needed. No NSAIDs. AM labs PRN. Daily weight. Encourage PT as tolerated.
== END 2018-08-28 11:00 | disposition home health service (06) | DRG 57 ==
LOC: 5TH 18:21
PROVIDERS: ADMIT Psychiatry & Neurology Neurology with Special Qualifications in Child Neurology; ATTEND Psychiatry & Neurology Neurology with Special Qualifications in Child Neurology
DX: I69.351 Hemiplegia and hemiparesis following cerebral infarction affecting right dominant side (principal); N17.9 Acute kidney failure, unspecified; I13.0 Hypertensive heart and chronic kidney disease with heart failure and stage 1 through stage 4 chronic kidney disease, or unspecified chronic kidney disease; I50.32 Chronic diastolic (congestive) heart failure; K21.9 Gastro-esophageal reflux disease without esophagitis; E78.5 Hyperlipidemia, unspecified; E11.22 Type 2 diabetes mellitus with diabetic chronic kidney disease; N18.3 Chronic kidney disease, stage 3 (moderate); I25.10 Atherosclerotic heart disease of native coronary artery without angina pectoris; D63.1 Anemia in chronic kidney disease; N40.1 Benign prostatic hyperplasia with lower urinary tract symptoms
CPT/HCPCS: 36415; 80048; 81001; 82040; 82962; 83735; 84134; 85025; 87086; 87088; 92507; 92508; 92523; 97110; 97116; 97127; 97150; 97162; 97167; 97530

== ENCOUNTER 2019-01-10 18:16 | Observation (INO) | payer OTHER ==
--- OUTSIDE RECORDS SUMMARY | 2019-01-10 18:21 | XMS REPORT ---
:1940 [facility] Address [facility] [place] [address] Care Team Providers Name Role Phone CLAIRE [...] (BEAKER) (test 244 mg/dL 70-110 TESTED AT [facility] [address] [facility] tmpr=1410) [facility] [address] BASIC METABOLIC [id number] 09:51:00 Test Item Value Reference Range Comments SODIUM (BEAKER) (test 139 meq/L 136-145 wrwx=483) POTASSIUM (BEAKER) (test 3.9 meq/L 3.5-5.1 iwwk=522) CHLORIDE (BEAKER) (test 110 meq/L 98-107 pzrx=655) CO2 (BEAKER) (test 21 meq/L 22-29 nnug=523) BLOOD UREA NITROGEN 29 mg/dL 7-21 (BEAKER) (test xiql=098) CREATININE (BEAKER) (test 1.92 mg/dL 0.57-1.25 takj=379) GLUCOSE RANDOM (BEAKER) 149 mg/dL 70-105 (test qynh=647) CALCIUM (BEAKER) (test 8.7 mg/dL 8.4-10.2 vedu=132) EGFR (BEAKER) (test 34 mL/min/1.73 sq m ESTIMATED GFR IS NOT idhl=2677) ACCURATE CREATININE CLEARANCE IN PREDICTING GLOMERULAR FILTRATION RATE. ESTIMATED GFR IS NOT APPLICABLE FOR DIALYSIS PATIENTS. CBC W/PLT COUNT & AUTO [id number] 06:36:00 Test Item Value Reference Range Comments WHITE BLOOD CELL COUNT 4.7 K/ L 3.5-10.5 (BEAKER) (test rrsq=151) RED BLOOD CELL COUNT (BEAKER) 3.70 M/ L 4.63-6.08 (test sgvm=633) HEMOGLOBIN (BEAKER) (test 12.2 GM/DL 13.7-17.5 esuj=845) HEMATOCRIT (BEAKER) (test 37.9 % 40.1-51.0 dxoj=866) MEAN CORPUSCULAR VOLUME 102.4 fL 79.0-92.2 Discordant with previous (BEAKER) (test aagx=978) result MEAN CORPUSCULAR HEMOGLOBIN 33.0 pg 25.7-32.2 (BEAKER) (test hlia=353) MEAN CORPUSCULAR HEMOGLOBIN 32.2 GM/DL 32.3-36.5 CONC (BEAKER) (test zupw=325) RED CELL DISTRIBUTION WIDTH 14.9 % 11.6-14.4 (BEAKER) (test yoee=119) PLATELET COUNT (BEAKER) (test 152 K/CU MM 150-450 dish=551) MEAN PLATELET VOLUME (BEAKER) 8.9 fL 9.4-12.4 (test mrke=362) NUCLEATED RED BLOOD CELLS 0 /100 WBC 0-0 (BEAKER) (test ubnv=269) NEUTROPHILS RELATIVE PERCENT 39 % (BEAKER) (test wpff=718) LYMPHOCYTES RELATIVE PERCENT 40 % (BEAKER) (test htxp=854) MONOCYTES RELATIVE PERCENT 18 % (BEAKER) (test odss=277) EOSINOPHILS RELATIVE PERCENT 2 % (BEAKER) (test laxq=462) BASOPHILS RELATIVE PERCENT 0 % (BEAKER) (test blri=363) NEUTROPHILS ABSOLUTE COUNT 1.83 K/ L 1.78-5.38 (BEAKER) (test vzgw=678) LYMPHOCYTES ABSOLUTE COUNT 1.88 K/ L 1.32-3.57 (BEAKER) (test gyke=381) MONOCYTES ABSOLUTE COUNT 0.86 K/ L 0.30-0.82 (BEAKER) (test qryd=719) EOSINOPHILS ABSOLUTE COUNT 0.11 K/ L 0.04-0.54 (BEAKER) (test eenp=907) BASOPHILS ABSOLUTE COUNT 0.02 K/ L 0.01-0.08 (BEAKER) (test uspj=673) IMMATURE GRANULOCYTES-RELATIVE 0 % 0-1 PERCENT (BEAKER) (test cenq=2713) POCT-GLUCOSE [id number] 00:07:00 Test Item Value Reference Range Comments POC-GLUCOSE METER (BEAKER) 139 mg/dL 70-110 TESTED AT [address] (test xauj=7872) [place] [address] POCT-GLUCOSE [id number] 21:11:00 Test Item Value Reference Range Comments POC-GLUCOSE METER (BEAKER) 195 mg/dL 70-110 TESTED AT [address] (test akkz=2298) [place] [address] POCT-GLUCOSE [id number] 17:40:00 Test Item Value Reference Range Comments POC-GLUCOSE METER (BEAKER) 149 mg/dL 70-110 TESTED AT [address] (test rdvw=5017) [place] [address] CT, [facility]IO [id number] 17:11:00FINAL REPORT CT, CTANGIO BRAINBRAIN CT WITHOUT [...] new infarct is developed. There is persistent facu-rp-tqrkrnlr volume loss. No midline shift or hydrocephalus [...] Verified Date/ Time: 08/09/2018 17:11:20 Reading Location: [facility] B1 C013V Neuro Reading Room POCT- GLUCOSE [id number] 08:18:00 Test Item Value Reference Range Comments POC-GLUCOSE METER (BEAKER) 106 mg/dL 70-110 TESTED AT [address] (test jdjp=4159) [place] [address] BASIC METABOLIC [id number] 06:51:00 Test Item Value Reference Range Comments SODIUM (BEAKER) (test 140 meq/L 136-145 eqtd=493) POTASSIUM (BEAKER) (test 3.8 meq/L 3.5-5.1 fpso=506) CHLORIDE (BEAKER) (test 112 meq/L 98-107 doms=624) CO2 (BEAKER) (test 22 meq/L 22-29 mirr=649) BLOOD UREA NITROGEN 23 mg/dL 7-21 (BEAKER) (test uvkx=954) CREATININE (BEAKER) (test 1.47 mg/dL 0.57-1.25 dxiq=175) GLUCOSE RANDOM (BEAKER) 127 mg/dL 70-105 (test fwvv=358) CALCIUM (BEAKER) (test 8.5 mg/dL 8.4-10.2 ozwn=719) EGFR (BEAKER) (test 46 mL/min/1.73 sq m ESTIMATED GFR IS NOT ktte=2967) ACCURATE CREATININE CLEARANCE IN PREDICTING GLOMERULAR FILTRATION RATE. ESTIMATED GFR IS NOT APPLICABLE FOR DIALYSIS PATIENTS. POCT-GLUCOSE [id number] 23:52:00 Test Item Value Reference Range Comments POC-GLUCOSE METER (BEAKER) 184 mg/dL 70-110 TESTED AT [address] (test yfre=1054) [place] [id number] POCT-GLUCOSE [id number] 20:59:00 Test Item Value Reference Range Comments POC-GLUCOSE METER (BEAKER) 214 mg/dL 70-110 TESTED AT [address] (test woqy=5277) [place] [address] POCT-GLUCOSE [id number] 18:04:00 Test Item Value Reference Range Comments POC-GLUCOSE METER (BEAKER) 136 mg/dL 70-110 TESTED AT [address] (test iuvt=5641) [facility] [address] POCT-GLUCOSE [id number] 13:09:00 Test Item Value Reference Range Comments POC-GLUCOSE METER (BEAKER) 182 mg/dL 70-110 TESTED AT [address] (test gntb=0803) [place] [id number] POCT-GLUCOSE [id number] 08:20:00 Test Item Value Reference Range Comments POC-GLUCOSE METER (BEAKER) 139 mg/dL 70-110 TESTED AT [address] (test hrng=6983) [place] [id number] CBC W/PLT COUNT & AUTO [id number] 08:07:00 Test Item Value Reference Range Comments WHITE BLOOD CELL COUNT (BEAKER) (test nmru=399) 3.5 K/ L 3.5-10.5 RED BLOOD CELL COUNT (BEAKER) (test ksej=533) 3.66 M/ L 4.63-6.08 HEMOGLOBIN (BEAKER) (test jqgz=774) 12.3 GM/DL 13.7-17.5 HEMATOCRIT (BEAKER) (test tbzm=362) 39.1 % 40.1-51.0 MEAN CORPUSCULAR VOLUME (BEAKER) (test knqt=374) 106.8 fL 79.0-92.2 MEAN CORPUSCULAR HEMOGLOBIN (BEAKER) (test 33.6 pg 25.7-32.2 dehe=439) MEAN CORPUSCULAR HEMOGLOBIN CONC (BEAKER) (test 31.5 GM/DL 32.3-36.5 rlan=013) RED CELL DISTRIBUTION WIDTH (BEAKER) (test 15.7 % 11.6-14.4 gixe=330) PLATELET COUNT (BEAKER) (test amfp=314) 132 K/CU MM 150-450 MEAN PLATELET VOLUME (BEAKER) (test clml=758) 8.6 fL 9.4-12.4 NUCLEATED RED BLOOD CELLS (BEAKER) (test 0 /100 WBC 0-0 ckdn=961) (CELLAVISION MANUAL DIFF)2018-08-08 08:07:00 Test Item Value Reference Range Comments NEUTROPHILS - REL (CELLAVISION)(BEAKER) (test 62 % kcjx=1723) LYMPHOCYTES - REL (CELLAVISION)(BEAKER) (test 29 % rspy=1772) MONOCYTES - REL (CELLAVISION)(BEAKER) (test 5 % pzxi=0470) BANDS - REL (CELLAVISION)(BEAKER) (test 4 % 0-10 fckk=1423) NEUTROPHILS - ABS (CELLAVISION)(BEAKER) (test 2.17 K/ul 1.78-5.38 igbx=8203) LYMPHOCYTES - ABS (CELLAVISION)(BEAKER) (test 1.02 K/ul 1.32-3.57 ayqb=2978) MONOCYTES - ABS (CELLAVISION)(BEAKER) (test 0.18 K/uL 0.30-0.82 hzyq=3188) BANDS - ABS (CELLAVISION)(BEAKER) (test 0.14 K/uL 0.00-0.80 jwzs=9743) TOTAL COUNTED (BEAKER) (test xxvz=6451) 100 MANUAL NRBC PER 100 CELLS (BEAKER) (test 1 /100 WBC 0-0 euve=7888) WBC MORPHOLOGY (BEAKER) (test qgld=397) Normal CLUMPED PLATELETS (BEAKER) (test aing=301) Present GIANT PLATELETS (BEAKER) (test dbno=713) Present POLYCHROMATOPHILLIC RBCS(BEAKER) (test qius=115) 1+ few ANISOCYTOSIS (BEAKER) (test aohf=452) 2+ moderate MICROCYTES (BEAKER) (test sggo=781) 1+ few MACROCYTES (BEAKER) (test yblc=789) 2+ moderate POIKILOCYTES (BEAKER) (test tcgd=798) 1+ few OVALOCYTES (BEAKER) (test rudi=006) 1+ few ARTIFACT (CELLAVISION)(BEAKER) (test ggxg=2668) Present PLATELET CONCENTRATION (CELLAVISION)(BEAKER) Decreased (test lfyh=2651) Received comment: User comments: Slide comments:BASIC METABOLIC [id number] 04:26:00 Test Item Value Reference Range Comments SODIUM (BEAKER) (test 134 meq/L 136-145 okyl=407) POTASSIUM (BEAKER) (test 4.1 meq/L 3.5-5.1 Specimen slightly crou=361) hemolyzed CHLORIDE (BEAKER) (test 108 meq/L 98-107 dxid=792) CO2 (BEAKER) (test 20 meq/L 22-29 xbth=053) BLOOD UREA NITROGEN 24 mg/dL 7-21 (BEAKER) (test cfxd=860) CREATININE (BEAKER) (test 1.66 mg/dL 0.57-1.25 Specimen slightly bbfl=792) hemolyzed GLUCOSE RANDOM (BEAKER) 117 mg/dL 70-105 (test xzoi=565) CALCIUM (BEAKER) (test 8.6 mg/dL 8.4-10.2 cwcf=404) EGFR (BEAKER) (test 40 mL/min/1.73 sq m ESTIMATED GFR IS NOT xptm=2751) ACCURATE CREATININE CLEARANCE IN PREDICTING GLOMERULAR FILTRATION RATE. ESTIMATED GFR IS NOT APPLICABLE FOR DIALYSIS PATIENTS. POCT-GLUCOSE [id number] 21:38:00 Test Item Value Reference Range Comments POC-GLUCOSE METER (BEAKER) 169 mg/dL 70-110 TESTED AT [address] (test yywu=0114) [place] [address] POCT-GLUCOSE [id number] 18:11:00 Test Item Value Reference Range Comments POC-GLUCOSE METER (BEAKER) 133 mg/dL 70-110 TESTED AT [address] (test zxgg=1260) [place] [address] POCT-GLUCOSE [id number] 12:07:00 Test Item Value Reference Range Comments POC-GLUCOSE METER (BEAKER) 187 mg/dL 70-110 TESTED AT [address] (test drhu=6234) [place] [address] CBC W/PLT COUNT & AUTO [id number] 11:27:00 Test Item Value Reference Range Comments WHITE BLOOD CELL COUNT (BEAKER) (test kwlj=451) 5.4 K/ L 3.5-10.5 RED BLOOD CELL COUNT (BEAKER) (test xgtk=400) 3.99 M/ L 4.63-6.08 HEMOGLOBIN (BEAKER) (test cprn=973) 13.2 GM/DL 13.7-17.5 HEMATOCRIT (BEAKER) (test xkql=497) 40.9 % 40.1-51.0 MEAN CORPUSCULAR VOLUME (BEAKER) (test lrqp=925) 102.5 fL 79.0-92.2 MEAN CORPUSCULAR HEMOGLOBIN (BEAKER) (test 33.1 pg 25.7-32.2 xjme=735) MEAN CORPUSCULAR HEMOGLOBIN CONC (BEAKER) (test 32.3 GM/DL 32.3-36.5 fcfs=777) RED CELL DISTRIBUTION WIDTH (BEAKER) (test 15.4 % 11.6-14.4 bsje=694) PLATELET COUNT (BEAKER) (test efcz=186) 175 K/CU MM 150-450 MEAN PLATELET VOLUME (BEAKER) (test mhhy=515) 8.4 fL 9.4-12.4 NUCLEATED RED BLOOD CELLS (BEAKER) (test 0 /100 WBC 0-0 xpin=159) (CELLAVISION MANUAL DIFF)2018-08-07 11:27:00 Test Item Value Reference Range Comments NEUTROPHILS - REL (CELLAVISION)(BEAKER) (test 72 % vzgd=9547) LYMPHOCYTES - REL (CELLAVISION)(BEAKER) (test 10 % zfku=5969) MONOCYTES - REL (CELLAVISION)(BEAKER) (test 10 % kpzy=2647) EOSINOPHILS - REL (CELLAVISION)(BEAKER) (test 2 % xpob=5257) BASOPHILS - REL (CELLAVISION)(BEAKER) (test 1 % cztx=0604) BANDS - REL (CELLAVISION)(BEAKER) (test gmpe=1402) 4 % 0-10 ATYPICAL LYMPHOCYTES - REL (CELLAVISION)(BEAKER) 2 % 0-0 (test uein=9660) NEUTROPHILS - ABS (CELLAVISION)(BEAKER) (test 3.89 K/ul 1.78-5.38 bsah=6697) LYMPHOCYTES - ABS (CELLAVISION)(BEAKER) (test 0.54 K/ul 1.32-3.57 xryh=3214) MONOCYTES - ABS (CELLAVISION)(BEAKER) (test 0.54 K/uL 0.30-0.82 yrxm=3981) EOSINOPHILS - ABS (CELLAVISION)(BEAKER) (test 0.11 K/uL 0.04-0.54 zdli=4550) BASOPHILS - ABS (CELLAVISION)(BEAKER) (test 0.05 K/uL 0.01-0.08 wbpz=8988) BANDS - ABS (CELLAVISION)(BEAKER) (test ghes=3915) 0.22 K/uL 0.00-0.80 ATYPICAL LYMPHOCYTES - ABS (CELLAVISION)(BEAKER) 0.11 K/uL 0.00-0.00 (test excc=3171) TOTAL COUNTED (BEAKER) (test zdzb=5489) 100 RBC MORPHOLOGY (BEAKER) (test dduo=855) Normal WBC MORPHOLOGY (BEAKER) (test ttrr=577) Normal PLT MORPHOLOGY (BEAKER) (test ctym=093) Normal ARTIFACT (CELLAVISION)(BEAKER) (test tlby=2925) Present PLATELET CONCENTRATION (CELLAVISION)(BEAKER) (test Adequate frga=7764) Received comment: User comments: Slide comments:BASIC METABOLIC [id number] 08:19:00 Test Item Value Reference Range Comments SODIUM (BEAKER) (test 142 meq/L 136-145 shpf=588) POTASSIUM (BEAKER) (test 4.4 meq/L 3.5-5.1 ovqf=587) CHLORIDE (BEAKER) (test 109 meq/L 98-107 xibe=005) CO2 (BEAKER) (test 27 meq/L 22-29 pwyy=283) BLOOD UREA NITROGEN 30 mg/dL 7-21 (BEAKER) (test sbvi=648) CREATININE (BEAKER) (test 1.91 mg/dL 0.57-1.25 hzcb=724) GLUCOSE RANDOM (BEAKER) 155 mg/dL 70-105 (test vtvg=869) CALCIUM (BEAKER) (test 9.2 mg/dL 8.4-10.2 bcpe=158) EGFR (BEAKER) (test 34 mL/min/1.73 sq m ESTIMATED GFR IS NOT qcrx=3998) ACCURATE CREATININE CLEARANCE IN PREDICTING GLOMERULAR FILTRATION RATE. ESTIMATED GFR IS NOT APPLICABLE FOR DIALYSIS PATIENTS. POCT-GLUCOSE [id number] 07:40:00 Test Item Value Reference Range Comments POC-GLUCOSE METER (BEAKER) 172 mg/dL 70-110 TESTED AT [facility] [address] [facility] [facility] (test tnzu=3296) [facility] [address] POCT-GLUCOSE [id number] 21:17:00 Test Item Value Reference Range Comments POC-GLUCOSE METER (BEAKER) 184 mg/dL 70-110 TESTED AT [address] (test nhjx=6903) [facility] [address] POCT-GLUCOSE [id number] 17:37:00 Test Item Value Reference Range Comments POC-GLUCOSE METER (BEAKER) 199 mg/dL 70-110 TESTED AT [address] (test kogt=1565) [facility] [address] POCT-GLUCOSE [id number] 12:38:00 Test Item Value Reference Range Comments POC-GLUCOSE METER (BEAKER) 202 mg/dL 70-110 TESTED AT [address] (test ixnp=7884) [facility] [address] POCT-GLUCOSE [id number] 08:15:00 Test Item Value Reference Range Comments POC-GLUCOSE METER (BEAKER) 134 mg/dL 70-110 TESTED AT [address] (test mavi=1834) [facility] [address] CBC W/PLT COUNT & AUTO [id number] 06:52:00 Test Item Value Reference Range Comments WHITE BLOOD CELL COUNT (BEAKER) (test wiph=466) 5.0 K/ L 3.5-10.5 RED BLOOD CELL COUNT (BEAKER) (test ckcf=058) 3.94 M/ L 4.63-6.08 HEMOGLOBIN (BEAKER) (test bovw=380) 13.1 GM/DL 13.7-17.5 HEMATOCRIT (BEAKER) (test umpf=636) 40.3 % 40.1-51.0 MEAN CORPUSCULAR VOLUME (BEAKER) (test aydp=763) 102.3 fL 79.0-92.2 MEAN CORPUSCULAR HEMOGLOBIN (BEAKER) (test 33.2 pg 25.7-32.2 glri=618) MEAN CORPUSCULAR HEMOGLOBIN CONC (BEAKER) (test 32.5 GM/DL 32.3-36.5 ljlr=267) RED CELL DISTRIBUTION WIDTH (BEAKER) (test 15.4 % 11.6-14.4 schg=573) PLATELET COUNT (BEAKER) (test faby=518) 174 K/CU MM 150-450 MEAN PLATELET VOLUME (BEAKER) (test aemb=101) 8.8 fL 9.4-12.4 NUCLEATED RED BLOOD CELLS (BEAKER) (test 0 /100 WBC 0-0 chlo=536) NEUTROPHILS RELATIVE PERCENT (BEAKER) (test 45 % xvzf=657) LYMPHOCYTES RELATIVE PERCENT (BEAKER) (test 38 % kfhi=397) MONOCYTES RELATIVE PERCENT (BEAKER) (test 14 % lrsu=981) EOSINOPHILS RELATIVE PERCENT (BEAKER) (test 3 % ssez=673) BASOPHILS RELATIVE PERCENT (BEAKER) (test 0 % mlym=105) NEUTROPHILS ABSOLUTE COUNT (BEAKER) (test 2.27 K/ L 1.78-5.38 yjdd=383) LYMPHOCYTES ABSOLUTE COUNT (BEAKER) (test 1.89 K/ L 1.32-3.57 jquf=903) MONOCYTES ABSOLUTE COUNT (BEAKER) (test 0.68 K/ L 0.30-0.82 ilwg=237) EOSINOPHILS ABSOLUTE COUNT (BEAKER) (test 0.15 K/ L 0.04-0.54 vvvm=272) BASOPHILS ABSOLUTE COUNT (BEAKER) (test 0.02 K/ L 0.01-0.08 nvlb=662) IMMATURE GRANULOCYTES-RELATIVE PERCENT (BEAKER) 0 % 0-1 (test mtjx=6865) BASIC METABOLIC [id number] 05:40:00 Test Item Value Reference Range Comments SODIUM (BEAKER) (test 141 meq/L 136-145 bzwl=265) POTASSIUM (BEAKER) (test 4.0 meq/L 3.5-5.1 nsyl=679) CHLORIDE (BEAKER) (test 110 meq/L 98-107 ifgr=076) CO2 (BEAKER) (test 24 meq/L 22-29 ohcl=997) BLOOD UREA NITROGEN 28 mg/dL 7-21 (BEAKER) (test gpgb=183) CREATININE (BEAKER) (test 1.69 mg/dL 0.57-1.25 wrai=370) GLUCOSE RANDOM (BEAKER) 139 mg/dL 70-105 (test jcxy=854) CALCIUM (BEAKER) (test 9.1 mg/dL 8.4-10.2 vviu=787) EGFR (BEAKER) (test 39 mL/min/1.73 sq m ESTIMATED GFR IS NOT bjou=9627) ACCURATE CREATININE CLEARANCE IN PREDICTING GLOMERULAR FILTRATION RATE. ESTIMATED GFR IS NOT APPLICABLE FOR DIALYSIS PATIENTS. POCT-GLUCOSE [id number] 21:06:00 Test Item Value Reference Range Comments POC-GLUCOSE METER (BEAKER) 256 mg/dL 70-110 TESTED AT [facility] [address] [facility] (test ytix=1531) [facility] [address] POCT-GLUCOSE [id number] 19:05:00 Test Item Value Reference Range Comments POC-GLUCOSE METER (BEAKER) 181 mg/dL 70-110 TESTED AT [facility] [address] [facility] (test avtb=7552) [facility] [address] MR, SPINE, CERVICAL, WITHOUT [id number] 19:02:00FINAL REPORT MR, SPINE, CERVICAL, WITHOUT CONTRAST, [...] arteries: Normal flow-related enhancement within the bilateral [employer]ORY [employer]ACHINE COMPUTER OPERATOR P1-P2 segments without flow-limiting stenosisAdditional findings: None. [...] loss, most conspicuous at C3-C4, C4-C5 and C5-B5Psrgnx signal intensity is within normal limits for [...] Verified Date/ Time: 08/05/2018 19:02:53 Reading Location: [address] Neuro Reading Room MR , MRA, BRAIN, WITHOUT [id number] 19:02:00FINAL REPORT MR, SPINE, CERVICAL, WITHOUT CONTRAST, [...] arteries: Normal flow-related enhancement within the bilateral FACTORY MACHINE COMPUTER OPERATOR P1-P2 segments without flow-limiting stenosisAdditional findings: None. [...] loss, most conspicuous at C3-C4, C4-C5 and C5-D2Pdbpkv signal intensity is within normal limits for [...] Verified Date/ Time: 08/05/2018 19:02:53 Reading Location: [facility] C0[facility] Neuro Reading Room MR , MRA, NECK, WITHOUT IV [id number] 19:02:00FINAL REPORT MR, SPINE, CERVICAL, WITHOUT CONTRAST, [...] arteries: Normal flow-related enhancement within the bilateral FACTORY MACHINE COMPUTER OPERATOR P1-P2 segments without flow-limiting stenosisAdditional findings: None. [...] loss, most conspicuous at C3-C4, C4-C5 and C5-Y2Ekkucb signal intensity is within normal limits for [...] Verified Date/ Time: 08/05/2018 19:02:53 Reading Location: [address] Neuro Reading Room MR , BRAIN, WITHOUT [id number] 17:53:00FINAL REPORT MR, BRAIN, WITHOUT CONTRAST INDICATION: [...] Sheela Corey Verified Date/Time: 17:53:47 Reading Location: [address] Neuro Reading Room POCT-GLUCOSE [id number] 12:25:00 Test Item Value Reference Range Comments POC-GLUCOSE METER (BEAKER) 255 mg/dL 70-110 TESTED AT [facility] [address] [place] [address] (test fupt=9629) [facility] [address] HEMOGLOBIN [id number] 10:11:00 Test Item Value Reference Range Comments HEMOGLOBIN A1C (BEAKER) (test ysqo=513) 6.7 % 4.3-6.1 POCT-GLUCOSE [id number] 08:38:00 Test Item Value Reference Range Comments POC-GLUCOSE METER (BEAKER) 146 mg/dL 70-110 TESTED AT [facility] [address] [facility] (test mjtc=6991) [facility] [address] [id number] 06:49:00 Test Item Value Reference Range Comments MAGNESIUM (BEAKER) (test cmln=383) 1.8 mg/dL 1.6-2.6 BASIC METABOLIC [id number] 06:49:00 Test Item Value Reference Range Comments SODIUM (BEAKER) (test 140 meq/L 136-145 furu=262) POTASSIUM (BEAKER) (test 4.1 meq/L 3.5-5.1 syvu=139) CHLORIDE (BEAKER) (test 110 meq/L 98-107 qcwl=160) CO2 (BEAKER) (test 25 meq/L 22-29 wnhj=054) BLOOD UREA NITROGEN 31 mg/dL 7-21 (BEAKER) (test qdkl=837) CREATININE (BEAKER) (test 1.70 mg/dL 0.57-1.25 pwea=145) GLUCOSE RANDOM (BEAKER) 120 mg/dL 70-105 (test ghak=461) CALCIUM (BEAKER) (test 9.0 mg/dL 8.4-10.2 ikbv=231) EGFR (BEAKER) (test 39 mL/min/1.73 sq m ESTIMATED GFR IS NOT rfel=1237) ACCURATE CREATININE CLEARANCE IN PREDICTING GLOMERULAR FILTRATION RATE. ESTIMATED GFR IS NOT APPLICABLE FOR DIALYSIS PATIENTS. LIPID [id number] 06:49:00 Test Item Value Reference Range Comments TRIGLYCERIDES (BEAKER) (test jdbo=221) 143 mg/dL CHOLESTEROL (BEAKER) (test ypkd=796) 110 mg/dL HDL CHOLESTEROL (BEAKER) (test lmkv=157) 22 mg/dL LDL CHOLESTEROL CALCULATED (BEAKER) (test 59 mg/dL fujl=007) Triglyceride Reference Range: Low Risk <150 Borderline 150- 199 High Risk 200-499 Very High Risk >=500Cholesterol Reference Range: Low Risk <200 Borderline 200-239 High Risk > 240HDL Cholesterol Reference Range: Low Risk >=60 High Risk <40LDL Cholesterol Reference Range: Optimal <100 Near Optimal 100-129 Borderline 130-159 High 160-189 Very High >=190HEPATIC FUNCTION [id number] 06:49:00 Test Item Value Reference Range Comments TOTAL PROTEIN (BEAKER) (test rfqu=538) 6.0 gm/dL 6.0-8.3 ALBUMIN (BEAKER) (test fmeg=9628) 3.5 g/dL 3.5-5.0 BILIRUBIN TOTAL (BEAKER) (test tcbb=692) 0.5 mg/dL 0.2-1.2 BILIRUBIN DIRECT (BEAKER) (test qxrh=649) 0.2 mg/dL 0.1-0.5 ALKALINE PHOSPHATASE (BEAKER) (test znvr=112) 71 U/L 40-150 AST (SGOT) (BEAKER) (test jwlp=197) 27 U/L 5-34 ALT (SGPT) (BEAKER) (test njik=841) 38 U/L 6-55 CALCIUM, [id number] 06:33:00 Test Item Value Reference Range Comments CALCIUM IONIZED (BEAKER) (test uibc=331) 1.14 mmol/L 1.12-1.27 PH, BLOOD (BEAKER) (test mzrq=8036) 7.40 PT/[id number] 06:33:00 Test Item Value Reference Range Comments PROTIME (BEAKER) (test qufo=226) 14.1 seconds 11.9-14.2 INR (BEAKER) (test rkbb=547) 1.2 <=5.9 PARTIAL THROMBOPLASTIN TIME (BEAKER) (test 34.9 seconds 22.5-36.0 zpyi=374) Effective 07/08/2018: PT Reference Range ChangeNew: 11.9-14.2 Previous: 11.7- 14.7RECOMMENDED COUMADIN/WARFARIN INR THERAPY RANGESSTANDARD DOSE: 2.0-3.0 Includes: PROPHYLAXIS for venous thrombosis, systemic embolization; TREATMENT for venous thrombosis and/or pulmonary embolus.HIGH RISK: Target INR is2.5-3.5 for patients wiht mechanical heart valves.PROTHROMBIN TIME/[id number] 06:32: 00 Test Item Value Reference Range Comments PROTIME (BEAKER) (test fxji=258) 14.1 seconds 11.9-14.2 INR (BEAKER) (test tpre=686) 1.2 <=5.9 Effective 07/08/2018: PT Reference Range ChangeNew: 11.9-14.2 Previous: 11.7- 14.7RECOMMENDED COUMADIN/WARFARIN INR THERAPY RANGESSTANDARD DOSE: 2.0-3.0 Includes: PROPHYLAXIS for venous thrombosis, systemic embolization; TREATMENT for venous thrombosis and/or pulmonary embolus.HIGH RISK: Target INR is2.5-3.5 for patients wiht mechanical heart valves.POCT-GLUCOSE [id number] 21:14:00 Test Item Value Reference Range Comments POC-GLUCOSE METER (BEAKER) 229 mg/dL 70-110 TESTED AT [facility] [address] [facility] (test ekrd=4054) [facility] [address] VITAMIN [id number] 17:40:00 Test Item Value Reference Range Comments VITAMIN B12 (BEAKER) (test gmzm=719) 244 pg/mL 213-816 TSH/FREE T4 IF [id number] 17:40:00 Test Item Value Reference Range Comments THYROID STIMULATING HORMONE (BEAKER) (test 4.23 uIU/mL 0.35-4.94 umxp=490) LIPID [id number] 17:12:00 Test Item Value Reference Range Comments TRIGLYCERIDES (BEAKER) (test rqcm=410) 201 mg/dL CHOLESTEROL (BEAKER) (test urux=289) 120 mg/dL HDL CHOLESTEROL (BEAKER) (test cmke=582) 25 mg/dL LDL CHOLESTEROL CALCULATED (BEAKER) (test 55 mg/dL qsfc=180) Triglyceride Reference Range: Low Risk <150 Borderline 150- 199 High Risk 200-499 Very High Risk >=500Cholesterol Reference Range: Low Risk <200 Borderline 200-239 High Risk > 240HDL Cholesterol Reference Range: Low Risk >=60 High Risk <40LDL Cholesterol Reference Range: Optimal <100 Near Optimal 100-129 Borderline 130-159 High 160-189 Very High >=190CBC W/PLT COUNT & AUTO [id number] 16:54:00 Test Item Value Reference Range Comments WHITE BLOOD CELL COUNT (BEAKER) (test lrxg=217) 5.0 K/ L 3.5-10.5 RED BLOOD CELL COUNT (BEAKER) (test cbbw=994) 3.83 M/ L 4.63-6.08 HEMOGLOBIN (BEAKER) (test dlje=393) 12.7 GM/DL 13.7-17.5 HEMATOCRIT (BEAKER) (test zmav=876) 39.8 % 40.1-51.0 MEAN CORPUSCULAR VOLUME (BEAKER) (test flro=412) 103.9 fL 79.0-92.2 MEAN CORPUSCULAR HEMOGLOBIN (BEAKER) (test 33.2 pg 25.7-32.2 vkhj=696) MEAN CORPUSCULAR HEMOGLOBIN CONC (BEAKER) (test 31.9 GM/DL 32.3-36.5 eify=928) RED CELL DISTRIBUTION WIDTH (BEAKER) (test 16.3 % 11.6-14.4 xogw=528) PLATELET COUNT (BEAKER) (test qmdf=922) 159 K/CU MM 150-450 MEAN PLATELET VOLUME (BEAKER) (test glvg=542) 8.6 fL 9.4-12.4 NUCLEATED RED BLOOD CELLS (BEAKER) (test 0 /100 WBC 0-0 uzgg=223) NEUTROPHILS RELATIVE PERCENT (BEAKER) (test 46 % djef=237) LYMPHOCYTES RELATIVE PERCENT (BEAKER) (test 39 % ucyq=954) MONOCYTES RELATIVE PERCENT (BEAKER) (test 12 % agbq=685) EOSINOPHILS RELATIVE PERCENT (BEAKER) (test 3 % toui=834) BASOPHILS RELATIVE PERCENT (BEAKER) (test 1 % pbzu=257) NEUTROPHILS ABSOLUTE COUNT (BEAKER) (test 2.29 K/ L 1.78-5.38 oaoc=328) LYMPHOCYTES ABSOLUTE COUNT (BEAKER) (test 1.91 K/ L 1.32-3.57 qxof=953) MONOCYTES ABSOLUTE COUNT (BEAKER) (test 0.58 K/ L 0.30-0.82 iaig=413) EOSINOPHILS ABSOLUTE COUNT (BEAKER) (test 0.13 K/ L 0.04-0.54 ilsf=146) BASOPHILS ABSOLUTE COUNT (BEAKER) (test 0.03 K/ L 0.01-0.08 zbzo=674) IMMATURE GRANULOCYTES-RELATIVE PERCENT (BEAKER) 0 % 0-1 (test zexm=4112) RAD, CHEST, 1 VIEW, NON [id number] 14:03:00Reason for exam:->chest painFINAL REPORT CLINICAL HISTORY: chest pain TECHNIQUE : 1 view of the chest. COMPARISON: None IMPRESSION: There are no focal infiltrates or effusions. The cardiomediastinal silhouette is magnified by technique. The osseous structures appear intact. Signed: Mohsen Robin MDReport Verified Date/Time: 08/04/2018 14:03:27 Reading Location: [facility] [id number] Consult Reading Room B-TYPE NATRIURETIC FACTOR (BNP)2018-08-04 12:49:00 Test Item Value Reference Range Comments B-TYPE NATRIURETIC PEPTIDE (BEAKER) (test fhgv=761) 50 pg/mL 0-100 TROPONIN [id number] 12:44:00 Test Item Value Reference Range Comments TROPONIN I (BEAKER) (test awbv=452) < ng/mL 0.00-0.03 Troponin I (TnI) levels [...] failure, acidosis, acute neurological disease, and persistent tachyarrhythmia.[id number] 12:36:00 Test Item Value Reference Range Comments MAGNESIUM (BEAKER) (test bgup=276) 2.1 mg/dL 1.6-2.6 BASIC METABOLIC [id number] 12:36:00 Test Item Value Reference Range Comments SODIUM (BEAKER) (test 142 meq/L 136-145 gcxb=397) POTASSIUM (BEAKER) (test 5.1 meq/L 3.5-5.1 xcqb=267) CHLORIDE (BEAKER) (test 110 meq/L 98-107 cuoq=010) CO2 (BEAKER) (test 28 meq/L 22-29 iohs=534) BLOOD UREA NITROGEN 36 mg/dL 7-21 (BEAKER) (test kjbo=352) CREATININE (BEAKER) (test 1.91 mg/dL 0.57-1.25 uwrb=923) GLUCOSE RANDOM (BEAKER) 185 mg/dL 70-105 (test zuio=001) CALCIUM (BEAKER) (test 9.5 mg/dL 8.4-10.2 cldr=310) EGFR (BEAKER) (test 34 mL/min/1.73 sq m ESTIMATED GFR IS NOT boma=3490) ACCURATE CREATININE CLEARANCE IN PREDICTING GLOMERULAR FILTRATION RATE. ESTIMATED GFR IS NOT APPLICABLE FOR DIALYSIS PATIENTS. PT/[id number] 12:30:00 Test Item Value Reference Range Comments PROTIME (BEAKER) (test kzsp=563) 13.3 seconds 11.9-14.2 INR (BEAKER) (test drsv=199) 1.1 <=5.9 PARTIAL THROMBOPLASTIN TIME (BEAKER) (test 32.7 seconds 22.5-36.0 wqtg=787) Effective 07/08/2018: PT Reference Range ChangeNew: 11.9-14.2 Previous: 11.7- 14.7RECOMMENDED COUMADIN/WARFARIN INR THERAPY RANGESSTANDARD DOSE: 2.0-3.0 Includes: PROPHYLAXIS for venous thrombosis, systemic embolization; TREATMENT for venous thrombosis and/or pulmonary embolus.HIGH RISK: Target INR is2.5-3.5 for patients wiht mechanical heart valves.CBC W/PLT COUNT & AUTO [id number] 12:22:00 Test Item Value Reference Range Comments WHITE BLOOD CELL COUNT (BEAKER) (test okxj=842) 4.9 K/ L 3.5-10.5 RED BLOOD CELL COUNT (BEAKER) (test gjfi=108) 4.08 M/ L 4.63-6.08 HEMOGLOBIN (BEAKER) (test zysi=936) 13.3 GM/DL 13.7-17.5 HEMATOCRIT (BEAKER) (test kpsz=729) 42.7 % 40.1-51.0 MEAN CORPUSCULAR VOLUME (BEAKER) (test gvig=824) 104.7 fL 79.0-92.2 MEAN CORPUSCULAR HEMOGLOBIN (BEAKER) (test 32.6 pg 25.7-32.2 reqp=653) MEAN CORPUSCULAR HEMOGLOBIN CONC (BEAKER) (test 31.1 GM/DL 32.3-36.5 marp=289) RED CELL DISTRIBUTION WIDTH (BEAKER) (test 16.1 % 11.6-14.4 ulcj=471) PLATELET COUNT (BEAKER) (test tiir=864) 175 K/CU MM 150-450 MEAN PLATELET VOLUME (BEAKER) (test raxi=888) 8.8 fL 9.4-12.4 NUCLEATED RED BLOOD CELLS (BEAKER) (test 0 /100 WBC 0-0 eavl=304) NEUTROPHILS RELATIVE PERCENT (BEAKER) (test 48 % nprd=225) LYMPHOCYTES RELATIVE PERCENT (BEAKER) (test 37 % cddg=564) MONOCYTES RELATIVE PERCENT (BEAKER) (test 12 % ixuh=048) EOSINOPHILS RELATIVE PERCENT (BEAKER) (test 3 % pffn=821) BASOPHILS RELATIVE PERCENT (BEAKER) (test 0 % mgrz=874) NEUTROPHILS ABSOLUTE COUNT (BEAKER) (test 2.35 K/ L 1.78-5.38 eilj=900) LYMPHOCYTES ABSOLUTE COUNT (BEAKER) (test 1.79 K/ L 1.32-3.57 dwlj=136) MONOCYTES ABSOLUTE COUNT (BEAKER) (test 0.60 K/ L 0.30-0.82 jjfa=873) EOSINOPHILS ABSOLUTE COUNT (BEAKER) (test 0.14 K/ L 0.04-0.54 zubm=498) BASOPHILS ABSOLUTE COUNT (BEAKER) (test 0.02 K/ L 0.01-0.08 xlyi=758) IMMATURE GRANULOCYTES-RELATIVE PERCENT (BEAKER) 0 % 0-1 (test rlqq=6781) POCT-GLUCOSE [id number] 12:18:00 Test Item Value Reference Range Comments POC-GLUCOSE METER (BEAKER) 176 mg/dL 70-110 TESTED AT [address] (test pxxw=2755) [facility] [address] [address], BRAIN/STROKE [id number] 12:04:00Reason for exam:->right arm weaknessWhat is the [...] neurologist at 12:04 PM Signed: Mohsen Robin MDRepputnam [facility] Verified Date/Time: 08/04/2018 12:04:59 Reading Location: [facility] Radiology Reading Room
--- NOTE | 2019-01-10 18:37 | RAD REPORT ---
EXAM DESCRIPTION: CT - Ct Stroke Brain Wo Cont - 01/10/2019 6:25 pm CLINICAL HISTORY: stroke Headache, drowsiness, CVA symptomology COMPARISON: <Comparisons> TECHNIQUE: All CT scans are performed using dose optimization technique as appropriate and may inclu de automated exposure control or mA/KV adjustment according to patient size. FINDINGS: No intracranial hemorrhage, hydrocephalus or extra-axial fluid collection.Mild generalized brain atrophy is present with moderate periventricular and deep white matter chronic microvascular i schemic changes. Mildly asymmetric areas diminishment density seen in the left periventricular white matter relative to the right. This is a nonspecific finding. No midline shift. The paranasal sinuses and mastoids are clear. The calvarium is intact. IMPRESSION: No acute intracranial abnormality. If there is continued clinical concern for CVA, MR i maging of the brain would be recommended. The findings were discussed with Юлия Boswell in the ER on 01/10/2019 at 6:30 p.m. by telephone.
[2019-01-10 18:39] LABS: Absolute Lymphocytes (CBC) 3.5 K/uL (0.7-4.9); Basophils % 0.4 % (0-1.3); Hematocrit 42.5 % (39.6-49.0); Lymphocytes % 48.7 % (15.3-44.8); MPV 7.4 fL (7.6-11.3); RBC Red Blood Cell Count 4.71 M/uL (4.33-5.43)
[2019-01-10 18:45] LABS: Protime INR 1.26
[2019-01-10 18:58] LABS: BUN Blood Urea Nitrogen 28 mg/dL (7-18); Bicarbonate 29 mmol/L (21-32); Glucose Level 75 mg/dL (74-106); Magnesium 2.2 mg/dL (1.8-2.4); Potassium 3.8 mmol/L (3.5-5.1); Sodium Level 144 mmol/L (136-145); Troponin (Emerg Dept Use Only) < 0.02 ng/mL (0.0-0.045)
[2019-01-10] MEDS ORDERED: LABETALOL 20 MG/4ML SYRINGE IV ONE (18:59)
[2019-01-10 19:08] LABS: Blood Morphology Comment NOT SEEN (NOT SEEN); Platelet Estimate DECR
--- NOTE | 2019-01-10 19:11 | RAD REPORT ---
EXAM DESCRIPTION: RAD - Chest Single View - 01/10/2019 6:42 pm CLINICAL HISTORY: stroke Chest pain. COMPARISON: Chest Single View dated 08/03/2018 FINDINGS: Portable technique limits examination quality. The lungs are mildly emphysematous grossly clear. The heart is normal in size. No displaced fractures . IMPRESSION: No acute intrathoracic process suspected.
[2019-01-10 20:16] LABS: Urine Blood NEGATIVE (NEG); Urine Glucose NEGATIVE (NEG); Urine Protein 1+ (NEG); Urine pH 5.5 (5.0-7.0)
--- NOTE | 2019-01-10 20:52 | EDPHYS ---
Physician Documentation [facility] Name: Tony Winston Age: 78 yrs Sex: Male : 1940 Arrival Date: 01/10/2019 Time: 18:18 Bed 4 Private MD: ED Physician Young Horton HPI: 01/10 18:37 This 78 yrs old Male presents to ER via Unassigned with complaints of S/S of ps1 Possible Stroke. 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 States that today he started having rexpression of the same symptoms. No FND in new distribution. Hx of CA and on Eliquis . He states that he has increased urinary frequency. BP 170's/110. Reports not on BP medications. Taken off for hypotension. Historical: - Allergies: 18:35 Codeine; hb - PMHx: 18:23 Diabetes - NIDDM; Hypertension; kidney cancer; mg2 - PSHx: 18:35 kidney cancer surgery; hb - Immunization history:: Flu vaccine status is unknown. - Social history:: Smoking status: unknown. - Ebola Screening: : No symptoms or risks identified at this time. ROS: 18:37 Constitutional: Negative for fever, chills, and weight loss, Eyes: Negative for injury, ps1 pain, redness, and discharge, Cardiovascular: Negative for chest pain, palpitations, and edema, Respiratory: Negative for shortness of breath, cough, wheezing, and pleuritic chest pain, Abdomen/GI: Negative for abdominal pain, nausea, vomiting, diarrhea, and constipation, MS/Extremity: Negative for injury and deformity. 18:37 : Positive for urinary frequency. 18:37 Neuro: Positive for speech changes, weakness, of the right arm and right leg. Exam: 18:37 Radiologist reports: negative ps1 18:37 Constitutional: This is a well developed, well nourished patient who is awake, alert, and in no acute distress. Head/Face: Normocephalic, atraumatic. Eyes: Pupils equal round and reactive to light, extra-ocular motions intact. Lids and lashes normal. Conjunctiva and sclera are non-icteric and not injected. ENT: Nares patent. No nasal discharge, no septal abnormalities noted. Tympanic membranes are normal and external auditory canals are clear. Oropharynx with no redness, swelling, or masses, exudates, or evidence of obstruction, uvula midline. Mucous membranes moist. Chest/axilla: Normal chest wall appearance and motion. Nontender with no deformity. No lesions are appreciated. Cardiovascular: Regular rate and rhythm. No gallops, murmurs, or rubs. Normal PMI, no JVD. No pulse deficits. Respiratory: Lungs have equal breath sounds bilaterally, clear to auscultation and percussion. No rales, rhonchi or wheezes noted. No increased work of breathing, no retractions or nasal flaring. Abdomen/GI: Soft, non-tender, with normal bowel sounds. No distension or tympany. No guarding or rebound. No evidence of tenderness throughout. Skin: Warm, dry with normal turgor. Normal color with no rashes, no lesions, and no evidence of cellulitis. MS/ Extremity: Pulses equal, no cyanosis. Neurovascular intact. Full, normal range of motion. 18:37 Neuro: Orientation: is normal, Mentation: is normal, Memory: is normal, Cranial nerves: grossly normal, Motor: Hypotonic in right leg. 20:52 Radiologist reports: neg acute changes snw Vital Signs: 18:30 BP 172 / 105; Pulse 78; Resp 14; Temp 97.3; Pulse Ox 96% on R/A; Pain 0/10; hb 18:55 BP 148 / 86; Pulse 68; Resp 18; Pulse Ox 95% on R/A; mg2 19:25 BP 118 / 75; Pulse 71; Resp 16; Temp 97.5; Pulse Ox 97% ; Pain 0/10; rr5 20:32 BP 132 / 77; Pulse 73; Resp 16; Pulse Ox 95% ; ea 21:25 BP 107 / 65; Pulse 72; Resp 17; Pulse Ox 98% ; rr5 22:30 BP 132 / 71; Pulse 75; Resp 16; Temp 97.8; Pulse Ox 99% ; Pain 0/10; rr5 NIH Stroke Scale Scores: 18:28 NIHSS Score: 2 mg2 18:28 NIHSS Score: 2 mg2 18:37 NIHSS Score: 2 ps1 Александр Coma Score: 19:25 Eye Response: spontaneous(4). Verbal Response: oriented(5). Motor Response: obeys rr5 commands(6). Total: 15. 20:32 Eye Response: spontaneous(4). Verbal Response: oriented(5). Motor Response: obeys rr5 commands(6). Total: 15. MDM: 18:37 Differential diagnosis: CVA, Reemergence Phenomenon / Unmasking, UTI, AMI, Metabolic ps1 derangements, Infectious process NOS, and others. Data reviewed: vital signs, nurses notes, lab test result(s), radiologic studies. Counseling: I had a detailed discussion with the patient and/or guardian regarding: the historical points, exam findings, and any diagnostic results supporting the discharge/admit diagnosis, lab results, radiology results. 18:54 Patient medically screened. ps1 20:51 Physician consultation: Sherwin Raymond MD was called at 20:51, was contacted at 20:51, snw regarding admission, to the telemetry unit. 01/10 18:21 Order name: Magnesium; Complete Time: 18:59 ps1 01/10 18:21 Order name: Troponin (emerg Dept Use Only); Complete Time: 18:59 ps1 01/10 18:21 Order name: Basic Metabolic Panel; Complete Time: 18:59 ps1 01/10 18:21 Order name: CBC with Diff; Complete Time: 19:11 ps1 01/10 18:21 Order name: Protime (+inr); Complete Time: 18:54 ps1 01/10 18:21 Order name: Ptt, Activated; Complete Time: 18:54 ps1 01/10 18:39 Order name: Glucose, Ancillary Testing; Complete Time: 18:54 EDHI 01/10 19:07 Order name: Manual Differential; Complete Time: 19:11 EDHI 01/10 19:47 Order name: Urine Dipstick--Ancillary (enter results); Complete Time: 20:17 mt 01/10 21:28 Order name: CBC with Automated Diff EDMS 01/10 21:28 Order name: CBC with Automated Diff EDHI 01/10 21:28 Order name: Comprehensive Metabolic Panel EDHI 01/10 21:28 Order name: Comprehensive Metabolic Panel EDHI 01/10 21:28 Order name: Troponin I EDHI 01/10 18:21 Order name: CT Stroke Brain w/o Contrast; Complete Time: 18:54 ps1 01/10 18:21 Order name: Stroke CXR 1 View; Complete Time: 19:17 ps1 01/10 18:21 Order name: EKG; Complete Time: 18:22 ps1 01/10 18:21 Order name: Accucheck; Complete Time: 19:15 ps1 01/10 18:21 Order name: Cardiac monitoring; Complete Time: 19:16 ps1 01/10 18:21 Order name: EKG - Nurse/Tech; Complete Time: 19:11 ps1 01/10 18:21 Order name: IV Saline Lock; Complete Time: 19:11 ps1 01/10 18:21 Order name: Labs collected and sent; Complete Time: 18:46 ps1 01/10 18:21 Order name: NPO; Complete Time: 18:46 ps1 01/10 18:21 Order name: O2 Per Protocol; Complete Time: 18:47 ps1 01/10 18:21 Order name: O2 Sat Monitoring; Complete Time: 18:47 ps1 01/10 21:28 Order name: CONS Pharmacy Consult EDHI 01/10 21:28 Order name: CONS Physician Consult [facility] 01/10 21:28 Order name: Heart Healthy EDHI 01/10 21:28 Order name: Troponin I EDHI 01/10 18:21 Order name: Stroke Swallow Screen; Complete Time: 18:47 ps1 01/10 18:21 Order name: Urine Dipstick-Ancillary (obtain specimen); Complete Time: 19:47 ps1 EC:31 Rate is 75 beats/min. Rhythm is regular. QRS [place] is Normal. CA interval is normal. QRS ps1 interval is normal. QT interval is normal. No Q waves. T waves are Normal. No ST changes noted. Clinical impression: Normal ECG. Interpreted by me. Administered Medications: 19:09 Drug: Labetalol 10 mg Route: IVP; Infused Over: 2 mins; Site: right antecubital; mg2 20:10 Follow up: Response: No adverse reaction; Blood pressure is lowered rr5 Point of Care Testing: Blood Glucose: 18:27 Blood Glucose: 74 mg/dL; hb Ranges: Critical Glucose Levels:Adult <50 mg/dl or >400 mg/dl <40 mg/dl or >180 mg/dl Disposition: 01/10/19 20:51 Hospitalization ordered by Sherwin Raymond for Observation. 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 - Bed requested for Telemetry/MedSurg (observation). - Status is Observation. rr5 - Condition is Stable. - Problem is an acute exacerbation. - Symptoms are unchanged. UTI on Admission? No NIH Stroke Scale - NIH Stroke Score Date: 01/10/2019 Time: 18:28 Total Score = 2 1a. Level of Consciousness (LOC) - 0(Alert) 1b. Level of Consciousness (LOC) (Year \T\ Age) - 0(Both) 1c. LOC Commands (Open \T\ Closes Eyes/Color Straining Bag Washer) - 0(Both) 2. Best Gaze (Lateral Gaze Paresis) - 0(Normal) 3. Visual Field Loss - 0(No visual loss) 4. Facial Palsy - 0(Normal) 5a. Left Arm: Motor (10-second hold) - 0(No drift) 5b. Right Arm: Motor (10-second hold) - 0(No drift) 6a. Left Leg: Motor (5-second hold - always test supine) - 0(No drift) 6b. Right Leg: Motor (5-second hold - always test supine) - 1(Drift) 7. Limb Ataxia (finger/nose \T\ heel/iverson - test with eyes open) - 0(Absent) 8. Sensory Loss (pinprick arms/legs/face) - 0(Normal) 9. Best Language: Aphasia (description/naming/reading) - 0(No aphasia) 10. Dysarthria (speech clarity - read or repeat words) - 1(Mild to Moderate) 11. Extinction and Inattention (visual/tactile/auditory/spatial/personal) - 0(No abnormality) Initials: mg2 NIH Stroke Scale - NIH Stroke Score Date: 01/10/2019 Time: 18:28 Total Score = 2 1a. Level of Consciousness (LOC) - 0(Alert) 1b. Level of Consciousness (LOC) (Year \T\ Age) - 0(Both) 1c. LOC Commands (Open \T\ Closes Eyes/Color Straining Bag Washer) - 0(Both) 2. Best Gaze (Lateral Gaze Paresis) - 0(Normal) 3. Visual Field Loss - 0(No visual loss) 4. Facial Palsy - 0(Normal) 5a. Left Arm: Motor (10-second hold) - 0(No drift) 5b. Right Arm: Motor (10-second hold) - 0(No drift) 6a. Left Leg: Motor (5-second hold - always test supine) - 0(No drift) 6b. Right Leg: Motor (5-second hold - always test supine) - 1(Drift) 7. Limb Ataxia (finger/nose \T\ heel/iverson - test with eyes open) - 0(Absent) 8. Sensory Loss (pinprick arms/legs/face) - 0(Normal) 9. Best Language: Aphasia (description/naming/reading) - 0(No aphasia) 10. Dysarthria (speech clarity - read or repeat words) - 1(Mild to Moderate) 11. Extinction and Inattention (visual/tactile/auditory/spatial/personal) - 0(No abnormality) Initials: mg2 NIH Stroke Scale - NIH Stroke Score Date: 01/10/2019 Time: 18:37 Total Score = 2 1a. Level of Consciousness (LOC) - 0(Alert) 1b. Level of Consciousness (LOC) (Year \T\ Age) - 0(Both) 1c. LOC Commands (Open \T\ Closes Eyes/Color Straining Bag Washer) - 0(Both) 2. Best Gaze (Lateral Gaze Paresis) - 0(Normal) 3. Visual Field Loss - 0(No visual loss) 4. Facial Palsy - 0(Normal) 5a. Left Arm: Motor (10-second hold) - 0(No drift) 5b. Right Arm: Motor (10-second hold) - 0(No drift) 6a. Left Leg: Motor (5-second hold - always test supine) - 0(No drift) 6b. Right Leg: Motor (5-second hold - always test supine) - 1(Drift) 7. Limb Ataxia (finger/nose \T\ heel/iverson - test with eyes open) - 0(Absent) 8. Sensory Loss (pinprick arms/legs/face) - 0(Normal) 9. Best Language: Aphasia (description/naming/reading) - 0(No aphasia) 10. Dysarthria (speech clarity - read or repeat words) - 1(Mild to Moderate) 11. Extinction and Inattention (visual/tactile/auditory/spatial/personal) - 0(No abnormality) Initials: ps1 Addendum: 01/13/2019 18:52 Co-signature as Attending Physician, Young Horton MD Signing chart for ps1 administrative purposes. Available for consultation in ED. . Signatures: Dispatcher [employer] EDЮлия Mckeon, BUSINESS DEVELOPMENT PROFESSIONAL-C BUSINESS DEVELOPMENT PROFESSIONAL-Csnw Gabriela Carter RACHEL RN Jayesh Hampton RN RN ja1 Young Horton MD MD [facility] Kemar Culver RN RN [facility] Avel Pierson RN RN rr5 Corrections: (The following items were deleted from the chart) 01/10 21:51 20:51 Hospitalization Ordered by Sherwin Raymond MD for Observation. Preliminary ja1 diagnosis is Weakness; Speech and language deficits following other cerebrovascular disease. Bed requested for Telemetry/MedSurg (observation). Status is Observation. Condition is Stable. Problem is an acute exacerbation. Symptoms are unchanged. UTI on Admission? No. snw 22:48 21:51 01/10/2019 20:51 Hospitalization Ordered by Sherwin Raymond MD for rr5 Observation. Preliminary diagnosis is Weakness; Speech and language deficits following other cerebrovascular disease. Bed requested for Telemetry/MedSurg (observation). Status is Observation. Condition is Stable. Problem is an acute exacerbation. Symptoms are unchanged. UTI on Admission? No. ja1
--- NOTE | 2019-01-10 20:52 | ER ---
Nurse's Notes [facility] Name: Tony Yarbrough Age: 78 yrs Sex: Male : 1940 Arrival Date: 01/10/2019 Time: 18:18 Bed 4 Private MD: Diagnosis: Weakness;Speech and language deficits following other cerebrovascular disease Presentation: 01/10 18:18 Presenting complaint: Previous stroke 4 months ago, right sided weakness and difficulty hb speaking, did not receive tPA, symptoms improved. Today daughter reports word finding problems and stuttering, last known normal 1100 today. Takes Eliquis. Transition of care: patient was not received from another setting of care. An acute neurological deficit is present. Onset of symptoms was January 10, 2019 at 11:00. Risk Assessment: Do you want to hurt yourself or someone else? Patient reports no desire to harm self or others. 18:18 Initial Sepsis Screen: Does the patient meet any 2 criteria? No. Patient's initial hb sepsis screen is negative. Does the patient have a suspected source of infection? No. Patient's initial sepsis screen is negative. Care prior to arrival: None. 18:20 Acuity: JACQUELINE 2 hb 18:20 Method Of Arrival: Ambulatory hb 19:54 Pre-hospital glucose is not applicable to this patient. mg2 Triage Assessment: 19:54 The onset of the patients symptoms was January 10, 2019 at 11:00. General: Appears in mg2 no apparent distress. comfortable, Behavior is calm, cooperative. Stroke Activation: Symptom onset < 3 hours Physician: Stroke Attending; Name: ; Notified At: ; Arrived At: Physician: Chief Stroke Resident; Name: ; Notified At: ; Arrived At: Physician: Stroke Resident; Name: ; Notified At: ; Arrived At: Physician: ED Attending; Name: ; Notified At: ; Arrived At: Physician: ED Resident; Name: ; Notified At: ; Arrived At: Historical: - Allergies: 18:35 Codeine; hb - PMHx: 18:23 Diabetes - NIDDM; Hypertension; kidney cancer; mg2 - PSHx: 18:35 kidney cancer surgery; hb - Immunization history:: Flu vaccine status is unknown. - Social history:: Smoking status: unknown. - Ebola Screening: : No symptoms or risks identified at this time. Screenin:28 Fall Risk None identified. hb 18:34 Abuse screen: Denies threats or abuse. Denies injuries from another. Nutritional hb screening: No deficits noted. Tuberculosis screening: No symptoms or risk factors identified. Assessment: 18:20 Reassessment: CODE STROKE CALLED, PT TO CT WITH ANABELLA RAMOS. hb 18:22 Reassessment: patient in ct now. mg2 18:25 Reassessment: PT returned from CT, Dr. Horton at bedside. hb 18:27 Reassessment: BGL 74. hb 18:28 Reassessment: Blood sent to lab with purple stroke sticker, outside lab notified. hb 18:28 VAN Scoring: Arm Drift: Patients demonstrates NO arm weakness. Patient is VAN Negative. mg2 Visual Disturbance: No visual disturbance noted. Aphasia: No aphasia noted. Neglect: No neglect noted. 18:31 Reassessment: Dr. Montemayor reports negative CT to Юлия LAMINATING MACHINE OFFBEARER. hb 18:42 Patient has been NPO before screening. The patient is alert, and able to follow mg2 commands. The patient exhibits slurred or garbled speech. mild stuttering The patient is exhibiting difficulty speaking. mild stuttering The patient does not exhibit difficulty understanding words. The patient is able to swallow own secretions with no drooling or need for suction. Patient tolerated one teaspoon of water. No drooling, immediate coughing, gurgling, or clearing of the throat was noted. The patient tolerated 90mL of water. No drooling, immediate coughing, gurgling, or clearing of the throat was noted. The patient passed the bedside swallow screening. Oral medications may be given as ordered. Contact Physician for further diet orders. Provider notified of bedside swallow screening results: Young Horton MD. General: Appears in no apparent distress. comfortable, Behavior is calm, cooperative. Pain: Denies pain. Neuro: Level of Consciousness is awake, alert, obeys commands, Oriented to person, place, time, situation. Neuro: Reports weakness in right leg since today stuttering. Cardiovascular: Capillary refill < 3 seconds Patient's skin is warm and dry. Respiratory: Airway is patent Respiratory effort is even, unlabored, Respiratory pattern is regular, symmetrical. GI: No signs and/or symptoms were reported involving the gastrointestinal system. : No signs and/or symptoms were reported regarding the genitourinary system. EENT: No signs and/or symptoms were reported regarding the EENT system. Derm: Skin is intact, is healthy with good turgor, Skin is pink, warm \T\ dry. normal. Musculoskeletal: Circulation, motion, and sensation intact. Capillary refill < 3 seconds. 19:00 Reassessment: meal served. mg2 19:00 T-PA (Activase) Screening: Contraindications: Is the patient on Aspirin, Heparin, or mg2 Warfarin: Yes. 19:25 General: Appears in no apparent distress. comfortable, Behavior is calm, cooperative, rr5 appropriate for age. Pain: Denies pain. Neuro: Level of Consciousness is awake, alert, obeys commands, Oriented to person, place, time, situation, Appropriate for age Speech stutter . Reports weakness in right arm and right leg. Cardiovascular: Capillary refill < 3 seconds Patient's skin is warm and dry. Respiratory: Airway is patent Respiratory effort is even, unlabored, Respiratory pattern is regular, symmetrical. GI: No signs and/or symptoms were reported involving the gastrointestinal system. : No signs and/or symptoms were reported regarding the genitourinary system. EENT: No signs and/or symptoms were reported regarding the EENT system. Derm: Skin is intact, is healthy with good turgor, Skin is pink, warm \T\ dry. normal. Musculoskeletal: Circulation, motion, and sensation intact. Capillary refill < 3 seconds, Reports weakness in right arm and right leg. 20:37 Reassessment: Patient and/or family updated on plan of care and expected duration. Pain ea level reassessed. Patient is alert, oriented x 3, equal unlabored respirations, skin warm/dry/pink. 21:27 Reassessment: Patient appears in no apparent distress at this time. Patient and/or rr5 family updated on plan of care and expected duration. Pain level reassessed. resting eyes closed breathing spontaneously at room air. family member updated for the plan of care. 22:35 Reassessment: Report called to receiving nurse on second floor. ea 22:46 Reassessment: Patient appears in no apparent distress at this time. Patient is alert, rr5 oriented x 3, equal unlabored respirations, skin warm/dry/pink. no complaints made transferred to medical surgical department. 01/11 04:00 Reassessment: spoke to judith yarbrough [phone] informed for the room assignment of the rr5 patient. Vital Signs: 12 18:30 BP 172 / 105; Pulse 78; Resp 14; Temp 97.3; Pulse Ox 96% on R/A; Pain 0/10; hb 18:55 BP 148 / 86; Pulse 68; Resp 18; Pulse Ox 95% on R/A; mg2 19:25 BP 118 / 75; Pulse 71; Resp 16; Temp 97.5; Pulse Ox 97% ; Pain 0/10; rr5 20:32 BP 132 / 77; Pulse 73; Resp 16; Pulse Ox 95% ; ea 21:25 BP 107 / 65; Pulse 72; Resp 17; Pulse Ox 98% ; rr5 22:30 BP 132 / 71; Pulse 75; Resp 16; Temp 97.8; Pulse Ox 99% ; Pain 0/10; rr5 Александр Coma Score: 19:25 Eye Response: spontaneous(4). Verbal Response: oriented(5). Motor Response: obeys rr5 commands(6). Total: 15. 20:32 Eye Response: spontaneous(4). Verbal Response: oriented(5). Motor Response: obeys rr5 commands(6). Total: 15. NIH Stroke Scale Scores: 18:28 NIHSS Score: 2 mg2 18:28 NIHSS Score: 2 mg2 18:37 NIHSS Score: 2 ps1 ED Course: 18:18 Patient arrived in ED. ds1 18:19 Kemar Culver, RACHEL is Primary Nurse. mg2 18:19 Young Horton MD is Attending Physician. ps1 18:25 CT Stroke Brain w/o Contrast In Process Unspecified. EDMS 18:28 Patient has correct armband on for positive identification. Bed in low position. Call hb light in reach. Side rails up X 1. 18:28 Inserted saline lock: 20 gauge in right antecubital area, using aseptic technique. hb ,using aseptic technique. by Argelia RAMOS Blood collected. 18:33 Arm band placed on. hb 18:36 EKG done, by ED staff, reviewed by Young Horton MD. mh5 18:37 Patient has correct armband on for positive identification. Placed in gown. Bed in low mh5 position. Call light in reach. Side rails up X 1. Adult w/ patient. Warm blanket given. emergency services dispatcher on. Pulse ox on. NIBP on. 18:39 Triage completed. hb 18:41 Stroke CXR 1 View In Process Unspecified. EDMS 19:03 [facility] Vale [facility]C [facility] snw 19:53 No provider procedures requiring assistance completed. mg2 20:50 Sherwin Raymond MD is Hospitalizing Provider. snw 22:16 Patient admitted, IV remains in place. intact, No redness/swelling at site. rr5 Administered Medications: 19:09 Drug: Labetalol 10 mg Route: IVP; Infused Over: 2 mins; Site: right antecubital; mg2 20:10 Follow up: Response: No adverse reaction; Blood pressure is lowered rr5 Point of Care Testing: Blood Glucose: 18:27 Blood Glucose: 74 mg/dL; hb Ranges: Outcome: 20:51 Decision to Hospitalize by Provider. snw 22:44 Admitted to Med/surg accompanied by tech, via stretcher, room 206, with chart. rr5 22:44 Condition: stable 22:44 Instructed on the need for admit. 22:48 Patient left the ED. rr5 NIH Stroke Scale - NIH Stroke Score Date: 01/10/2019 Time: 18:28 Total Score = 2 1a. Level of Consciousness (LOC) - 0(Alert) 1b. Level of Consciousness (LOC) (Year \T\ Age) - 0(Both) 1c. LOC Commands (Open \T\ Closes Eyes/Program Architect) - 0(Both) 2. Best Gaze (Lateral Gaze Paresis) - 0(Normal) 3. Visual Field Loss - 0(No visual loss) 4. Facial Palsy - 0(Normal) 5a. Left Arm: Motor (10-second hold) - 0(No drift) 5b. Right Arm: Motor (10-second hold) - 0(No drift) 6a. Left Leg: Motor (5-second hold - always test supine) - 0(No drift) 6b. Right Leg: Motor (5-second hold - always test supine) - 1(Drift) 7. Limb Ataxia (finger/nose \T\ heel/iverson - test with eyes open) - 0(Absent) 8. Sensory Loss (pinprick arms/legs/face) - 0(Normal) 9. Best Language: Aphasia (description/naming/reading) - 0(No aphasia) 10. Dysarthria (speech clarity - read or repeat words) - 1(Mild to Moderate) 11. Extinction and Inattention (visual/tactile/auditory/spatial/personal) - 0(No abnormality) [place] [facility] [place] Stroke Scale - NIH Stroke Score Date: 01/10/2019 Time: 18:28 Total Score = 2 1a. Level of Consciousness (LOC) - 0(Alert) 1b. Level of Consciousness (LOC) (Year \T\ Age) - 0(Both) 1c. LOC Commands (Open \T\ Closes Eyes/Program Architect) - 0(Both) 2. Best Gaze (Lateral Gaze Paresis) - 0(Normal) 3. Visual Field Loss - 0(No visual loss) 4. Facial Palsy - 0(Normal) 5a. Left Arm: Motor (10-second hold) - 0(No drift) 5b. Right Arm: Motor (10-second hold) - 0(No drift) 6a. Left Leg: Motor (5-second hold - always test supine) - 0(No drift) 6b. Right Leg: Motor (5-second hold - always test supine) - 1(Drift) 7. Limb Ataxia (finger/nose \T\ heel/iverson - test with eyes open) - 0(Absent) 8. Sensory Loss (pinprick arms/legs/face) - 0(Normal) 9. Best Language: Aphasia (description/naming/reading) - 0(No aphasia) 10. Dysarthria (speech clarity - read or repeat words) - 1(Mild to Moderate) 11. Extinction and Inattention (visual/tactile/auditory/spatial/personal) - 0(No abnormality) [place] [facility] [place] NIH Stroke Scale - NIH Stroke Score Date: 01/10/2019 Time: 18:37 Total Score = 2 1a. Level of Consciousness (LOC) - 0(Alert) 1b. Level of Consciousness (LOC) (Year \T\ Age) - 0(Both) 1c. LOC Commands (Open \T\ Closes Eyes/Program Architect) - 0(Both) 2. Best Gaze (Lateral Gaze Paresis) - 0(Normal) 3. Visual Field Loss - 0(No visual loss) 4. Facial Palsy - 0(Normal) 5a. Left Arm: Motor (10-second hold) - 0(No drift) 5b. Right Arm: Motor (10-second hold) - 0(No drift) 6a. Left Leg: Motor (5-second hold - always test supine) - 0(No drift) 6b. Right Leg: Motor (5-second hold - always test supine) - 1(Drift) 7. Limb Ataxia (finger/nose \T\ heel/iverson - test with eyes open) - 0(Absent) 8. Sensory Loss (pinprick arms/legs/face) - 0(Normal) 9. Best Language: Aphasia (description/naming/reading) - 0(No aphasia) 10. Dysarthria (speech clarity - read or repeat words) - 1(Mild to Moderate) 11. Extinction and Inattention (visual/tactile/auditory/spatial/personal) - 0(No abnormality) Initials: ps1 Signatures: Dispatcher [employer] EDMS Юлия Vale, FINANCIAL SERVICES OFFICER-C FINANCIAL SERVICES OFFICER-Csnw Renetta Swift ds1 Gabriela Carter, RACHEL RN Citlalli Fuentes 5 Yaneth Alcaraz RN RN ea Singer, Phillip, MD MD ps1 Kemar Culver RN RN mg2 Avel Pierson RN RN rr5 Corrections: (The following items were deleted from the chart) 19:31 19:25 BP 125 / 108; Pulse 71bpm; Resp 16bpm; Pulse Ox 97%; Temp 97.5F; Pain rr5 0/10; rr5
[2019-01-10] MEDS ORDERED: ONDANSETRON 4 MG/2 ML VIAL IV PRN (21:21)
[2019-01-10] MEDS ORDERED: ACETAMINOPHEN 500 MG TAB PO PRN (21:21)
[2019-01-10 23:11] VITALS: BMI 26.7
[2019-01-10] MEDS: NA CHLORIDE 0.9% 1,000 ML IV SCH (23:58)
[2019-01-11 06:28] LABS: Absolute Lymphocytes (CBC) 1.6 K/uL (0.7-4.9); Basophils % 0.5 % (0-1.3); Hematocrit 38.4 % (39.6-49.0); Lymphocytes % 40.9 % (15.3-44.8); MPV 7.5 fL (7.6-11.3); RBC Red Blood Cell Count 4.27 M/uL (4.33-5.43)
[2019-01-11 06:51] LABS: ALT/SGPT 21 U/L (12-78); AST/SGOT 15 U/L (15-37); Albumin 3.1 g/dL (3.4-5.0); Alkaline Phosphatase 77 U/L (45-117); BUN Blood Urea Nitrogen 23 mg/dL (7-18); Bicarbonate 27 mmol/L (21-32); Bilirubin Total 0.3 mg/dL (0.2-1.0); Glucose Level 89 mg/dL (74-106); Potassium 3.7 mmol/L (3.5-5.1); Protein, Total 5.9 g/dL (6.4-8.2); Sodium Level 147 mmol/L (136-145); Troponin I < 0.02 ng/mL (0.0-0.045)
[2019-01-11] MEDS ORDERED: CYCLOBENZAPRINE 10 MG TAB PO PRN (08:40)
[2019-01-11] MEDS ORDERED: TRAMADOL HCL 50 MG TAB PO PRN (08:40)
--- NOTE | 2019-01-11 08:53 | P.HP ---
Certification for Inpatient Patient admitted to: Observation With expected LOS: <2 Midnights Patient will require the following post-hospital care: None Practitioner: I am a practitioner with admitting privileges, knowledge of patient current condition, hospital course, and medical plan of care. Services: Services provided to patient in accordance with Admission requirements found in Title 42 Section 412.3 of the Code of Federal Regulations Patient History Date of Service: 01/10/19 Reason for admission: weakness and aphasia History of Present Illness: Patient is a 78-year-old gentleman who came to the hospital with weakness and aphasia. Patient had a stroke a few months ago. He was left with aphasia as well as weakness. He also has arthritis which limits his mobility. Patient had been doing well and recovered with an inpatient rehab. He states that he had recovered almost completely except for some weakness in his legs. However, yesterday he did realize that he was having a difficult time speaking. He notified his daughter who had him come into the emergency room for further evaluation. By the time patient came into the ER his symptoms have pretty much resolved. However, in light of his recent stroke and his current symptoms there was concern that he may have a TIA. We decided to admit the patient to the hospital for further evaluation. Allergies codeine Allergy (Verified 08/10/18 18:53) Itching Home Medications: Apixaban [Eliquis] 5 mg PO BID 08/11/18 Atorvastatin Calcium [Lipitor*] 10 mg PO DAILY 08/11/18 Cholecalciferol (Vitamin D3) [Vitamin D3] 5,000 unit PO DAILY 08/11/18 Fenofibrate [Tricor*] 145 mg PO DAILY 08/11/18 Insulin Aspart (Niacinamide) [Fiasp 100 Unit/ml Vial] 15 unit SQ TIDWM 08/11/18 Insulin Glargine Human [Lantus*] 60 unit SQ BEDTIME 08/11/18 Mirtazapine [Remeron*] 15 mg PO BEDTIME 08/11/18 Ranitidine [Zantac*] 150 mg PO BID 08/11/18 Tamsulosin [Flomax*] 0.4 mg PO DAILY 08/11/18 Cyclobenzaprine [Flexeril*] 5 mg PO TIDP PRN #30 tab 08/28/18 traMADol HCL [Ultram*] 50 mg PO Q4HP PRN #40 tab 08/28/18 - Past Medical/Surgical History Has patient received pneumonia vaccine in the past: No Diabetic: Yes -: Lung & pancreaticCA -: HX of MRSA 5 years ago -: Obstructive sleep apnea- has CPAP at home( does not use it) -: GERD -: Blood clots -: Hiatal Hernia -: HTN -: Hyperlipidemia -: OA -: Renal CA -: Chest pain -: COPD -: Cardiac Cath x 3 -: Cholecystectomy -: Bilateral hernia repair -: Right Nephrectomy 2007 -: Upper Endoscopy BX - Family History Father Medical History: Heart disease Notes: - Social History Smoking Status: Former smoker Alcohol use: No CD- Drugs: No Caffeine use: Yes Place of Residence: Home Review of Systems 10-point ROS is otherwise unremarkable Physical Examination - Vital Signs Temperature: 98.8 F Blood Pressure: 113/69 Pulse: 73 Respirations: 16 Pulse Ox (%): 94 - Physical Exam General: Alert, In no apparent distress, Oriented x3 HEENT: Atraumatic, PERRLA, Mucous membr. moist/pink, EOMI, Sclerae nonicteric Neck: Supple, 2+ carotid pulse no bruit, No LAD, Without JVD or thyroid abnormality Respiratory: Clear to auscultation bilaterally, Normal air movement Cardiovascular: Regular rate/rhythm, Normal S1 S2 Gastrointestinal: Normal bowel sounds, Soft and benign, Non-distended, No tenderness Musculoskeletal: No clubbing, No swelling, No tenderness Integumentary: No rashes Neurological: Normal speech, Normal tone, Sensation intact, Cranial nerves 3-12 intact, Normal affect, Abnormal gait, Abnormal strength Lymphatics: No axilla or inguinal lymphadenopathy - Studies Laboratory Data (last 24 hrs) 01/10/19 18:25: PT 14.7 H, INR 1.26, APTT 42.1 H 01/10/19 18:25: WBC 7.3, Hgb 14.2, Hct 42.5, Plt Count 154 01/10/19 18:25: Sodium 144, Potassium 3.8, BUN 28 H, Creatinine 1.81 H, Glucose 75, Magnesium 2.2 Assessment & Plan - Problems (Diagnosis) (1) TIA (transient ischemic attack) Current Visit: Yes Status: Acute (2) History of CVA (cerebrovascular accident) Current Visit: Yes Status: Acute (3) Aphasia Current Visit: Yes Status: Acute (4) Right leg weakness Current Visit: Yes Status: Acute (5) Osteoarthritis Current Visit: Yes Status: Acute (6) History of pancreatic cancer Current Visit: Yes Status: Acute (7) History of renal cell cancer Current Visit: Yes Status: Acute (8) History of lung cancer Current Visit: Yes Status: Acute (9) Hypertension Current Visit: Yes Status: Acute (10) COPD (chronic obstructive pulmonary disease) Current Visit: Yes Status: Acute (11) Coronary artery disease Current Visit: Yes Status: Acute - Plan 1. MRI of the brain May be needed. However, patient does not want this because he is claustrophobic and he becomes really uncomfortable in the MRI machine 2. will get results of recentEchocardiogram and carotid Doppler 3. Anti-platelet therapy and statin therapy 4. Neurology consultation 5. Physical therapy/occupational therapy/speech therapy evaluation/ rehab evaluation 6. strict blood pressure control 7. DVT prophylaxis Discharge Plan: Home Plan to discharge in: 48 Hours - Advance Directives Does patient have a Living Will: Yes Does patient have a Durable POA for Healthcare: Yes - Code Status/Comfort Care Code Status Assessed: Yes Code Status: Full Code Critical Care: No Time Spent Managing PTS Care (In Minutes): 45
[2019-01-11] MEDS: RANITIDINE 150 MG TABLET PO SCH ×2 (09:30→21:14)
[2019-01-11] MEDS: APIXABAN 5 MG TABLET PO SCH ×2 (09:31→21:14)
[2019-01-11] MEDS: TAMSULOSIN 0.4 MG SR CAP PO SCH (09:31)
[2019-01-11] MEDS: ATORVASTATIN 10 MG TAB PO SCH (09:31)
[2019-01-11] MEDS: FENOFIBRATE 160 MG TAB PO SCH (09:31)
[2019-01-11] MEDS ORDERED: D50W 25 GM/50 ML SYRINGE/VIAL IV PRN (09:55)
[2019-01-11] MEDS ORDERED: GLUCAGON 1 MG/VIAL IM PRN (09:55)
--- NOTE | 2019-01-11 10:05 | EKG ---
Test Date: 2019-01-10 Test Time: 18:31:50 Internet Sales Manager: DA MEASUREMENT RESULTS: Intervals: Rate: 75 MT: 162 QRSD: 88 QT: 388 QTc: 433 Newell: P: 79 MT: 162 QRS: 21 T: 57 INTERPRETIVE STATEMENTS: Normal sinus rhythm Normal ECG Compared to ECG 06/20/1992 09:40:00 No significant changes Electronically Signed On 01-11-19 10:03:43 DRIER OPERATOR by Anthony Roonye
[2019-01-11] MEDS: NA CHLORIDE 0.9% 1,000 ML IV SCH ×2 (11:20→15:05)
[2019-01-11] MEDS: INSULIN -REGULAR HUMAN 50 UNIT/0.5 ML ML SQ SCH ×3 (11:30→21:14)
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
[2019-01-11] MEDS ORDERED: INSULIN GLARGINE 100 UNITS/ML SQ SCH (21:00)
[2019-01-11] MEDS ORDERED: MIRTAZAPINE 15 MG TAB PO SCH (21:00)
[2019-01-12] MEDS: NA CHLORIDE 0.9% 1,000 ML IV SCH ×2 (00:40→03:28)
--- NOTE | 2019-01-12 00:54 | CON ---
Reason For Consultation: Consultation called because of a possible stroke versus repeat stroke. History Of Present Illness: Mr. Winston is a 78-year-old patient with multiple medical problems including hypertension, dyslipidemia, multiple cardiac catheterizations with stents, and again recent stroke that left mild residual right-sided weakness and aphasia from which he actually recovered very well. The patient continued to do well until approximately 2 days ago when he developed mild difficulty with speaking and possibly some more right-sided weakness. His symptoms had mostly resolved when he came back to the hospital for evaluation of possible a new stroke. The patient is very anxious and claustrophobic and refused to get a brain MRI. His head CT scan did not show an acute ischemic or hemorrhagic stroke. The study was remarkable for chronic microvascular ischemic change and an area of diminished density in the left periventricular white matter on the left compared to the right side, possibly related to his chronic stroke. Again, no new ischemic or hemorrhagic change. His blood work showed no significant abnormalities in terms of complete blood count with differential. INR was 1.26. Chemistries did show dehydration with creatinine 1.81. Liver function studies were unremarkable. Cholesterol panel showed a total cholesterol of 90, LDL cholesterol of 32, HDL cholesterol of 31 with a cholesterol to HDL ratio of 2.9, glucose ranged from 74 to 239. His electrocardiogram showed a normal sinus rhythm and the study remained unremarkable compared to his most recent electrocardiogram done in June of 1992. Past Medical History: Includes lung and pancreatic cancer, MRSA, obstructive sleep apnea, gastroesophageal reflux disease, multiple blood clots and he is on Eliquis for that, hiatal hernia, hypertension, dyslipidemia, osteoarthritis, renal cancer, coronary artery disease. Past Surgical History: Status post 3 cardiac stents, cholecystectomy, bilateral hernia repair, nephrectomy, and upper endoscopy. Social History: Smoked in the past and drinks caffeinated beverages. No alcohol intake. Family History: Positive for heart disease in father. Allergies: CODEINE. Medications: Eliquis 5 mg twice a day, Lipitor 10 mg at night, vitamin D3 5000 international units daily, Tricor 145 mg daily, niacinamide subcutaneously 3 times per week, Lantus at bedtime, Remeron 15 mg at bedtime, Zantac 150 mg twice a day, Flomax 0.4 mg daily, Flexeril 5 mg 3 times daily as needed, Ultram 50 mg every 4 hours as needed. Review of Systems: Aside from mentioned above, no recent fevers, chills, nausea, vomiting, myalgias , arthralgias, rash, headache, weight change, or psychiatric issues. Physical Examination: Vital Signs: Blood pressure 193/94, pulse 74, respiratory rate 16, temperature 98.4, oxygen saturation 94% on room air. Weight 191 pounds, height 5 feet 11 inches, BMI 26. General: Mr. Winston is resting comfortably in bed. He is in no acute distress. A friend is at the bedside. He has no slurred speech. He is normocephalic, atraumatic. HEENT: His sclerae are anicteric. Oropharynx is moist and pink. Neck: Supple. Chest: Clear. Heart: Regular. Extremities: Show no significant edema, clubbing, or cyanosis. Neurologic: He is alert and oriented to situation, place, and person. Follows commands appropriately. He has good labial, lingual, and guttural sounds. No expressive or receptive aphasias noted. Motor examination showed no focal weakness on both sides proximally and distally in upper and lower extremities. He has a stocking-glove loss to light touch and temperature in the upper lower extremities. He has depressed reflexes in the upper and lower extremities. His coordination is intact in upper and lower extremities. Gait, he was ambulated with physical therapist and had steady stride with good stride length and arm swing. Assessment And Plan: Mr. Winston is a 78-year-old patient with no evidence of new stroke, perhaps he had an unmasking of symptoms that he had resolved largely from his prior stroke. He refused to get brain MRI to be able to rule out definitively a new ischemic event. At this point, the patient may have a repeat head CT scan in 24 hours from the first one and if that study is also similar showing no acute ischemic or hemorrhagic change, patient maybe discharged home. Follow up in clinic with Dr. De Jesus likely in 1 month. He should continue with his current regimen of medications including the Eliquis as indicated and medications for dyslipidemia, which he has been very well with and aggressive management of hypertension and diabetes mellitus. LB/MODL Voice ID: [id number] Report ID: [id number] FERNIE
[2019-01-12 06:01] LABS: Absolute Lymphocytes (CBC) 1.6 K/uL (0.7-4.9); Basophils % 0.6 % (0-1.3); Hematocrit 39.3 % (39.6-49.0); Lymphocytes % 33.7 % (15.3-44.8); MPV 7.4 fL (7.6-11.3); RBC Red Blood Cell Count 4.35 M/uL (4.33-5.43)
[2019-01-12 06:15] LABS: Albumin 3.1 g/dL (3.4-5.0); Bilirubin Total 0.3 mg/dL (0.2-1.0); Protein, Total 6.1 g/dL (6.4-8.2)
--- NOTE | 2019-01-12 07:22 | RAD REPORT ---
EXAM DESCRIPTION: CT - Head Brain Wo Cont - 01/12/2019 6:47 am CLINICAL HISTORY: weakness, aphasia CVA COMPARISON: Ct Stroke Brain Wo Cont dated 01/10/2019 TECHNIQUE: All CT scans are performed using dose optimization technique as appropriate and may inclu de automated exposure control or mA/KV adjustment according to patient size. FINDINGS: No intracranial hemorrhage, hydrocephalus or extra-axial fluid collection.Mild generalized brain atrophy is present with mild periventricular and deep white matter chronic microvascular ische micheline changes.No areas of brain edema or evidence of midline shift. The paranasal sinuses and mastoids are clear. The calvarium is intact. IMPRESSION: No acute intracranial abnormality. If there is continued clinical concern for CVA, MR i maging of the brain would be recommended.
[2019-01-12] MEDS: INSULIN -REGULAR HUMAN 50 UNIT/0.5 ML ML SQ SCH ×3 (07:30→17:39)
[2019-01-12] MEDS: TAMSULOSIN 0.4 MG SR CAP PO SCH (09:08)
[2019-01-12] MEDS: ATORVASTATIN 10 MG TAB PO SCH (09:08)
[2019-01-12] MEDS: APIXABAN 5 MG TABLET PO SCH (09:08)
[2019-01-12] MEDS: FENOFIBRATE 160 MG TAB PO SCH (09:08)
[2019-01-12] MEDS: RANITIDINE 150 MG TABLET PO SCH (09:08)
--- NOTE | 2019-01-12 10:58 | P.DS ---
Admission Date: 01/10/19 Discharge Date: 01/12/19 Disposition: ROUTINE DISCHARGE Discharge Condition: GOOD Reason for Admission: weakness and aphasia Consultations: Neurology-Dr. De Jesus Procedures: None - Problems (1) Aphasia Current Visit: Yes Status: Acute (2) Coronary artery disease Current Visit: Yes Status: Chronic (3) History of CVA (cerebrovascular accident) Current Visit: Yes Status: Chronic (4) History of lung cancer Current Visit: Yes Status: Chronic (5) History of pancreatic cancer Current Visit: Yes Status: Chronic (6) History of renal cell cancer Current Visit: Yes Status: Chronic (7) Hypertension Current Visit: Yes Status: Chronic (8) Right leg weakness Current Visit: Yes Status: Chronic (9) TIA (transient ischemic attack) Current Visit: Yes Status: Acute Brief History of Present Illness: 78-year-old gentleman with a history of CVA with residual mild right leg weakness presented to the emergency department with a complaint of difficulty with speech and increased right-sided weakness. He denied any visual disturbance or trouble with swallowing. Workup in the ED with CT head showed no acute changes. EKG was unremarkable. Patient noted to be on gabapentin and Tizanidine for chronic pain. Noted patient also has a history of DVT and is on Eliquis. He was placed under observation for acute stroke and TIA workup. Hospital Course: CT head done in the ED again showed no acute changes. Patient's symptoms had resolved before hospitalization. He was evaluated by neurology. MRI of the brain to further evaluate for TIA or stroke was recommended but patient declined due to history of claustrophobia and posttraumatic stress disorder. Repeat CT head recommended by neurology was negative for acute CVA. He remained asymptomatic during the hospital stay. The patient is discharged to home to continue with aspirin and Eliquis. His lipid profile parameters are within normal range. Noted his blood pressure was elevated throughout the hospital stay. He is prescribed amlodipine to control his blood pressure. He is informed to follow with his PCP for further management of his blood pressure. Also reduce gabapentin to 300 mg at bedtime to reduce daytime drowsiness. Vital Signs/Physical Exam: Temp Pulse Resp BP Pulse Ox 98.3 F 67 18 178/89 H 95 01/12/19 08:00 01/12/19 08:00 01/12/19 08:00 01/12/19 08:00 01/12/19 08:00 General: Alert, In no apparent distress, Oriented x3 HEENT: Atraumatic, Normocephalic, PERRLA, Mucous membr. moist/pink, Sclerae nonicteric Neck: Supple, 2+ carotid pulse no bruit, JVD not distended, No Thyromegaly Respiratory: Clear to auscultation bilaterally, Normal air movement Cardiovascular: No edema, Normal pulses, Regular rate/rhythm, Normal S1 S2 Gastrointestinal: Normal bowel sounds, Soft and benign, Non-distended, No tenderness Musculoskeletal: No swelling, No erythema Integumentary: No rashes Neurological: Normal gait, Normal speech, Normal strength at 5/5 x4 extr, Cranial nerves 3-12 intact Laboratory Data at Discharge: WBC 4.8 K/uL (4.3-10.9) D 01/12/19 05:29 Hgb 12.9 g/dL (13.6-17.9) L 01/12/19 05:29 Hct 39.3 % (39.6-49.0) L 01/12/19 05:29 Plt Count 147 K/uL (152-406) L 01/12/19 05:29 PT 14.7 SECONDS (9.5-12.5) H 01/10/19 18:25 INR 1.26 01/10/19 18:25 APTT 42.1 SECONDS (24.3-36.9) H 01/10/19 18:25 Sodium 147 mmol/L (136-145) H 01/12/19 05:29 Potassium 4.0 mmol/L (3.5-5.1) 01/12/19 05:29 BUN 23 mg/dL (7-18) H 01/12/19 05:29 Creatinine 1.60 mg/dL (0.55-1.3) H 01/12/19 05:29 Glucose 107 mg/dL (74-106) H 01/12/19 05:29 Magnesium 2.2 mg/dL (1.8-2.4) 01/10/19 18:25 Total Bilirubin 0.3 mg/dL (0.2-1.0) 01/12/19 05:29 AST 13 U/L (15-37) L 01/12/19 05:29 ALT 25 U/L (12-78) 01/12/19 05:29 Alkaline Phosphatase 128 U/L (45-117) H D 01/12/19 05:29 Troponin I < 0.02 ng/mL (0.0-0.045) 01/11/19 05:35 Triglycerides 134 mg/dL (<150) 01/11/19 09:19 Cholesterol 90 mg/dL (<200) 01/11/19 09:19 HDL Cholesterol 31 mg/dL (40-60) L 01/11/19 09:19 Cholesterol/HDL Ratio 2.90 01/11/19 09:19 Home Medications: Apixaban [Eliquis] 5 mg PO BID 08/11/18 Atorvastatin Calcium [Lipitor*] 20 mg PO BEDTIME 08/11/18 Cholecalciferol (Vitamin D3) [Vitamin D3] 5,000 unit PO DAILY 08/11/18 Fenofibrate [Tricor*] 145 mg PO DAILY 08/11/18 Insulin Aspart (Niacinamide) [Fiasp 100 Unit/ml Vial] 15 unit SQ TIDWM 08/11/18 Insulin Glargine Human [Lantus*] 60 unit SQ BEDTIME 08/11/18 Mirtazapine [Remeron*] 0.5 tab PO BEDTIME 08/11/18 Tamsulosin [Flomax*] 0.4 mg PO BEDTIME 08/11/18 Aspirin [Adult Low Dose Aspirin EC] 1 tab PO DAILY 01/11/19 Cyanocobalamin (Vitamin B-12) [Vitamin B-12] 1,000 mcg PO DAILY 01/11/19 Docusate Sodium [Stool Softener] 1 cap PO DAILY PRN 01/11/19 Magnesium Oxide [Magnesium] 1 tab PO DAILY 01/11/19 Tizanidine [Zanaflex*] 1 tab PO TID PRN 01/11/19 Vit C/E/Zn/Coppr/Lutein/Zeaxan [Preservision Areds 2 Softgel] 1 cap PO BID 01/11 Gabapentin 300 mg PO BEDTIME 30 Days #30 capsule 01/12/19 New Medications: Gabapentin 300 mg PO BEDTIME 30 Days #30 capsule Diet: ADA Activity: Ad nasrin Followup: Kota Vegas DO [Primary Care Provider] - 1-2 Weeks Piero De Jesus MD [ASSOCIATE-ACTIVE - CAN ADMIT] - 1-2 Weeks
[2019-01-12] MEDS ORDERED: HYDRALAZINE HCL 20 MG/ML VIAL IV ONE (12:05)
[2019-01-12] MEDS ORDERED: AMLODIPINE 10 MG TAB PO SCH (12:30)
[2019-01-12 18:19] VITALS: O2SAT 95
[2019-01-12 18:38] VITALS: BP 157/96; TEMP 97.9
== END 2019-01-12 19:42 | disposition home health service (06) ==
LOC: ER 18:16 → ERHOLD 21:21 → 2ND 22:35
PROVIDERS: ADMIT Hospitalist; ATTEND Internal Medicine
DX: G45.9 Transient cerebral ischemic attack, unspecified (principal); R47.01 Aphasia; R53.1 Weakness; J44.9 Chronic obstructive pulmonary disease, unspecified; I25.10 Atherosclerotic heart disease of native coronary artery without angina pectoris; R29.702 NIHSS score 2; G47.33 Obstructive sleep apnea (adult) (pediatric); M19.90 Unspecified osteoarthritis, unspecified site; E78.2 Mixed hyperlipidemia; I12.9 Hypertensive chronic kidney disease with stage 1 through stage 4 chronic kidney disease, or unspecified chronic kidney disease; N18.3 Chronic kidney disease, stage 3 (moderate); K21.9 Gastro-esophageal reflux disease without esophagitis; Z94.0 Kidney transplant status; Z87.891 Personal history of nicotine dependence; Z85.07 Personal history of malignant neoplasm of pancreas; Z85.528 Personal history of other malignant neoplasm of kidney
CPT/HCPCS: 93005; 85025 ×3; 80048; 36415 ×2; 83735; 85610; 80061; 82947 ×7; 85730; 81003; 84484 ×2; 80053 ×2; 70450 ×2; 71045; 92523; 97112 ×2; 97116 ×2; 97161; 97530; 96374; 99285; J0360; J7030 ×3; G0378 ×3; J1815

== ENCOUNTER 2020-01-25 13:31 | Inpatient (IN) | payer OTHER ==
--- OUTSIDE RECORDS SUMMARY | 2020-01-25 14:00 | XMS REPORT | Clinical Summary ---
:1940 Author Organization [facility] Address [address] [place] [address] Care Team Providers Name Role Phone Yara Lopez MD Referring Physician Allergies Active Allergy Reactions Severity Noted Date Comments Codeine 08/04/2018 Unknown Medications Medication Sig Dispensed Refills Start End Date Status Date insulin aspart Inject 15 Units 0 Active (NOVOLOG) 100 subcutaneously 3 unit/mL (three) times InPnIndications: daily with meals. Mixed hyperlipidemia, Coronary artery disease involving [place] heart without angina pectoris, unspecified vessel or lesion type tamsulosin Take 1 capsule 30 capsule 0 Act oracio (FLOMAX) 0.4 mg (0.4 mg total) by 7 Cp24 24 hr mouth daily. capsuleIndicatio ns: Mixed hyperlipidemia, Coronary artery disease involving [place] heart without angina pectoris, unspecified vessel or lesion type insulin glargine Inject 60 Units 0 Active (LANTUS) 100 subcutaneously unit/mL nightly Use as injection directed . mirtazapine Take 15 mg by 0 Acti ve (REMERON) 15 MG mouth nightly. tablet cholecalciferol, Take 5,000 Units 0 Active vitamin D3, by mouth daily. 5,000 unit Tab aspirin 81 MG EC Take 1 tablet (81 0 03/07 Active tablet mg total) by mouth 0 21 daily. apixaban Take 1 tablet (5 180 tablet 2 Ac tive (ELIQUIS) 5 mg mg total) by mouth 0 Tab tablet 2 (two) times daily. atorvastatin Take 1 tablet (20 90 tablet 2 03/07/19 Active (LIPITOR) 20 MG mg total) by mouth 0 21 tablet daily. apixaban Take 5 mg by mouth 0 03/08/19 D iscontinued (ELIQUIS) 5 mg 2 (two) times 20 ( Reorder) Tab tablet daily. atorvastatin Take 1 tablet (10 0 03/08/19 Discontinued (LIPITOR) 10 MG mg total) by mouth 9 20 (Reorder) tablet daily. fenofibrate Take 1 tablet (145 90 tablet 2 03/08/19 Discontinued (TRICOR) 145 MG mg total) by mouth 9 20 (Reorder) tablet daily. ranitidine Take 150 mg by 0 08/31/19 Disc ontinued (ZANTAC) 150 MG mouth 2 (two) 20 tablet times daily. fenofibrate Take 1 tablet (145 90 tablet 2 08/31/19 Discontinued (TRICOR) 145 MG mg total) by mouth 0 20 tablet daily. Active Problems Problem Noted Date TIA (transient ischemic attack) 08/05/2018 Acute CVA (cerebrovascular accident) 08/04/2018 DAMIÁN (acute kidney injury) 08/04/2018 Stage 3 chronic kidney disease 08/04/2018 Chronic diastolic heart failure 09/20/2015 Coronary artery disease 08/11/2014 Hyperlipidemia 08/11/2014 Encounters Date Type Specialty Care Team Description 08/31/2019 Office Visit Cardiology Nolvia Milan Kevin ry artery disease involving [place] coronary artery of [place] heart without angina pectoris (Primary Dx); MD ([place]) TIA (transient ischemic attack); Chronic diastol ic heart failure (HCC); Mixed hyperlipi demia 08/31/2019 Travel 03/08/2019 Office Visit Cardiology Nolvia Milan Acute CVA (cerebrovascular accident) (HCC) (Primary Dx); MD ([place]) Mixed hyperlipkorey correia; Chronic diastol ic heart failure (HCC); Coronary artery disease involving [place] coronary artery of [place] heart without angina pectoris after 01/24/2019 Family History Medical History Relation Name Comments Cancer Other Heart disease Other COPD Other Relation Name Status Comments Other Other Other Social History Tobacco Use Types Packs/Day Years Used Date Former Smoker Cigarettes Smokeless Tobacco: Former User Alcohol Use Drinks/Week oz/Week Comments No Sex Assigned at Date Recorded Not on file Last Filed Vital Signs Vital Sign Reading Time Taken Comments Blood Pressure 154/87 08/31/2019 9:44 AM CDT Pulse 77 08/31/2019 9:44 AM CDT Temperature 36.7 C (98.1 F) 08/31/2019 9:44 AM CDT Respiratory Rate - - Oxygen Saturation 98% 08/31/2019 9:44 AM CDT Inhaled Oxygen Concentration - - Weight 85.3 kg (188 lb) 08/31/2019 9:44 AM CDT Height 180.3 cm (5' 11") 08/31/2019 9:44 AM CDT Body Mass Index 26.22 08/31/2019 9:44 AM CDT Plan of Treatment Date Type Specialty Care Team Description 03/02/2020 Office Visit Cardiology Nolvia [place] MD ([place]) [address] [phone] Health Maintenance Due Date Last Done Comments PNEUMOCOCCAL 65+ YRS (1 of 1 - [id number]) 2005 MEDICARE ANNUAL WELLNESS (YEAR 2 or FIRST YEAR if no 06/11/2006 IPPE) INFLUENZA VACCINE (#1) 2019 Procedures Procedure Name Priority Date/Time Associated Diagnosis Comme nts ECG 12-LEAD Routine 09/03/2019 2:24 PM CDT Chronic diastolic heart failure (HCC) Coronary artery disease involving [place] coronary artery of [place] heart without angina pectoris after 01/24/2019 Results ECG 12 lead (09/03/2019 2:24 PM CDT) Narrative Performed At This result has an attachment that is no t available. after 01/24/2019 Insurance Payer Benefit Plan / Subscriber ID Effective Dates Phone Addre ss Type Group MEDICARE MEDICARE A B [id number] 2005-Present Medicare MCR GENERIC MEDICARE [id number] 2014-Presen [employer] SUPPLEMENT/GAGE SUPPLEMENT t VIDUAL Advance Directives For more information, please contact: [phone] Code Status Date Activated Date Inactivated Comments Partial Code 08/08/2018 12:55 PM 08/10/2018 6:52 PM This code status was determined by: Patient Drug Protocol After Arrest Occurs? No Mechanical Ventilation with Intubation? Yes Bag/Mask? Yes Internal/External Pacemaker? No Transfer to Critical Care? Yes Chest Compressions? No Defibrillation/Cardioversion? No Full Code 08/04/2018 2:47 PM 08/04/2018 4:19 PM This code status was determined by: Patient
--- OUTSIDE RECORDS SUMMARY | 2020-01-25 14:01 | XMS REPORT | Continuity of Care Document ---
:1940 Author Organization [facility] t Address [address] [place] [address] Care Team Providers Name Role Phone TU Primary Care Physician Unavailable SYSTEM, NOT IN Attending Clinician Unavailable REGULO Attending Clinician Unavailable Chinyere JULIO Attending Clinician Unavailable Kayli SUAREZ, Eliza 'Nikos' Attending Clinician KUNAL SALAZAR Attending Clinician Unavailable Irving FAYE Admitting Clinician Unavailable Payers Payer Name Policy Type Policy Number Effective Date Expiration Source Date MEDICARE PART A AND B [id number] 2005 00:00:00 GENERIC [id number] 2014 00:00:00 MEDICAREMEDICARE A [id number] YUMIKO valente [id number] 2005- 00:00:00 [facility] [id number] 2014 YUMIKO Palmer SUPPLEMENT/INDIVIDUAL 00:00:00 Formerly [facility] - GENERIC MEDICARE Medical [id number] [facility] 2014-[facility] Advance Directives Directive Decision Effective Date Termination Date Comments Sour ce Partial Code This Yes 2018-08-08 2018-08-10 YUMIKO Ríos - code status was 00:00:00 00:00:00 Medical C enter determined by: Patient Drug Protocol After Arrest Occurs? No Mechanical Ventilation with Intubation? Yes Bag/Mask? Yes Internal/External Pacemaker? No Transfer to Critical Care? Yes Chest Compressions? No Defibrillation/Card ioversion? 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-04 [facility] kidney kidney 00:00: Medical disease disease 00 Center 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-10 [facility] - heart heart 00:00: Medical failure failure 00 Center 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 08[facility]11 [facility] - disease disease 00:00: Medical 00 Drury Hyperlipid Hyperlipid Disease Active [facility] emia emia 08-11 [facility] - 00:00: Medical 00 Center Allergies, Adverse Reactions, Alerts Allergy Allergy Status Severity Reaction(s) Onset Inactive Treating Comm ents Source Name Type Date Date Clinician Leon Montesi Active Unknown [facility] ty to 08-04 [facility] - adverse 00:00: Medical reaction 00 Center s IODINATE Drug Active Other MD Rios Class 3-09 Anderso CONTRAST 00:00: n MEDIA 00 IODINATE Drug Active Other 0 MD Rios Class 3-09 Anderso CONTRAST 00:00: n MEDIA 00 HYDROCOD DRUG Active Med Itching~Naus MD PJ JEROME ea 10-22 Anderso 00:00: n 00 HYDROCOD DRUG Active Med Itching~Naus MD PJ JEROME ea 10-22 Anderso 00:00: n 00 Family History Family Member Diagnosis Comments Start Date Stop Date Source Other Cancer [facility] Other Heart disease [facility] Other COPD [facility] Social History Social Habit Start Date Stop Date Quantity Comments Source History of Cigarette Smoker [facility] uk - tobacco use Medical Cente r Sex Assigned At [facility] Tobacco use and 2019-03-08 2019-03-08 Former user [facility] ukes - exposure 00:00:00 00:00:00 Medical Center Alcohol intake 2019-03-08 2019-03-[address] [facility] [address] Nelli es - 00:00:00 00:00:00 non-drinker of Medical Ce nter alcohol (finding) Smoking Status Start Date Stop Date Source Former smoker 2019-03-08 00:00:00 2019-03-08 00:00:[address] [facility] [address] [facility] u[facility] - [facility] Center Medications Ordered Filled Start Stop Current Ordering Indication Dosage Frequency Signature Comments Components Source Medication Medication Date Date Medication? Clinician (SIG) Name Name insulin Yes Coronary 15U Inject [address] aspart 7-21 artery Units [facility] - (NOVOLOG) 09:45: disease subcutaneo Medical 100 unit/mL 41 involving usly 3 C enter InPn table [place] (three) heart times without daily with angina meals. pectoris, unspecified vessel or lesion type insulin 2019- Yes 60U QD Inject 60 [facility] t glargine 7-21 Units [facility] - (LANTUS) 09:45: subcutaneo Med ical 100 unit/mL 41 usly Center injection nightly Use as directed . mirtazapine 0 Yes 15mg QD Take [address] [facility] [address] (REMERON) 7-21 by mouth [facility] - 15 MG 09:45: nightly. Medical tablet 41 Center cholecalcif Yes 5000U QD Take 5,[address] erasmo, 7-21 Units by [facility] - vitamin D3, 09:45: mouth Medic al 5,000 unit 41 daily. Center Tab ranitidine 2019- No 150mg Q.5D Take [address] (ZANTAC) 7-21 07-21 mg by [facility] - 150 MG 09:45: 00:00 mouth 2 Medical tablet 39 :00 (two) Center times daily. apixaban 2019-0 2019- No 5mg Q.5D Take [address] [facility] (ELIQUIS) 5 -08 03- by mouth 2 L ukes - mg Tab 13:55: 00:00 (two) Medical tablet 24 :00 times Center daily. apixaban 2019-0 Yes 5mg Q.5D Take [address] (ELIQUIS) 5 - tablet (5 Nelli es - mg Tab 00:00: mg total) Medica l tablet 00 by mouth 2 Center (two) times daily. aspirin 81 No 81mg QD Take [address] MG EC 03-08 tablet (81 [facility] - tablet 00:00: 23:59 mg total) Medic al 00 :00 by mouth Center daily. atorvastati No 20mg QD Take [address] n (LIPITOR) 03-08 tablet (20 L ukes - 20 MG 00:00: 23:59 mg total) Medica l tablet 00 :00 by mouth Center daily. fenofibrate No 145mg QD Take [address] (TRICOR) 03-08 tablet [facility] - 145 MG 00:00: 00:00 (145 mg Medical tablet 00 :00 total) by Center mouth daily. fenofibrate No 145mg QD Take [address] (TRICOR) 05-06 tablet [facility] - 145 MG 00:00: 00:00 (145 mg Medical tablet 00 :00 total) by Center mouth daily. atorvastati No 10mg QD Take [address] n (LIPITOR) 05-05 tablet (10 L ukes - 10 MG 00:00: 00:00 mg total) Medica l tablet 00 :00 by mouth Center daily. tamsulosin Yes Coronary .4mg QD Take [address] (FLOMAX) 11-05 artery capsule [facility] - 0.4 mg Cp24 00:00: disease (0.4 mg Medical 24 hr 00 involving total) by Cent er capsule table [place] mouth heart daily. without angina pectoris, unspecified vessel or lesion type Vital Signs Vital Name Observation Time Observation Value Comments Source Systolic blood 2019-08-31 09:44:00 154 mm[Hg] [facility] Diastolic blood 2019-08-31 09:44:00 87 mm[Hg] [facility] S t [facility] Heart rate 2019-08-31 09:44:00 77 /min [facility] Body temperature 2019-08-31 09:44:00 36.72 Neli [facility] Body height 2019-08-31 09:44:00 180.3 cm [facility] Body weight 2019-08-31 09:44:00 85.276 kg [facility] BMI 2019-08-31 09:44:00 26.22 kg/m2 [facility] Oxygen saturation in 2019-08-31 09:44:00 98 /min [facility] Arterial blood by Medical Ce ntsocorro Pulse oximetry Procedures Procedure Date / Time Performed Performing Clinician [facility] e ECG 12-LEAD 2019-09-03 14:24:00 Nolvia Milan [facility] St RosenSSEV - Medical '[facility]' Drury Plan of Care Planned Activity Planned Date Details Comments Source Future Scheduled 2019-10-12 INFLUENZA VACCINE (#1) [facility] - Test 00:00:00 [code = INFLUENZA Medical Ce nter VACCINE (#1)] Future Scheduled 2006-06-11 MEDICARE ANNUAL [facility] otis - Test 00:00:00 WELLNESS (YEAR 2 or [facility] FIRST YEAR if no IPPE) [code = MEDICARE ANNUAL WELLNESS (YEAR 2 or FIRST YEAR if no IPPE)] Future Scheduled 2005 PNEUMOCOCCAL 65+ YRS [facility] - Test 00:00:00 (1 of 1 - [facility] [id number]) [code = PNEUMOCOCCAL 65+ YRS (1 of - [id number] PCV13)] Encounters Start End Encounter Admission Attending Care Care Encounter Source Date/Time Date/Time Type Type Clinicians Facility Department ID 2019-08-23 Outpatient LIU CROFT MDA [id number] 15:43:06 PROVIDER Alexandro o n 2019-11-15 2019-11-15 Outpatient [place] [id number] 07:40:29 07:40:29 Alexandro o n 2019-11-10 2019-11-10 Outpatient UNIQUE JALLOH MDA, MDA [id number] 12:49:26 12:49:26 Alexandro o n 2019-11-10 2019-11-10 Outpatient UNIQUE JALLOH MDA, MDA [id number] 12:49:04 12:49:04 Alexandro o n 2019-11-05 2019-11-05 [place] [id number] 00:00:00 00:00:00 Alexandro o n 2019-11-04 2019-11-04 Outpatient UNIQUE JALLOH MDA, MDA [id number] 00:00:00 00:00:00 Alexandro o n 2019-11-04 2019-11-04 Outpatient UNIQUE JALLOH MDA LIU [id number] 00:00:00 00:00:00 Alexandro o n 2019-08-05 2019-08-05 Outpatient EUGENIO ISAAC MDA LIU [id number] 08:56:35 09:05:01 Alexandro o n 2019-08-03 2019-08-03 Outpatient UNIQUE JALLOH MDA LIU [id number] 11:32:49 11:32:49 Alexandro o n 2019-08-03 2019-08-03 Outpatient UNIQUE JALLOH MDA LIU [id number] 11:32:24 11:32:24 Alexandro o n Results Test Description Test Time Test Comments Results Result Comments Source ECG 12 lead 2019-09-03 14:24:00 Test Item Value Reference Range Interpretation Comme nts Lab Interpretation (test code = 22471-7) [facility] [id number] 12:17:00 Test Item Value Reference Range Interpretation Comments POC-GLUCOSE METER 244 mg/dL 70-110 H TESTED AT [facility] [address] (BEAKER) (test code = [place] 974628) [address] BASIC METABOLIC [id number] 09:51:00 Test Item Value Reference Range Interpretation Comments SODIUM (BEAKER) 139 meq/L 136-145 (test code = 381) POTASSIUM (BEAKER) 3.9 meq/L 3.5-5.1 (test code = 379) CHLORIDE (BEAKER) 110 meq/L 98-107 H (test code = 382) CO2 (BEAKER) (test 21 meq/L 22-29 L code = 355) BLOOD UREA NITROGEN 29 mg/dL 7-21 H (BEAKER) (test code = 354) CREATININE (BEAKER) 1.92 mg/dL 0.57-1.25 H (test code = 358) GLUCOSE RANDOM 149 mg/dL 70-105 H (BEAKER) (test code = 652) CALCIUM (BEAKER) 8.7 mg/dL 8.4-10.2 (test code = 697) EGFR (BEAKER) (test 34 mL/min/1.73 ESTIMA SOFY GFR IS code = 1092) sq m NOT ACCURATE CREATININE CLEARANCE IN PREDICTING GLOMERULAR FILTRATION RATE . ESTIMATED GFR I S NOT APPLICABLE FOR DIALYSIS PATIEN TS. CBC W/PLT COUNT & AUTO [id number] 06:36:00 Test Item Value Reference Range Interpretation Comments WHITE BLOOD CELL COUNT 4.7 K/ L 3.5-10.5 (BEAKER) (test code = 775) RED BLOOD CELL COUNT 3.70 M/ L 4.63-6.08 L (BEAKER) (test code = 761) HEMOGLOBIN (BEAKER) 12.2 GM/DL 13.7-17.5 L (test code = 410) HEMATOCRIT (BEAKER) 37.9 % 40.1-51.0 L (test code = 411) MEAN CORPUSCULAR 102.4 fL 79.0-92.2 H Discordant with VOLUME (BEAKER) (test previo us result code = 753) MEAN CORPUSCULAR 33.0 pg 25.7-32.2 H HEMOGLOBIN (BEAKER) (test code = 751) MEAN CORPUSCULAR 32.2 GM/DL 32.3-36.5 L HEMOGLOBIN CONC (BEAKER) (test code = 752) RED CELL DISTRIBUTION 14.9 % 11.6-14.4 H WIDTH (BEAKER) (test code = 412) PLATELET COUNT 152 K/CU MM 150-450 (BEAKER) (test code = 756) MEAN PLATELET VOLUME 8.9 fL 9.4-12.4 L (BEAKER) (test code = 754) NUCLEATED RED BLOOD 0 /100 WBC 0-0 CELLS (BEAKER) (test code = 413) NEUTROPHILS RELATIVE 39 % PERCENT (BEAKER) (test code = 429) LYMPHOCYTES RELATIVE 40 % PERCENT (BEAKER) (test code = 430) MONOCYTES RELATIVE 18 % PERCENT (BEAKER) (test code = 431) EOSINOPHILS RELATIVE 2 % PERCENT (BEAKER) (test code = 432) BASOPHILS RELATIVE 0 % PERCENT (BEAKER) (test code = 437) NEUTROPHILS ABSOLUTE 1.83 K/ L 1.78-5.38 COUNT (BEAKER) (test code = 670) LYMPHOCYTES ABSOLUTE 1.88 K/ L 1.32-3.57 COUNT (BEAKER) (test code = 414) MONOCYTES ABSOLUTE 0.86 K/ L 0.30-0.82 H COUNT (BEAKER) (test code = 415) EOSINOPHILS ABSOLUTE 0.11 K/ L 0.04-0.54 COUNT (BEAKER) (test code = 416) BASOPHILS ABSOLUTE 0.02 K/ L 0.01-0.08 COUNT ([facility]) (test code = 417) IMMATURE 0 % 0-1 GRANULOCYTES-RELATIVE PERCENT ([facility]) (test code = 2801) POCT-GLUCOSE [id number] 00:07:00 Test Item Value Reference Range Interpretation Comments POC-GLUCOSE METER 139 mg/dL 70-110 H TESTED AT [place] [address] ([facility]) (test code = [facility] 1538) [id number] POCT-GLUCOSE [id number] 21:11:00 Test Item Value Reference Range Interpretation Comments POC-GLUCOSE METER 195 mg/dL 70-110 H TESTED AT [place] [address] ([facility]) (test code = [facility] 1538) [address] POCT-GLUCOSE [id number] 17:40:00 Test Item Value Reference Range Interpretation Comments POC-GLUCOSE METER 149 mg/dL 70-110 H TESTED AT [place] [address] ([facility]) (test code = [facility] 1538) [id number] CT, CTANGIO [id number] 17:11:00FINAL REPORT CT, CTANGIO BRAINBRAIN CT WITHOUT [...] new infarct is developed. There is persistent plkk-yj-sccsvujr volume loss. No midline shift or hydrocephalus [...] artifactual changes in the reference MR angiographic exami nation or reflect recent treatment changes and blood pressure control. Signed: JR Davi, Loida Church Verified Date/Time: 08/09/2018 17:11:20 Reading Location: [facility] B1 C013V Neuro Reading Room POCT-GLUCOSE [id number] 08:18:00 Test Item Value Reference Range Interpretation Comments POC-GLUCOSE METER 106 mg/dL 70-110 TESTED AT [place] [address] ([facility]) (test code = JACK Ramírez [facility] 1538) [address] BASIC METABOLIC [id number] 06:51:00 Test Item Value Reference Range Interpretation Comments SODIUM (BEAKER) 140 meq/L 136-145 (test code = 381) POTASSIUM (BEAKER) 3.8 meq/L 3.5-5.1 (test code = 379) CHLORIDE (BEAKER) 112 meq/L 98-107 H (test code = 382) CO2 (BEAKER) (test 22 meq/L 22-29 code = 355) BLOOD UREA NITROGEN 23 mg/dL 7-21 H (BEAKER) (test code = 354) CREATININE (BEAKER) 1.47 mg/dL 0.57-1.25 H (test code = 358) GLUCOSE RANDOM 127 mg/dL 70-105 H (BEAKER) (test code = 652) CALCIUM (BEAKER) 8.5 mg/dL 8.4-10.2 (test code = 697) EGFR (BEAKER) (test 46 mL/min/1.73 ESTIMA SOFY GFR IS code = 1092) sq m NOT ACCURATE CREATININE CLEARANCE IN PREDICTING GLOMERULAR FILTRATION RATE . ESTIMATED GFR I S NOT APPLICABLE FOR DIALYSIS PATIEN TS. POCT-GLUCOSE [id number] 23:52:00 Test Item Value Reference Range Interpretation Comments POC-GLUCOSE METER 184 mg/dL 70-110 H TESTED AT [place] [address] ([facility]) (test code = [facility] Darrell [facility] 1538) [address] POCT-GLUCOSE [id number] 20:59:00 Test Item Value Reference Range Interpretation Comments POC-GLUCOSE METER 214 mg/dL 70-110 H TESTED AT [place] [address] ([facility]) (test code = [facility] Darrell [facility] 1538) [id number] POCT-GLUCOSE [id number] 18:04:00 Test Item Value Reference Range Interpretation Comments POC-GLUCOSE METER 136 mg/dL 70-110 H TESTED AT [place] [address] ([facility]) (test code = [facility] 1538) [id number] POCT-GLUCOSE [id number] 13:09:00 Test Item Value Reference Range Interpretation Comments POC-GLUCOSE METER 182 mg/dL 70-110 H TESTED AT [place] [address] ([facility]) (test code = [facility] Darrell [facility] 1538) [id number] POCT-GLUCOSE [id number] 08:20:00 Test Item Value Reference Range Interpretation Comments POC-GLUCOSE METER 139 mg/dL 70-110 H TESTED AT [place] [address] ([facility]) (test code = [facility] 1538) [address] CBC W/PLT COUNT & AUTO [id number] 08:07:00 Test Item Value Reference Range Interpretation Comments WHITE BLOOD CELL COUNT (BEAKER) 3.5 K/ L 3.5-10.5 (test code = 775) RED BLOOD CELL COUNT (AKER) 3.66 M/ L 4.63-6.08 L (test code = 761) HEMOGLOBIN (BEAKER) (test code = 12.3 GM/DL 13.7-17.5 L 410) HEMATOCRIT (BEAKER) (test code = 39.1 % 40.1-51.0 L 411) MEAN CORPUSCULAR VOLUME (BEAKER) 106.8 fL 79.0-92.2 H (test code = 753) MEAN CORPUSCULAR HEMOGLOBIN 33.6 pg 25.7-32.2 H (BEAKER) (test code = 751) MEAN CORPUSCULAR HEMOGLOBIN CONC 31.5 GM/DL 32.3-36.5 L (BEAKER) (test code = 752) RED CELL DISTRIBUTION WIDTH 15.7 % 11.6-14.4 H (BEAKER) (test code = 412) PLATELET COUNT (BEAKER) (test 132 K/CU MM 150-450 L code = 756) MEAN PLATELET VOLUME (BEAKER) 8.6 fL 9.4-12.4 L (test code = 754) NUCLEATED RED BLOOD CELLS 0 /100 WBC 0-0 (BEAKER) (test code = 413) (CELLAVISION MANUAL DIFF)2018-08-08 08:07:00 Test Item Value Reference Range Interpretation Comments NEUTROPHILS - REL 62 % (CELLAVISION)(BEAKER) (test code = 2816) LYMPHOCYTES - REL 29 % (CELLAVISION)(BEAKER) (test code = 2817) MONOCYTES - REL 5 % (CELLAVISION)(BEAKER) (test code = 2818) BANDS - REL (CELLAVISION)(BEAKER) 4 % 0-10 (test code = 2826) NEUTROPHILS - ABS 2.17 K/ul 1.78-5.38 (CELLAVISION)(BEAKER) (test code = 2830) LYMPHOCYTES - ABS 1.02 K/ul 1.32-3.57 L (CELLAVISION)(BEAKER) (test code = 2831) MONOCYTES - ABS 0.18 K/uL 0.30-0.82 L (CELLAVISION)(BEAKER) (test code = 2832) BANDS - ABS (CELLAVISION)(BEAKER) 0.14 K/uL 0.00-0.80 (test code = 2840) TOTAL COUNTED (BEAKER) (test code 100 = 1351) MANUAL NRBC PER 100 CELLS 1 /100 WBC 0-0 H (BEAKER) (test code = 1353) WBC MORPHOLOGY (BEAKER) (test Normal code = 487) CLUMPED PLATELETS (BEAKER) (test Present code = 436) GIANT PLATELETS (BEAKER) (test Present code = 313) POLYCHROMATOPHILLIC RBCS(BEAKER) 1+ few (test code = 478) ANISOCYTOSIS (BEAKER) (test code 2+ moderate = 961) MICROCYTES (BEAKER) (test code = 1+ few 965) MACROCYTES (BEAKER) (test code = 2+ moderate 964) POIKILOCYTES (BEAKER) (test code 1+ few = 966) OVALOCYTES (BEAKER) (test code = 1+ few 477) ARTIFACT (CELLAVISION)(BEAKER) Present (test code = 3432) PLATELET CONCENTRATION Decreased (CELLAVISION)(BEAKER) (test code = 3438) Received comment: User comments: Slide comments:BASIC METABOLIC [id number] 04:26:00 Test Item Value Reference Range Interpretation Comments SODIUM (BEAKER) 134 meq/L 136-145 L (test code = 381) POTASSIUM (BEAKER) 4.1 meq/L 3.5-5.1 Specimen slightly (test code = 379) hemolyzed CHLORIDE (BEAKER) 108 meq/L 98-107 H (test code = 382) CO2 (BEAKER) (test 20 meq/L 22-29 L code = 355) BLOOD UREA NITROGEN 24 mg/dL 7-21 H (BEAKER) (test code = 354) CREATININE (BEAKER) 1.66 mg/dL 0.57-1.25 H Specimen slightly (test code = 358) hemolyzed GLUCOSE RANDOM 117 mg/dL 70-105 H (BEAKER) (test code = 652) CALCIUM (BEAKER) 8.6 mg/dL 8.4-10.2 (test code = 697) EGFR (BEAKER) (test 40 mL/min/1.73 ESTIMA SOFY GFR IS code = 1092) sq m NOT ACCURATE CREATININE CLEARANCE IN PREDICTING GLOMERULAR FILTRATION RATE . ESTIMATED GFR I S NOT APPLICABLE FOR DIALYSIS PATIEN TS. POCT-GLUCOSE [id number] 21:38:00 Test Item Value Reference Range Interpretation Comments POC-GLUCOSE METER 169 mg/dL 70-110 H TESTED AT [facility] 6720 ([facility]) (test code = JACK Ramírez [facility] 1538) [id number] POCT-GLUCOSE [id number] 18:11:00 Test Item Value Reference Range Interpretation Comments POC-GLUCOSE METER 133 mg/dL 70-110 H TESTED AT [facility] 6720 ([facility]) (test code = [place] 1538) [id number] POCT-GLUCOSE [id number] 12:07:00 Test Item Value Reference Range Interpretation Comments POC-GLUCOSE METER 187 mg/dL 70-110 H TESTED AT [facility] 6720 ([facility]) (test code = [place] 1538) [id number] CBC W/PLT COUNT & AUTO [id number] 11:27:00 Test Item Value Reference Range Interpretation Comments WHITE BLOOD CELL COUNT (BEAKER) 5.4 K/ L 3.5-10.5 (test code = 775) RED BLOOD CELL COUNT (BEAKER) 3.99 M/ L 4.63-6.08 L (test code = 761) HEMOGLOBIN (BEAKER) (test code = 13.2 GM/DL 13.7-17.5 L 410) HEMATOCRIT (BEAKER) (test code = 40.9 % 40.1-51.0 411) MEAN CORPUSCULAR VOLUME (BEAKER) 102.5 fL 79.0-92.2 H (test code = 753) MEAN CORPUSCULAR HEMOGLOBIN 33.1 pg 25.7-32.2 H (BEAKER) (test code = 751) MEAN CORPUSCULAR HEMOGLOBIN CONC 32.3 GM/DL 32.3-36.5 (BEAKER) (test code = 752) RED CELL DISTRIBUTION WIDTH 15.4 % 11.6-14.4 H (BEAKER) (test code = 412) PLATELET COUNT (BEAKER) (test 175 K/CU MM 150-450 code = 756) MEAN PLATELET VOLUME (BEAKER) 8.4 fL 9.4-12.4 L (test code = 754) NUCLEATED RED BLOOD CELLS 0 /100 WBC 0-0 (BEAKER) (test code = 413) (CELLAVISION MANUAL DIFF)2018-08-07 11:27:00 Test Item Value Reference Range Interpretation Comments NEUTROPHILS - REL 72 % (CELLAVISION)(BEAKER) (test code = 2816) LYMPHOCYTES - REL 10 % (CELLAVISION)(BEAKER) (test code = 2817) MONOCYTES - REL 10 % (CELLAVISION)(BEAKER) (test code = 2818) EOSINOPHILS - REL 2 % (CELLAVISION)(BEAKER) (test code = 2819) BASOPHILS - REL 1 % (CELLAVISION)(BEAKER) (test code = 2820) BANDS - REL (CELLAVISION)(BEAKER) 4 % 0-10 (test code = 2826) ATYPICAL LYMPHOCYTES - REL 2 % 0-0 H (CELLAVISION)(BEAKER) (test code = 2829) NEUTROPHILS - ABS 3.89 K/ul 1.78-5.38 (CELLAVISION)(BEAKER) (test code = 2830) LYMPHOCYTES - ABS 0.54 K/ul 1.32-3.57 L (CELLAVISION)(BEAKER) (test code = 2831) MONOCYTES - ABS 0.54 K/uL 0.30-0.82 (CELLAVISION)(BEAKER) (test code = 2832) EOSINOPHILS - ABS 0.11 K/uL 0.04-0.54 (CELLAVISION)(BEAKER) (test code = 2834) BASOPHILS - ABS 0.05 K/uL 0.01-0.08 (CELLAVISION)(BEAKER) (test code = 2835) BANDS - ABS (CELLAVISION)(BEAKER) 0.22 K/uL 0.00-0.80 (test code = 2840) ATYPICAL LYMPHOCYTES - ABS 0.11 K/uL 0.00-0.00 H (CELLAVISION)(BEAKER) (test code = 2858) TOTAL COUNTED (BEAKER) (test code = 100 1351) RBC MORPHOLOGY (BEAKER) (test code Normal = 762) WBC MORPHOLOGY (BEAKER) (test code Normal = 487) PLT MORPHOLOGY (BEAKER) (test code Normal = 486) ARTIFACT (CELLAVISION)(BEAKER) Present (test code = 3432) PLATELET CONCENTRATION Adequate (CELLAVISION)(BEAKER) (test code = 3438) Received comment: User comments: Slide comments:BASIC METABOLIC [id number] 08:19:00 Test Item Value Reference Range Interpretation Comments SODIUM (BEAKER) 142 meq/L 136-145 (test code = 381) POTASSIUM (BEAKER) 4.4 meq/L 3.5-5.1 (test code = 379) CHLORIDE (BEAKER) 109 meq/L 98-107 H (test code = 382) CO2 (BEAKER) (test 27 meq/L 22-29 code = 355) BLOOD UREA NITROGEN 30 mg/dL 7-21 H (BEAKER) (test code = 354) CREATININE (BEAKER) 1.91 mg/dL 0.57-1.25 H (test code = 358) GLUCOSE RANDOM 155 mg/dL 70-105 H (BEAKER) (test code = 652) CALCIUM (BEAKER) 9.2 mg/dL 8.4-10.2 (test code = 697) EGFR ([facility]) (test 34 mL/min/1.73 ESTIMA SOFY GFR IS code = 1092) sq m NOT ACCURATE CREATININE CLEARANCE IN PREDICTING GLOMERULAR FILTRATION RATE . ESTIMATED GFR I S NOT APPLICABLE FOR DIALYSIS PATIEN TS. POCT-GLUCOSE [id number] 07:40:00 Test Item Value Reference Range Interpretation Comments POC-GLUCOSE METER 172 mg/dL 70-110 H TESTED AT [place] [id number] ([facility]) (test code = [facility] 1538) [id number] POCT-GLUCOSE [id number] 21:17:00 Test Item Value Reference Range Interpretation Comments POC-GLUCOSE METER 184 mg/dL 70-110 H TESTED AT [place] [id number] ([facility]) (test code = [facility] 1538) [id number] POCT-GLUCOSE [id number] 17:37:00 Test Item Value Reference Range Interpretation Comments POC-GLUCOSE METER 199 mg/dL 70-110 H TESTED AT [place] [id number] ([facility]) (test code = [facility] 1538) [id number] POCT-GLUCOSE [id number] 12:38:00 Test Item Value Reference Range Interpretation Comments POC-GLUCOSE METER 202 mg/dL 70-110 H TESTED AT [place] [id number] ([facility]) (test code = [facility] 1538) [id number] POCT-GLUCOSE [id number] 08:15:00 Test Item Value Reference Range Interpretation Comments POC-GLUCOSE METER 134 mg/dL 70-110 H TESTED AT [place] [address] ([facility]) (test code = [facility] 1538) [id number] CBC W/PLT COUNT & AUTO [id number] 06:52:00 Test Item Value Reference Range Interpretation Comments WHITE BLOOD CELL COUNT ([facility]) 5.0 K/ L 3.5-10.5 (test code = 775) RED BLOOD CELL COUNT ([facility]) 3.94 M/ L 4.63-6.08 L (test code = 761) HEMOGLOBIN ([facility]) (test code = 13.1 GM/DL 13.7-17.5 L 410) HEMATOCRIT ([facility]) (test code = 40.3 % 40.1-51.0 411) MEAN CORPUSCULAR VOLUME (BEAKER) 102.3 fL 79.0-92.2 H (test code = 753) MEAN CORPUSCULAR HEMOGLOBIN 33.2 pg 25.7-32.2 H (BEAKER) (test code = 751) MEAN CORPUSCULAR HEMOGLOBIN CONC 32.5 GM/DL 32.3-36.5 (BEAKER) (test code = 752) RED CELL DISTRIBUTION WIDTH 15.4 % 11.6-14.4 H (BEAKER) (test code = 412) PLATELET COUNT (BEAKER) (test 174 K/CU MM 150-450 code = 756) MEAN PLATELET VOLUME (BEAKER) 8.8 fL 9.4-12.4 L (test code = 754) NUCLEATED RED BLOOD CELLS 0 /100 WBC 0-0 (BEAKER) (test code = 413) NEUTROPHILS RELATIVE PERCENT 45 % (BEAKER) (test code = 429) LYMPHOCYTES RELATIVE PERCENT 38 % (BEAKER) (test code = 430) MONOCYTES RELATIVE PERCENT 14 % (BEAKER) (test code = 431) EOSINOPHILS RELATIVE PERCENT 3 % (BEAKER) (test code = 432) BASOPHILS RELATIVE PERCENT 0 % (BEAKER) (test code = 437) NEUTROPHILS ABSOLUTE COUNT 2.27 K/ L 1.78-5.38 (BEAKER) (test code = 670) LYMPHOCYTES ABSOLUTE COUNT 1.89 K/ L 1.32-3.57 (BEAKER) (test code = 414) MONOCYTES ABSOLUTE COUNT (BEAKER) 0.68 K/ L 0.30-0.82 (test code = 415) EOSINOPHILS ABSOLUTE COUNT 0.15 K/ L 0.04-0.54 (BEAKER) (test code = 416) BASOPHILS ABSOLUTE COUNT (BEAKER) 0.02 K/ L 0.01-0.08 (test code = 417) IMMATURE GRANULOCYTES-RELATIVE 0 % 0-1 PERCENT (BEAKER) (test code = 2801) BASIC METABOLIC [id number] 05:40:00 Test Item Value Reference Range Interpretation Comments SODIUM (BEAKER) 141 meq/L 136-145 (test code = 381) POTASSIUM (BEAKER) 4.0 meq/L 3.5-5.1 (test code = 379) CHLORIDE (BEAKER) 110 meq/L 98-107 H (test code = 382) CO2 (BEAKER) (test 24 meq/L 22-29 code = 355) BLOOD UREA NITROGEN 28 mg/dL 7-21 H ([facility]) (test code = 354) CREATININE ([facility]) 1.69 mg/dL 0.57-1.25 H (test code = 358) GLUCOSE RANDOM 139 mg/dL 70-105 H ([facility]) (test code = 652) CALCIUM ([facility]) 9.1 mg/dL 8.4-10.2 (test code = 697) EGFR ([facility]) (test 39 mL/min/1.73 ESTIMA SOFY GFR IS code = 1092) sq m NOT ACCURATE CREATININE CLEARANCE IN PREDICTING GLOMERULAR FILTRATION RATE . ESTIMATED GFR I S NOT APPLICABLE FOR DIALYSIS PATIEN TS. POCT-GLUCOSE [id number] 21:06:00 Test Item Value Reference Range Interpretation Comments POC-GLUCOSE METER 256 mg/dL 70-110 H TESTED AT [facility] 67 ([facility]) (test code = [facility] 1538) [id number] POCT-GLUCOSE [id number] 19:05:00 Test Item Value Reference Range Interpretation Comments POC-GLUCOSE METER 181 mg/dL 70-110 H TESTED AT [facility] 67 ([facility]) (test code = [facility] 1538) [id number] MR, SPINE, CERVICAL, WITHOUT [id number] 19:02:00FINAL REPORT MR, SPINE, CERVICAL, WITHOUT CONTRAST, [...] carotid arteries: Normal flow related enhancement without flow- limiting stenosisMiddle cerebral arteries: Lack of flow related [...] arteries: Normal flow-related enhancement within the bilateral [employer] P1-P2 segments without flow- limiting stenosisAdditional findings: None. MRA NECK:Common carotid arteries: Unremarkable. Bifurcations: No flow-limiting stenosis. Cervical internal carotid arteries: No flow limiting stenosis.Vertebral arteries: Origins are not well- seen. No flow limiting stenosis within the visualized cervical vertebral arterial segments. Limited assessment of the V3 segment secondary to noncontrast technique. Cervical spine: Slight grade 1 anterolisthesis of C4 on C5 and C5 on C6. Otherwise, cervical spine demonstrates normal alignment. Vertebral body height is maintained.Mild multilevel disc space height loss, most conspicuous at C3-C4, C4-C5 and C5-D7Siwojp signal intensity is within normal limits for [...] osteophyte complex with superimposed central disc protrusion, l igamentum flavum thickening and bilateral facet arthropathy and [...] present as described above Signed: Delmy Lara MDReport Verified Date/Time: 08/05/2018 19:02:53 Reading Location: [address] Neuro Reading Room MR, MRA, BRAIN, WITHOUT [id number] 19:02:00FINAL REPORT MR, SPINE, CERVICAL, WITHOUT CONTRAST, [...] carotid arteries: Normal flow related enhancement without flow- limiting stenosisMiddle cerebral arteries: Lack of flow related [...] arteries: Normal flow-related enhancement within the bilateral FA[employer]ER P1-P2 segments without flow- limiting stenosisAdditional findings: None. MRA NECK:Common carotid arteries: Unremarkable. Bifurcations: No flow-limiting stenosis. Cervical internal carotid arteries: No flow limiting stenosis.Vertebral arteries: Origins are not well- seen. No flow limiting stenosis within the visualized cervical vertebral arterial segments. Limited assessment of the V3 segment secondary to noncontrast technique. Cervical spine: Slight grade 1 anterolisthesis of C4 on C5 and C5 on C6. Otherwise, cervical spine demonstrates normal alignment. Vertebral body height is maintained.Mild multilevel disc space height loss, most conspicuous at C3-C4, C4-C5 and C5-C4Uoqejq signal intensity is within normal limits for [...] osteophyte complex with superimposed central disc protrusion, l igamentum flavum thickening and bilateral facet arthropathy and [...] present as described above Signed: Delmy Lara MDReport Verified Date/Time: 08/05/2018 19:02:53 Reading Location: [address] Neuro Reading Room MR, MRA, NECK, WITHOUT IV [id number] 19:02:00FINAL REPORT MR, SPINE, CERVICAL, WITHOUT CONTRAST, [...] carotid arteries: Normal flow related enhancement without flow- limiting stenosisMiddle cerebral arteries: Lack of flow related [...] arteries: Normal flow-related enhancement within the bilateral [employer]ER P1-P2 segments without flow- limiting stenosisAdditional findings: None. MRA NECK:Common carotid arteries: Unremarkable. Bifurcations: No flow-limiting stenosis. Cervical internal carotid arteries: No flow limiting stenosis.Vertebral arteries: Origins are not well- seen. No flow limiting stenosis within the visualized cervical vertebral arterial segments. Limited assessment of the V3 segment secondary to noncontrast technique. Cervical spine: Slight grade 1 anterolisthesis of C4 on C5 and C5 on C6. Otherwise, cervical spine demonstrates normal alignment. Vertebral body height is maintained.Mild multilevel disc space height loss, most conspicuous at C3-C4, C4-C5 and C5-X5Zxpshz signal intensity is within normal limits for [...] osteophyte complex with superimposed central disc protrusion, l igamentum flavum thickening and bilateral facet arthropathy and [...] present as described above Signed: Delmy Lara MDReport Verified Date/Time: 08/05/2018 19:02:53 Reading Location: [address] Neuro Reading Room MR, BRAIN, WITHOUT CONTRAST 2018-08-05 17:53:00FINAL REPORT MR, BRAIN, WITHOUT CONTRAST INDICATION: [...] pre and postcentral gyrus Signed: Delmy Lara MDReport Verified Date/Time: 08/05/2018 17:53:47 Reading Location: [facility] C013 Neuro Reading Room POCT-GLUCOSE [id number] 12:25:00 Test Item Value Reference Range Interpretation Comments POC-GLUCOSE METER 255 mg/dL 70-110 H TESTED AT [facility] 67 ([facility]) (test code = [facility] 1538) [id number] HEMOGLOBIN [id number] 10:11:00 Test Item Value Reference Range Interpretation Comments HEMOGLOBIN A1C (BEAKER) (test code = 6.7 % 4.3-6.1 H 368) POCT-GLUCOSE [id number] 08:38:00 Test Item Value Reference Range Interpretation Comments POC-GLUCOSE METER 146 mg/dL 70-110 H TESTED AT [facility] 6720 (BEAKER) (test code = [facility] 1538) [id number] 06:49:00 Test Item Value Reference Range Interpretation Comments MAGNESIUM (BEAKER) (test code = 1.8 mg/dL 1.6-2.6 627) BASIC METABOLIC [id number] 06:49:00 Test Item Value Reference Range Interpretation Comments SODIUM (BEAKER) 140 meq/L 136-145 (test code = 381) POTASSIUM (BEAKER) 4.1 meq/L 3.5-5.1 (test code = 379) CHLORIDE (BEAKER) 110 meq/L 98-107 H (test code = 382) CO2 (BEAKER) (test 25 meq/L 22-29 code = 355) BLOOD UREA NITROGEN 31 mg/dL 7-21 H (BEAKER) (test code = 354) CREATININE (BEAKER) 1.70 mg/dL 0.57-1.25 H (test code = 358) GLUCOSE RANDOM 120 mg/dL 70-105 H (BEAKER) (test code = 652) CALCIUM (BEAKER) 9.0 mg/dL 8.4-10.2 (test code = 697) EGFR (BEAKER) (test 39 mL/min/1.73 ESTIMA SOFY GFR IS code = 1092) sq m NOT ACCURATE CREATININE CLEARANCE IN PREDICTING GLOMERULAR FILTRATION RATE . ESTIMATED GFR I S NOT APPLICABLE FOR DIALYSIS PATIEN TS. LIPID [id number] 06:49:00 Test Item Value Reference Range Interpretation Comments TRIGLYCERIDES (BEAKER) (test code = 143 mg/dL 540) CHOLESTEROL (BEAKER) (test code = 110 mg/dL 631) HDL CHOLESTEROL (BEAKER) (test code 22 mg/dL = 976) LDL CHOLESTEROL CALCULATED (BEAKER) 59 mg/dL (test code = 633) Triglyceride Reference Range: Low Risk <150 Borderline 150-199 High Risk 200-499 Very High Risk >=500Cholesterol Reference Range: Low Risk <200 Borderline 200-239 High Risk >240HDL Cholesterol Reference Range: Low Risk >=60 High Risk <40LDL Cholesterol Reference Range: Optimal <100 Near Optimal 100-129 Borderline 130-159 High 160-189 Very High >=190HEPATIC FUNCTION [id number] 06:49:00 Test Item Value Reference Range Interpretation Comments TOTAL PROTEIN (BEAKER) (test code = 6.0 gm/dL 6.0-8.3 770) ALBUMIN (BEAKER) (test code = 1145) 3.5 g/dL 3.5-5.0 BILIRUBIN TOTAL (BEAKER) (test code 0.5 mg/dL 0.2-1.2 = 377) BILIRUBIN DIRECT (BEAKER) (test 0.2 mg/dL 0.1-0.5 code = 706) ALKALINE PHOSPHATASE (BEAKER) (test 71 U/L 40-150 code = 346) AST (SGOT) (BEAKER) (test code = 27 U/L 5-34 353) ALT (SGPT) (BEAKER) (test code = 38 U/L 6-55 347) CALCIUM, [id number] 06:33:00 Test Item Value Reference Range Interpretation Comments CALCIUM IONIZED (BEAKER) (test 1.14 mmol/L 1.12-1.27 code = 698) PH, BLOOD (BEAKER) (test code = 7.40 1810) [id number] 06:33:00 Test Item Value Reference Range Interpretation Comments PROTIME (BESTORM) (test code = 14.1 seconds 11.9-14.2 759) INR (BEAKER) (test code = 370) 1.2 <=5.9 PARTIAL THROMBOPLASTIN TIME 34.9 seconds 22.5-36.0 (BEAKER) (test code = 760) Effective 07/08/2018: PT Reference Range ChangeNew: 11.9-14.2 Previous: 11.7- 14.7RECOMMENDED COUMADIN/WARFARIN INR THERAPY RANGESSTANDARD DOSE: 2.0-3.0 Includes: PROPHYLAXIS for venous thrombosis, systemic embolization; TREATMENT for venous thrombosis and/or pulmonary embolus.HIGH RISK: Target INR is2.5-3.5 for patients wiht mechanical heart valves.PROTHROMBIN [id number] 06:32:00 Test Item Value Reference Range Interpretation Comments PROTIME (BESTORM) (test code = 14.1 seconds 11.9-14.2 759) INR (BESTORM) (test code = 370) 1.2 <=5.9 Effective 07/08/2018: PT Reference Range ChangeNew: 11.9-14.2 Previous: 11.7- 14.7RECOMMENDED COUMADIN/WARFARIN INR THERAPY RANGESSTANDARD DOSE: 2.0-3.0 Includes: PROPHYLAXIS for venous thrombosis, systemic embolization; TREATMENT for venous thrombosis and/or pulmonary embolus.HIGH RISK: Target INR is2.5-3.5 for patients wiht mechanical heart valves.POCT-GLUCOSE [id number] 21:14:00 Test Item Value Reference Range Interpretation Comments POC-GLUCOSE METER 229 mg/dL 70-110 H TESTED AT [facility] 6720 ([facility]) (test code = [facility] 1538) [id number] VITAMIN [id number] 17:40:00 Test Item Value Reference Range Interpretation Comments VITAMIN B12 (DEANNA) (test code = 244 pg/mL 213-816 234) TSH/FREE T4 IF [id number] 17:40:00 Test Item Value Reference Range Interpretation Comments THYROID STIMULATING HORMONE 4.23 uIU/mL 0.35-4.94 ([facility]) (test code = 772) LIPID [id number] 17:12:00 Test Item Value Reference Range Interpretation Comments TRIGLYCERIDES (BEAKER) (test code = 201 mg/dL 540) CHOLESTEROL (BEAKER) (test code = 120 mg/dL 631) HDL CHOLESTEROL (BEAKER) (test code 25 mg/dL = 976) LDL CHOLESTEROL CALCULATED (BEAKER) 55 mg/dL (test code = 633) Triglyceride Reference Range: Low Risk <150 Borderline 150-199 High Risk 200-499 Very High Risk >=500Cholesterol Reference Range: Low Risk <200 Borderline 200-239 High Risk >240HDL Cholesterol Reference Range: Low Risk >=60 High Risk <40LDL Cholesterol Reference Range: Optimal <100 Near Optimal 100-129 Borderline 130-159 High 160-189 Very High >=190CBC W/PLT COUNT & AUTO [id number] 16:54:00 Test Item Value Reference Range Interpretation Comments WHITE BLOOD CELL COUNT (BEAKER) 5.0 K/ L 3.5-10.5 (test code = 775) RED BLOOD CELL COUNT (BEAKER) 3.83 M/ L 4.63-6.08 L (test code = 761) HEMOGLOBIN (BEAKER) (test code = 12.7 GM/DL 13.7-17.5 L 410) HEMATOCRIT (BEAKER) (test code = 39.8 % 40.1-51.0 L 411) MEAN CORPUSCULAR VOLUME (BEAKER) 103.9 fL 79.0-92.2 H (test code = 753) MEAN CORPUSCULAR HEMOGLOBIN 33.2 pg 25.7-32.2 H (BEAKER) (test code = 751) MEAN CORPUSCULAR HEMOGLOBIN CONC 31.9 GM/DL 32.3-36.5 L (BEAKER) (test code = 752) RED CELL DISTRIBUTION WIDTH 16.3 % 11.6-14.4 H (BEAKER) (test code = 412) PLATELET COUNT (BEAKER) (test 159 K/CU MM 150-450 code = 756) MEAN PLATELET VOLUME (BEAKER) 8.6 fL 9.4-12.4 L (test code = 754) NUCLEATED RED BLOOD CELLS 0 /100 WBC 0-0 (BEAKER) (test code = 413) NEUTROPHILS RELATIVE PERCENT 46 % (BEAKER) (test code = 429) LYMPHOCYTES RELATIVE PERCENT 39 % (BEAKER) (test code = 430) MONOCYTES RELATIVE PERCENT 12 % (BEAKER) (test code = 431) EOSINOPHILS RELATIVE PERCENT 3 % (BEAKER) (test code = 432) BASOPHILS RELATIVE PERCENT 1 % (BEAKER) (test code = 437) NEUTROPHILS ABSOLUTE COUNT 2.29 K/ L 1.78-5.38 (BEAKER) (test code = 670) LYMPHOCYTES ABSOLUTE COUNT 1.91 K/ L 1.32-3.57 (BEAKER) (test code = 414) MONOCYTES ABSOLUTE COUNT (BEAKER) 0.58 K/ L 0.30-0.82 (test code = 415) EOSINOPHILS ABSOLUTE COUNT 0.13 K/ L 0.04-0.54 (BEAKER) (test code = 416) BASOPHILS ABSOLUTE COUNT (BEAKER) 0.03 K/ L 0.01-0.08 (test code = 417) IMMATURE GRANULOCYTES-RELATIVE 0 % 0-1 PERCENT (BEAKER) (test code = 2801) RAD, CHEST, 1 VIEW, NON [id number] 14:03:00Reason for exam:->chest pain FINAL REPORT CLINICAL HISTORY: chest pain TECHNIQUE: 1 view of the chest. COMPARISON: None IMPRESSION: There are no focal infiltrates or effusions. The cardiomediastinal silhouette is magnified by technique. The osseous structures appear intact. Signed: Mohsen Jackson MDReport Verified Date/Time: 08/04/2018 14:03:27 Reading Location: [address] Consult Reading Room B-TYPE NATRIURETIC FACTOR (BNP)2018-08-04 12:49:00 Test Item Value Reference Range Interpretation Comments B-TYPE NATRIURETIC PEPTIDE (BEAKER) 50 pg/mL 0-100 (test code = 700) TROPONIN [id number] 12:44:00 Test Item Value Reference Range Interpretation Comments TROPONIN I (BEAKER) (test code = 397) < ng/mL 0.00-0.03 Troponin I (TnI) levels [...] failure, acidosis, acute neurological disease, and persistent tachyarrhythmia.[id number] 12:36:00 Test Item Value Reference Range Interpretation Comments MAGNESIUM (BEAKER) (test code = 2.1 mg/dL 1.6-2.6 627) BASIC METABOLIC [id number] 12:36:00 Test Item Value Reference Range Interpretation Comments SODIUM (BEAKER) 142 meq/L 136-145 (test code = 381) POTASSIUM (BEAKER) 5.1 meq/L 3.5-5.1 (test code = 379) CHLORIDE (BEAKER) 110 meq/L 98-107 H (test code = 382) CO2 (BEAKER) (test 28 meq/L 22-29 code = 355) BLOOD UREA NITROGEN 36 mg/dL 7-21 H (BEAKER) (test code = 354) CREATININE (BEAKER) 1.91 mg/dL 0.57-1.25 H (test code = 358) GLUCOSE RANDOM 185 mg/dL 70-105 H (BEAKER) (test code = 652) CALCIUM (BEAKER) 9.5 mg/dL 8.4-10.2 (test code = 697) EGFR (BEAKER) (test 34 mL/min/1.73 ESTIMA SOFY GFR IS code = 1092) sq m NOT ACCURATE CREATININE CLEARANCE IN PREDICTING GLOMERULAR FILTRATION RATE . ESTIMATED GFR I S NOT APPLICABLE FOR DIALYSIS PATIEN TS. [id number] 12:30:00 Test Item Value Reference Range Interpretation Comments PROTIME (BEAKER) (test code = 13.3 seconds 11.9-14.2 759) INR (BEAKER) (test code = 370) 1.1 <=5.9 PARTIAL THROMBOPLASTIN TIME 32.7 seconds 22.5-36.0 (BEAKER) (test code = 760) Effective 07/08/2018: PT Reference Range ChangeNew: 11.9-14.2 Previous: 11.7- 14.7RECOMMENDED COUMADIN/WARFARIN INR THERAPY RANGESSTANDARD DOSE: 2.0-3.0 Includes: PROPHYLAXIS for venous thrombosis, systemic embolization; TREATMENT for venous thrombosis and/or pulmonary embolus.HIGH RISK: Target INR is2.5-3.5 for patients wiht mechanical heart valves.CBC W/PLT COUNT & AUTO [id number] 12:22:00 Test Item Value Reference Range Interpretation Comments WHITE BLOOD CELL COUNT (BEAKER) 4.9 K/ L 3.5-10.5 (test code = 775) RED BLOOD CELL COUNT (BEAKER) 4.08 M/ L 4.63-6.08 L (test code = 761) HEMOGLOBIN (BEAKER) (test code = 13.3 GM/DL 13.7-17.5 L 410) HEMATOCRIT (BEAKER) (test code = 42.7 % 40.1-51.0 411) MEAN CORPUSCULAR VOLUME (BEAKER) 104.7 fL 79.0-92.2 H (test code = 753) MEAN CORPUSCULAR HEMOGLOBIN 32.6 pg 25.7-32.2 H (BEAKER) (test code = 751) MEAN CORPUSCULAR HEMOGLOBIN CONC 31.1 GM/DL 32.3-36.5 L (BEAKER) (test code = 752) RED CELL DISTRIBUTION WIDTH 16.1 % 11.6-14.4 H (BEAKER) (test code = 412) PLATELET COUNT (BEAKER) (test 175 K/CU MM 150-450 code = 756) MEAN PLATELET VOLUME (BEAKER) 8.8 fL 9.4-12.4 L (test code = 754) NUCLEATED RED BLOOD CELLS 0 /100 WBC 0-0 (BEAKER) (test code = 413) NEUTROPHILS RELATIVE PERCENT 48 % (BEAKER) (test code = 429) LYMPHOCYTES RELATIVE PERCENT 37 % (BEAKER) (test code = 430) MONOCYTES RELATIVE PERCENT 12 % (BEAKER) (test code = 431) EOSINOPHILS RELATIVE PERCENT 3 % (BEAKER) (test code = 432) BASOPHILS RELATIVE PERCENT 0 % (BEAKER) (test code = 437) NEUTROPHILS ABSOLUTE COUNT 2.35 K/ L 1.78-5.38 (BEAKER) (test code = 670) LYMPHOCYTES ABSOLUTE COUNT 1.79 K/ L 1.32-3.57 (BEAKER) (test code = 414) MONOCYTES ABSOLUTE COUNT (BEAKER) 0.60 K/ L 0.30-0.82 (test code = 415) EOSINOPHILS ABSOLUTE COUNT 0.14 K/ L 0.04-0.54 (DEAN[facility]) (test code = 416) BASOPHILS ABSOLUTE COUNT (DEANNA) 0.02 K/ L 0.01-0.08 (test code = 417) IMMATURE GRANULOCYTES-RELATIVE 0 % 0-1 PERCENT (DEANNA) (test code = 2801) POCT-GLUCOSE [id number] 12:18:00 Test Item Value Reference Range Interpretation Comments POC-GLUCOSE METER 176 mg/dL 70-110 H TESTED AT [facility] 6720 (DEANNA) (test code = [facility] [place] 1538) [id number] CT, BRAIN/STROKE [id number] 12:04:00Reason for exam:->right arm weaknessWhat is the [...] extra-axial fluid collections. The skull is intact. Theparanasal sinuses are well-aerated. IMPRESSION: There is no CT evidence of acute infarct or intracran ial hemorrhage. The findings were discussed with the stroke neurologist at 12:04 PM Signed: Mohsen Jackson MDReport Verified Date/Time: 08/04/2018 12:04:59 Reading Location: [facility] Radiology Reading Room
[2020-01-25 14:19] LABS: Absolute Lymphocytes (CBC) 1.3 K/uL (0.7-4.9); Basophils % 0.3 % (0-1.3); Hematocrit 42.8 % (39.6-49.0); Lymphocytes % 22.9 % (15.3-44.8); MPV 7.3 fL (7.6-11.3); Protime INR 1.35; RBC Red Blood Cell Count 4.73 M/uL (4.33-5.43)
--- NOTE | 2020-01-25 14:33 | RAD REPORT ---
EXAM DESCRIPTION: CT - Head Brain Wo Cont - 01/25/2020 2:12 pm CLINICAL HISTORY: Slurred speech COMPARISON: 2019 TECHNIQUE: Computed axial tomography of the head was obtained. IV contrast was not requested. All CT scans are performed using dose optimization technique as appropriate and may include automated exposure control or mA/KV adjustment according to patient size. FINDINGS: An intracranial bleed is not seen . The ventricles are normal in caliber. No extra-axial fluid collection is noted. Low-density within the left frontal lobe white matter compatible with old infarction. Mild low-densit y within periventricular, deep and subcortical white matter consistent with ischemic changes secondar y to small vessel disease. Small low-density area within right internal capsule. Fluid within the sinuses/ mastoids is not seen. IMPRESSION: Small low-density area within the right internal capsule probably a lacunar infarction o f indeterminate age. 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 If patient continues have symptoms to suggest an acute CVA then MRI would be recommended
[2020-01-25 14:37] LABS: Albumin 3.4 g/dL (3.4-5.0); Bilirubin Direct 0.1 mg/dL (0-0.2); Bilirubin Total 0.4 mg/dL (0.2-1.0); Magnesium 2.3 mg/dL (1.8-2.4); Potassium 4.4 mmol/L (3.5-5.1); Protein, Total 7.2 g/dL (6.4-8.2); Troponin (Emerg Dept Use Only) 0.02 ng/mL (0.0-0.045)
--- NOTE | 2020-01-25 16:41 | RAD REPORT ---
EXAM DESCRIPTION: [place] Single View01/25/2020 3:25 pm CLINICAL HISTORY: Slurred speech COMPARISON: 2019 FINDINGS: Left base is hazy but is without significant change from the prior exam. It probably repre sents combination of calcification of the costal cartilage and pericardial fat. Infiltrate is conside red less likely. If the patient continues have symptoms to suggest an infiltrate then PA and lateral chest series would be recommended Right lung appears clear. Heart is normal size
[2020-01-25] MEDS ORDERED: HALOPERIDOL LACT 5 MG/ML INJ ONE (17:55)
--- NOTE | 2020-01-25 18:33 | ER ---
Nurse's Notes [facility] Name: Tony Winston Age: 79 yrs Sex: Male : 1940 Arrival Date: 01/25/2020 Time: 13:33 Bed 20 Private MD: Diagnosis: Cerebral infarction Presentation: 01/24 13:45 Chief complaint: Patient's son or daughter states: woke up around 0900 today and was sv having trouble speaking and generalized weakness. Pt went to bed around 2200 last night and tossed and turned all night. Last known well 2200 today. Pt went to a place in [place] to get tested for COVID, was negative and had a CXR done that showed pneumonia. Coronavirus screen: Client denies travel out of the [place] in the last 14 days. At this time, the client does not indicate any symptoms associated with coronavirus-19. Coronavirus screen: The client reports previous COVID testing was negative. Ebola Screen: No symptoms or risks identified at this time. No acute neurological deficit is noted. Pre-hospital glucose is not applicable to this patient. Risk Assessment: Do you want to hurt yourself or someone else? Patient reports no desire to harm self or others. Onset of symptoms was January 24, 2020. 13:45 Method Of Arrival: Wheelchair sv 13:45 Acuity: JACQUELINE 3 sv 13:48 Initial Sepsis Screen: Does the patient meet any 2 criteria? No. Patient's initial sv sepsis screen is negative. Does the patient have a suspected source of infection? No. Patient's initial sepsis screen is negative. Triage Assessment: 19:15 Neuro: Reports slurred speech. 19:15 The onset of the patients symptoms was more than six hours ago. 19:15 The onset of the patients symptoms was January 24, 2020 at 22:00. Stroke Activation: Symptom onset > 6 hours Physician: Stroke Attending; Name: ; Notified At: ; Arrived At: Physician: Chief Stroke Resident; Name: ; Notified At: ; Arrived At: Physician: Stroke Resident; Name: ; Notified At: ; Arrived At: Physician: ED Attending; Name: ; Notified At: ; Arrived At: Physician: ED Resident; Name: ; Notified At: ; Arrived At: Historical: - Allergies: 13:47 Codeine; sv - PMHx: 13:47 Diabetes - NIDDM; Hypertension; kidney cancer; sv - PSHx: 13:47 kidney cancer surgery; sv - Immunization history:: Adult Immunizations up to date. - Social history:: Smoking status: . Screenin:30 Abuse screen: Denies threats or abuse. Nutritional screening: No deficits noted. em Tuberculosis screening: No symptoms or risk factors identified. Fall Risk None identified. Assessment: 14:30 Patient has been NPO before screening. The patient is alert, and able to follow em commands. The patient does not exhibit slurred or garbled speech. The patient is not exhibiting difficulty speaking. The patient does not exhibit difficulty understanding words. The patient is able to swallow own secretions with no drooling or need for suction. Patient tolerated one teaspoon of water. No drooling, immediate coughing, gurgling, or clearing of the throat was noted. The patient tolerated 90mL of water. No drooling, immediate coughing, gurgling, or clearing of the throat was noted. The patient passed the bedside swallow screening. Oral medications may be given as ordered. Contact Physician for further diet orders. Provider notified of bedside swallow screening results: Figueroa ROBLES. T-PA (Activase) Screening: Contraindications: Patient reports onset of signs and symptoms of stroke greater than 6 hours ago: Yes. 14:30 VAN Scoring: Arm Drift: Patients demonstrates NO arm weakness. Patient is VAN Negative. em 14:30 General: Appears in no apparent distress. comfortable, Behavior is calm, cooperative, em appropriate for age. Pain: Denies pain. Neuro: Level of Consciousness is awake, alert, obeys commands, Weakness in bilateral leg(s) Speech is slurred. Cardiovascular: Capillary refill < 3 seconds Patient's skin is warm and dry. Respiratory: Airway is patent Respiratory effort is even, unlabored, Respiratory pattern is regular, symmetrical. GI: Patient currently denies nausea, vomiting. Derm: Skin is intact, is fragile, is thin, Skin is pink, warm \T\ dry. Musculoskeletal: Range of motion: intact in all extremities. 15:44 Reassessment: pending MRI, tolerated water PO well. em 17:40 Reassessment: spoke with daughter, states pt is severely claustrophobic to do MRI and em might not be able to complete it, provider notified, received VO for Haldol 5 mg IVP x 1 prior to procedure. 18:08 Reassessment: unable to do MRI, provider notified. em 18:32 Reassessment: pt son states he had a recent neg. covid swab, son states he will get em physical proof of the paperwork tomorrow, hospitalist at bedside. 19:15 Reassessment: Patient appears in no apparent distress at this time. Patient and/or wh family updated on plan of care and expected duration. Pain level reassessed. Patient is alert, oriented x 3, equal unlabored respirations, skin warm/dry/pink. Vital Signs: 13:48 BP 138 / 80; Pulse 86; Resp 16; Temp 98; Pulse Ox 96% ; sv 17:00 BP 121 / 63; Pulse 81; Resp 18; Pulse Ox 93% on R/A; wh 18:00 BP 151 / 77; Pulse 86; Resp 18; Pulse Ox 95% ; wh 19:15 BP 160 / 84; Pulse 86; Resp 18; Pulse Ox 95% on R/A; NIH Stroke Scale Scores: 13:43 NIHSS Score: 3 [facility] 14:30 NIHSS Score: 3 em ED Course: 13:33 Patient arrived in ED. as 13:41 Figueroa Ferrera PA is PHCP. jmm 13:41 Jerald Brooke MD is Attending Physician. [facility] 13:47 Triage completed. sv 13:48 Arm band placed on. sv 13:50 Jeevan Rollins, RN is Primary Nurse. em 14:00 Inserted saline lock: 20 gauge in right antecubital area, using aseptic technique. jp3 Blood collected. 14:00 Initial lab(s) drawn, by nm, sent to lab. jp3 14:05 EKG done, by ED staff, reviewed by Jerald Brooke MD. Patient maintains SpO2 saturation jp3 greater than 95% on room air. 14:13 CT Head Brain wo Cont In Process Unspecified. EDMS 14:22 Bed in low position. Call light in reach. Side rails up X2. Warm blanket given. Verbal jp3 reassurance given. fund accountant on. Pulse ox on. NIBP on. 15:25 XRAY Chest (1 view) In Process Unspecified. EDMS 16:19 Diet: Patient given snack. Patient given water. Tolerated well. jp3 18:32 Sherwin Raymond MD is Hospitalizing Provider. [facility] 19:50 No provider procedures requiring assistance completed. Patient admitted, IV remains in place. Administered Medications: 18:48 Drug: foLIC Acid 1 mg Route: IVPB; Site: right antecubital; em 19:37 Follow up: Response: No adverse reaction; IV Status: Completed infusion Point of Care Testing: Blood Glucose: 14:37 Blood Glucose: 120 mg/dL; Ranges: Outcome: 18:33 Decision to Hospitalize by Provider. jmm 19:50 Admitted to Med/surg accompanied by tech, family with patient, via wheelchair, room wh 214, with chart, Report called to Inderjit Christianson RN 19:50 Condition: stable 19:50 Instructed on the need for admit. 20:03 Patient left the ED. NIH Stroke Scale - NIH Stroke Score Date: 01/25/2020 Time: 13:43 Total Score = 3 1a. Level of Consciousness (LOC) - 0(Alert) 1b. Level of Consciousness (LOC) (Year \T\ Age) - 0(Both) 1c. LOC Commands (Open \T\ Closes Eyes/Referral Agent) - 0(Both) 2. Best Gaze (Lateral Gaze Paresis) - 0(Normal) 3. Visual Field Loss - 0(No visual loss) 4. Facial Palsy - 0(Normal) 5a. Left Arm: Motor (10-second hold) - 0(No drift) 5b. Right Arm: Motor (10-second hold) - 0(No drift) 6a. Left Leg: Motor (5-second hold - always test supine) - 1(Drift) 6b. Right Leg: Motor (5-second hold - always test supine) - 1(Drift) 7. Limb Ataxia (finger/nose \T\ heel/iverson - test with eyes open) - 0(Absent) 8. Sensory Loss (pinprick arms/legs/face) - 0(Normal) 9. Best Language: Aphasia (description/naming/reading) - 0(No aphasia) 10. Dysarthria (speech clarity - read or repeat words) - 1(Mild to Moderate) 11. Extinction and Inattention (visual/tactile/auditory/spatial/personal) - 0(No abnormality) Initials: [facility] NIH Stroke Scale - NIH Stroke Score Date: 01/25/2020 Time: 14:30 Total Score = 3 1a. Level of Consciousness (LOC) - 0(Alert) 1b. Level of Consciousness (LOC) (Year \T\ Age) - 0(Both) 1c. LOC Commands (Open \T\ Closes Eyes/Referral Agent) - 0(Both) 2. Best Gaze (Lateral Gaze Paresis) - 0(Normal) 3. Visual Field Loss - 0(No visual loss) 4. Facial Palsy - 0(Normal) 5a. Left Arm: Motor (10-second hold) - 0(No drift) 5b. Right Arm: Motor (10-second hold) - 0(No drift) 6a. Left Leg: Motor (5-second hold - always test supine) - 1(Drift) 6b. Right Leg: Motor (5-second hold - always test supine) - 1(Drift) 7. Limb Ataxia (finger/nose \T\ heel/iverson - test with eyes open) - 0(Absent) 8. Sensory Loss (pinprick arms/legs/face) - 0(Normal) 9. Best Language: Aphasia (description/naming/reading) - 0(No aphasia) 10. Dysarthria (speech clarity - read or repeat words) - 1(Mild to Moderate) 11. Extinction and Inattention (visual/tactile/auditory/spatial/personal) - 0(No abnormality) Initials: em Signatures: Dispatcher [employer] Karoline Molina, RN Figueroa Galarza PA PA jmm Munoz, Edgar, RN RN em Martinez, Amelia as Habalo, Winsy Jonathan Davis jp3 Corrections: (The following items were deleted from the chart) 19:40 19:15 Blood Glucose: Blood Glucose Pliclvg=365 mg/dL. [facility]
--- NOTE | 2020-01-25 18:34 | EDPHYS ---
Physician Documentation [facility] Name: Tony Winston Age: 79 yrs Sex: Male : 1940 Arrival Date: 01/25/2020 Time: 13:33 Bed 20 Private MD: ED Physician Jerald Brooke HPI: 01/24 13:43 This 79 yrs old Male presents to ER via Wheelchair with complaints of Trouble jmm Talking, Trouble Walking. 13:43 The patient presents to the emergency department with weakness of the a speech or jmm higher order brain function problem. Onset: The symptoms/episode began/occurred at an unknown time. Associated signs and symptoms:. This is a 79 year old male with a history of DM, HTN, CVA that presents to the ED with slurred speech and generalized weakness. Patient states he was diagnosed with pneumonia 2 days prior. States having difficulty sleeping last night. Denies unilateral weakness. Patient takes eliquis. . Historical: - Allergies: 13:47 Codeine; sv - PMHx: 13:47 Diabetes - NIDDM; Hypertension; kidney cancer; sv - PSHx: 13:47 kidney cancer surgery; sv - Immunization history:: Adult Immunizations up to date. - Social history:: Smoking status: . ROS: 13:43 Cardiovascular: Negative for chest pain, palpitations, and edema. jmm 13:43 Constitutional: Positive for body aches, fatigue. 13:43 Respiratory: Positive for shortness of breath. 13:43 Neuro: Positive for weakness. 13:43 All other systems are negative. Exam: 13:43 Head/Face: atraumatic. Eyes: EOMI, no conjunctival erythema appreciated ENT: Moist jmm Mucus Membranes Neck: Trachea midline, Supple Chest/axilla: Normal chest wall appearance and motion. Cardiovascular: Regular rate and rhythm. No edema appreciated Respiratory: Normal respirations, no respiratory distress appreciated Abdomen/GI: Non distended, soft Back: Normal ROM Skin: General appearance color normal MS/ Extremity: Moves all extremities, no obvious deformities appreciated, no edema noted to the lower extremities 13:43 Constitutional: The patient appears in no acute distress, alert, awake. 13:43 Neuro: Orientation: is normal, Mentation: is normal, Memory: is normal, Cranial nerves: Sensation: is normal, no obvious gross deficits. 13:43 Psych: Behavior/mood is pleasant, cooperative. Vital Signs: 13:48 BP 138 / 80; Pulse 86; Resp 16; Temp 98; Pulse Ox 96% ; sv 17:00 BP 121 / 63; Pulse 81; Resp 18; Pulse Ox 93% on R/A; wh 18:00 BP 151 / 77; Pulse 86; Resp 18; Pulse Ox 95% ; wh 19:15 BP 160 / 84; Pulse 86; Resp 18; Pulse Ox 95% on R/A; NIH Stroke Scale Scores: 13:43 NIHSS Score: 3 [facility] 14:30 NIHSS Score: 3 em MDM: 13:43 Patient medically screened. brinda 18:26 Data reviewed: vital signs, nurses notes. Counseling: I had a detailed discussion with [facility] the patient and/or guardian regarding: the historical points, exam findings, and any diagnostic results supporting the discharge/admit diagnosis. 18:27 Counseling: I had a detailed discussion with the patient and/or guardian regarding: lab [facility] results, radiology results. ED course: Patient refused MRI due to anxiety. Haldol did not alleviate anxiety. I discussed the patient with Ismael Guzmán whom accepted the patient. . 01/24 13:50 Order name: Basic Metabolic Panel; Complete Time: 14:37 [facility] 01/24 13:50 Order name: CBC with Diff; Complete Time: 14:36 [facility] 01/24 13:50 Order name: LFT's; Complete Time: 14:37 [facility] 01/24 13:50 Order name: Magnesium; Complete Time: 14:37 [facility] 01/24 13:50 Order name: NT PRO-BNP; Complete Time: 14:37 [facility] 01/24 13:50 Order name: PT-INR; Complete Time: 14:36 [facility] 01/24 13:50 Order name: Troponin (emerg Dept Use Only); Complete Time: 14:37 [facility] 01/24 13:50 Order name: XRAY Chest (1 view); Complete Time: 16:42 [facility] 01/24 13:50 Order name: EKG; Complete Time: 13:51 [facility] 01/24 13:50 Order name: Cardiac monitoring; Complete Time: 14:23 [facility] 01/24 13:50 Order name: CT Head Brain wo Cont; Complete Time: 14:36 [facility] 01/24 14:39 Order name: MRI - Brain Wo Cont [facility] 01/24 19:01 Order name: CONS Physician Consult [facility] 01/24 13:50 Order name: EKG - Nurse/Tech; Complete Time: 14:24 [facility] 01/24 13:50 Order name: IV Saline Lock; Complete Time: 14:23 [facility] 01/24 13:50 Order name: Labs collected and sent; Complete Time: 14:23 [facility] 01/24 13:50 Order name: O2 Per Protocol; Complete Time: 14:23 [facility] 01/24 13:50 Order name: O2 Sat Monitoring; Complete Time: 14:23 [facility] Administered Medications: 18:48 Drug: foLIC Acid 1 mg Route: IVPB; Site: right antecubital; em 19:37 Follow up: Response: No adverse reaction; IV Status: Completed infusion Point of Care Testing: Blood Glucose: 14:37 Blood Glucose: 120 mg/dL; Ranges: Critical Glucose Levels:Adult <50 mg/dl or >400 mg/dl <40 mg/dl or >180 mg/dl Disposition: 01/25 11:50 Co-signature as Attending Physician, Jerald Brooke MD I agree with the assessment and brinda plan of care. Disposition: 01/25/20 18:33 Hospitalization ordered by Sherwin Raymond for Observation. Preliminary diagnosis is Cerebral infarction. - Bed requested for Telemetry/MedSurg (observation). - Status is Observation. - Condition is Stable. - Problem is an acute exacerbation. - Symptoms are unchanged. NIH Stroke Scale - NIH Stroke Score Date: 01/25/2020 Time: 13:43 Total Score = 3 1a. Level of Consciousness (LOC) - 0(Alert) 1b. Level of Consciousness (LOC) (Year \T\ Age) - 0(Both) 1c. LOC Commands (Open \T\ Closes Eyes/Locomotive Crane Operator Helper) - 0(Both) 2. Best Gaze (Lateral Gaze Paresis) - 0(Normal) 3. Visual Field Loss - 0(No visual loss) 4. Facial Palsy - 0(Normal) 5a. Left Arm: Motor (10-second hold) - 0(No drift) 5b. Right Arm: Motor (10-second hold) - 0(No drift) 6a. Left Leg: Motor (5-second hold - always test supine) - 1(Drift) 6b. Right Leg: Motor (5-second hold - always test supine) - 1(Drift) 7. Limb Ataxia (finger/nose \T\ heel/iverson - test with eyes open) - 0(Absent) 8. Sensory Loss (pinprick arms/legs/face) - 0(Normal) 9. Best Language: Aphasia (description/naming/reading) - 0(No aphasia) 10. Dysarthria (speech clarity - read or repeat words) - 1(Mild to Moderate) 11. Extinction and Inattention (visual/tactile/auditory/spatial/personal) - 0(No abnormality) Initials: [facility] NIH Stroke Scale - NIH Stroke Score Date: 01/25/2020 Time: 14:30 Total Score = 3 1a. Level of Consciousness (LOC) - 0(Alert) 1b. Level of Consciousness (LOC) (Year \T\ Age) - 0(Both) 1c. LOC Commands (Open \T\ Closes Eyes/Locomotive Crane Operator Helper) - 0(Both) 2. Best Gaze (Lateral Gaze Paresis) - 0(Normal) 3. Visual Field Loss - 0(No visual loss) 4. Facial Palsy - 0(Normal) 5a. Left Arm: Motor (10-second hold) - 0(No drift) 5b. Right Arm: Motor (10-second hold) - 0(No drift) 6a. Left Leg: Motor (5-second hold - always test supine) - 1(Drift) 6b. Right Leg: Motor (5-second hold - always test supine) - 1(Drift) 7. Limb Ataxia (finger/nose \T\ heel/iverson - test with eyes open) - 0(Absent) 8. Sensory Loss (pinprick arms/legs/face) - 0(Normal) 9. Best Language: Aphasia (description/naming/reading) - 0(No aphasia) 10. Dysarthria (speech clarity - read or repeat words) - 1(Mild to Moderate) 11. Extinction and Inattention (visual/tactile/auditory/spatial/personal) - 0(No abnormality) Initials: em Signatures: Dispatcher [employer] Karoline Molina, RN Jerald Nick MD MD cha Mickail, Joel, PA PA jmm Munoz, Edgar, RN RN em Habalo, Winsy wh Aguilar, Jose RN RN ja1 Corrections: (The following items were deleted from the chart) 01/24 19:23 18:33 Hospitalization Ordered by Sherwin Raymond MD for Observation. Preliminary ja1 diagnosis is Cerebral infarction. Bed requested for Telemetry/MedSurg (observation). Status is Observation. Condition is Stable. Problem is an acute exacerbation. Symptoms are unchanged. naida 20:03 19:23 01/25/2020 18:33 Hospitalization Ordered by Sherwin Raymond MD for wh Observation. Preliminary diagnosis is Cerebral infarction. Bed requested for Telemetry/MedSurg (observation). Status is Observation. Condition is Stable. Problem is an acute exacerbation. Symptoms are unchanged. ja1
[2020-01-25] MEDS ORDERED: FOLIC ACID 5 MG/ML VIAL ONE (19:00)
[2020-01-25] MEDS ORDERED: ZOLPIDEM TARTRATE 5 MG TABLET PO PRN (20:13)
[2020-01-25] MEDS ORDERED: ONDANSETRON 4 MG/2 ML VIAL IV PRN (20:13)
[2020-01-25 20:29] VITALS: BMI 24.3
[2020-01-25] MEDS: NA CHLORIDE 0.9% 1,000 ML IV SCH (20:50)
[2020-01-25] MEDS: APIXABAN 5 MG TABLET PO SCH (22:21)
[2020-01-25] MEDS: ATORVASTATIN 20 MG TAB PO SCH (22:21)
[2020-01-25] MEDS: GABAPENTIN 300 MG CAP PO SCH (22:22)
[2020-01-25 22:37] LABS: T4,Total 6.7 ug/dL (4.5-12.1); Thyroid Stimulating Hormone 2.06 uIU/mL (0.360-3.740)
--- NOTE | 2020-01-26 00:43 | P.HP ---
Certification for Inpatient Patient admitted to: Inpatient With expected LOS: >2 Midnights Patient will require the following post-hospital care: None Practitioner: I am a practitioner with admitting privileges, knowledge of patient current condition, hospital course, and medical plan of care. Services: Services provided to patient in accordance with Admission requirements found in Title 42 Section 412.3 of the Code of Federal Regulations <Krupa Guzmánshua - Last Filed: 01/26/20 00:38> Patient History Date of Service: 01/26/20 Reason for admission: CVA History of Present Illness: This is a 79-year-old male with a history of bfx-svwerci-meyfbdtcd diabetes mellitus, hypertension, cerebral vascular accident. Patient presented to the emergency room today for acute onset of slurred speech and ataxia that started at 9:00 a.m. this morning. Patient was received to the emergency room at 1:33 p.m. this afternoon. Patient was worked up in the emergency room for acute CVA as patient had an initial NIH scale of 3 documented by emergency provider. Patient was found to have on CT head without contrast old frontal lobe and la cunar infarct. No new changes on CT. Other notable labs was a 2.14 creatinine which is somewhat around baseline for patient. Medicine was consulted at that time for admission for suspected CVA. Upon assessment in the emergency room by myself. Patient still had speech deficit and visual deficit noted on neurologic examination. No new changes otherwise and no other focal deficits noted. Home medications list reviewed: Yes - Past Medical/Surgical History Has patient received pneumonia vaccine in the past: Yes Diabetic: Yes -: Lung & pancreaticCA -: MRSA -: Obstructive sleep apnea- has CPAP at home -: GERD -: Blood clots -: Hiatal Hernia -: HTN -: Hyperlipidemia -: OA -: Renal CA -: Chest pain -: COPD -: Cardiac Cath x 3 -: Cholecystectomy -: Bilateral hernia repair -: Right Nephrectomy 2007 -: Upper Endoscopy BX - Family History Father -: Heart disease Notes: - Social History Smoking Status: Former smoker Smoking therapy provided: No Alcohol use: No CD- Drugs: No Caffeine use: Yes Place of Residence: Home <Martin Guzmán - Last Filed: 01/26/20 00:38> Date of Service: 01/25/20 <Sherwin Raymond - Last Filed: 01/29/20 05:26> Allergies codeine Allergy (Verified 01/25/20 21:39) Itching Home Medications: Apixaban [Eliquis] 5 mg PO BID 08/11/18 Atorvastatin Calcium [Lipitor*] 20 mg PO BEDTIME 08/11/18 Cholecalciferol (Vitamin D3) [Vitamin D3] 5,000 unit PO DAILY 08/11/18 Insulin Aspart (Niacinamide) [Fiasp 100 Unit/ml Vial] 15 unit SQ TIDWM 08/11/18 Insulin Glargine Human [Lantus*] 60 unit SQ BEDTIME 08/11/18 Tamsulosin [Flomax*] 0.4 mg PO BEDTIME 08/11/18 Aspirin [Adult Low Dose Aspirin EC] 1 tab PO DAILY 01/11/19 Cyanocobalamin (Vitamin B-12) [Vitamin B-12] 1,000 mcg PO DAILY 01/11/19 Docusate Sodium [Stool Softener] 1 cap PO DAILY PRN 01/11/19 Magnesium Oxide [Magnesium] 1 tab PO DAILY 01/11/19 Gabapentin 300 mg PO BEDTIME 30 Days #30 capsule 01/12/19 Hydralazine [Apresoline*] 25 mg PO BID 01/25/20 Hydromorphone [Dilaudid*] 4 mg PO BEDTIME PRN 01/25/20 Turmeric/Turmeric Root Extract [Turmeric 500 mg Capsule] 1,000 unit PO DAILY 01/25/20 levoFLOXacin [Levaquin*] 750 mg PO DAILY 01/25/20 Ascorbic Acid [Vitamin C*] 500 mg PO Q12H #30 tablet 01/28/20 Cholecalciferol (Vitamin D3) [Vitamin D 5,000 IU Cap*] 5,000 unit PO DAILY #30 cap 01/28/20 Zinc Sulfate [Zinc Sulfate*] 220 mg PO DAILY #30 cap 01/28/20 predniSONE [Prednisone*] 20 mg PO BID #15 tab 01/28/20 Review of Systems Eyes: Unremarkable ENT: Unremarkable Respiratory: Unremarkable Cardiovascular: Unremarkable Gastrointestinal: Unremarkable Musculoskeletal: Unremarkable Integumentary: Unremarkable Neurological: As per HPI Lymphatics: Unremarkable <Martin Guzmán - Last Filed: 01/26/20 00:38> Physical Examination - Vital Signs Temperature: 98.3 F Blood Pressure: 180/85 Pulse: 83 Respirations: 20 Pulse Ox (%): 92 - Physical Exam General: Alert, In no apparent distress, Oriented x3, Cooperative HEENT: PERRLA, Mucous membr. moist/pink, EOMI Neck: Supple, 2+ carotid pulse no bruit, JVD not distended, No Thyromegaly Respiratory: Clear to auscultation bilaterally, Normal air movement Cardiovascular: No edema, Normal pulses, Regular rate/rhythm, Normal S1 S2, No gallops, No rubs, No murmurs Capillary refill: <2 Seconds Gastrointestinal: Normal bowel sounds, Soft and benign, Non-distended, No ascites, No tenderness, No masses, No rebound, No guarding Musculoskeletal: No clubbing, No swelling, No contractures, No erythema, No tenderness, No warmth Integumentary: No rashes, No breakdown, No significant lesion, No tenderness/swelling, No erythema, No warmth, No cyanosis Neurological: Abnormal speech (slurred speech and bitemporal visual deficits noted. NIH 2 present at this time ) Lymphatics: No axilla or inguinal lymphadenopathy - Studies Laboratory Data (last 24 hrs) 01/25/20 14:00: PT 15.8 H, INR 1.35 01/25/20 14:00: WBC 5.5, Hgb 13.8, Hct 42.8, Plt Count 122 L 01/25/20 14:00: Sodium 141, Potassium 4.4, BUN 37 H, Creatinine 2.14 H, Glucose 120 H, Magnesium 2.3, Total Bilirubin 0.4, AST 41 H, ALT 50, Alkaline Phosphatase 118 H <Martin Guzmán - Last Filed: 01/26/20 00:38> Assessment and Plan - Problems (Diagnosis) (1) Non-insulin dependent diabetes mellitus Current Visit: Yes Status: Chronic (2) Hyperlipidemia Current Visit: Yes Status: Chronic Qualifiers: Hyperlipidemia type: mixed hyperlipidemia Qualified Code(s): E78.2 - Mixed hyperlipidemia (3) Cerebral vascular accident Current Visit: Yes Status: Acute Qualifiers: CVA mechanism: unspecified Qualified Code(s): I63.9 - Cerebral infarction, unspecified (4) Diabetic neuropathy Current Visit: Yes Status: Chronic Qualifiers: Diabetes mellitus type: type 2 Diabetes mellitus complication detail: diabetic polyneuropathy Qualified Code(s): E11.42 - Type 2 diabetes mellitus with diabetic polyneuropathy (5) Hypertension Current Visit: No Status: Chronic Qualifiers: Hypertension type: essential hypertension Qualified Code(s): I10 - Essential (primary) hypertension - Plan 1. Patient admitted to telemetry floor for further evaluation of suspected acute cerebral infarction. Patient not given t-PA in emergency room as patient was outside of thrombolytics window before getting to emergency room. 2. Consulted neurology for further assessment of suspected cerebral vascular accident 3. Patient declined MRI earlier while in emergency room but after talking to him was amicable of doing so if treated before hand. Patient to have MRI in the morning. 4. Patient will be on Eliquis 5 mg twice daily which she is already on for previous strokes. Will continue this regimen along with daily aspirin and folic acid 5. Neurologic checks will be continued throughout the night along with the vital signs. 6. Daily labs will be checked in the morning along with lipid panel for stability of cholesterolemia. 7. Ultrasound of carotids and echo of heart have also been ordered to ensure there is no atrial or ventricular thrombus or severe stenosis with plaquing of the carotid arteries to further rule out causes of CVA. Discharge Plan: Home Plan to discharge in: Greater than 2 days - Advance Directives Does patient have a Living Will: No Does patient have a Durable POA for Healthcare: No - Code Status/Comfort Care Code Status Assessed: Yes Critical Care: No Time Spent Managing Pts Care (In Minutes): 80 <Martin Guzmán - Last Filed: 01/26/20 00:38> - Problems (Diagnosis) (1) Diabetic neuropathy Current Visit: Yes Status: Chronic Qualifiers: Diabetes mellitus type: type 2 Diabetes mellitus complication detail: diabetic polyneuropathy Qualified Code(s): E11.42 - Type 2 diabetes mellitus with diabetic polyneuropathy (2) Hyperlipidemia Current Visit: Yes Status: Chronic Qualifiers: Hyperlipidemia type: mixed hyperlipidemia Qualified Code(s): E78.2 - Mixed hyperlipidemia (3) Non-insulin dependent diabetes mellitus Current Visit: Yes Status: Chronic (4) COPD (chronic obstructive pulmonary disease) Current Visit: No Status: Acute (5) Osteoarthritis Current Visit: No Status: Acute (6) History of CVA (cerebrovascular accident) Current Visit: No Status: Chronic (7) History of lung cancer Current Visit: No Status: Chronic (8) History of pancreatic cancer Current Visit: No Status: Chronic (9) History of renal cell cancer Current Visit: No Status: Chronic (10) Hypertension Current Visit: No Status: Chronic Qualifiers: Hypertension type: essential hypertension Qualified Code(s): I10 - Essential (primary) hypertension (11) Pneumonia due to COVID-19 virus Current Visit: Yes Status: Acute (12) Hypoxemia Current Visit: Yes Status: Acute <Sherwin Raymond - Last Filed: 01/29/20 05:26> Date of Service: 01/25/20 chart reviewed. Events noticed since admission. patient neurologically is fe eling much better. Patient is more mobile bile and talking more appropriately. Patient is much more awake. Will admit to the hospital for further workup of the stroke. Waiting for MRI. <Sherwin Raymond - Last Filed: 01/29/20 05:26>
[2020-01-26 04:23] LABS: Absolute Lymphocytes (CBC) 1.6 K/uL (0.7-4.9); Basophils % 0.3 % (0-1.3); Hematocrit 41.3 % (39.6-49.0); Lymphocytes % 30.2 % (15.3-44.8); MPV 7.5 fL (7.6-11.3); RBC Red Blood Cell Count 4.57 M/uL (4.33-5.43)
[2020-01-26 04:29] LABS: Phosphorus 3.5 mg/dL (2.5-4.9); Potassium 3.6 mmol/L (3.5-5.1)
[2020-01-26] MEDS ORDERED: LORazepam 2 MG/ML VIAL IV ONE (06:00)
[2020-01-26] MEDS ORDERED: POTASSIUM CL SA 10 MEQ TAB PO ONE (06:00)
[2020-01-26] MEDS: GABAPENTIN 300 MG CAP PO SCH ×2 (08:32→20:33)
[2020-01-26] MEDS: APIXABAN 5 MG TABLET PO SCH ×2 (08:32→20:34)
[2020-01-26] MEDS: ASPIRIN EC 81 MG TAB PO SCH (08:32)
[2020-01-26] MEDS: FOLIC ACID 1 MG in NA CHLORIDE 0.9% 50 ML IV SCH (09:07)
[2020-01-26] MEDS: NA CHLORIDE 0.9% 1,000 ML IV SCH (10:32)
--- NOTE | 2020-01-26 17:41 | P.CNS ---
Date of Consult: 01/26/20 Reason for Consult: DAMIÁN/ CKD Requesting Physician: Sherwin Raymond Primary Care Provider: Dr. Vegas Chief Complaint: CVA History of Present Illness: This is a 79-year-old male with a history of snz-pzezljx-cqhpoxojp diabetes mellitus, hypertension, cerebral vascular accident. Patient presented to the emergency room today for acute onset of slurred speech and ataxia that started at 9:00 a.m. this morning. Patient was received to the emergency room at 1:33 p.m. this afternoon. Patient was worked up in the emergency room for acute CVA as patient had an initial NIH scale of 3 documented by emergency provider. Patient was found to have on CT head without contrast old frontal lobe and lacunar infarct. No new changes on CT. Other notable labs was a 2.14 creatinine which is somewhat around baseline for patient. Medicine was consulted at that time for admission for suspected CVA. Patient with a speech deficit and visual deficit noted on neurologic examination. 13:43 This 79 yrs old Male presents to ER via Wheelchair with complaints of Trouble jmm Talking, Trouble Walking. 13:43 The patient presents to the emergency department with weakness of the a speech or jmm higher order brain function problem. Onset: The symptoms/episode began/occurred at an unknown time. Associated signs and symptoms:. This is a 79 year old male with a history of DM, HTN, CVA that presents to the ED with slurred speech and generalized weakness. Patient states he was diagnosed with pneumonia 2 days prior. States having difficulty sleeping last night. Denies unilateral weakness. Patient takes eliquis. Allergies codeine Allergy (Verified 01/25/20 21:39) Itching Home medications list reviewed: Yes Home Medications: Apixaban [Eliquis] 5 mg PO BID 08/11/18 Atorvastatin Calcium [Lipitor*] 20 mg PO BEDTIME 08/11/18 Cholecalciferol (Vitamin D3) [Vitamin D3] 5,000 unit PO DAILY 08/11/18 Insulin Aspart (Niacinamide) [Fiasp 100 Unit/ml Vial] 15 unit SQ TIDWM 08/11/18 Insulin Glargine Human [Lantus*] 60 unit SQ BEDTIME 08/11/18 Tamsulosin [Flomax*] 0.4 mg PO BEDTIME 08/11/18 Aspirin [Adult Low Dose Aspirin EC] 1 tab PO DAILY 01/11/19 Cyanocobalamin (Vitamin B-12) [Vitamin B-12] 1,000 mcg PO DAILY 01/11/19 Docusate Sodium [Stool Softener] 1 cap PO DAILY PRN 01/11/19 Magnesium Oxide [Magnesium] 1 tab PO DAILY 01/11/19 Gabapentin 300 mg PO BEDTIME 30 Days #30 capsule 01/12/19 Hydralazine [Apresoline] 25 mg PO BID 01/25/20 Hydromorphone [Dilaudid] 4 mg PO BEDTIME PRN 01/25/20 Turmeric/Turmeric Root Extract [Turmeric 500 mg Capsule] 1,000 unit PO DAILY 01/25/20 levoFLOXacin [Levaquin] 750 mg PO DAILY 01/25/20 - Past Medical/Surgical History Diabetic: Yes -: Lung & pancreaticCA -: MRSA -: Obstructive sleep apnea- has CPAP at home -: GERD -: Blood clots -: Hiatal Hernia -: HTN -: Hyperlipidemia -: OA -: Renal CA -: Chest pain -: COPD -: Cardiac Cath x 3 -: Cholecystectomy -: Bilateral hernia repair -: Right Nephrectomy 2007 -: Upper Endoscopy [facility] - Family History Father Medical History: Heart disease Notes: - Social History Smoking Status: Unknown if ever smoked Alcohol use: No CD- Drugs: No Caffeine use: Yes Place of Residence: Home Review of Systems 10-point ROS is otherwise unremarkable General: Weakness, Malaise Neurological: Weakness, Change in Speech Physical Examination Temp Pulse Resp BP Pulse Ox 98.7 F 82 24 H 167/79 H 93 01/26/20 16:30 01/26/20 16:30 01/26/20 16:30 01/26/20 16:30 01/26/20 16:30 General: In no apparent distress, Cooperative HEENT: Atraumatic Neck: Supple Respiratory: Clear to auscultation bilaterally Cardiovascular: No edema, Regular rate/rhythm Gastrointestinal: Soft and benign, Non-distended Musculoskeletal: No clubbing, No contractures Integumentary: No rashes, No cyanosis Neurological: Abnormal speech Blood work reviewed in the chart. Imagings Data: EXAM DESCRIPTION: [place] Single View01/25/2020 3:25 pm CLINICAL HISTORY: Slurred speech COMPARISON: 2019 FINDINGS: Left base is hazy but is without significant change from the prior exam. It probably represents combination of calcification of the costal cartilage and pericardial fat. Infiltrate is considered less likely. If the patient continues have symptoms to suggest an infiltrate then PA and lateral chest series would be recommended Right lung appears clear. Heart is normal size EXAM DESCRIPTION: CT - Head Brain Wo Cont - 01/25/2020 2:12 pm CLINICAL HISTORY: Slurred speech COMPARISON: 2018 TECHNIQUE: Computed axial tomography of the head was obtained. IV contrast was not requested. All CT scans are performed using dose optimization technique as appropriate and may include automated exposure control or mA/KV adjustment according to patient size. FINDINGS: An intracranial bleed is not seen . The ventricles are normal in caliber. No extra-axial fluid collection is noted. Low-density within the left frontal lobe white matter compatible with old infarction. Mild low-density within periventricular, deep and subcortical white matter consistent with ischemic changes secondary to small vessel disease. Small low-density area within right internal capsule. Fluid within the sinuses/ mastoids is not seen. IMPRESSION: Small low-density area within the right internal capsule probably a lacunar infarction of indeterminate age. 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 Conclusions/Impression: A/ DAMIÁN due to hypovolemia Hypokalemia Hypocalcemia CKD III Right nephrectomy 2007 due to Renal Ca HTN with CKD ALFREDO on CPAP DM II with CKD BPH with LUTS COVID-19 Infection P/ Continue current POC and Medications. Change IVF 1/2NS. Replete potassium as ordered. Start Vitamin D. Start Vitamin C and Zinc. Flomax restarted. Restart insulin as indicated. Oxygen supplementation prn. No NSAIDs. AM labs. Daily weight. Thank you kindly for the consultation.
[2020-01-26] MEDS: NACHLORIDE 0.45% 1,000 ML IV SCH (17:49)
[2020-01-26] MEDS: ASCORBIC ACID 500 MG TABLET PO SCH (18:32)
--- NOTE | 2020-01-26 19:16 | EKG ---
Test Date: 2020-01-25 Test Time: 14:04:12 Manager Care Management: RAVINDER MEASUREMENT RESULTS: Intervals: Rate: 84 WI: 128 QRSD: 84 QT: 350 QTc: 413 [place]: P: -7 WI: 128 QRS: 46 T: 42 INTERPRETIVE STATEMENTS: Normal sinus rhythm Cannot rule out Anterior infarct, age undetermined Abnormal ECG Compared to ECG 01/10/2019 18:31:50 Myocardial infarct finding now present Electronically Signed On 01-26-20 19:12:57 COMMUNICATIONS SUPERVISOR by Dustin North
[2020-01-26] MEDS: ATORVASTATIN 20 MG TAB PO SCH (20:33)
[2020-01-26] MEDS: TAMSULOSIN 0.4 MG SR CAP PO SCH (20:34)
[2020-01-26] MEDS: ACETAMINOPHEN 325 MG TABLET PO PRN (20:35)
[2020-01-27 04:18] LABS: Potassium 4.1 mmol/L (3.5-5.1)
[2020-01-27] MEDS: NACHLORIDE 0.45% 1,000 ML IV SCH ×2 (05:14→17:17)
[2020-01-27] MEDS: ASCORBIC ACID 500 MG TABLET PO SCH ×2 (05:30→17:17)
--- NOTE | 2020-01-27 07:39 | ECHO ---
HEIGHT: 6 ft 0 in WEIGHT: 179 lb 0 oz DATE OF STUDY: 01/26/[address]: Martin Guzmán 2-DIMENSIONAL: YES M.MODE: YES DOPPLER: YES COLOR FLOW: YES TDS: YES PORTABLE: DEFINITY: BUBBLE STUDY: DIAGNOSIS: STROKE CARDIAC HISTORY: CATHERIZATION: NO SURGERY: NO PROSTHETIC VALVE: NO PACEMAKER: NO MEASUREMENTS (cm) DIASTOLIC (NORMALS) SYSTOLIC (NORMALS) IVSd 1.0 (0.6-1.2) LA Diam (1.9-4.0) LVEF 69% LVIDd 3.8 (3.5-5.7) LVIDs 2.4 (2.0-3.5) %FS 38% LVPWd 1.1 (0.6-1.2) Ao Diam (2.0-3.7) 2 DIMENSIONAL ASSESSMENT: RIGHT ATRIUM: NORMAL LEFT ATRIUM: NORMAL RIGHT VENTRICLE: NORMAL LEFT VENTRICLE: NORMAL TRICUSPID VALVE: NORMAL MITRAL VALVE: NORMAL PULMONIC VALVE: NORMAL AORTIC VALVE: NORMAL PERICARDIAL EFFUSION: NONE AORTIC ROOT: NORMAL LEFT VENTRICULAR WALL MOTION: NORMAL DOPPLER/COLOR FLOW: NORMAL COMMENTS: TECHNICALLY DIFFICULT STUDY. GROSSLY NORMAL EJECTION FRACTION AND LEFT VENTRICULAR SIZE. NO OBVIOUS CLOT OR VEGETATION. TECHNOLOGIST: IVETT HERNANDEZ
[2020-01-27] MEDS: APIXABAN 5 MG TABLET PO SCH ×2 (09:29→20:47)
[2020-01-27] MEDS: TAMSULOSIN 0.4 MG SR CAP PO SCH ×2 (09:29→20:47)
[2020-01-27] MEDS: CALCITROL 0.25 MCG CAP PO SCH (09:29)
[2020-01-27] MEDS: VITAMIN D 5,000 UNIT CAP PO SCH (09:29)
[2020-01-27] MEDS: GABAPENTIN 300 MG CAP PO SCH ×2 (09:29→20:47)
[2020-01-27] MEDS: ZINC SULFATE 220 MG CAP PO SCH (09:29)
[2020-01-27] MEDS: FOLIC ACID 1 MG in NA CHLORIDE 0.9% 50 ML IV SCH (09:29)
[2020-01-27] MEDS: ASPIRIN EC 81 MG TAB PO SCH (09:29)
[2020-01-27] MEDS ORDERED: dexAMETHasone 4 MG/ML VIAL IV ONE (13:36)
--- NOTE | 2020-01-27 19:11 | P.PN ---
Date of Service: 01/27/20 Vital Signs Temp Pulse Resp BP Pulse Ox 98.7 F 84 26 H 125/62 93 01/27/20 16:00 01/27/20 16:00 01/27/20 16:00 01/27/20 16:00 01/27/20 16:00 Medications Acetaminophen (Acetaminophen 325 Mg Tablet) 650 mg PO Q6H PRN PRN Reason: TEMP > 100' F Stop: 02/25/20 20:24 Last Admin: 01/26/20 20:35 Dose: 650 mg Documented by: Apixaban (Apixaban 5 Mg Tablet) 5 mg PO BID [facility] Stop: 02/24/20 21:01 Last Admin: 01/27/20 09:29 Dose: 5 mg Documented by: Ascorbic Acid (Ascorbic Acid 500 Mg Tablet) 500 mg PO Q12H [facility] Stop: 02/25/20 18:01 Last Admin: 01/27/20 17:17 Dose: 500 mg Documented by: Aspirin (Aspirin Ec 81 Mg Tab) 81 mg PO DAILY [facility] Stop: 02/25/20 09:01 Last Admin: 01/27/20 09:29 Dose: 81 mg Documented by: Atorvastatin Calcium (Atorvastatin 20 Mg Tab) 40 mg PO BEDTIME [facility] Stop: 02/24/20 21:01 Last Admin: 01/26/20 20:33 Dose: 40 mg Documented by: Calcitriol (Calcitrol 0.25 Mcg Cap) 0.5 mcg PO DAILY [facility] Stop: 02/26/20 09:01 Last Admin: 01/27/20 09:29 Dose: 0.5 mcg Documented by: Cholecalciferol (Vitamin D 5,000 Unit Cap) 5,000 unit PO DAILY [facility] Stop: 02/26/20 09:01 Last Admin: 01/27/20 09:29 Dose: 5,000 unit Documented by: Gabapentin (Gabapentin 300 Mg Cap) 300 mg PO BID [facility] Stop: 02/24/20 21:01 Last Admin: 01/27/20 09:29 Dose: 300 mg Documented by: Folic Acid 1 mg/ Sodium (Chloride) 50.2 mls @ 200 mls/hr IV DAILY [facility] Stop: 02/25/20 09:01 Last Admin: 01/27/20 09:29 Dose: 50.2 mls Documented by: Sodium Chloride (Sodium Chloride 0.45%) 1,000 mls @ 80 mls/hr IV .[id number] [facility] Stop: 02/25/20 18:01 Last Admin: 01/27/20 17:17 Dose: 1,000 mls Documented by: Ondansetron HCl (Ondansetron 4 Mg/2 Ml Vial) 4 mg IV Q6HP PRN PRN Reason: NAUSEA / VOMITING Stop: 02/24/20 20:14 Sodium Chloride (Flush Normal Saline 10 Ml) 10 ml IV BID [facility] Stop: 02/24/20 21:01 Last Admin: 01/27/20 09:30 Dose: 10 ml Documented by: Tamsulosin HCl (Tamsulosin 0.4 Mg Sr Cap) 0.4 mg PO BID [facility] Stop: 02/25/20 21:01 Last Admin: 01/27/20 09:29 Dose: 0.4 mg Documented by: Zinc Sulfate (Zinc Sulfate 220 Mg Cap) 220 mg PO DAILY [facility] Stop: 02/26/20 09:01 Last Admin: 01/27/20 09:29 Dose: 220 mg Documented by: Zolpidem Tartrate (Zolpidem Tartrate 5 Mg Tablet) 5 mg PO BEDTIME PRN PRN PRN Reason: INSOMNIA Stop: 02/24/20 20:14 Last Admin: 01/26/20 00:45 Dose: 5 mg Documented by: Assessment/ Plan: Nephrology Dyspnea with cough. Malaise and weakness. +Appetite No acute events overnight. Vitals, medications, blood work and imaging reviewed in the chart. General: In no apparent distress, Cooperative HEENT: Atraumatic Neck: Supple Respiratory: Clear to auscultation bilaterally Cardiovascular: No edema, Regular rate/rhythm Gastrointestinal: Soft and benign, Non-distended Musculoskeletal: No clubbing, No contractures Integumentary: No rashes, No cyanosis Neurological: Abnormal speech Blood work reviewed in the chart. Imagings Data: EXAM DESCRIPTION: [place] Single View01/25/2020 3:25 pm CLINICAL HISTORY: Slurred speech COMPARISON: 2019 FINDINGS: Left base is hazy but is without significant change from the prior exam. It probably represents combination of calcification of the costal cartilage and pericardial fat. Infiltrate is considered less likely. If the patient continues have symptoms to suggest an infiltrate then PA and lateral chest series would be recommended Right lung appears clear. Heart is normal size EXAM DESCRIPTION: CT - Head Brain Wo Cont - 01/25/2020 2:12 pm CLINICAL HISTORY: Slurred speech COMPARISON: 2019 TECHNIQUE: Computed axial tomography of the head was obtained. IV contrast was not requested. All CT scans are performed using dose optimization technique as appropriate and may include automated exposure control or mA/KV adjustment according to patient size. FINDINGS: An intracranial bleed is not seen . The ventricles are normal in caliber. No extra-axial fluid collection is noted. Low-density within the left frontal lobe white matter compatible with old infarction. Mild low-density within periventricular, deep and subcortical white matter consistent with ischemic changes secondary to small vessel disease. Small low-density area within right internal capsule. Fluid within the sinuses/ mastoids is not seen. IMPRESSION: Small low-density area within the right internal capsule probably a lacunar infarction of indeterminate age. 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 Conclusions/Impression: A/ DAMIÁN due to hypovolemia Hypokalemia Hypocalcemia CKD III Right nephrectomy 2007 due to Renal Ca HTN with CKD ALFREDO on CPAP DM II with CKD BPH with LUTS COVID-19 Infection P/ Continue current POC and Medications. Discontinue IVF at this time. Restart as needed. Replete potassium prn. Continue Vitamin C, D and Zinc. Oxygen supplementation prn. Encourage nutrition. No NSAIDs. AM labs. Daily weight.
[2020-01-27] MEDS: ATORVASTATIN 20 MG TAB PO SCH (20:47)
[2020-01-28] MEDS: ASCORBIC ACID 500 MG TABLET PO SCH ×2 (05:38→17:16)
[2020-01-28 06:21] LABS: Absolute Lymphocytes (CBC) 0.9 K/uL (0.7-4.9); Basophils % 0.2 % (0-1.3); Hematocrit 40.2 % (39.6-49.0); Lymphocytes % 18.9 % (15.3-44.8); MPV 7.9 fL (7.6-11.3); RBC Red Blood Cell Count 4.53 M/uL (4.33-5.43)
[2020-01-28 07:18] LABS: C-Reactive Protein 48.8 mg/L (<3.00); Ferritin 341.2 ng/mL (26-388); Magnesium 1.7 mg/dL (1.8-2.4); Phosphorus 3.6 mg/dL (2.5-4.9); Potassium 4.5 mmol/L (3.5-5.1); Thyroid Stimulating Hormone 0.974 uIU/mL (0.360-3.740)
[2020-01-28 07:24] LABS: Platelet Estimate DECR; White Blood Cell Scan OK (OK)
[2020-01-28 07:25] LABS: Blood Morphology Comment NOT SEEN (NOT SEEN)
--- NOTE | 2020-01-28 08:25 | P.PN ---
Subjective Date of Service: 01/27/20 Patient is improving. Still hypoxic. Will arrange for home oxygen and plan to discharge home in the morning. Spoke with daughter. Review of Systems 10-point ROS is otherwise unremarkable Physical Examination - Vital Signs Temperature: 98.6 F Blood Pressure: 160/79 Pulse: 81 Respirations: 16 Pulse Ox (%): 92 - Physical Exam General: Alert, In no apparent distress, Oriented x3 Respiratory: Diminished Cardiovascular: Regular rate/rhythm, Normal S1 S2, No murmurs Gastrointestinal: Normal bowel sounds, Soft and benign, Non-distended, No tenderness Musculoskeletal: No tenderness Neurological: Sensation intact, Cranial nerves 3-12 intact - Studies Medications List Reviewed: Yes Assessment & Plan - Problems (Diagnosis) (1) Diabetic neuropathy Current Visit: Yes Status: Chronic Qualifiers: Diabetes mellitus type: type 2 Diabetes mellitus complication detail: diabetic polyneuropathy Qualified Code(s): E11.42 - Type 2 diabetes mellitus with diabetic polyneuropathy (2) Hyperlipidemia Current Visit: Yes Status: Chronic Qualifiers: Hyperlipidemia type: mixed hyperlipidemia Qualified Code(s): E78.2 - Mixed hyperlipidemia (3) Non-insulin dependent diabetes mellitus Current Visit: Yes Status: Chronic (4) COPD (chronic obstructive pulmonary disease) Current Visit: No Status: Acute (5) Osteoarthritis Current Visit: No Status: Acute (6) History of CVA (cerebrovascular accident) Current Visit: No Status: Chronic (7) History of lung cancer Current Visit: No Status: Chronic (8) History of pancreatic cancer Current Visit: No Status: Chronic (9) History of renal cell cancer Current Visit: No Status: Chronic (10) Hypertension Current Visit: No Status: Chronic Qualifiers: Hypertension type: essential hypertension Qualified Code(s): I10 - Essential (primary) hypertension (11) Pneumonia due to COVID-19 virus Current Visit: Yes Status: Acute (12) Hypoxemia Current Visit: Yes Status: Acute - Plan 1. Continue with IV antibiotics 2. Altered mental status has improved; slurred speech has resolved; spoke with f amily and possible discharge in the morning as long his oxygenation does not worsen 3. Repeat chest x-ray if symptoms worsen 4. O2 per protocol 5. Pulmonary consultation if symptoms worsen 6. Plan to discharge on albuterol inhaler, steroids, vitamin-C, zinc, and oxygen 7. O2 per protocol 8. Repeat labs including D-dimer, ferritin, and CRP and LFTs 9. GI and DVT prophylaxis Discharge Plan: Home Plan to discharge in: Greater than 2 days - Advance Directives Does patient have a Living Will: No Does patient have a Durable POA for Healthcare: No - Code Status/Comfort Care Code Status Assessed: Yes Code Status: Full Code Critical Care: No Time Spent Managing PTS Care (In Minutes): 35
--- NOTE | 2020-01-28 08:57 | P.DS ---
Discharge Date: 01/28/20 Primary Care Provider: Dr. Vegas Disposition: ROUTINE DISCHARGE Discharge Condition: GOOD Reason for Admission: CVA - Problems (1) Diabetic neuropathy Current Visit: Yes Status: Chronic Qualifiers: Diabetes mellitus type: type 2 Diabetes mellitus complication detail: diabetic polyneuropathy Qualified Code(s): E11.42 - Type 2 diabetes mellitus with diabetic polyneuropathy (2) Hyperlipidemia Current Visit: Yes Status: Chronic Qualifiers: Hyperlipidemia type: mixed hyperlipidemia Qualified Code(s): E78.2 - Mixed hyperlipidemia (3) Non-insulin dependent diabetes mellitus Current Visit: Yes Status: Chronic (4) COPD (chronic obstructive pulmonary disease) Current Visit: No Status: Acute (5) Osteoarthritis Current Visit: No Status: Acute (6) History of CVA (cerebrovascular accident) Current Visit: No Status: Chronic (7) History of lung cancer Current Visit: No Status: Chronic (8) History of pancreatic cancer Current Visit: No Status: Chronic (9) History of renal cell cancer Current Visit: No Status: Chronic (10) Hypertension Current Visit: No Status: Chronic Qualifiers: Hypertension type: essential hypertension Qualified Code(s): I10 - Essential (primary) hypertension (11) Pneumonia due to COVID-19 virus Current Visit: Yes Status: Acute (12) Hypoxemia Current Visit: Yes Status: Acute Vital Signs/Physical Exam: Temp Pulse Resp BP Pulse Ox 98.6 F 81 16 160/79 H 92 01/28/20 08:25 01/28/20 08:25 01/28/20 08:25 01/28/20 08:25 01/28/20 08:25 Laboratory Data at Discharge: WBC 4.8 K/uL (4.3-10.9) 01/28/20 05:59 Hgb 13.3 g/dL (13.6-17.9) L 01/28/20 05:59 Hct 40.2 % (39.6-49.0) 01/28/20 05:59 Plt Count 80 K/uL (152-406) L D 01/28/20 05:59 PT 15.8 SECONDS (9.5-12.5) H 01/25/20 14:00 INR 1.35 01/25/20 14:00 Sodium 138 mmol/L (136-145) 01/28/20 05:59 Potassium 4.5 mmol/L (3.5-5.1) 01/28/20 05:59 BUN 26 mg/dL (7-18) H 01/28/20 05:59 Creatinine 1.37 mg/dL (0.55-1.3) H 01/28/20 05:59 Glucose 182 mg/dL (74-106) H 01/28/20 05:59 Phosphorus 3.6 mg/dL (2.5-4.9) 01/28/20 05:59 Magnesium 1.7 mg/dL (1.8-2.4) L 01/28/20 05:59 Total Bilirubin 0.4 mg/dL (0.2-1.0) 01/25/20 14:00 AST 41 U/L (15-37) H 01/25/20 14:00 ALT 50 U/L (12-78) 01/25/20 14:00 Alkaline Phosphatase 118 U/L (45-117) H 01/25/20 14:00 Triglycerides 87 mg/dL (<150) 01/26/20 03:34 Cholesterol 74 mg/dL (<200) 01/26/20 03:34 HDL Cholesterol 28 mg/dL (40-60) L 01/26/20 03:34 Cholesterol/HDL Ratio 2.64 01/26/20 03:34 Home Medications: Apixaban [Eliquis] 5 mg PO BID 08/11/18 Atorvastatin Calcium [Lipitor*] 20 mg PO BEDTIME 08/11/18 Cholecalciferol (Vitamin D3) [Vitamin D3] 5,000 unit PO DAILY 08/11/18 Insulin Aspart (Niacinamide) [Fiasp 100 Unit/ml Vial] 15 unit SQ TIDWM 08/11/18 Insulin Glargine Human [Lantus*] 60 unit SQ BEDTIME 08/11/18 Tamsulosin [Flomax*] 0.4 mg PO BEDTIME 08/11/18 Aspirin [Adult Low Dose Aspirin EC] 1 tab PO DAILY 01/11/19 Cyanocobalamin (Vitamin B-12) [Vitamin B-12] 1,000 mcg PO DAILY 01/11/19 Docusate Sodium [Stool Softener] 1 cap PO DAILY PRN 01/11/19 Magnesium Oxide [Magnesium] 1 tab PO DAILY 01/11/19 Gabapentin 300 mg PO BEDTIME 30 Days #30 capsule 01/12/19 Hydralazine [Apresoline*] 25 mg PO BID 01/25/20 Hydromorphone [Dilaudid*] 4 mg PO BEDTIME PRN 01/25/20 Turmeric/Turmeric Root Extract [Turmeric 500 mg Capsule] 1,000 unit PO DAILY 01/25/20 levoFLOXacin [Levaquin*] 750 mg PO DAILY 01/25/20 Ascorbic Acid [Vitamin C*] 500 mg PO Q12H #30 tablet 01/28/20 Cholecalciferol (Vitamin D3) [Vitamin D 5,000 IU Cap*] 5,000 unit PO DAILY #30 cap 01/28/20 Zinc Sulfate [Zinc Sulfate*] 220 mg PO DAILY #30 cap 01/28/20 predniSONE [Prednisone*] 20 mg PO BID #15 tab 01/28/20 New Medications: predniSONE [Prednisone*] 20 mg PO BID #15 tab Ascorbic Acid [Vitamin C*] 500 mg PO Q12H #30 tablet Cholecalciferol (Vitamin D3) [Vitamin D 5,000 IU Cap*] 5,000 unit PO DAILY #30 cap Zinc Sulfate [Zinc Sulfate*] 220 mg PO DAILY #30 cap Patient Discharge Instructions: OK TO DC IV AND DC HOME ONCE HOME OXYGEN IS ARRANGED. FOLLOW-UP WITH PRIMARY CARE PROVIDER IN 1-2 WEEKS. FOLLOW-UP WITH PULMONARY IN 1-2 WEEKS. RETURN TO THE ER IF SYMPTOMS WORSEN. CALL or TEXT DR. WISDOM AT [phone] IF ANY QUESTIONS REGARDING HOSPITAL STAY. PLEASE CALL THE FLOOR AT [phone] IF ANY MEDICATION OR NURSING QUESTIONS. Diet: ADA Activity: Fall precautions Followup: Kota Vegas DO [Primary Care Provider] -
[2020-01-28] MEDS: CALCITROL 0.25 MCG CAP PO SCH (09:45)
[2020-01-28] MEDS: APIXABAN 5 MG TABLET PO SCH ×2 (09:45→19:59)
[2020-01-28] MEDS: VITAMIN D 5,000 UNIT CAP PO SCH (09:45)
[2020-01-28] MEDS: GABAPENTIN 300 MG CAP PO SCH ×2 (09:45→19:59)
[2020-01-28] MEDS: ZINC SULFATE 220 MG CAP PO SCH (09:45)
[2020-01-28] MEDS: ASPIRIN EC 81 MG TAB PO SCH (09:45)
[2020-01-28] MEDS: TAMSULOSIN 0.4 MG SR CAP PO SCH ×2 (09:45→19:58)
[2020-01-28] MEDS: FOLIC ACID 1 MG in NA CHLORIDE 0.9% 50 ML IV SCH (09:49)
[2020-01-28] MEDS ORDERED: MAGNESIUM SULFATE 1 gm IVPB 1 GM/100 ML BAG IV ONE (10:17)
[2020-01-28] MEDS: ACETAMINOPHEN 325 MG TABLET PO PRN (14:31)
[2020-01-28] MEDS ORDERED: DOCUSATE NA 100 MG CAP PO PRN (15:52)
[2020-01-28] MEDS ORDERED: D50W 25 GM/50 ML SYRINGE IV PRN (15:52)
[2020-01-28] MEDS ORDERED: GLUCAGON 1 MG/VIAL IM PRN (15:52)
[2020-01-28] MEDS ORDERED: HYDROMORPHONE ORAL 4 MG TAB PO PRN (15:52)
[2020-01-28] MEDS: NA CHLORIDE 0.9% 1,000 ML IV SCH (16:02)
--- NOTE | 2020-01-28 16:43 | RAD REPORT ---
EXAM DESCRIPTION: [facility] Single View01/28/2020 4:27 pm CLINICAL HISTORY: Shortness of breath COMPARISON: January 24 FINDINGS: Mild bilateral pulmonary opacities The heart is normal size IMPRESSION: Mild bilateral pulmonary opacities may indicate pneumonia
--- NOTE | 2020-01-28 16:51 | RAD REPORT ---
EXAM DESCRIPTION: CT - Head Brain Wo Cont - 01/28/2020 4:39 pm CLINICAL HISTORY: Alteration of awareness/confusion COMPARISON: 2018 and January 25, 2020 TECHNIQUE: Computed axial tomography of the head was obtained. IV contrast was not requested. All CT scans are performed using dose optimization technique as appropriate and may include automated exposure control or mA/KV adjustment according to patient size. FINDINGS: An intracranial bleed is not seen . The ventricles are normal in caliber. No extra-axial fluid collection is noted. Small low-density area within the left frontal lobe compatible with old infarction. No change in a small low-density area within right internal capsule since January 25, 2020. However it has developed since 2019 Fluid within the sinuses/ mastoids is not seen. IMPRESSION: Small low-density area within the right internal capsule consistent with an infarct whic h has developed since 2019. It is unchanged from January 25, 2020.
[2020-01-28] MEDS: METHYLPREDNISOLONE 40 MG INJ IV SCH (17:16)
[2020-01-28] MEDS: CEFTRIAXONE/SWI 1gm 1 GM/10 ML SYR IV SCH (19:58)
[2020-01-28] MEDS: ATORVASTATIN 20 MG TAB PO SCH (19:59)
[2020-01-28] MEDS: HYDRALAZINE HCL 25 MG TABLET PO SCH (19:59)
[2020-01-28] MEDS ORDERED: ATORVASTATIN 10 MG TAB PO SCH (21:00)
[2020-01-28] MEDS ORDERED: APIXABAN 5 MG TABLET PO SCH (21:00)
[2020-01-28] MEDS ORDERED: TAMSULOSIN 0.4 MG SR CAP PO SCH (21:00)
[2020-01-28] MEDS ORDERED: INSULIN GLARGINE 100 UNITS/ML SQ SCH (21:00)
[2020-01-29] MEDS: METHYLPREDNISOLONE 40 MG INJ IV SCH ×2 (00:52→09:02)
[2020-01-29] MEDS: ASCORBIC ACID 500 MG TABLET PO SCH (05:12)
--- NOTE | 2020-01-29 05:35 | P.PN ---
Subjective Date of Service: 01/28/20 Chief Complaint: CVA Patient with generalized weakness. Patient is much less energetic today. Repeat CT of the brain was unremarkable. Chest x-ray with no significant worsening. Continue with physical therapy. Continue encouraging oral intake. Home oxygen has been arranged. Hopefully we can discharge patient over the next 48 hours. Patient's daughter lives across the street and will be happy to pick him up whenever we medically cleared the patient. Review of Systems 10-point ROS is otherwise unremarkable Physical Examination - Vital Signs Temperature: 98.6 F Blood Pressure: 160/79 Pulse: 81 Respirations: 16 Pulse Ox (%): 92 - Physical Exam General: Alert, In no apparent distress, Oriented x3, Demented, Confused Respiratory: Clear to auscultation bilaterally, Normal air movement Cardiovascular: Regular rate/rhythm, Normal S1 S2 Gastrointestinal: Normal bowel sounds, Soft and benign, Non-distended, No rebound, No guarding Musculoskeletal: No clubbing Neurological: Normal strength at 5/5 x4 extr, Sensation intact, Cranial nerves 3-12 intact - Studies Medications List Reviewed: Yes Assessment & Plan - Problems (Diagnosis) (1) Diabetic neuropathy Current Visit: Yes Status: Chronic Qualifiers: Diabetes mellitus type: type 2 Diabetes mellitus complication detail: diabetic polyneuropathy Qualified Code(s): E11.42 - Type 2 diabetes mellitus with diabetic polyneuropathy (2) Hyperlipidemia Current Visit: Yes Status: Chronic Qualifiers: Hyperlipidemia type: mixed hyperlipidemia Qualified Code(s): E78.2 - Mixed hyperlipidemia (3) Non-insulin dependent diabetes mellitus Current Visit: Yes Status: Chronic (4) COPD (chronic obstructive pulmonary disease) Current Visit: No Status: Acute (5) Osteoarthritis Current Visit: No Status: Acute (6) History of CVA (cerebrovascular accident) Current Visit: No Status: Chronic (7) History of lung cancer Current Visit: No Status: Chronic (8) History of pancreatic cancer Current Visit: No Status: Chronic (9) History of renal cell cancer Current Visit: No Status: Chronic (10) Hypertension Current Visit: No Status: Chronic Qualifiers: Hypertension type: essential hypertension Qualified Code(s): I10 - Essential (primary) hypertension (11) Pneumonia due to COVID-19 virus Current Visit: Yes Status: Acute (12) Hypoxemia Current Visit: Yes Status: Acute - Plan Continue with plan of care per Cardiology and Pulmonary 1. Continue with IV antirivals 2. Altered mental status has improved; slurred speech has resolved; spoke with family and possible discharge in the morning as long his oxygenation does not worsen 3. Repeat chest x-ray if symptoms worsen 4. O2 per protocol 5. Pulmonary consultation 6. Plan to discharge on albuterol inhaler, steroids, vitamin-C, zinc, and oxygen 7. O2 per protocol 8. Repeat labs including D-dimer, ferritin, and CRP and LFTs 9. GI and DVT prophylaxis Discharge Plan: Home Plan to discharge in: 48 Hours - Advance Directives Does patient have a Living Will: No Does patient have a Durable POA for Healthcare: No - Code Status/Comfort Care Code Status: Full Code Critical Care: No Time Spent Managing PTS Care (In Minutes): 35
--- NOTE | 2020-01-29 05:45 | P.PN ---
Date of Service: 01/26/20 Subjective Date of Service: 01/26/20 Patient did well with physical therapy. Patient will need continued treatment plan. Continue with current plan of care. Review of Systems 10-point ROS is otherwise unremarkable Physical Examination - Vital Signs reviewed - Physical Exam General: Alert, In no apparent distress, Oriented x3 Respiratory: Diminished Cardiovascular: Regular rate/rhythm, Normal S1 S2, No murmurs Gastrointestinal: Normal bowel sounds, Soft and benign, Non-distended, No tenderness Musculoskeletal: No tenderness Neurological: Sensation intact, Cranial nerves 3-12 intact - Studies Medications List Reviewed: Yes Assessment & Plan - Problems (Diagnosis) (1) Diabetic neuropathy Current Visit: Yes Status: Chronic Qualifiers: Diabetes mellitus type: type 2 Diabetes mellitus complication detail: diabetic polyneuropathy Qualified Code(s): E11.42 - Type 2 diabetes mellitus with diabetic polyneuropathy (2) Hyperlipidemia Current Visit: Yes Status: Chronic Qualifiers: Hyperlipidemia type: mixed hyperlipidemia Qualified Code(s): E78.2 - Mixed hyperlipidemia (3) Non-insulin dependent diabetes mellitus Current Visit: Yes Status: Chronic (4) COPD (chronic obstructive pulmonary disease) Current Visit: No Status: Acute (5) Osteoarthritis Current Visit: No Status: Acute (6) History of CVA (cerebrovascular accident) Current Visit: No Status: Chronic (7) History of lung cancer Current Visit: No Status: Chronic (8) History of pancreatic cancer Current Visit: No Status: Chronic (9) History of renal cell cancer Current Visit: No Status: Chronic (10) Hypertension Current Visit: No Status: Chronic Qualifiers: Hypertension type: essential hypertension Qualified Code(s): I10 - Essential (primary) hypertension (11) Pneumonia due to COVID-19 virus Current Visit: Yes Status: Acute (12) Hypoxemia Current Visit: Yes Status: Acute - Plan 1. Continue with IV antibiotics 2. Altered mental status has improved; slurred speech has resolved; spoke with family and possible discharge in the morning as long his oxygenation does not worsen 3. Repeat chest x-ray if symptoms worsen 4. O2 per protocol 5. Pulmonary consultation if symptoms worsen 6. Plan to discharge on albuterol inhaler, steroids, vitamin-C, zinc, and oxygen 7. O2 per protocol 8. Repeat labs including D-dimer, ferritin, and CRP and LFTs 9. GI and DVT prophylaxis Discharge Plan: Home Plan to discharge in: Greater than 2 days - Advance Directives Does patient have a Living Will: No Does patient have a Durable POA for Healthcare: No - Code Status/Comfort Care Code Status Assessed: Yes Code Status: Full Code Critical Care: No Time Spent Managing PTS Care (In Minutes): 35
[2020-01-29 06:33] LABS: Basophils % 0.1 % (0-1.3); Hematocrit 39.9 % (39.6-49.0); Lymphocytes % 10.3 % (15.3-44.8); MPV 7.9 fL (7.6-11.3); RBC Red Blood Cell Count 4.46 M/uL (4.33-5.43)
[2020-01-29 06:34] LABS: Absolute Lymphocytes (CBC) 0.5 K/uL (0.7-4.9)
[2020-01-29 06:54] LABS: Albumin 2.6 g/dL (3.4-5.0); Bilirubin Total 0.3 mg/dL (0.2-1.0); Ferritin 464.1 ng/mL (26-388); Magnesium 2.3 mg/dL (1.8-2.4); Phosphorus 3.8 mg/dL (2.5-4.9); Potassium 4.6 mmol/L (3.5-5.1); Protein, Total 6.4 g/dL (6.4-8.2)
--- NOTE | 2020-01-29 07:16 | P.PN ---
Date of Service: 01/28/20 Vital Signs Temp Pulse Resp BP Pulse Ox 98.6 F 81 16 160/79 H 92 01/29/20 05:35 01/29/20 05:35 01/29/20 05:35 01/29/20 05:35 01/29/20 05:35 Medications Acetaminophen (Acetaminophen 325 Mg Tablet) 650 mg PO Q6H PRN PRN Reason: TEMP > 100' F Stop: 02/25/20 20:24 Last Admin: 01/28/20 14:31 Dose: 650 mg Documented by: Apixaban (Apixaban 5 Mg Tablet) 5 mg PO BID [facility]ION Stop: 02/24/20 21:01 Last Admin: 01/28/20 19:59 Dose: 5 mg Documented by: Ascorbic Acid (Ascorbic Acid 500 Mg Tablet) 500 mg PO Q12H [facility] Stop: 02/25/20 18:01 Last Admin: 01/29/20 05:12 Dose: 500 mg Documented by: Aspirin (Aspirin Ec 81 Mg Tab) 81 mg PO DAILY [facility] Stop: 02/25/20 09:01 Last Admin: 01/28/20 09:45 Dose: 81 mg Documented by: Atorvastatin Calcium (Atorvastatin 20 Mg Tab) 40 mg PO BEDTIME [facility] Stop: 02/24/20 21:01 Last Admin: 01/28/20 19:59 Dose: 40 mg Documented by: Calcitriol (Calcitrol 0.25 Mcg Cap) 0.5 mcg PO DAILY [facility] Stop: 02/26/20 09:01 Last Admin: 01/28/20 09:45 Dose: 0.5 mcg Documented by: Cholecalciferol (Vitamin D 5,000 Unit Cap) 5,000 unit PO DAILY [facility] Stop: 02/28/20 09:01 Dextrose (D50w 25 Gm/50 Ml Syringe) 12.5 gm IV PRN PRN; Protocol PRN Reason: HYPOGLYCEMIA Stop: 02/27/20 15:53 Docusate Sodium (Docusate Na 100 Mg Cap) 100 mg PO DAILY PRN PRN Reason: CONSTIPATION Stop: 02/27/20 15:53 Gabapentin (Gabapentin 300 Mg Cap) 300 mg PO BID [facility] Stop: 02/24/20 21:01 Last Admin: 01/28/20 19:59 Dose: 300 mg Documented by: Glucagon (Glucagon 1 Mg/Vial) 1 mg IM 1X PRN; Protocol PRN Reason: HYPOGLYCEMIA Stop: 02/27/20 15:53 Home Med (Cyanocobalamin (Vitamin B-12) [Vitamin B-12]) 1,000 mcg PO DAILY [facility] Stop: 02/28/20 09:01 Home Med (Magnesium Oxide [Magnesium]) 1 tab PO DAILY [facility] Stop: 02/28/20 09:01 Home Med (Turmeric/Turmeric Root Extract [Turmeric 500 Mg Capsule]) 1,000 unit PO DAILY [facility] Stop: 02/28/20 09:01 Hydralazine HCl (Hydralazine Hcl 25 Mg Tablet) 25 mg PO BID [facility] Stop: 02/27/20 21:01 Last Admin: 01/28/20 19:59 Dose: Not Given Documented by: Hydromorphone HCl (Hydromorphone Oral 4 Mg Tab) 4 mg PO BEDTIME PRN PRN Reason: Pain scale 5-7 (Moderate) Stop: 02/27/20 15:53 Folic Acid 1 mg/ Sodium (Chloride) 50.2 mls @ 200 mls/hr IV DAILY [facility] Stop: 02/25/20 09:01 Last Admin: 01/28/20 09:49 Dose: 50.2 mls Documented by: Sodium Chloride (Ns 1000 Ml Ivbag) 1,000 mls @ 50 mls/hr IV .Q20H [facility] Stop: 02/27/20 16:01 Last Admin: 01/28/20 16:02 Dose: 1,000 mls Documented by: Ceftriaxone Sodium/Sodium Chloride (Rocephin 1 Gm/10 Ml Swi Ivp) 1 gm in 10 mls @ 20 mls/hr IV Q12HR [facility]; Protocol Stop: 02/27/20 21:01 Last Admin: 01/28/20 19:58 Dose: 10 mls Documented by: Insulin Glargine (Insulin Glargine 100 Units/Ml) 60 units SQ BEDTIME [facility] Stop: 02/27/20 21:01 Last Admin: 01/28/20 19:58 Dose: 60 units Documented by: Methylprednisolone Sodium Succinate (Methylprednisolone 40 Mg Inj) 40 mg IV Q8HR [facility] Stop: 02/27/20 17:01 Last Admin: 01/29/20 00:52 Dose: 40 mg Documented by: Ondansetron HCl (Ondansetron 4 Mg/2 Ml Vial) 4 mg IV Q6HP PRN PRN Reason: NAUSEA / VOMITING Stop: 02/24/20 20:14 Sodium Chloride (Flush Normal Saline 10 Ml) 10 ml IV BID [facility] Stop: 02/24/20 21:01 Last Admin: 01/28/20 19:59 Dose: 10 ml Documented by: Tamsulosin HCl (Tamsulosin 0.4 Mg Sr Cap) 0.4 mg PO BID [facility] Stop: 02/25/20 21:01 Last Admin: 01/28/20 19:58 Dose: 0.4 mg Documented by: Zinc Sulfate (Zinc Sulfate 220 Mg Cap) 220 mg PO DAILY [facility] Stop: 02/26/20 09:01 Last Admin: 01/28/20 09:45 Dose: 220 mg Documented by: Zolpidem Tartrate (Zolpidem Tartrate 5 Mg Tablet) 5 mg PO BEDTIME PRN PRN PRN Reason: INSOMNIA Stop: 02/24/20 20:14 Last Admin: 01/26/20 00:45 Dose: 5 mg Documented by: Assessment/ Plan: Nephrology Dyspnea with cough. Severe Malaise and weakness. No acute events overnight. Vitals, medications, blood work and imaging reviewed in the chart. General: In no apparent distress, Cooperative HEENT: Atraumatic Neck: Supple Respiratory: Clear to auscultation bilaterally Cardiovascular: No edema, Regular rate/rhythm Gastrointestinal: Soft and benign, Non-distended Musculoskeletal: No clubbing, No contractures Integumentary: No rashes, No cyanosis Neurological: Abnormal speech Blood work reviewed in the chart. Imagings Data: EXAM DESCRIPTION: [facility] Single View01/25/2020 3:25 pm CLINICAL HISTORY: Slurred speech COMPARISON: 2019 FINDINGS: Left base is hazy but is without significant change from the prior exam. It probably represents combination of calcification of the costal cartilage and pericardial fat. Infiltrate is considered less likely. If the patient continues have symptoms to suggest an infiltrate then PA and lateral chest series would be recommended Right lung appears clear. Heart is normal size EXAM DESCRIPTION: CT - Head Brain Wo Cont - 01/25/2020 2:12 pm CLINICAL HISTORY: Slurred speech COMPARISON: 2019 TECHNIQUE: Computed axial tomography of the head was obtained. IV contrast was not requested. All CT scans are performed using dose optimization technique as appropriate and may include automated exposure control or mA/KV adjustment according to patient size. FINDINGS: An intracranial bleed is not seen . The ventricles are normal in caliber. No extra-axial fluid collection is noted. Low-density within the left frontal lobe white matter compatible with old infarction. Mild low-density within periventricular, deep and subcortical white matter consistent with ischemic changes secondary to small vessel disease. Small low-density area within right internal capsule. Fluid within the sinuses/ mastoids is not seen. IMPRESSION: Small low-density area within the right internal capsule probably a lacunar infarction of indeterminate age. 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 Gentle IVF. Replete potassium prn. Continue Vitamin C, D and Zinc. Oxygen supplementation prn. Encourage nutrition. No NSAIDs. AM labs. Daily weight.
[2020-01-29 08:08] VITALS: BP 120/67; TEMP 97.5
--- NOTE | 2020-01-29 08:35 | RAD REPORT ---
EXAM DESCRIPTION: RAD - Chest Single View - 01/29/2020 6:04 am CLINICAL HISTORY: pneumonia COMPARISON: January 27, January 24 TECHNIQUE: AP portable chest image was obtained 01/29/2020 6:04 am . FINDINGS: Mild alveolar opacities are present in the lung mock not significantly different from th e prior day study. No clearly progressive lung process. Heart and vasculature are normal. No measurab le pleural effusion and no pneumothorax. IMPRESSION: Stable chest from prior day imaging.
[2020-01-29] MEDS: FOLIC ACID 1 MG in NA CHLORIDE 0.9% 50 ML IV SCH (08:58)
[2020-01-29] MEDS: CEFTRIAXONE/SWI 1gm 1 GM/10 ML SYR IV SCH (08:59)
[2020-01-29] MEDS ORDERED: HOME MED 1 EA UNK (Magnesium Oxide [Magnesium] 250 MG Tablet) PO SCH (09:00)
[2020-01-29] MEDS: CALCITROL 0.25 MCG CAP PO SCH (09:00)
[2020-01-29] MEDS: ASPIRIN EC 81 MG TAB PO SCH (09:00)
[2020-01-29] MEDS ORDERED: TURMERIC PO SCH (09:00)
[2020-01-29] MEDS ORDERED: TURMERIC ROOT EXTRACT PO SCH (09:00)
[2020-01-29] MEDS ORDERED: ASPIRIN EC 81 MG TAB PO SCH (09:00)
[2020-01-29] MEDS: HYDRALAZINE HCL 25 MG TABLET PO SCH ×2 (09:00→09:01)
[2020-01-29] MEDS ORDERED: HOME MED 1 EA UNK (Cyanocobalamin (Vitamin B-12) [Vitamin B-12] 1,000 MCG Capsule) PO SCH (09:00)
[2020-01-29] MEDS: ZINC SULFATE 220 MG CAP PO SCH (09:00)
[2020-01-29] MEDS ORDERED: VITAMIN D 5,000 UNIT CAP PO SCH (09:00)
[2020-01-29] MEDS: TAMSULOSIN 0.4 MG SR CAP PO SCH (09:00)
[2020-01-29] MEDS: GABAPENTIN 300 MG CAP PO SCH (09:00)
[2020-01-29] MEDS: APIXABAN 5 MG TABLET PO SCH (09:01)
[2020-01-29] MEDS ORDERED: GLUCAGON 1 MG/VIAL IM PRN ×2 (09:12→09:13)
[2020-01-29] MEDS ORDERED: D50W 25 GM/50 ML SYRINGE IV PRN ×2 (09:12→09:13)
[2020-01-29] MEDS ORDERED: INSULIN GLARGINE 100 UNITS/ML SQ SCH (09:14)
[2020-01-29] MEDS ORDERED: MAGNESIUM OXIDE 400 MG TAB PO SCH (10:00)
[2020-01-29] MEDS ORDERED: CYANOCOBALAMIN 1,000 MCG TAB PO SCH (10:00)
[2020-01-29] MEDS: NA CHLORIDE 0.9% 1,000 ML IV SCH (10:01)
--- NOTE | 2020-01-29 10:37 | P.PN ---
Subjective Date of Service: 01/29/20 Primary Care Provider: Dr. Vegas Chief Complaint: CVA Subjective: No new changes, No C/O voiced Review of Systems 10-point ROS is otherwise unremarkable Physical Examination - Vital Signs Temperature: 97.5 F Blood Pressure: 120/67 Pulse: 66 Respirations: 18 Pulse Ox (%): 94 - Physical Exam General: Alert, In no apparent distress HEENT: Atraumatic, Normocephalic Neck: Supple Respiratory: Diminished Cardiovascular: Regular rate/rhythm, Normal S1 S2 Capillary refill: <2 Seconds Gastrointestinal: Soft and benign, Non-distended Musculoskeletal: No clubbing, No swelling Integumentary: No rashes Neurological: Normal speech Lymphatics: No axilla or inguinal lymphadenopathy - Studies Medications List Reviewed: Yes Assessment & Plan - Problems (Diagnosis) (1) Cerebral vascular accident Current Visit: Yes Status: Acute Qualifiers: CVA mechanism: unspecified Qualified Code(s): I63.9 - Cerebral infarction, unspecified (2) Hypoxemia Current Visit: Yes Status: Acute (3) Pneumonia due to COVID-19 virus Current Visit: Yes Status: Acute (4) Diabetic neuropathy Current Visit: Yes Status: Chronic Qualifiers: Diabetes mellitus type: type 2 Diabetes mellitus complication detail: diabetic polyneuropathy Qualified Code(s): 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 (5) Hyperlipidemia Current Visit: Yes Status: Chronic Qualifiers: Hyperlipidemia type: mixed hyperlipidemia Qualified Code(s): E78.2 - Mixed hyperlipidemia (6) Non-insulin dependent diabetes mellitus Current Visit: Yes Status: Chronic (7) Aphasia Current Visit: No Status: Acute (8) COPD (chronic obstructive pulmonary disease) Current Visit: No Status: Acute (9) Osteoarthritis Current Visit: No Status: Acute (10) TIA (transient ischemic attack) Current Visit: No Status: Acute (11) Coronary artery disease Current Visit: No Status: Chronic (12) History of CVA (cerebrovascular accident) Current Visit: No Status: Chronic (13) History of lung cancer Current Visit: No Status: Chronic (14) History of pancreatic cancer Current Visit: No Status: Chronic (15) History of renal cell cancer Current Visit: No Status: Chronic (16) Hypertension Current Visit: No Status: Chronic Qualifiers: Hypertension type: essential hypertension Qualified Code(s): I10 - Essential (primary) hypertension (17) Right leg weakness Current Visit: No Status: Chronic Physician Review Additional Text: Monitor closely under telemetry Appreciate help from nephrology, cardiology and pulmonology Altered mental status has improved; slurred speech has resolved; Repeat chest x-ray if symptoms worsen O2 per protocol Pulmonary consultation Plan to discharge on albuterol inhaler, steroids, vitamin-C, zinc, and oxygen GI and DVT prophylaxis disposition: patient wanted go home with home O2 PT eval pending Possible Dc with follow up with pulmonology and Neurology if cleared by PT and adequate oxygenation Time Spent Managing Pts Care (In Minutes): 42
[2020-01-29] MEDS ORDERED: INSULIN -REGULAR HUMAN 50 UNIT/0.5 ML ML SQ SCH (11:30)
--- NOTE | 2020-01-29 12:03 | P.DS ---
Admission Date: 01/25/20 Discharge Date: 01/29/20 Primary Care Provider: Dr. Vegas Disposition: ROUTINE DISCHARGE Discharge Condition: GOOD Reason for Admission: CVA Brief History of Present Illness: 79-year-old male with a history of [id number]-pwoirbzzw diabetes mellitus, hypertension, cerebral vascular accident. Patient presented to the emergency room today for acute onset of slurred speech and ataxia that started at 9:00 a.m. this morning. Patient was received to the emergency room at 1:33 p.m. this afternoon. Patient was worked up in the emergency room for acute CVA as patient had an initial NIH scale of 3 documented by emergency provider. Patient was found to have on CT head without contrast old frontal lobe and lacunar infarct. No new changes on CT. Other notable labs was a 2.14 creatinine which is somewhat around baseline for patient. Medicine was consulted at that time for admission for suspected CVA. Upon assessment in the emergency room by myself. Patient still had speech deficit and visual deficit noted on neurologic examination. No new changes otherwise and no other focal deficits noted. Hospital Course: Patient was admitted and was monitored closely under telemetry. Patient had a CT which was showing small low density in the right internal capsule consistent with infarct Patient was started on antiplatelet along with statin. Patient also found to have hypoxic respiratory failure . his covid test came back positive and was started on steroids as well with other supplements and oxygen supplementation. Patient underwent a PTOT evaluation and pulmonology was consulted Altered mental status has improved; slurred speech has resolved; Case management was consulted and home oxygen was arranged. Patient wanted go home and is being discharged home today in a stable condition with advice to follow up with PCP in 1 week and also with neurology and pulmonology as outpatient Vital Signs/Physical Exam: Temp Pulse Resp BP Pulse Ox 97.5 F 66 18 120/67 94 01/29/20 10:37 01/29/20 10:37 01/29/20 10:37 01/29/20 10:37 01/29/20 10:37 General: Alert, In no apparent distress HEENT: Atraumatic, Normocephalic Neck: Supple Respiratory: Diminished Cardiovascular: Regular rate/rhythm, Normal S1 S2 Capillary refill: <2 Seconds Gastrointestinal: Soft and benign, Non-distended Musculoskeletal: No clubbing, No swelling Integumentary: No rashes Neurological: Normal speech Lymphatics: No axilla or inguinal lymphadenopathy Laboratory Data at Discharge: WBC 4.5 K/uL (4.3-10.9) 01/29/20 06:18 Hgb 13.0 g/dL (13.6-17.9) L 01/29/20 06:18 Hct 39.9 % (39.6-49.0) 01/29/20 06:18 Plt Count 81 K/uL (152-406) L 01/29/20 06:18 PT 15.8 SECONDS (9.5-12.5) H 01/25/20 14:00 INR 1.35 01/25/20 14:00 Sodium 138 mmol/L (136-145) 01/29/20 06:18 Potassium 4.6 mmol/L (3.5-5.1) 01/29/20 06:18 BUN 34 mg/dL (7-18) H 01/29/20 06:18 Creatinine 1.46 mg/dL (0.55-1.3) H 01/29/20 06:18 Glucose 276 mg/dL (74-106) H 01/29/20 06:18 Phosphorus 3.8 mg/dL (2.5-4.9) 01/29/20 06:18 Magnesium 2.3 mg/dL (1.8-2.4) D 01/29/20 06:18 Total Bilirubin 0.3 mg/dL (0.2-1.0) 01/29/20 06:18 AST 33 U/L (15-37) 01/29/20 06:18 ALT 44 U/L (12-78) 01/29/20 06:18 Alkaline Phosphatase 96 U/L (45-117) 01/29/20 06:18 Triglycerides 87 mg/dL (<150) 01/26/20 03:34 Cholesterol 74 mg/dL (<200) 01/26/20 03:34 HDL Cholesterol 28 mg/dL (40-60) L 01/26/20 03:34 Cholesterol/HDL Ratio 2.64 01/26/20 03:34 Home Medications: Apixaban [Eliquis] 5 mg PO BID 08/11/18 Atorvastatin Calcium [Lipitor*] 20 mg PO BEDTIME 08/11/18 Cholecalciferol (Vitamin D3) [Vitamin D3] 5,000 unit PO DAILY 08/11/18 Insulin Aspart (Niacinamide) [Fiasp 100 Unit/ml Vial] 15 unit SQ TIDWM 08/11/18 Insulin Glargine Human [Lantus*] 60 unit SQ BEDTIME 08/11/18 Tamsulosin [Flomax*] 0.4 mg PO BEDTIME 08/11/18 Aspirin [Adult Low Dose Aspirin EC] 1 tab PO DAILY 01/11/19 Cyanocobalamin (Vitamin B-12) [Vitamin B-12] 1,000 mcg PO DAILY 01/11/19 Docusate Sodium [Stool Softener] 1 cap PO DAILY PRN 01/11/19 Magnesium Oxide [Magnesium] 1 tab PO DAILY 01/11/19 Gabapentin 300 mg PO BEDTIME 30 Days #30 capsule 01/12/19 Hydralazine [Apresoline*] 25 mg PO BID 01/25/20 Hydromorphone [Dilaudid*] 4 mg PO BEDTIME PRN 01/25/20 Turmeric/Turmeric Root Extract [Turmeric 500 mg Capsule] 1,000 unit PO DAILY 01/25/20 levoFLOXacin [Levaquin*] 750 mg PO DAILY 01/25/20 Ascorbic Acid [Vitamin C*] 500 mg PO Q12H #30 tablet 01/28/20 Cholecalciferol (Vitamin D3) [Vitamin D 5,000 IU Cap*] 5,000 unit PO DAILY #30 cap 01/28/20 Zinc Sulfate [Zinc Sulfate*] 220 mg PO DAILY #30 cap 01/28/20 predniSONE [Prednisone*] 20 mg PO BID #15 tab 01/28/20 New Medications: predniSONE [Prednisone*] 20 mg PO BID #15 tab Ascorbic Acid [Vitamin C*] 500 mg PO Q12H #30 tablet Cholecalciferol (Vitamin D3) [Vitamin D 5,000 IU Cap*] 5,000 unit PO DAILY #30 cap Zinc Sulfate [Zinc Sulfate*] 220 mg PO DAILY #30 cap Patient Discharge Instructions: OK TO DC IV AND DC HOME ONCE HOME OXYGEN IS ARRANGED. FOLLOW-UP WITH PRIMARY CARE PROVIDER IN 1-2 WEEKS. FOLLOW-UP WITH PULMONARY IN 1-2 WEEKS. RETURN TO THE ER IF SYMPTOMS WORSEN. CALL or TEXT DR. WISDOM AT [phone] IF ANY QUESTIONS REGARDING HOSPITAL STAY. PLEASE CALL THE FLOOR AT [phone] IF ANY MEDICATION OR NURSING QUESTIONS. Diet: ADA Activity: Fall precautions Followup: Kota Vegas DO [Primary Care Provider] - 1-2 Weeks (Call to schedule an appointment )
[2020-01-29 12:17] VITALS: O2SAT 95
== END 2020-01-29 13:55 | disposition home health service (06) | DRG 64 ==
LOC: ER 13:31 → ERHOLD 19:15 → 2ND 20:03 → 4TH 01-26 15:37
PROVIDERS: ADMIT Hospitalist; ATTEND Hospitalist
DX: I63.9 Cerebral infarction, unspecified (principal); U07.1 COVID-19; J12.89 Other viral pneumonia; J44.0 Chronic obstructive pulmonary disease with (acute) lower respiratory infection; N17.9 Acute kidney failure, unspecified; E44.0 Moderate protein-calorie malnutrition; K21.9 Gastro-esophageal reflux disease without esophagitis; E86.1 Hypovolemia; G47.33 Obstructive sleep apnea (adult) (pediatric); N40.1 Benign prostatic hyperplasia with lower urinary tract symptoms; E87.6 Hypokalemia; E83.51 Hypocalcemia; F03.90 Unspecified dementia, unspecified severity, without behavioral disturbance, psychotic disturbance, mood disturbance, and anxiety; M19.90 Unspecified osteoarthritis, unspecified site; E78.2 Mixed hyperlipidemia; I12.9 Hypertensive chronic kidney disease with stage 1 through stage 4 chronic kidney disease, or unspecified chronic kidney disease; N18.30 Chronic kidney disease, stage 3 unspecified; E11.22 Type 2 diabetes mellitus with diabetic chronic kidney disease; E11.42 Type 2 diabetes mellitus with diabetic polyneuropathy; R53.1 Weakness; R47.01 Aphasia; R47.81 Slurred speech; R29.703 NIHSS score 3; R27.0 Ataxia, unspecified; Z86.14 Personal history of Methicillin resistant Staphylococcus aureus infection; Z85.07 Personal history of malignant neoplasm of pancreas; Z90.49 Acquired absence of other specified parts of digestive tract; Z87.891 Personal history of nicotine dependence; Z85.528 Personal history of other malignant neoplasm of kidney; Z79.4 Long term (current) use of insulin; Z79.82 Long term (current) use of aspirin; Z88.5 Allergy status to narcotic agent; Z79.01 Long term (current) use of anticoagulants; Z86.73 Personal history of transient ischemic attack (TIA), and cerebral infarction without residual deficits; Z79.52 Long term (current) use of systemic steroids; Z79.899 Other long term (current) drug therapy; Z68.24 Body mass index [BMI] 24.0-24.9, adult
CPT/HCPCS: 36415; 70450; 71045; 80048; 80053; 80061; 80076; 82728; 82947; 83605; 83735; 83880; 84100; 84145; 84436; 84439; 84443; 84484; 85025; 85379; 85610; 86140; 93005; 93306; 94760; 96365; 97110; 97112; 97116; 97161; 97530; 99285; J0696; J1100; J1630; J1815; J2920; J3475; J7030; U0003